=== PATIENT | female | born 1955 | race Caucasian/White ===

== ENCOUNTER 2019-11-14 14:04 | Outpatient (CLI) | payer OTHER, SELFPAY ==
[2019-11-14 14:57] LABS: Cholesterol 134 mg/dL (0-200); HDL Direct 80 mg/dL; Triglycerides 107 mg/dL (<150)
[2019-11-14 15:00] LABS: Alanine Aminotransferase 32 U/L (4-35); Albumin Level 4.2 g/dL (3.5-5.1); Alkaline Phosphatase 57 U/L (38-126); Aspartate Amino Transferase 32 U/L (14-36); Bilirubin,Total 0.4 mg/dL (0.2-1.3); Blood Urea Nitrogen 12 mg/dL (7-17); Calcium 10.4 mg/dL (8.4-10.2); Carbon Dioxide 30 mmol/L (22-30); Chloride 105 mmol/L (98-107); Estimated Glomerular Filt Rate > 60; Glucose 86 mg/dL (65-105); Sodium 138 mmol/L (137-145)
[2019-11-14 15:08] LABS: LDL Cholesterol Direct 45 mg/dL
== END 2019-11-14 14:05 | disposition home or self-care (01) ==
PROVIDERS: PCP Internal Medicine; Visit Provider Internal Medicine
DX: E78.2 Mixed hyperlipidemia (principal); Z79.899 Other long term (current) drug therapy
CPT/HCPCS: 36415; 80053; 80061

== ENCOUNTER 2020-01-08 10:55 | Outpatient (CLI) | payer OTHER, SELFPAY ==
[2020-01-08 11:29] LABS: Alanine Aminotransferase 34 U/L (4-35); Albumin Level 4.3 g/dL (3.5-5.1); Alkaline Phosphatase 60 U/L (38-126); Aspartate Amino Transferase 33 U/L (14-36); Bilirubin,Total 0.3 mg/dL (0.2-1.3); Blood Urea Nitrogen 13 mg/dL (7-17); Calcium 9.9 mg/dL (8.4-10.2); Carbon Dioxide 30 mmol/L (22-30); Chloride 106 mmol/L (98-107); Cholesterol 130 mg/dL (0-200); Estimated Glomerular Filt Rate > 60; Glucose 97 mg/dL (65-105); HDL Direct 71 mg/dL; Potassium 3.9 mmol/L (3.4-5.0); Sodium 138 mmol/L (137-145); Triglycerides 169 mg/dL (<150)
[2020-01-08 11:40] LABS: LDL Cholesterol Direct 46 mg/dL
== END 2020-01-08 10:56 | disposition home or self-care (01) ==
PROVIDERS: PCP Internal Medicine; Visit Provider Internal Medicine
DX: Z79.899 Other long term (current) drug therapy (principal); E78.2 Mixed hyperlipidemia
CPT/HCPCS: 36415; 80053; 80061

== ENCOUNTER → 2020-04-23 08:52 | Outpatient (CLI) | payer OTHER, SELFPAY ==
--- NOTE | ~2020-04-23 | DEXA_ITS ---
Bone Density Report Name: Frederick Rondon Age: 64 Sex: Female Ethnicity: White Date of : 1955 Indication: monitoring treatment; height loss; hysterectomy; Referring Provider: Marcie, Anusha Chand Study: Bone densitometry was performed. Exam Date: April 23, 2020 Accession number: [id number] Bone Density: Region BMD T-score Z-score Classification AP Spine (L1, L2, L3) 1.170 1.4 2.9 Normal Femoral Neck (Left) 0.828 -0.2 1.2 Normal Total Hip (Left) 1.080 1.1 2.2 Normal Femoral Neck (Right) 0.870 0.2 1.6 Normal Total Hip (Right) 1.131 1.5 2.6 Normal Total Hip Mean 1.106 1.3 2.4 Normal World Health Organization criteria for BMD impression classify patients as: Normal (T-score at or above -1.0), Osteopenia (T-score between -1.0 and -2.5), or Osteoporosis (T-score at or below -2.5). 10-year Fracture Risk: FRAX not reported because: All T-scores for Spine Total, Hip Total, Femoral Neck at or above -1.0 Treated for osteoporosis Previous Exams: Region Exam Age BMD T-score BMD Change BMD Change Date g/cm2 vs Baseline vs Previous AP Spine(L1, L2, L3) 04/23/2020 64 1.170 1.4 0.083* 0.083* 04/21/2016 60 1.088 0.6 Total Hip(Left) 04/23/2020 64 1.080 1.1 0.020 0.020 04/21/2016 60 1.060 1.0 Total Hip(Right) 04/23/2020 64 1.131 1.5 0.028* 0.028* 04/21/2016 60 1.103 1.3 *Denotes significance at 95% confidence level, LSC for AP Spine = 0.022 g/cm2, LSC for Total Hip = 0.027 g/cm2 Clinical Information Provided by Patient: Is being treated for osteoporosis Has used the following medications: HRT (i.e. estrogen/hormone therapy), mtv Has the following medical conditions: Hysterectomy Patient maximum height was 72 Menopause Age: 28 Drinks caffeinated beverages Onset of menses at age 15 Number of children 2 Missed period for more than 6 months in a row Impression: The patient has normal bone mass. No significant bone loss was observed. Discussion: PATIENT UNDER TREATMENT WITH NO SIGNIFICANT BMD LOSS SINCE LAST EXAM. In an untreated patient, BMD typically declines with age. A lack of decline or gain is usually a sign that treatment is efficacious and fracture risk is reduced. It is important to ask patients whether they are taking their medications and to encourage continued and appropriate compliance with their osteoporosis therapies to reduce fracture risk. It is also
--- NOTE | ~2020-04-23 | US_ITS ---
US breast BI complete 04/23/2020 09:43 Indication: Screening. Patient states the breast implants did not allow her to have mammography. [address] ultrasound for cancer screening is not recommended by the [place] [employer] and approp riateness criteria. Recommend bilateral mammogram. Procedure: High-resolution bilateral breast ultrasound Comparison: Comparison to multiple prior studies sequentially, with oldest reviewed study dated 09/2015. Findings: Right breast ultrasound: At 12:00, 5 cm from the nipple, there is an oval circumscribed hypoechoic mass with parallel orientat ion, no posterior features measuring 9 mm maximum dimension. No change. At 1:00, 5 cm from the nipple , there is an oval hypoechoic mass with central echogenicity measuring 7 x 2 x 7 mm. No internal vasc ularity or significant posterior features. This is likely benign intramammary lymph node. Left breast ultrasound: At 12:00, 3 cm from the nipple, there is an oval hypoechoic mass measuring 4 mm without posterior fea tures, internal vascularity and with parallel orientation. At 2:00, 5 cm from the nipple, there is a 4 mm oval hypoechoic mass, likely complicated cysts. At 2:00, 5 cm from the nipple, there is an oval circumscribed hypoechoic mass with parallel orientation, no posterior features measuring 6 mm. At 9:0 0, 4 cm from the nipple, there is a 6 mm oval hypoechoic mass with parallel orientation, no posterior features measuring 5 mm. There is an adjacent 4 mm mass with similar sonographic characteristics. Impression: 1: No significant change to benign-appearing bilateral breast masses. Routine yearly screening mammogram and regular clinical breast examination are recommended. BI-RADS CATEGORY 0 - INCOMPLETE STUDY, NEED ADDITIONAL IMAGING EVALUATION. Reviewed, dictated and finalized at location A. Impression: 1: No significant change to benign-appearing bilateral breast masses. Routine yearly screening mammogram and regular clinical breast examination are recommended. BI-RADS CATEGORY 0 - INCOMPLETE STUDY, NEED ADDITIONAL IMAGING EVALUATION.
== END ==
PROVIDERS: Visit Provider Nurse Practitioner Obstetrics & Gynecology
DX: Z13.820 Encounter for screening for osteoporosis (principal); R92.2 Inconclusive mammogram
CPT/HCPCS: 76641; 77080

== ENCOUNTER 2020-07-12 01:28 | Outpatient (CLI) | payer OTHER, SELFPAY ==
[2020-07-12 18:31] LABS: SARS-CoV-2 RNA PCR Negative
== END 2020-07-12 01:29 | disposition home or self-care (01) ==
LOC: ANHCOVIDDT 01:29
PROVIDERS: PCP Internal Medicine; Visit Provider Surgery
DX: Z01.812 Encounter for preprocedural laboratory examination (principal); Z20.828 Contact with and (suspected) exposure to other viral communicable diseases
CPT/HCPCS: 87635; C9803; U0003

== ENCOUNTER 2020-07-16 02:03 | Day surgery (SDC) | payer OTHER, SELFPAY ==
[2020-07-02 09:09] VITALS: BMI 24.7
[2020-07-16] VITALS (7 sets, daily range): BP systolic 101–148; BP diastolic 59–69; PULSE 58–85; RESP 16–17; TEMP 36.2–36.7; O2SAT 95–100; BMI 24.6
[2020-07-16] MEDS: LACTATED RINGERS 1,000 ML 30 ML IV CONT ×2 (11:07→14:25)
[2020-07-16] MEDS: ACETAMINOPHEN 500 MG TABLET 1000 MG PO (11:08)
[2020-07-16] MEDS: KETOROLAC 15 MG/ML VIAL (*BKC) IV PUSH (11:08)
--- NOTE | 2020-07-16 11:52 | WPDANESEPPF ---
Anes - Initial Pre Proc Eval Procedure: Operation Date: 07/16/20 12:30 Proposed Procedures p Open Incarcerated Incisional Hernia Repair With Mesh - Prabhjot Pringle DO Date/Time: 07/16/20 11:52 Surgeon: Prabhjot Pringle DO Pre Op Diagnosis: Incarcerated Incisional Hernia Patient Data Age: 64 Gender: F Height: 5 ft 10 in Weight: 78 kg Last Vital Signs Temp 36.7 C 07/16/20 10:41 Pulse 58 L 07/16/20 10:41 Resp 16 07/16/20 10:41 BP 122/66 07/16/20 10:41 Pulse Ox 100 07/16/20 10:41 Allergies Allergy/AdvReac Type Severity Reaction Status Date / Time Penicillins Allergy Severe Swelling Verified 07/16/20 10:50 of Lip/Tongue/Throat Sulfa (Sulfonamide Allergy Severe Swelling Verified 07/16/20 10:50 Antibiotics) Home Medications Medication Instructions Recorded Confirmed Type estradiol 1 mg tablet 1 mg PO DAILY 08/14/19 07/16/20 History rosuvastatin 20 mg tablet 20 mg PO DAILY #90 tablet 02/18/20 07/16/20 Rx valacyclovir 500 mg tablet 500 mg PO DAILY #90 tablet 03/18/20 07/16/20 Rx tretinoin 0.1 % topical cream 1 applic TOPICAL 3XW PRN #20 gm 04/23/20 07/16/20 Rx erenumab-aooe 140 mg/mL 140 mg SUB-Q MONTHLY #3 ml 04/28/20 07/16/20 Rx subcutaneous auto-injector zolpidem 10 mg tablet 10 mg PO .COMPLEX PRN #90 tablet 05/12/20 07/16/20 Rx rimegepant 75 mg disintegrating 75 mg PO ONCE PRN #15 tablet 05/21/20 07/16/20 Rx tablet Patient hx anesthesia problems: none Family hx anesthesia problems: none PMFSH Past Medical History Medical History BMI 25.0-25.9,adult Elevated homocysteine Encounter for preventive health examination Encounter for routine adult health examination without abnormal findings Hormone replacement therapy (HRT) Hyperlipidemia Insomnia Migraine On half-way drug therapy Pyelonephritis Umbilical hernia Surgical History Surgical History History of appendectomy History of back surgery History of bilateral breast implants History of hysterectomy History of neck surgery History of tonsillectomy Social History Social History Smoking status: Never smoker Alcohol intake: current Substance use: never Living arrangements: with family 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 Questions were solicited and answers provided to the satisfaction of the patient/family/POA.
--- NOTE | 2020-07-16 13:14 | WPDHPUPDATE1 ---
History and Physical Update Update Date/Time: 07/16/20 13:14 History and Physical has been reviewed, including an updated exam of the patient. There are NO changes in the patient's condition. Risks, benefits, and alternatives have been discussed and questions answered. Patient agrees to proceed with procedure.
[2020-07-16] MEDS: CLINDAMYCIN 900 MG/D5W 50 ML 900 MG/50 ML PIGGYBACK 50 MG IVPB (13:29)
--- NOTE | 2020-07-16 13:31 | SUR.PREOP ---
1315; PT STATES SHE DOES NOT NEED TO VOID AGAIN PRIOR TO SURGERY. DR PRUITT NOTIFIED.
--- NOTE | 2020-07-16 13:58 | SUR.OPER ---
Mesh Parietex [id number] Lot [id number], Exp 2024-09-14 umbilical
--- NOTE | 2020-07-16 14:20 | PM.PROC ---
Procedure Note - Detailed Date of procedure: 07/16/20 Pre-op diagnosis: Incarcerated Incisional Hernia Post-op diagnosis: same Procedure performed: Incarcerated incisional hernia repair with Parietex ventral patch Description of procedure: Procedure as well as risks, benefits, and alternatives were discussed with the patient. Written consent was obtained and placed in chart prior to procedure. Patient was brought back to surgical suite. She was placed supine on operating table. She was then intubated by Anesthesia Department. Her abdomen was prepped and draped in sterile fashion using chlorhexidine prep. 0.25% bupivacaine with epinephrine was infiltrated locally around the operative area. A 4 cm curvilinear incision was made just superior to the umbilicus using a 15 blade scalpel. Electrocautery was used for hemostasis and for dissection down through the subcutaneous fat. Hernia sac was encountered and this was carefully freed up from surrounding subcutaneous fat using electrocautery. The hernia sac was freed up all the way down to the level of the fascia, and then it was transected using electrocautery. The hernia sac was excised and sent to the lab for pathology. The umbilical stalk was then lifted off of the fascia with electrocautery. The hernia defect was then measured. This was measuring approximately 10 mm. The decision was made to use a 6.6 cm Parietex ventral patch. The peritoneum was cleared under the fascia circumferentially around the hernia using blunt dissection and electrocautery. Once a wide enough pocket was created for the mesh, the mesh was then placed within this preperitoneal pocket and laid out flat centered on the hernia defect. The mesh appeared to be sitting in proper position. The mesh was then secured at the 4 corners using 0 Ethibond U-stitch trans fascial sutures. Once all 4 sutures were placed, the mesh was lifted up against the abdominal wall and appeared to be properly centered on the hernia defect. The fascia of the hernia defect was then reapproximated over the mesh using 0 Ethibond [id number] sutures. The 4 transfascial sutures were then tied down in place. The repair was inspected and appeared secure. 0.5% bupivacaine with epinephrine was infiltrated around the fascia and subcutaneous space. The umbilical stalk was then reapproximated to the fascia using a 3 0 Vicryl simple interrupted suture. The deep dermis was reapproximated using 3 0 Vicryl simple interrupted sutures, and then the skin was approximated using 4 Monocryl running subcuticular suture. Exofin glue was then applied on top. The patient was then awakened from anesthesia, extubated, and transferred to recovery. Implants: 6.6 cm Parietex Ventral Patch Anesthesia: GETA and local (0.25% bupivacaine with epinephrine) Surgeon: Prabhjot Pringle DO Estimated blood loss (mL): 5 Pathology: yes (Hernia sac) Complications: No immediate complications Condition: stable Disposition: same day Findings: This is a 64-year-old woman who presents with pain and a bulge near her umbilicus. She noticed this about 2 months ago and notices pain that radiates off to the right side of her umbilicus and right lower abdomen. She was noted to have a hernia causing protrusion of the upper portion of her umbilical skin. She has had prior laparoscopic cholecystectomy and hysterectomy and this hernia is likely at a port site. Discussions were made with the patient about her treatment options and decision was made to proceed with open incarcerated incisional hernia repair, possible mesh. Open incarcerated incisional hernia repair was performed. Patient was found to have a 1 cm hernia defect located just superior to her umbilical stalk. The hernia sac was excised and sent to the lab for pathology. The hernia appeared to be incarcerated with omentum and preperitoneal fat. A preperitoneal pocket was created for the mesh placement and a 6.6 cm Parietex ventral patch was alise
== END 2020-07-16 16:00 | disposition home or self-care (01) ==
PROVIDERS: PCP Internal Medicine; Visit Provider Surgery
PROC: 0WQF0ZZ Repair Abdominal Wall, Open Approach (ICD-10-PCS; CPT 49561; principal; 2020-07-16 12:30)
DX: K43.0 Incisional hernia with obstruction, without gangrene (principal); E78.5 Hyperlipidemia, unspecified
CPT/HCPCS: 49561; 49568; 87635; 88302; A9270; C1781; C9803; J1100; J1885; J2250; J2405; J2704; J2710; J3010; J7120; U0003

== ENCOUNTER 2021-03-03 08:01 | Outpatient (CLI) | payer BC, SELFPAY ==
--- NOTE | ~2021-03-03 | US_ITS ---
EXAMINATION: US thyroid EXAM DATE: 03/03/2021 08:20 INDICATION: E83.52 - Hypercalcemia. TECHNIQUE: Multiple grayscale and Doppler images of the thyroid were obtained (by a technologist who performed the scan) and subsequently reviewed. Individual nodules and recommendations may be reporte d in accordance with TI-RADS system as designated by the 2017 ACR White Paper TI-RADS committee. The re is no prior study for comparison. FINDINGS: Right thyroid lobe measures 6.4 x 1.4 x 1.7 cm, the left measuring 5.2 x 0.9 x 1.5 cm. There is relat ively homogeneous thyroid echogenicity with expected amount of vascularity. There are some scattered small thyroid nodules, largest in the right there are lobe measuring 1.2 x 0.6 x 0.9 cm, mixed cystic and solid (1 point), hypoechoic (2 points), wider than tall, smooth well defined margin, without ech ogenic foci, category TR3 for this nodule. Several other nodules much smaller. IMPRESSION: Thyromegaly with several small nodules. Return to clinical follow-up and if additional p alpable abnormality develops a repeat ultrasound can be obtained. Reviewed, dictated and finalized at location A. IMPRESSION: Thyromegaly with several small nodules. Return to clinical follow- up and if additional palpable abnormality develops a repeat ultrasound can be o btained.
== END 2021-03-03 08:02 ==
PROVIDERS: PCP Internal Medicine; Visit Provider Internal Medicine
DX: E83.52 Hypercalcemia (principal); E01.0 Iodine-deficiency related diffuse (endemic) goiter
CPT/HCPCS: 76536

== ENCOUNTER 2021-03-09 09:36 | Outpatient (CLI) | payer BC, SELFPAY ==
--- NOTE | ~2021-03-09 | NM_ITS ---
EXAMINATION: NM parathyroid w imaging DATE: 03/09/2021 13:45 INDICATION: Iodine deficiency relatively diffuse and demonstrate goiter. TECHNIQUE: 19.5 mCi Tc99m sestamibi (Cardiolite) was administered by intravenous route. Anterior imag es of the neck were obtained at 10 minutes and 2.4 hours. Additional delayed SPECT images were obtain ed in axial, sagittal and coronal planes. COMPARISON: Ultrasound dated 03/03/2021 FINDINGS/IMPRESSION: There is no focus of persistent activity in the area of the thyroid or mediastinum to suggest parathy roid adenoma. Reviewed, dictated and finalized at location A.
== END 2021-03-09 09:37 | disposition home or self-care (01) ==
PROVIDERS: PCP Internal Medicine; Visit Provider Internal Medicine
DX: E01.0 Iodine-deficiency related diffuse (endemic) goiter (principal); R93.89 Abnormal findings on diagnostic imaging of other specified body structures
CPT/HCPCS: 78070; A9500

== ENCOUNTER 2021-09-30 08:16 | Outpatient (CLI) | payer OTHER, SELFPAY ==
--- NOTE | ~2021-09-30 | XR_ITS ---
EXAMINATION: XR hip BI 2V w AP pelvis DATE: 09/30/2021 08:51 INDICATION: Left hip pain. TECHNIQUE: An anteroposterior view of the pelvis and 2 views of each hip were obtained. COMPARISON: None. FINDINGS: There is dextrocurvature of lumbar spine. There are changes of anterior fusion procedure at L4-L5. No fracture. There is mild right hip osteoarthritis characterized by a tiny marginal osteophy te. Left hip joint space is normal. IMPRESSION: 1. Mild right hip osteoarthritis. Reviewed, dictated and finalized at location A. ICIAN SURGEON
== END 2021-09-30 08:17 | disposition home or self-care (01) ==
PROVIDERS: PCP Internal Medicine; Visit Provider Internal Medicine
DX: M25.552 Pain in left hip (principal); M16.11 Unilateral primary osteoarthritis, right hip
CPT/HCPCS: 73521

== ENCOUNTER → 2021-10-17 10:30 | Outpatient (CLI) | payer OTHER, SELFPAY ==
--- NOTE | ~2021-10-17 | MR_ITS ---
EXAMINATION: MR hip LT wo con DATE: 10/17/2021 11:35 INDICATION: Left hip pain. TECHNIQUE: Magnetic resonance imaging (MRI) of the left hip was performed without intravenous contras t. Sequences included axial and coronal PD-weighted FS FSE and axial T1-weighted FSE of the pelvis. S equences of the hip included 2D FIESTA, T1-weighted fast GRE, and axial, coronal, and sagittal PD-yogi ghted FS FSE. COMPARISON: Pelvis and hip radiographs 09/30/2021 FINDINGS: Bones/cartilage: Bone alignment is normal. There are changes of anterior fusion procedure at L4-L5 with interbody sarah claudia. Small [id number]-[id number] images of left hip demonstrate partial thickness cartilage loss, worst super olaterally. Labrum: There is a tear of the left acetabular labrum. Fluid: There is no hip joint effusion. There is mild bilateral trochanteric bursitis. Soft tissues: There is mild tendinopathy of left hamstring origin. The iliopsoas tendons are normal. The gluteus mi nimus and gluteus medius tendons are normal. IMPRESSION: 1. Mild left hip chondrosis. 2. Left acetabular labral tear. 3. Mild tendinopathy of left hamstring origin. Reviewed, dictated and finalized at location A. NOLOGY INSTRUCTOR
== END ==
PROVIDERS: PCP Internal Medicine; Visit Provider Orthopaedic Surgery
DX: M25.552 Pain in left hip (principal); M25.852 Other specified joint disorders, left hip; S73.192A Other sprain of left hip, initial encounter
CPT/HCPCS: 73721

== ENCOUNTER 2021-10-29 12:22 | Outpatient (CLI) | payer OTHER, SELFPAY ==
--- NOTE | ~2021-10-29 | US_ITS ---
US pelvic complete w TV DATE: 10/29/2021 13:16 INDICATION: Abdominal and pelvic swelling, mass. History of hysterectomy. TECHNIQUE: Real-time imaging via transabdominal and transvaginal approaches COMPARISON: None FINDINGS: The uterus is surgically absent. The right ovary measures 4.5 x 4.2 x 3.6 cm, with vascular flow. There are 2 sonolucent lesions consi stent with cysts, measuring up to 3.8 cm and 1.6 cm. The left ovary is not visualized. No free pelvic fluid collection is noted. IMPRESSION: Status post hysterectomy Left ovary is not visualized 3.8 and 1.6 cm right ovarian cysts Reviewed, dictated and finalized at Location A. Reviewed, dictated and finalized at location A.
== END 2021-10-29 12:23 | disposition home or self-care (01) ==
LOC: ANHIMG 12:28
PROVIDERS: PCP Internal Medicine; Visit Provider Internal Medicine
DX: N83.201 Unspecified ovarian cyst, right side (principal)
CPT/HCPCS: 76830; 76856

== ENCOUNTER 2021-11-11 10:35 | Outpatient (CLI) | payer OTHER, SELFPAY ==
--- NOTE | 2021-11-11 10:30 | ECG_ITS ---
Measurements Intervals [place] Rate: 52 P: 39 IA: 153 QRS: -30 QRSD: 100 T: 0 QT: 450 QTc: 419 Interpretive Statements SINUS BRADYCARDIA LOW-VOLTAGE QRS PRECORDIAL LEADS BORDERLINE ECG COMPARED TO ECG 04/15/2019 03:36:28 SINUS BRADYCARDIA NOW PRESENT Electronically Signed On 11-11-2021 13:42:07 CDT by Chalo Alanis M.D.
== END 2021-11-11 10:36 | disposition home or self-care (01) ==
LOC: ANHSURGERY 10:39
PROVIDERS: PCP Internal Medicine; Visit Provider Obstetrics & Gynecology
DX: Z01.818 Encounter for other preprocedural examination (principal); N83.209 Unspecified ovarian cyst, unspecified side; E78.5 Hyperlipidemia, unspecified; R00.1 Bradycardia, unspecified
CPT/HCPCS: 36415; 86850; 86900; 86901; 93005

== ENCOUNTER 2021-11-18 01:25 | Day surgery (SDC) | payer OTHER, SELFPAY ==
[2021-11-09 14:00] VITALS: BMI 24.3
--- NOTE | 2021-11-09 14:18 | PC.NURSE ---
Report to the Outpatient Waiting Room, entrance under the green pavilion located off [facility], at time 11:30 on date 11/18/21. OR Time: 1:30. - You and your visitor will be asked a series of questions to screen for COVID 19 for your protection. - A mask is required within the hospital. One visitor will be allowed to accompany the patient into the hospital. Patients visitor will be instructed to remain with patient at all times or leave the building. We will allow the visitor to come back to the postoperative area when patient is ready. Preoperative COVID Testing Requirements: No COVID Test needed if: (proof is required; if not received patient will have Rapid Test prior to entry) - Patient has received COVID Vaccine at least 14 days prior to procedure date or - Patient has positive COVID test result within last 90 days of surgery date. COVID Test needed if above criteria is not met Patients may have clear liquids (water, carbonated beverages, clear teas, apple juice) until 3 hours prior to surgery (10:30) with a maximum of 20 ounces. - No food from midnight until time of surgery Take the following medications with a SIP of water the morning of surgery: NONE Medications to discontinue per physician: N/A Date to take last dose: N/A Please no make-up, nail citizen of [place], hairspray, perfume, deodorant, or body powder the day of surgery. No jewelry (including any body piercings) or valuables the day of surgery, leave them at home. Please take a shower or bath the night before, or the morning of, surgery with an antibacterial soap. Wear comfortable, loose fitting clothing. - Jewelry must be removed prior to entering the operating room. Rings and piercings that are not removed may be cut off. - The hospital will not accept responsibility for valuables. - Please leave all valuables, including medications, at home the day of surgery. If you are going home after surgery, a licensed commercial trailer truck driver must drive you home. - NO public transportation without another adult. - We recommend that an adult stay with you for 24 hours following discharge. - We also recommend that you do not drive, make important decision, drink alcoholic beverages, or take any drugs that were not prescribed by your health care provider for at least 24 hours after your discharge time. Follow any additional instructions given to you from your surgeon. Telephone instructions given to JARAD OBRIEN and asked if any additional questions and then verbalized understanding. Patient advised to call surgeon office or pre surgery nurse liaison [phone] if any additional questions.
[2021-11-18] VITALS (15 sets, daily range): BP systolic 109–134; BP diastolic 60–87; PULSE 57–85; RESP 14–16; TEMP 36.1–36.9; O2SAT 93–100
[2021-11-18] MEDS: LACTATED RINGERS 1,000 ML 30 ML IV CONT ×3 (11:30→17:13)
[2021-11-18] MEDS: KETOROLAC 15 MG/ML VIAL (*BKC) IV PUSH (11:46)
--- NOTE | 2021-11-18 13:16 | WPDANESEPPF ---
Anes - Initial Pre Proc Eval Procedure: Operation Date: 11/18/21 13:00 Proposed Procedures p Laparoscopic Right Salpingo-oophorectomy - Miller Gamboa MD Date/Time: 11/18/21 13:16 Surgeon: Miller Gamboa MD Pre Op Diagnosis: Pain, Rt Ovarian Cyst Patient Data Age: 66 Gender: F Height: 1.78 m Weight: 78.7 kg Last Vital Signs Temp 36.9 C 11/18/21 11:37 Pulse 65 11/18/21 11:37 Resp 16 11/18/21 11:37 BP 111/67 11/18/21 11:37 Pulse Ox 100 11/18/21 11:37 Allergies Allergy/AdvReac Type Severity Reaction Status Date / Time Penicillins Allergy Severe Swelling Verified 11/18/21 11:13 of Lip/Tongue/Throat Sulfa (Sulfonamide Allergy Severe Swelling Verified 11/18/21 11:13 Antibiotics) acetaminophen AdvReac Migraine Verified 11/18/21 11:37 Home Medications Medication Instructions Recorded Confirmed Type estradiol 1 mg tablet 1 mg PO HS 08/14/19 11/18/21 History rimegepant 75 mg disintegrating 75 mg PO ONCE PRN #16 tablet 02/19/21 11/18/21 Rx tablet valacyclovir 500 mg tablet See Rx Instructions .ROUTE 09/04/21 11/18/21 Rx .COMPLEX #90 tablet erenumab-aooe 140 mg/mL See Rx Instructions .ROUTE 10/19/21 11/18/21 Rx subcutaneous auto-injector .COMPLEX #3 ml rosuvastatin 20 mg tablet See Rx Instructions .ROUTE 10/19/21 11/18/21 Rx .COMPLEX #90 tablet zolpidem 10 mg tablet 10 mg PO QHS #90 tablet 10/20/21 11/18/21 Rx meloxicam 15 mg tablet 15 mg PO DAILY #30 tablet 10/21/21 11/18/21 Rx Patient hx anesthesia problems: none Family hx anesthesia problems: none Results Review: All pre-operative results and documents have been reviewed as part of the pre-operative evaluation. [facility] Past Medical History Medical History BMI 23.0-23.9, adult BMI 24.0-24.9, adult BMI 25.0-25.9,adult Elevated homocysteine Encounter for preventive health examination Encounter for routine adult health examination without abnormal findings Hormone replacement therapy (HRT) Hypercalcemia Hyperlipidemia Insomnia Left hip pain Migraine On [facility] drug therapy Onychomycosis of great toe Ovarian cyst Pelvic mass in female Pre-diabetes Pyelonephritis Thyroid nodule Umbilical hernia Vitamin D deficiency Surgical History Surgical History History of appendectomy History of back surgery History of bilateral breast implants History of hysterectomy History of incisional hernia repair 07/16/20 Incarcerated incisional hernia repair with Parietex ventral patch History of neck surgery History of tonsillectomy Social History Social History Smoking status: Never smoker Alcohol intake: current Alcohol use details: 2/MONTH Substance use: never Substance use type: does not use Living arrangements: with family 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 Informed Consent: The patient's anesthetic plan and its attendant risks and benefits were discussed with the patient/family/POA. Questions were solicited and answers provided to the satisfaction of the patient/family/POA.
--- NOTE | 2021-11-18 13:21 | PM.IMHP ---
H&P: HPI History of Present Illness Date/Time: 11/18/21 13:21 66 y/o with two right adnexal cysts. She desires surgical excision of the right adnexa. Chief Complaint: Ovarian cyst Review of Systems Review of Systems: All systems reviewed & are unremarkable except as noted in HPI and below PMFSH Past Medical History Medical History BMI 23.0-23.9, adult BMI 24.0-24.9, adult BMI 25.0-25.9,adult Elevated homocysteine Encounter for preventive health examination Encounter for routine adult health examination without abnormal findings Hormone replacement therapy (HRT) Hypercalcemia Hyperlipidemia Insomnia Left hip pain Migraine On care home drug therapy Onychomycosis of great toe Ovarian cyst Pelvic mass in female Pre-diabetes Pyelonephritis Thyroid nodule Umbilical hernia Vitamin D deficiency Surgical History Surgical History History of appendectomy History of back surgery History of bilateral breast implants History of hysterectomy History of incisional hernia repair 07/16/20 Incarcerated incisional hernia repair with Parietex ventral patch History of neck surgery History of tonsillectomy Social History Social History Smoking status: Never smoker Alcohol intake: current Alcohol use details: 2/MONTH Substance use: never Substance use type: does not use Living arrangements: with family 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 Gender identity (if verbalized by the patient): Female Spiritual care concerns: No Meds Home Medications and Allergies Home Medications Medication Instructions Recorded Confirmed Type estradiol 1 mg tablet 1 mg PO HS 08/14/19 11/18/21 History rimegepant 75 mg disintegrating 75 mg PO ONCE PRN #16 tablet 02/19/21 11/18/21 Rx tablet valacyclovir 500 mg tablet See Rx Instructions .ROUTE 09/04/21 11/18/21 Rx .COMPLEX #90 tablet erenumab-aooe 140 mg/mL See Rx Instructions .ROUTE 10/19/21 11/18/21 Rx subcutaneous auto-injector .COMPLEX #3 ml rosuvastatin 20 mg tablet See Rx Instructions .ROUTE 10/19/21 11/18/21 Rx .COMPLEX #90 tablet zolpidem 10 mg tablet 10 mg PO QHS #90 tablet 10/20/21 11/18/21 Rx meloxicam 15 mg tablet 15 mg PO DAILY #30 tablet 10/21/21 11/18/21 Rx Allergies Allergy/AdvReac Type Severity Reaction Status Date / Time Penicillins Allergy Severe Swelling Verified 11/18/21 11:13 of Lip/Tongue/Throat Sulfa (Sulfonamide Allergy Severe Swelling Verified 11/18/21 11:13 Antibiotics) acetaminophen AdvReac Migraine Verified 11/18/21 11:37 Vital Signs Vital Signs - 24 hr 11/18/21 11:37 Temperature 36.9 C Pulse Rate 65 Respiratory Rate 16 Blood Pressure 111/67 Pulse Oximetry 100 Exam Const: Orientation/consciousness: patient oriented x3 Other: Well-developed, well-nourished female in no acute distress. Neck: Thyroid: thyroid normal Lymphatic: no lymphadenopathy noted (in neck, axilla or inguinal nodes) Resp: Effort & Inspection: normal respiratory effort Auscultation: clear to auscultation bilaterally Cardio: Rate: regular rate Rhythm: regular rhythm Heart sounds: S1 normal heart sound present and S2 normal heart sound present GI: Other: ABD: Soft, nontender, nondistended. No guarding or rebound tenderness. No hepatosplenomegaly. : General: Yes no CVA tenderness Other: External genitalia: normal female hair distribution, without lesion. Urethral meatus: no lesion, non prolapsed. Bladder: no mass, nontender Vagina: well-estrogenized, without lesion or discharge. No cystocele or rectocele. Cervix: no lesion or discharge. Uterus: small, anteverted, freely mobile, nontender Adnexa: no mass or tenderness. Anus/perineum: no lesions, nontender Back/Spine/Pelvis: Back: no CVA tenderness Skin: General skin ex
--- NOTE | 2021-11-18 13:24 | WPDHPUPDATE1 ---
History and Physical Update Update Date/Time: 11/18/21 13:24 History and Physical has been reviewed, including an updated exam of the patient. There are NO changes in the patient's condition. Risks, benefits, and alternatives have been discussed and questions answered. Patient agrees to proceed with procedure.
--- NOTE | 2021-11-18 14:27 | W.PM.PROC2 ---
Procedure Note - Detailed Date of Procedure 11/18/21 Pre-op Diagnosis Pain Right adnexal cystic mass Post-op Diagnosis Same Procedure Performed Laparoscopic RSO Surgeon Miller Gamboa MD Anesthesia General Findings Uterus surgically absent. Multicystic right ovarian mass, with associated tubal remnant. Left ovary absent. Description of Procedure The patient was taken to the operating room where general endotracheal anesthesia was administered. She was prepared and draped in the usual sterile fashion in the dorsal lithotomy position. The bladder was drained with a red rubber catheter. A sponge stick was placed into the vagina. Gloves were changed and attention was turned to the abdomen. A supraumbilical skin incision was made with a scalpel. The abdomen was tented and a 5 millimeter bladeless trocar trocar was advanced under direct laparoscopic visualization. Pneumoperitoneum was administered using carbon dioxide gas. A second, 11 mm port was placed in the left lower quadrant, and a 5 mm port on the right, both using bladeless trocars under direct laparoscopic visualization. A survey of the pelvis and abdomen yielded the findings noted above. The right ureter was identified. Adhesions to the right adnexa were sharply dissected to free it up. Then the infundibulopelvic ligament was ligated and transected using Ligasure. An endobag was advanced and the right adnexa specimen was passed off to be sent to pathology. The pedicle was irrigated and inspected. Hemostasis was excellent. The trocars were withdrawn and the gas was allowed to escape. The left lower quadrant fascia was reapproxmated using 0 vicryl in two interrupted figure of eight sutures. The skin incisions were reapproximated using 4-0 Vicryl in interrupted subcuticular fashion. Dermaflex was applied externally. The vaginal sponge stick was withdrawn. Sponge, lap, needle and instrument counts were correct. The patient was awakened and taken to recovery in stable condition. I was present and scrubbed through the entire procedure. Implants None Estimated Blood Loss 5 Drains No Packing No Pathology Yes (Right adnexa) Complications None Condition Stable Disposition PACU
[2021-11-18] MEDS: fentaNYL CITRATE INJ (*CRX) 100 MCG/2 ML VIAL 25 MCG IV PUSH ×9 (15:20→17:50)
--- NOTE | 2021-11-18 16:09 | WPDANESEFPP ---
Anes - Eval Final PreProcedure Day of Procedure 11/18/21 16:09 Patient weight: normal Heart: regular rate and rhythm Lungs: clear to auscultation Airway: Mallampati scale class II Neurological: alert and oriented Last oral intake: >/= 8 hours ASA classification: II Emergent: yes Anesthetic plan: proceed Anesthesia type and monitoring: general ETT and standard monitoring Results Review: All pre-operative results and documents have been reviewed as part of the pre-operative evaluation. Informed Consent: The patient's anesthetic plan of GA with ETT for return to OR for post-op abdominal hematoma evacuation and its attendant risks and benefits were discussed with the patient/family/POA. Questions were solicited and answers provided to the satisfaction of the patient/family/POA.
--- NOTE | 2021-11-18 16:10 | P.PNOB_ITS ---
EMBEDDED DEVELOPER - A/P Time Spent With Patient Time with patient: less than 15 minutes EMBEDDED DEVELOPER- PN:Subj Post-Op Subjective Date/time seen: 11/18/21 16:10 Called to see patient in recovery room. She is having increased pain. AVSS ABD soft but distended near the left lower quadrant incision, suggestive of superficial hematoma. Incisions c/d/i. A: Likely hematoma at trocar site. P: Return to OR for diagnostic laparoscopy, evacuation of hematoma. Discussed with patient. Also discussed with her , who agrees and consents to surgery. EMBEDDED DEVELOPER - PN: Obj Data Vital Signs Vital Signs: Vital Signs - 24 hr 11/18/21 11:37 11/18/21 14:35 11/18/21 14:50 Temperature 36.9 C 36.1 C L Pulse Rate 65 67 66 Respiratory Rate 16 14 14 Blood Pressure 111/67 133/78 134/85 Pulse Oximetry 100 98 100 11/18/21 15:05 11/18/21 15:21 11/18/21 15:35 Temperature Pulse Rate 67 65 64 Respiratory Rate 14 14 14 Blood Pressure 123/75 119/77 114/78 Pulse Oximetry 100 95 95 11/18/21 15:50 Temperature Pulse Rate 57 L Respiratory Rate 14 Blood Pressure 124/87 Pulse Oximetry 93 Intake/Output Intake/Output: Intake & Output 11/15/21 11/16/21 11/17/21 11/18/21 23:59 23:59 23:59 23:59 Intake Total 100 Output Total 15 Balance 85 Meds/Results Medications: Active Medications Generic Name Dose Route Start Last Admin Trade Name Freq PRN Reason Stop Dose Admin Fentanyl Citrate 25 mcg 11/18/21 13:22 11/18/21 15:55 Fentanyl Citrate Inj (*Crx) 100 Mcg/2 Ml Vial IV PUSH 25 mcg Q2M PRN Administration Pain Lactated Ringer's 1,000 mls @ 30 mls/hr 11/18/21 13:20 11/18/21 14:55 Lr - Lactated Ringers Iv IV CONT Infused .Q24H MIKA Infusion Lactated Ringer's 1,000 mls @ 30 mls/hr 11/18/21 13:25 11/18/21 14:56 Lr - Lactated Ringers Iv IV CONT 30 mls/hr .Q24H MIKA Administration Ondansetron HCl 4 mg 11/18/21 13:22 Ondansetron Inj 4 Mg/2 Ml Vial IV PUSH ONCE PRN Nausea Oxycodone HCl 5 mg 11/18/21 13:22 Oxycodone Hcl (*Crx) 5 Mg Tab Ir PO ONCE PRN Pain
[2021-11-18] MEDS: ceFAZolin SODIUM 1 GM VIAL 2 GM IV PUSH (16:39)
--- NOTE | 2021-11-18 17:09 | W.PM.PROC2 ---
Procedure Note - Detailed Date of Procedure 11/18/21 Pre-op Diagnosis Postoperative abdominal wall hematoma Post-op Diagnosis Same Procedure Performed Diagnostic laparoscopy Evacuation of superficial abdominal wall hematoma Surgeon Miller Gamboa MD Anesthesia General Findings On laparoscopy, the surgical pedicle was hemostatic. The LLQ incision site demonstrated a large hematoma. When opened, 300mL blood was noted. Description of Procedure The patient was taken to the operating room where general endotracheal anesthesia was administered. She was prepared and draped in the usual sterile fashion in the dorsal lithotomy position. The bladder was drained with a red rubber catheter. Gloves were changed and attention was turned to the abdomen. The supraumbilicall skin incision was reopened with a scalpel. The abdomen was tented and a 5 millimeter bladeless trocar trocar was advanced under direct laparoscopic visualization. Pneumoperitoneum was administered using carbon dioxide gas. A survey of the pelvis and abdomen yielded the findings noted above. The LLQ incision was reopened and 300mL blood evacuated. Bleeding was cauterized and hemostasis excellent. An additional interrupted suture of 0 vicryl was used to bolster the fascial repair. A second look was taken with the laparoscope, and hemostasis was still excellent in the peritoneal cavity. The gas was allowed to escape and the trocar was withdrawn. Hemaderm was applied to the LLQ incision site. The skin incisions were reapproximated using 4-0 monocryl in subcuticular fashion. Dermaflex was applied externally. The vaginal instrumentation was withdrawn and hemostasis was excellent here as well. Sponge, lap, needle and instrument counts were correct. The patient was awakened and taken to recovery in stable condition. I was present and scrubbed through the entire procedure. I spoke at length with her . Implants None Estimated Blood Loss 300 Drains No Packing No Pathology None sent Complications None Condition Stable Disposition PACU
== END 2021-11-18 19:20 | disposition home or self-care (01) ==
PROVIDERS: PCP Internal Medicine; Visit Provider Obstetrics & Gynecology
PROC: (CPT 49320; principal; 2021-11-18 13:00)
DX: D27.0 Benign neoplasm of right ovary (principal); N73.6 Female pelvic peritoneal adhesions (postinfective); R10.2 Pelvic and perineal pain; E78.5 Hyperlipidemia, unspecified; E55.9 Vitamin D deficiency, unspecified; R73.03 Prediabetes
CPT/HCPCS: 58661; 88305; A9270; J0330; J0690; J1100; J1885; J2250; J2405; J2704; J3010; J7120

== ENCOUNTER 2021-11-26 11:00 | Outpatient (RCR) | payer OTHER, SELFPAY ==
--- NOTE | 2021-10-28 13:40 | PTOPEVAL ---
PHYSICAL THERAPY EVALUATION and PLAN OF CARE Thank you for referring Frederick Rondon to [facility] [place] The patient is scheduled to be seen for therapy? 2x/week for 4 weeks. Please review, sign, date and return this plan of care BRAD. I agree with and certify that the following plan of care is medically necessary. Referring Physician Date Attending Provider: Kiel Gomez MD Evaluation Outpatient Past Medical History Cardiovascular History Hx Hypercholesterolemia Yes Gastrointestinal History Hx Appendectomy Yes Hx Hernia Yes Musculoskeletal History Hx Spinal Surgery Yes: Neck and low back. 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 Feels like a sharp knife in the back of her hip. MRI shows inflammation and strain of the tendon. Just finished a steroid back which seems to have helped some of the pain. She is also taking an anti-inflammatory. Sitting is generally the most painful and increased activity can increase symptoms but overall her symptoms are improved from initially. She has been off work since this injury. Self Report Pain Assessment Right Hip(s) Reported Pain Level 4 Pain Description Aching,Sharp Lowest Pain Intensity 4 Greatest Pain Intensity 8 Pain Score Pain Score 4: Self Report Interventions Used Interventions Used By Clinicians Exercise,Heat,Manual Therapy Techniques Pain Relief Interventions Used By Ice,Inactivity/Rest,Medication Patient Lower Extremity Muscle Strength Testing Hip Strength Right Hip Flexion Strength 5 Normal Hip Extension Strength 4+ Good + Hip Abduction Strength 4+ Good + Left Hip Flexion Strength 4 Good Hip Extension Strength
--- NOTE | 2021-11-09 11:14 | PCPTNOTE ---
Patient will not be able to attend previously scheduled appointment on 11/19 due to an unrelated surgery on 11/18. We will continue care otherwise as planned and at re-assessment will determine if further visits are needed.
--- NOTE | 2021-11-19 11:57 | PCPTNOTE ---
Patient called & cancelled scheduled appointment this date due to having scheduled surgery.
--- NOTE | 2021-11-26 11:52 | PTOPEVAL ---
PHYSICAL THERAPY UPDATE Thank you for referring Frederick Rondon to [facility].? I recommend follow up with physician for further evaluation before PT proceeds. Please review, sign, date and return this plan of care BRAD. I agree with and certify that the following plan of care is medically necessary. Referring Physician Date Attending Provider: Kiel Gomez MD Diagnosis left hip pain Onset 09/24/21 Subjective Information Continues to have severe pain in the left hip and points to between greater trochanter and ischial tuberosity. States that she can sit for no longer than 10minutes and stabbing pain start. Extending her knee causes an stabbing pain. She cannot walk long distances and she has to take shorter steps. She states that pain is generally a 5-6/10 opposed to an 8/10. Self Report Pain Assessment Left Hip(s) Reported Pain Level 5 Pain Description Aching,Sharp Pain Score Pain Score 5: Self Report Interventions Used Interventions Used By Clinicians Exercise,Taping,Ultrasound Pain Relief Interventions Used By Ice,Inactivity/Rest,Medication Patient Lower Extremity Muscle Strength Testing Hip Strength Right Hip Flexion Strength 5 Normal Hip Extension Strength 4+ Good + Hip Abduction Strength 4+ Good + Left Hip Flexion Strength 3+ Fair + Hip Extension Strength 3 Fair Hip Abduction Strength 3- Fair - Hip Strength Comments reports significant pain with MMT and movement against gravity; patient is barely able to resist any pressure due to severe pain with attempt Knee Strength Left Knee Flexion Strength 3+ Fair + Knee Extension Strength 3+ Fair + Knee Strength Comments reports significant pain with MMT and points to left greater trochanter Palpation Assessment non-tender ischial tuberosity; patient is very sensitive to even light touch over the area between greater trochanter and ischial tuberosity PT Clinical Summary Frederick is a 66 yo female presenting to outpatient physical therapy 2 month s/p injury to left hip resulting in tendinopathy at left greater trochanter. She has been participating in physical therapy for 1 month receiving ultrasound treatmnet, kinesio taping treatment, and provided with exercises to promote muscle activation and appropriate biomechanics.
--- NOTE | 2021-12-23 08:41 | PCPTNOTE ---
PHYSICAL THERAPY DISCHARGE NOTIFICATION Attending Provider: Kiel Gomez MD Patient:Frederick Rondon Date of :1955 Frederick was participating in physical therapy for left hamstring strain and greater trochanteric bursitis. She participated in 8 visits without significant change in function or symptoms. She followed up with referring physician and she was referred to another specialist. She will be discharged at this time. Patient?s initial visit was on 10/28/2021nd had a total of 8 visits. Thank you for referring this patient to [facility]. Please review, sign, date and return this discharge summary BRAD. I have been updated about the patient's current status and I agree with discharge from the above service at this time. Referring Physician Date
== END 2021-12-23 13:59 | disposition home or self-care (01) ==
LOC: ANHPT 11:00
PROVIDERS: PCP Internal Medicine; Visit Provider Orthopaedic Surgery
DX: S76.012D Strain of muscle, fascia and tendon of left hip, subsequent encounter (principal); S76.319D Strain of muscle, fascia and tendon of the posterior muscle group at thigh level, unspecified thigh, subsequent encounter
CPT/HCPCS: 97035; 97110; 97112; 97140; 97162; 97530

== ENCOUNTER 2021-12-07 06:37 | Outpatient (CLI) | payer OTHER, SELFPAY ==
--- NOTE | ~2021-12-07 | MR_ITS ---
EXAMINATION: MR ankle LT wo con DATE: 12/07/2021 07:53 INDICATION: Joint pain at the left foot and ankle TECHNIQUE: Magnetic resonance imaging (MRI) of the left ankle was performed without intravenous contr ast. Sequences included sagittal, coronal, and axial proton-density weighted fast spin echo without a nd with fat saturation. COMPARISON: None. FINDINGS: Medial ankle ligaments: Deep and superficial deltoid ligaments as well as the spring ligament are normal. Lateral ankle ligaments: The anterior and posterior inferior tibiofibular ligaments are normal. The anterior talofibular, calc aneofibular and posterior talofibular ligaments are normal. Tendons: Achilles tendon is normal. The peroneus longus and brevis tendons are normal. The tibialis anterior a nd extensor hallucis longus and extensor digitorum longus tendons are normal. The tibialis posterior, flexor digitorum longus and flexor hallucis longus tendons are normal. Plantar fascia: Small plantar calcaneal spur. Plantar enthesopathy with prominent thickening and mild increased signa l of the central component of the plantar aponeurosis. No significant surrounding edema to suggest ac [place] plantar fasciitis. Bones/other: Bone alignment is normal. Small low signal intensity bone island at the anterior process of the calca neus. Otherwise normal marrow signal throughout with no fracture, reactive edema or pathologic marrow replacing process. Joint spaces appear normal. No erosions. Fluid: Physiologic amount fluid in the joint spaces. Small amount of fluid along the tibialis posterior tend on sheath consistent with mild tenosynovitis. No other abnormal fluid collections. IMPRESSION: 1. Moderate chronic plantar enthesopathy. 2. Mild tibialis posterior tenosynovitis with normal appearing tendon. Reviewed, dictated and finalized at location B.
== END 2021-12-07 06:38 | disposition home or self-care (01) ==
LOC: ANHIMG 06:44
PROVIDERS: PCP Internal Medicine; Visit Provider Orthopaedic Surgery
DX: M25.572 Pain in left ankle and joints of left foot (principal); G89.29 Other chronic pain; M77.8 Other enthesopathies, not elsewhere classified; M65.872 Other synovitis and tenosynovitis, left ankle and foot
CPT/HCPCS: 73721

== ENCOUNTER 2022-10-19 11:01 | Outpatient (CLI) | payer MEDICARE, SELFPAY ==
--- NOTE | ~2022-10-19 | NM_ITS ---
EXAMINATION: NM parathyroid w imaging DATE: 10/19/2022 14:24 INDICATION: Increased serum ionized calcium. TECHNIQUE: 16.9 mCi Tc99m sestamibi (Cardiolite) was administered by intravenous route. Anterior imag es of the neck were obtained at 10 minutes and 3 hours. COMPARISON: 03/09/2021 FINDINGS/IMPRESSION: No interval change with no focus of persistent activity in the area of the thyroid or mediastinum to suggest parathyroid adenoma. Reviewed, dictated and finalized at location A. E SHOOTER
== END 2022-10-19 11:02 | disposition home or self-care (01) ==
PROVIDERS: PCP Internal Medicine; Visit Provider Internal Medicine
DX: E01.0 Iodine-deficiency related diffuse (endemic) goiter (principal); R93.89 Abnormal findings on diagnostic imaging of other specified body structures; Z79.899 Other long term (current) drug therapy
CPT/HCPCS: 78070; A9500

== ENCOUNTER 2022-10-21 09:38 | Outpatient (CLI) | payer MEDICARE, SELFPAY ==
--- NOTE | ~2022-10-21 | US_ITS ---
Thyroid ultrasound. Clinical History: Thyroid nodule COMPARISON: 03/03/2021 Findings: Real-time sonography of the thyroid gland was performed. The right lobe measures 5.4 x 1.7 x 1.9 cm. The left lobe measures 4.9 x 1.0 x 1.8 cm. The isthmus is 3 mm in AP diameter. There is a 7 mm mixed solid and cystic nodule at the right midpole. There are several subcentimeter c ystic left thyroid lobe nodules, predominantly at the lower pole. Impression: Subcentimeter thyroid nodules, as noted above. Findings are similar to prior exam. Reviewed, dictated and finalized at location M. ER CLERK Impression: Subcentimeter thyroid nodules, as noted above. Findings are similar to prior ex am.
== END 2022-10-21 09:39 | disposition home or self-care (01) ==
PROVIDERS: PCP Internal Medicine; Visit Provider Internal Medicine
DX: E01.0 Iodine-deficiency related diffuse (endemic) goiter (principal); R93.89 Abnormal findings on diagnostic imaging of other specified body structures
CPT/HCPCS: 76536

== ENCOUNTER 2023-01-01 13:46 | Emergency (ER) | payer MEDICARE, SELFPAY ==
--- NOTE | ~2023-01-01 | XR_ITS ---
EXAM: XR hand RT 2V DATE: 01/01/2023 14:51 HISTORY: right thumb injury . COMPARISON: None available. FINDINGS: Normal mineralization. No fracture or dislocation. No lytic or blastic lesion. Mild scatte red degenerative changes. No erosion or periosteal change. Soft tissues within normal limits. IMPRESSION: No acute osseous finding in the right hand. Reviewed, dictated and finalized at location K.
[2023-01-01 13:52] VITALS: BP 121/81; PULSE 75; RESP 16; TEMP 36.6; O2SAT 100
--- NOTE | 2023-01-01 14:54 | ED.GENADULT ---
HPI - General Adult General Chief complaint: Wound/Laceration Stated complaint: right thumb laceration Time Seen by Provider: 01/01/23 14:14 History of Present Illness HPI narrative: Frederick Rondon is a 67 y/o female who presents with reports of accidentally cutting her right thumb with a razor while stripping paint about an hour ago. She reports that she could not get it to stop bleeding and wrapped it up. Denies any pain unless it is touched. She denies any numbness/tingling to her thumb. Related Data Home Medications Medication Instructions Recorded Confirmed estradiol 1 mg tablet 1 mg PO HS 08/14/19 10/01/22 [id number]-[id number]-ixjzbacb 250 2 tablet PO BID PRN 09/30/22 10/01/22 mg-250 mg-65 mg tablet (Excedrin Migraine) Allergies Allergy/AdvReac Type Severity Reaction Status Date / Time Penicillins Allergy Severe Swelling Verified 01/01/23 13:47 of Lip/Tongue/Throat Sulfa (Sulfonamide Allergy Severe Swelling Verified 01/01/23 13:47 Antibiotics) acetaminophen AdvReac Migraine Verified 01/01/23 13:47 Review of Systems Review of Systems: CONSTITUTIONAL: Denies fever, chills, or sweats. EYES: Denies visual changes, redness, or discharge. ENT: Denies rhinorrhea, congestion, sore throat, or otalgia. CARDIOVASCULAR: Denies chest pain, palpitations, or edema. RESPIRATORY: Denies cough or dyspnea. GASTROINTESTINAL: Denies abdominal pain, nausea, vomiting, or diarrhea. GENITOURINARY: Denies dysuria or hematuria. SKIN: no rash MUSCULOSKELETAL: Denies back pain, joint pain, laceration to right thumb NEUROLOGIC: Denies headache, numbness, dizziness, or weakness. PSYCHIATRIC: Denies anxiety or depression. [facility] Past Medical History Medical History BMI 23.0-23.9, adult BMI 24.0-24.9, adult BMI 25.0-25.9,adult Cold sore Dry cough Elevated homocysteine Encounter for preventive health examination Encounter for routine adult health examination without abnormal findings Hormone replacement therapy (HRT) Hypercalcemia Hyperlipidemia Insomnia Left hip pain Migraine On usp drug therapy Onychomycosis of great toe Oral thrush Ovarian cyst Pelvic mass in female Poison oak dermatitis Pre-diabetes Pyelonephritis Thyroid nodule Umbilical hernia Urinary tract infection without hematuria Vitamin D deficiency Surgical History Surgical History History of appendectomy History of back surgery History of bilateral breast implants History of hysterectomy History of incisional hernia repair 07/16/20 Incarcerated incisional hernia repair with Parietex ventral patch History of neck surgery History of tonsillectomy Social History Social History Smoking status: Never smoker Second hand tobacco smoke exposure: No Alcohol intake: current Alcohol use details: 2/MONTH Substance use: never Substance use type: does not use Lack of Transportation: No Lack of Food: Never True Current Housing: I Have Housing Concerned About Future Housing: No Difficulty Paying Gas/Electric Bills: No Difficulty Paying for Meds: No Currently Unemployed: No Education: Bachelor's Degree Difficulty w/ Childcare or Family Care: No Living arrangements: with family Occupation/Education: occupation 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 HEAD: Normocephalic, atraumatic. EYES: PERRLA and EOMI. ENT: Nares clear, no rhinorrhea or epistaxis. Mucous membranes moist. Oropharynx without tonsillar hypertrophy exudate or other lesions. Bilateral TMs pearly ovalle nonbulging NECK: Supple. No adenopathy or masses. No carotid bruits or JVD CHEST: Clear to au
[2023-01-01] MEDS: NAPROXEN 500 MG TABLET PO (15:03)
[2023-01-01] MEDS: TETANUS,DIPHTHERIA,AC PERTUSSIS ADULT (0.5 ML) BOOSTRIX IM (15:04)
== END 2023-01-01 15:57 | disposition home or self-care (01) ==
PROVIDERS: Emergency Provider Nurse Practitioner Family; PCP Internal Medicine
DX: S61.011A Laceration without foreign body of right thumb without damage to nail, initial encounter (principal); Z23 Encounter for immunization; E78.5 Hyperlipidemia, unspecified; R73.03 Prediabetes; E55.9 Vitamin D deficiency, unspecified; Z87.440 Personal history of urinary (tract) infections; Z90.710 Acquired absence of both cervix and uterus; Z79.84 Long term (current) use of oral hypoglycemic drugs; W27.8XXA Contact with other nonpowered hand tool, initial encounter
CPT/HCPCS: 12001; 73120; 90471; 90715; 99283; A9270

== ENCOUNTER 2023-01-24 14:15 | Emergency (ER) | payer MEDICARE, SELFPAY ==
[2023-01-24 14:16] VITALS: BP 122/68; PULSE 73; RESP 14; TEMP 36.3; O2SAT 100
--- NOTE | 2023-01-24 14:38 | ED.GENADULT ---
HPI - General Adult General Chief complaint: Dental/Oral Stated complaint: dental pain Time Seen by Provider: 01/24/23 14:28 Source: patient Mode of arrival: ambulatory Limitations: no limitations History of Present Illness HPI narrative: This is a 67-year-old female who presents to the ED with chief complaint of dental pain onset x2 weeks. Patient states that she had several molars extracted by her regular dentist at the end of December. Reports having 2 left upper molars and 1 right lower molar extracted. Since then she has been having consistent pain. She has contacted her dentist multiple times and states she has only received antibiotics with minimal relief. States she called her PCP who referred her here to the ER for further evaluation. She states that she has been having some neck stiffness along with a dental pain now. Reports subjective fevers. Denies chills, nausea, vomiting, headache, Related Data Home Medications Medication Instructions Recorded Confirmed estradiol 1 mg tablet 1 mg PO HS 08/14/19 10/01/22 [id number]-iytjzznobslcx-plocwods 250 2 tablet PO BID PRN 09/30/22 10/01/22 mg-250 mg-65 mg tablet (Excedrin Migraine) Allergies Allergy/AdvReac Type Severity Reaction Status Date / Time Penicillins Allergy Severe Swelling Verified 01/24/23 14:43 of Lip/Tongue/Throat Sulfa (Sulfonamide Allergy Severe Swelling Verified 01/24/23 14:43 Antibiotics) acetaminophen AdvReac Migraine Verified 01/24/23 14:43 Review of Systems Review of Systems: CONSTITUTIONAL: Denies fever, chills, or sweats. EYES: Denies visual changes, redness, or discharge. ENT: See HPI CARDIOVASCULAR: Denies chest pain, palpitations, or edema. RESPIRATORY: Denies cough or dyspnea. GASTROINTESTINAL: Denies abdominal pain, nausea, vomiting, or diarrhea. GENITOURINARY: Denies dysuria or hematuria. SKIN: Denies rash or itching. MUSCULOSKELETAL: Denies back pain, joint pain, or myalgia. NEUROLOGIC: Denies headache, numbness, dizziness, or weakness. PSYCHIATRIC: Denies anxiety or depression. [facility] Past Medical History Medical History BMI 23.0-23.9, adult BMI 24.0-24.9, adult BMI 25.0-25.9,adult Cold sore Dry cough Elevated homocysteine Encounter for preventive health examination Encounter for routine adult health examination without abnormal findings Hormone replacement therapy (HRT) Hypercalcemia Hyperlipidemia Insomnia Left hip pain Migraine On ch[facility] drug therapy Onychomycosis of great toe Oral thrush Ovarian cyst Pelvic mass in female Poison oak dermatitis Pre-diabetes Pyelonephritis Thyroid nodule Umbilical hernia Urinary tract infection without hematuria Vitamin D deficiency Surgical History Surgical History History of appendectomy History of back surgery History of bilateral breast implants History of hysterectomy History of incisional hernia repair 07/16/20 Incarcerated incisional hernia repair with Parietex ventral patch History of neck surgery History of tonsillectomy Social History Social History Smoking status: Never smoker Second hand tobacco smoke exposure: No Alcohol intake: current Alcohol use details: 2/MONTH Substance use: never Substance use type: does not use Lack of Transportation: No Lack of Food: Never True Current Housing: I Have Housing Concerned About Future Housing: No Difficulty Paying Gas/Electric Bills: No Difficulty Paying for Meds: No Currently Unemployed: No Education: Bachelor's Degree Difficulty w/ Childcare or Family Care: No Living arrangements: with family Occupation/Education: occupation 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
[2023-01-24] MEDS: oxyCODONE HCL (*CRX) 5 MG TAB IR 2.5 MG PO (15:13)
[2023-01-24] MEDS: KETOROLAC 30 MG/ML VIAL (*BKC) IM (15:14)
[2023-01-24 15:25] LABS: Basophils Absolute Auto 0.1 K/mm3 (0.0-0.1); Eosinophils Absolute Auto 0.2 K/mm3 (0-0.3); Eosinophils Percent Auto 4.3 % (0-4.4); Hematocrit 35.9 % (37.0-47.0); Hemoglobin 11.4 g/dL (12.0-15.0); Immature Granulocyte Absolute 0.03 K/mm3 (0.00-0.031); Immature Granulocyte Percent A 0.6 % (0-0.5); Lymphocytes Absolute Auto 1.37 K/mm3 (0.9-3.2); Mean Corpuscular HGB Conc 31.8 g/dl (32-36); Mean Corpuscular Hemoglobin 27.9 pg (26-34); Mean Platelet Volume 8.6 fl (7.4-10.4); Monocytes Absolute Auto 0.6 K/mm3 (0.1-0.6); Monocytes Percent Auto 12.2 % (2.6-8.5); Neutrophils Absolute Auto 2.8 K/mm3 (1.3-6.7); Neutrophils Percent Auto 54.9 % (45.5-73.1); Platelet Count Result 355 k/mm3 (150-375); Red Blood Count 4.08 M/mm3 (4.2-5.4); Red Cell Distribution Width 12.4 % (11.5-14.5); White Blood Count 5.1 K/mm3 (4.5-10.0)
[2023-01-24 15:36] LABS: Alanine Aminotransferase 33 U/L (6-35); Albumin Level 4.2 g/dL (3.5-5.1); Alkaline Phosphatase 56 U/L (38-126); Anion Gap 4 mmol/L (8-16); Aspartate Amino Transferase 36 U/L (14-36); Bilirubin,Total 0.4 mg/dL (0.2-1.3); Blood Urea Nitrogen 11 mg/dL (7-17); Calcium 10.1 mg/dL (8.4-10.2); Carbon Dioxide 29 mmol/L (22-30); Chloride 105 mmol/L (98-107); Estimated CRCL calculation 64 ml/min; Estimated Glomerular Filt Rate > 60; Glucose 99 mg/dL (65-110); Potassium 4.1 mmol/L (3.4-5.0); Sodium 138 mmol/L (137-145)
== END 2023-01-24 16:41 | disposition home or self-care (01) ==
PROVIDERS: Emergency Provider Physician Assistant; PCP Internal Medicine
DX: K08.89 Other specified disorders of teeth and supporting structures (principal); E78.5 Hyperlipidemia, unspecified; E55.9 Vitamin D deficiency, unspecified; R73.03 Prediabetes; Z87.440 Personal history of urinary (tract) infections; Z79.82 Long term (current) use of aspirin; Z90.710 Acquired absence of both cervix and uterus; Z79.84 Long term (current) use of oral hypoglycemic drugs
CPT/HCPCS: 36415; 64999; 80053; 85025; 96372; 99283; A9270; J1885

== ENCOUNTER 2023-05-04 08:50 | Outpatient (CLI) | payer MEDICARE, SELFPAY ==
--- NOTE | ~2023-05-04 | XR_ITS ---
EXAMINATION: XR chest 2V DATE: 05/04/2023 10:10 INDICATION: Chronic cough TECHNIQUE: PA and lateral views of the chest are obtained. COMPARISON: 04/14/2019 FINDINGS: The lungs are free of acute opacities. No pleural effusion or pneumothorax. The cardiomedia stinal silhouette is normal. There is moderate thoracic spondylosis. Bilateral breast implants are no renny. There are partially imaged surgical changes of the lower cervical spine. A moderate-sized hiatal hernia is noted. IMPRESSION: 1. No acute cardiopulmonary abnormality. 2. Moderate-sized hiatal hernia. Reviewed, dictated and finalized at location B.
--- NOTE | ~2023-05-04 | XR_ITS ---
EXAMINATION: XR sinus min 3V DATE: 05/04/2023 10:10 INDICATION: Other specified disorders of nose and nasal sinuses TECHNIQUE: PA, submental, Hahn, open-mouth Hahn and lateral and lateral views of the nasal bones were obtained. COMPARISON: None. FINDINGS: No fractures identified. Specifically the visualized barajas of the orbits and paranasal sinuses appea r intact. Nasal septum is midline. No nasal bone fracture identified. No mucosal thickening or air- fluid levels identified within the paranasal sinuses. Mastoid air cells appear well-aerated. Postoper ative change along the anterior mid to lower cervical spine which could represent combination of inst rumented anterior spinal fusions and possible C5-C6 and prosthetic disc. IMPRESSION: 1. Unremarkable maxillofacial bones and paranasal sinuses. Reviewed, dictated and finalized at location A.
[2023-05-04 10:21] LABS: Basophils Absolute Auto 0.1 K/mm3 (0.0-0.1); Basophils Percent Auto 0.7 % (0.2-1.2); Eosinophils Absolute Auto 0.3 K/mm3 (0-0.3); Eosinophils Percent Auto 3.8 % (0-4.4); Hematocrit 34.2 % (37.0-47.0); Immature Granulocyte Absolute 0.01 K/mm3 (0.00-0.031); Immature Granulocyte Percent A 0.1 % (0-0.5); Lymphocytes Absolute Auto 1.74 K/mm3 (0.9-3.2); Lymphocytes Percent Auto 24.4 % (18.3-44.2); Mean Corpuscular HGB Conc 29.2 g/dl (32-36); Mean Corpuscular Hemoglobin 22.9 pg (26-34); Mean Corpuscular Volume 78.3 fl (80-100); Mean Platelet Volume 9.7 fl (7.4-10.4); Monocytes Percent Auto 13.4 % (2.6-8.5); Neutrophils Absolute Auto 4.1 K/mm3 (1.3-6.7); Neutrophils Percent Auto 57.6 % (45.5-73.1); Platelet Count Result 489 k/mm3 (150-375); Red Blood Count 4.37 M/mm3 (4.2-5.4); White Blood Count 7.1 K/mm3 (4.5-10.0)
[2023-05-04 10:40] LABS: Ovalocytes 2+ (NORMAL); Platelet Estimate Increased (Adequate)
[2023-05-04 10:41] LABS: Schistocytes None Seen (NORMAL)
[2023-05-04 11:01] LABS: RSV RNA, RT-PCR Negative (Negative)
== END 2023-05-04 08:51 | disposition home or self-care (01) ==
PROVIDERS: PCP Internal Medicine; Visit Provider Internal Medicine
DX: R05.3 Chronic cough (principal); J32.9 Chronic sinusitis, unspecified; J34.89 Other specified disorders of nose and nasal sinuses; K44.9 Diaphragmatic hernia without obstruction or gangrene
CPT/HCPCS: 36415; 70220; 71046; 85025; 87634; 87798

== ENCOUNTER 2023-06-20 06:53 | Day surgery (SDC) | payer MEDICARE, SELFPAY ==
[2023-05-11 14:09] VITALS: BMI 22.8
[2023-05-12 08:59] VITALS: BMI 22.8
--- NOTE | 2023-06-17 13:47 | PM.HPGS ---
History of Present Illness History of Present Illness Consent: Risks, benefits, and alternatives have been discussed and questions answered. Patient agrees to proceed with procedure. Chief complaint: MICA, Precipitous Drop in Hematocrit Narrative: Frederick Rondon is a 67 year old female referred for investigation of anemia blood counts have been dropping in hemoglobin is now down to 10. MCV is also somewhat low at 78. Review of Systems Review of Systems: All systems reviewed & are unremarkable except as noted in HPI and below PMFSH Past Medical History Medical History BMI 22.0-22.9, adult BMI 23.0-23.9, adult BMI 24.0-24.9, adult BMI 25.0-25.9,adult Cold sore Dry cough Elevated homocysteine Encounter for Medicare annual wellness exam Encounter for preventive health examination Encounter for routine adult health examination without abnormal findings Hormone replacement therapy (HRT) Hypercalcemia Hyperlipidemia Insomnia Left hip pain Migraine On longterm drug therapy Onychomycosis of great toe Oral thrush Ovarian cyst Pelvic mass in female Poison oak dermatitis Pre-diabetes PTSD (post-traumatic stress disorder) Pyelonephritis Thyroid nodule Umbilical hernia Urinary tract infection without hematuria Vitamin D deficiency Surgical History Surgical History History of appendectomy History of back surgery History of bilateral breast implants History of hysterectomy History of incisional hernia repair 07/16/20 Incarcerated incisional hernia repair with Parietex ventral patch History of neck surgery History of tonsillectomy Social History Social History Smoking status: Never smoker Second hand tobacco smoke exposure: No Alcohol intake: current Alcohol use details: 2/MONTH Substance use: never Substance use type: does not use Lack of Transportation: No Lack of Food: Never True Current Housing: I Have Housing Concerned About Future Housing: No Difficulty Paying Gas/Electric Bills: No Difficulty Paying for Meds: No Currently Unemployed: No Education: Bachelor's Degree Difficulty w/ Childcare or Family Care: No Living arrangements: with family Occupation/Education: occupation 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 Gender identity (if verbalized by the patient): Female Spiritual care concerns: No Meds Home Medications and Allergies Home Medications Medication Instructions Recorded Confirmed Type erenumab-aooe 140 mg/mL See Rx Instructions .Route 10/19/21 06/20/23 Rx subcutaneous auto-injector .COMPLEX #3 mL (Aimovig Autoinjector) grfelts-quqnqegsjgecw-kkuaxjfu 250 2 tablet PO BID PRN Migraine 09/30/22 06/20/23 History mg-250 mg-65 mg tablet (Excedrin Headache Migraine) gabapentin 600 mg tablet See Rx Instructions .Route 04/04/23 06/20/23 Rx .COMPLEX #180 tabs metformin 500 mg tablet,extended See Rx Instructions .Route 04/04/23 06/20/23 Rx release 24 hr .COMPLEX #180 tabs ondansetron 8 mg disintegrating 8 mg PO Q8H PRN nausea and 04/20/23 06/20/23 Rx tablet vomiting #30 tabs zolpidem 10 mg tablet 10 mg PO QHS #30 tabs 04/22/23 06/20/23 Rx rosuvastatin 20 mg tablet See Rx Instructions .Route 04/25/23 06/20/23 Rx .COMPLEX #90 tabs valacyclovir 500 mg tablet See Rx Instructions .Route 04/26/23 06/20/23 Rx .COMPLEX #90 tabs azelastine 137 mcg (0.1 %) nasal 1 spray intranasal Q12H #30 mL 05/04/23 06/20/23 Rx spray aerosol Allergies Allergy/AdvReac Type Severity Reaction Status Date / Time Penicillins Allergy Severe Swelling Verified 06/20/23 08:18 of Lip/Tongue/Throat Sulfa (Sulfonamide Allergy Severe Swelling Verified 06/20/23 08:18 Antibiotics) acetaminophen AdvReac Migraine Verified 06/20/23 08:18 Exam Resp: Auscultation: clear t
--- NOTE | 2023-06-20 07:11 | WPDANESEPPF ---
Anes - Initial Pre Proc Eval Procedure: Operation Date: 06/20/23 09:30 Proposed Procedures p Esophagogastroduodenoscopy - Luis M Calixto MD s Diagnostic Colonoscopy - Luis M Calixto MD Date/Time: 06/20/23 07:11 Surgeon: Luis M Calixto MD Pre Op Diagnosis: MICA, Precipitous Drop in Hematocrit Patient Data Age: 67 Gender: F Height: 1.75 m Weight: 70 kg Allergies Allergy/AdvReac Type Severity Reaction Status Date / Time Penicillins Allergy Severe Swelling Verified 06/20/23 08:18 of Lip/Tongue/Throat Sulfa (Sulfonamide Allergy Severe Swelling Verified 06/20/23 08:18 Antibiotics) acetaminophen AdvReac Migraine Verified 06/20/23 08:18 Home Medications Medication Instructions Recorded Confirmed Type erenumab-aooe 140 mg/mL See Rx Instructions .Route 10/19/21 06/20/23 Rx subcutaneous auto-injector .COMPLEX #3 mL (Aimovig Autoinjector) frbqkas-fptgjiembocjx-oeyopapw 250 2 tablet PO BID PRN Migraine 09/30/22 06/20/23 History mg-250 mg-65 mg tablet (Excedrin Headache Migraine) gabapentin 600 mg tablet See Rx Instructions .Route 04/04/23 06/20/23 Rx .COMPLEX #180 tabs metformin 500 mg tablet,extended See Rx Instructions .Route 04/04/23 06/20/23 Rx release 24 hr .COMPLEX #180 tabs ondansetron 8 mg disintegrating 8 mg PO Q8H PRN nausea and 04/20/23 06/20/23 Rx tablet vomiting #30 tabs zolpidem 10 mg tablet 10 mg PO QHS #30 tabs 04/22/23 06/20/23 Rx rosuvastatin 20 mg tablet See Rx Instructions .Route 04/25/23 06/20/23 Rx .COMPLEX #90 tabs valacyclovir 500 mg tablet See Rx Instructions .Route 04/26/23 06/20/23 Rx .COMPLEX #90 tabs azelastine 137 mcg (0.1 %) nasal 1 spray intranasal Q12H #30 mL 05/04/23 06/20/23 Rx spray aerosol Patient hx anesthesia problems: none Family hx anesthesia problems: none Results Review: All pre-operative results and documents have been reviewed as part of the pre-operative evaluation. [facility] Past Medical History Medical History (Updated 06/20/23 @ 08:48 by Reid Mackay, ) BMI 22.0-22.9, adult BMI 23.0-23.9, adult BMI 24.0-24.9, adult BMI 25.0-25.9,adult Cold sore Dry cough Elevated homocysteine Encounter for Medicare annual wellness exam Encounter for preventive health examination Encounter for routine adult health examination without abnormal findings Hormone replacement therapy (HRT) Hypercalcemia Hyperlipidemia Insomnia Left hip pain Migraine On svp marketing drug therapy Onychomycosis of great toe Oral thrush Ovarian cyst Pelvic mass in female Poison oak dermatitis Pre-diabetes PTSD (post-traumatic stress disorder) Pyelonephritis Thyroid nodule Umbilical hernia Urinary tract infection without hematuria Vitamin D deficiency Surgical History Surgical History History of appendectomy History of back surgery History of bilateral breast implants History of hysterectomy History of incisional hernia repair 07/16/20 Incarcerated incisional hernia repair with Parietex ventral patch History of neck surgery History of tonsillectomy Social History Social History Smoking status: Never smoker Second hand tobacco smoke exposure: No Alcohol intake: current Alcohol use details: 2/MONTH Substance use: never Substance use type: does not use Lack of Transportation: No Lack of Food: Never True Current Housing: I Have Housing Concerned About Future Housing: No Difficulty Paying Gas/Electric Bills: No Difficulty Paying for Meds: No Currently Unemployed: No Education: Bachelor's Degree Difficulty w/ Childcare or Family Care: No Living arrangements: with family Occupation/Education: occupation 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
[2023-06-20 08:23] VITALS: BP 117/81; PULSE 78; RESP 16; TEMP 36.8; O2SAT 100
[2023-06-20] MEDS: LACTATED RINGERS 1,000 ML 150 ML IV CONT (08:32)
[2023-06-20 09:50] VITALS: BP 92/61; PULSE 65; RESP 16; O2SAT 100
[2023-06-20 10:00] VITALS: BP 117/72; PULSE 69; RESP 15; O2SAT 100
[2023-06-20 10:10] VITALS: BP 107/68; PULSE 63; RESP 15; O2SAT 100
--- NOTE | 2023-06-20 13:46 | WPDANESPN ---
Anes - Prog Note Post-Op Date/Time: 06/20/23 13:46 Cardiovascular status: normal Respiratory status: normal Airway patency: baseline Mental status: baseline Post-Op hydration status: normal Vital Signs: Last Vital Signs Temp 36.8 C 06/20/23 08:23 Pulse 63 06/20/23 10:10 Resp 15 06/20/23 10:10 BP 107/68 06/20/23 10:10 Pulse Ox 100 06/20/23 10:10 O2 Del Method Room Air 06/20/23 10:10 Pain Score (VAS): 0 I/O: Intake & Output 06/19/23 06/20/23 06/20/23 23:59 07:59 15:59 Intake Total 600 Balance 600 Post-procedural complaints: none Patient Feedback: Patient satisfied with anesthetic care. Other Findings: Patient vital signs back to baseline. Patient denies nausea and vomiting. Patient's pain under control. Patient OK for discharge.
== END 2023-06-20 10:30 | disposition home or self-care (01) ==
PROVIDERS: PCP Internal Medicine; Visit Provider Internal Medicine Gastroenterology
PROC: 0DJ08ZZ Inspection of Upper Intestinal Tract, Via Natural or Artificial Opening Endoscopic (ICD-10-PCS; CPT 43235; principal; 2023-06-20 09:30)
PROC: 0DJD8ZZ Inspection of Lower Intestinal Tract, Via Natural or Artificial Opening Endoscopic (ICD-10-PCS; CPT 45378; 2023-06-20 09:30)
DX: D50.9 Iron deficiency anemia, unspecified (principal); K57.30 Diverticulosis of large intestine without perforation or abscess without bleeding; K22.2 Esophageal obstruction; K44.9 Diaphragmatic hernia without obstruction or gangrene
CPT/HCPCS: 45378; 43249; 43239

== ENCOUNTER 2023-06-20 07:00 | Outpatient (NON) | payer MEDICARE, SELFPAY | END 2023-06-20 07:01 | disposition home or self-care (01) | PROVIDERS: PCP Internal Medicine; Visit Provider Internal Medicine Gastroenterology | DX: K29.80 Duodenitis without bleeding (principal); K20.80 Other esophagitis without bleeding; D64.9 Anemia, unspecified | CPT/HCPCS: 88305 ==

== ENCOUNTER 2023-06-27 12:29 | Outpatient (CLI) | payer MEDICARE, SELFPAY ==
[2023-06-27 13:05] LABS: Basophils Absolute Auto 0.1 K/mm3 (0.0-0.1); Eosinophils Absolute Auto 0.2 K/mm3 (0-0.3); Eosinophils Percent Auto 3.7 % (0-4.4); Hematocrit 33.1 % (37.0-47.0); Hemoglobin 9.7 g/dL (12.0-15.0); Immature Granulocyte Absolute 0.01 K/mm3 (0.00-0.031); Immature Granulocyte Percent A 0.2 % (0-0.5); Lymphocytes Absolute Auto 1.52 K/mm3 (0.9-3.2); Lymphocytes Percent Auto 29.6 % (18.3-44.2); Mean Corpuscular HGB Conc 29.3 g/dl (32-36); Mean Corpuscular Hemoglobin 21.3 pg (26-34); Mean Corpuscular Volume 72.6 fl (80-100); Mean Platelet Volume 9.8 fl (7.4-10.4); Monocytes Absolute Auto 0.7 K/mm3 (0.1-0.6); Neutrophils Absolute Auto 2.7 K/mm3 (1.3-6.7); Neutrophils Percent Auto 52.5 % (45.5-73.1); Platelet Count Result 381 k/mm3 (150-375); Red Blood Count 4.56 M/mm3 (4.2-5.4); Red Cell Distribution Width 16.7 % (11.5-14.5); White Blood Count 5.1 K/mm3 (4.5-10.0)
[2023-06-27 13:17] LABS: Iron 26 ug/dL (37-170)
[2023-06-27 13:27] LABS: Percent Iron Saturation 6 % (20-50)
[2023-06-27 13:54] LABS: Ferritin 3.45 ng/mL (11.1-264)
[2023-06-27 14:06] LABS: Anisocytosis 1+ (NORMAL); Hypochromasia 1+ (NORMAL); Platelet Estimate Adequate (Adequate); Poikilocytosis 1+ (NORMAL)
[2023-06-27 14:07] LABS: Ovalocytes 1+ (NORMAL); Schistocytes None Seen (NORMAL)
== END 2023-06-27 12:30 | disposition home or self-care (01) ==
LOC: ANHLAB 12:32
PROVIDERS: PCP Internal Medicine; Visit Provider Internal Medicine
DX: D50.9 Iron deficiency anemia, unspecified (principal)
CPT/HCPCS: 36415; 82728; 83540; 83550; 85025

== ENCOUNTER 2023-08-22 14:16 | Outpatient (CLI) | payer MEDICARE, SELFPAY ==
[2023-08-22 14:37] LABS: Basophils Percent Auto 0.7 % (0.2-1.2); Eosinophils Absolute Auto 0.2 K/mm3 (0-0.3); Eosinophils Percent Auto 3.9 % (0-4.4); Hematocrit 40.9 % (37.0-47.0); Hemoglobin 12.7 g/dL (12.0-15.0); Immature Granulocyte Absolute 0.01 K/mm3 (0.00-0.031); Immature Granulocyte Percent A 0.2 % (0-0.5); Lymphocytes Absolute Auto 1.61 K/mm3 (0.9-3.2); Lymphocytes Percent Auto 28.4 % (18.3-44.2); Mean Corpuscular HGB Conc 31.1 g/dl (32-36); Mean Corpuscular Volume 80.4 fl (80-100); Mean Platelet Volume 9.6 fl (7.4-10.4); Monocytes Absolute Auto 0.7 K/mm3 (0.1-0.6); Monocytes Percent Auto 11.6 % (2.6-8.5); Neutrophils Absolute Auto 3.1 K/mm3 (1.3-6.7); Neutrophils Percent Auto 55.2 % (45.5-73.1); Platelet Count Result 339 k/mm3 (150-375); Red Blood Count 5.09 M/mm3 (4.2-5.4); White Blood Count 5.7 K/mm3 (4.5-10.0)
[2023-08-22 15:04] LABS: Iron 34 ug/dL (37-170)
[2023-08-22 15:14] LABS: Percent Iron Saturation 9 % (20-50)
[2023-08-22 15:19] LABS: Anisocytosis 1+ (NORMAL); Ovalocytes 1+ (NORMAL); Platelet Estimate Adequate (Adequate); Poikilocytosis 1+ (NORMAL)
[2023-08-22 15:20] LABS: Schistocytes None Seen (NORMAL)
[2023-08-22 15:39] LABS: Ferritin 7.95 ng/mL (11.1-264)
== END 2023-08-22 14:17 | disposition home or self-care (01) ==
PROVIDERS: PCP Internal Medicine; Visit Provider Internal Medicine
DX: D50.9 Iron deficiency anemia, unspecified (principal)
CPT/HCPCS: 36415; 82728; 83540; 83550; 85025

== ENCOUNTER 2023-09-07 06:39 | Outpatient (CLI) | payer MEDICARE, SELFPAY ==
--- NOTE | ~2023-09-07 | MR_ITS ---
MRI of the left hip Clinical history: Pain Technique: Coronal T1-weighted, T2-weighted, and proton-density fat-sat images, and axial T1-weighted and proton-density fat-sat images were acquired through the pelvis. Coronal T2-weighted images and c oronal, axial, and sagittal proton-density fat-sat images were acquired through the left hip. Follow ing intravenous administration of 15 cc MultiHance gadolinium, T1-weighted fat-sat imaging was perfor med in the axial and coronal planes. COMPARISON: 10/17/2021 Findings: There is no fracture or avascular necrosis. Bone marrow signals of the proximal femora and visualized pelvic bones are unremarkable. Articular cartilage is well preserved. No joint effusion. N o acetabular labral tear identified. Visualized musculature about the pelvis and left hip is unremarkable. No muscle atrophy or edema. Pat ellar tendons are intact. No bursitis. No soft tissue mass or fluid collection. No abnormal postcontrast enhancement identified. IMPRESSION: No significant abnormality evident. Reviewed, dictated and finalized at location . FLUMER
== END 2023-09-07 06:40 | disposition home or self-care (01) ==
PROVIDERS: PCP Internal Medicine; Visit Provider Internal Medicine
DX: S73.192A Other sprain of left hip, initial encounter (principal); M25.552 Pain in left hip
CPT/HCPCS: 73723; A9577

== ENCOUNTER 2023-10-04 08:14 | Outpatient (CLI) | payer MEDICARE, SELFPAY ==
--- NOTE | ~2023-10-04 | XR_ITS ---
EXAMINATION: XR UGIAC w barium swallow DATE: 10/04/2023 09:03 INDICATION: Gastroesophageal reflux disease with esophagitis TECHNIQUE: The patient drank thick barium, gas-producing crystals, and thin barium. A total of 679 fl uoroscopic images of the esophagus, stomach, and proximal small bowel were obtained. Fluoroscopy expo sure time was 1.7 minutes. COMPARISON: None. FINDINGS: Postoperative changes with likely multiple prosthetic discs in the cervical spine. There is premature spillage of contrast into the laryngeal pharynx prior to initiation of the swallow. The esophagus is normal without mass or stricture. Esophageal motility is normal. Moderate-sized sliding-type hiatal hernia. The gastroesophageal junction is positioned approximately 6 cm above level of the diaphragm. There was no gastroesophageal reflux with provocative maneuvers. The stomach is otherwise normal. The proximal small bowel is normal. Capsular calcifications at bilateral breast implants. IMPRESSION: 1. Moderate-sized sliding-type hiatal hernia. No gastroesophageal reflux observed with provocative ma neuvers. 2. Dysphagia with premature spillage of contrast into the laryngeal pharynx prior to initiation of th e swallow. If there is clinical concern for aspiration would consider further evaluation with modifie d swallow study. Reviewed, dictated and finalized at location A. [employer] IMPRESSION: 1. Moderate-sized sliding-type hiatal hernia. No gastroesophageal reflux observ ed with provocative maneuvers. 2. Dysphagia with premature spillage of contrast into the laryngeal pharynx ayden or to initiation of the swallow. If there is clinical concern for aspiration wo uld consider further evaluation with modified swallow study.
== END 2023-10-04 08:15 | disposition home or self-care (01) ==
LOC: ANHIMG 08:16
PROVIDERS: PCP Internal Medicine; Visit Provider Surgery
DX: K21.00 Gastro-esophageal reflux disease with esophagitis, without bleeding (principal); K44.9 Diaphragmatic hernia without obstruction or gangrene; R13.10 Dysphagia, unspecified
CPT/HCPCS: 74246

== ENCOUNTER 2023-10-24 10:31 | Outpatient (CLI) | payer MEDICARE, SELFPAY ==
[2023-10-24 12:12] LABS: Anion Gap 4 mmol/L (8-16); Blood Urea Nitrogen 11 mg/dL (7-17); Carbon Dioxide 30 mmol/L (22-30); Chloride 106 mmol/L (98-107); Estimated Glomerular Filt Rate > 60; Glucose 100 mg/dL (65-110); Potassium 4.3 mmol/L (3.4-5.0); Sodium 140 mmol/L (137-145)
== END 2023-10-24 10:32 | disposition home or self-care (01) ==
LOC: ANHSURGERY 10:34
PROVIDERS: Anesthesiology; PCP Internal Medicine; Visit Provider Surgery
DX: Z01.818 Encounter for other preprocedural examination (principal); R73.03 Prediabetes; K44.9 Diaphragmatic hernia without obstruction or gangrene
CPT/HCPCS: 36415; 80048; 86850; 86900; 86901

== ENCOUNTER 2023-10-27 12:30 | Outpatient (RCR) | payer MEDICARE, SELFPAY ==
--- NOTE | 2023-10-12 15:08 | STOPEVAL1 ---
Assessment and note entered by Anna Carter [employer]LY[employer] LEAD Evaluation Information Assessment Status Evaluation Reported Pain Level Pain Score 0: Self Report Assessment ST Clinical Summary BEDSIDE SWALLOW EVALUATION Patient reports that she recently had a barium swallow study at [facility] and was told that she needed to have a speech therapy evaluation to assess her swallowing. She admits to having trouble swallowing for a long time, having food/pills either hang up in her throat, generally on the left side of her throat, or causing choking. She also reported that she noticed she has to work hard to even swallow water. Patient was diagnosed with hiatal hernia and is having surgery to repair it on November 01; she reports a previous intestinal hernia repair in 2021. Patient admits to gastroesophageal reflux, stating it is under control but then reported occasional/rare reflux that she considered vomiting to the level of the mouth. She was also noted to have had cervical spine repair in the past; she reported in 2014. Results of the upper GI assessment were discussed with patient; results indicated patient had material fall over the base of tongue and enter the pharynx prior to the initiation of the swallow, placing her at risk for aspiration, consistent enough to cause concern. Today the patient consumed water, applesauce, and leda cracker with no signs of aspiration and no other complaints reported. This occurs frequently on outpatient bedside swallow evaluations and is not an indicator for normal swallowing. As a result of the patient's current complaints and in view of the results of the upper GI study, Speech Therapy for instruction of exercise program to improve the strength of the swallow twice weekly for two weeks is recommended. Patient was instructed in the use of head flexion/chin tuck to assist with safe, more comfortable swallowing. Patient used head flexion with testing material and reported she felt less discomfort when swallowing. She will return for additional therapy for two weeks until surgery and therapist will contact her after that to determine need for additional treatment se
--- NOTE | 2023-10-20 09:11 | OPREHPOC ---
Outpatient Therapy Plan of Care This is a Multidisciplinary Plan of Care that may contain components documented by all disciplines (PT, OT, and ST.) ST Problem 1 ST Problem #[address] Goal 1 Goal 1. Patient will demonstrate and voice understanding of the anatomy and physiology of normal vs. abnormal swallow along with compensatory strategies to prevent aspiration and home exercise program to strengthen the muscles for swallowing. Target Visit [address] Problem #[address] Goal 1 Goal 1. Patient will voice and demonstrate good use of head flexion to prevent penetration/aspiration and to allow for safe swallows. 2. Patient will voice and demonstrate good understanding and use of home exercise program for safe swallows. 3. Patient will complete laryngeal elevation and base of tongue retraction exercises x 10 repetitions with good strength in order to improve the strength of the swallow. Target Visit 4
--- NOTE | 2023-10-27 13:27 | STOPDC ---
Assessment and note entered by AMOR Roman Evaluation Information Assessment Status Discharge Reported Pain Level Pain Score 0: Self Report Assessment ST Clinical Summary TREATMENT SUMMARY AND DISCHARGE SUMMARY Patient has been seen for a swallowing evaluation and four treatment sessions focusing on improving the strength of the swallow and safe swallowing guidelines. Therapist instructed the patient on the use of laryngeal adduction, laryngeal elevation, and base of tongue retraction exercises along with hard, effortful swallows in order to improve the safety of the swallow. She was able to complete these exercises with good to excellent strength and effort. By time of discharge, she was able to report that she felt her swallowing had actually improved and that she no longer required swallowing therapy. Additionally she reported that direct therapy for the swallowing along with the guidelines and instruction for the use of head flexion, improved her awareness of how she swallows which also facilitated improved swallowing skills. Patient completed her exercises up to 5-10 repetitions today, all with good to excellent strength and effort. Safe swallowing guidelines including head flexion and focus and attention to task were reviewed. Patient is discharged with all goals achieved. Plan of Care ST Services Indicated No
== END 2023-10-27 14:33 | disposition home or self-care (01) ==
LOC: ANHST 12:30
PROVIDERS: PCP Internal Medicine; Visit Provider Surgery
DX: R13.10 Dysphagia, unspecified (principal)
CPT/HCPCS: 92526; 92610

== ENCOUNTER 2023-11-03 12:00 | Observation (INO) | payer MEDICARE, SELFPAY ==
--- NOTE | 2023-10-24 11:10 | PC.NURSE ---
Addendum entered by Marie Jeong RN 10/24/23 11:31: TAKES GABAPENTIN AT HS WILL NOT NEED TO TAKE MORNING OF SURGERY Original Note: Report to the Outpatient Waiting Room, entrance under the green pavilion located off [facility], at time __0930 on date __11/02/23 . Planned Procedure Time: _1130 . Time changes happen often and if your time is changed the preop area will call you the afternoon before. - You and your visitor will be asked to self-screen and do not enter if you have any COVID symptoms. - A mask is optional within the hospital at this time. Patients may have clear liquids (water, carbonated beverages, clear teas, apple juice) until 3 hours prior to surgery (0830)with a maximum of 20 ounces. -CLEAR LIQUIDS FOR SUPPER THE EVENING PRIOR TO SURGERY Take the following medications with a SIP of water the morning of surgery: ___GABAPENTIN,NURTEC IF NEEDED DO NOT STOP ANY OF YOUR OTHER PRESCRIPTION MEDICATIONS PRIOR TO SURGERY ?EXCEPT THE FOLLOWING Medications to discontinue per physician ___HOLD ALL VITAMINS AND SUPPLEMENTS 3 DAYS PRE OP .LAST DOSE 10/29/23 Please no make-up, nail nepalese, hairspray, perfume, deodorant, or body powder the day of surgery. No jewelry (including any body piercings) or valuables the day of surgery, leave them at home. Please take a shower or bath the night before, or the morning of, surgery with an antibacterial soap. Wear comfortable, loose fitting clothing. Children are encouraged to wear pajamas. - Jewelry must be removed prior to entering the operating room. Rings and piercings that are not removed may be cut off. - The hospital will not accept responsibility for valuables. - Please leave all valuables, including medications, at home the day of surgery. If you are going home after surgery, a licensed shuttle bus driver must drive you home. - NO public transportation without another adult if you receive anesthesia. - We recommend that an adult stay with you for 24 hours following discharge. - We also recommend that you do not drive, make important decision, drink alcoholic beverages, or take any drugs that were not prescribed by your health care provider for at least 24 hours after your discharge time. Follow any additional instructions given to you from your surgeon. If you or anyone in your household have experienced Covid symptoms in the past week, please notify your surgeon or the nurse liaison at the phone number below for possible testing. VERBAL AND WRITTEN instructions given to PATIENT and asked if any additional questions and then verbalized understanding. Patient advised to call surgeon office or pre surgery nurse liaison [phone] if any additional questions.
[2023-10-24 11:32] VITALS: BP 143/83; PULSE 58; RESP 18; TEMP 36.6; O2SAT 100; BMI 24.8
[2023-11-02] VITALS (14 sets, daily range): BP systolic 134–151; BP diastolic 70–84; PULSE 73–86; RESP 12–20; TEMP 36.2–36.5; O2SAT 90–99
[2023-11-02 10:08] LABS: Glucose Point of Care 94 mg/dl (65-105)
[2023-11-02] MEDS: LACTATED RINGERS 1,000 ML 30 ML IV CONT ×2 (10:10→15:44)
--- NOTE | 2023-11-02 11:39 | WPDHPUPDATE1 ---
History and Physical Update Update Date/Time: 11/02/23 11:39 History and Physical has been reviewed, including an updated exam of the patient. There are NO changes in the patient's condition. Risks, benefits, and alternatives have been discussed and questions answered. Patient agrees to proceed with procedure.
--- NOTE | 2023-11-02 11:39 | PM.IMHP ---
H&P: HPI History of Present Illness Date/Time: 11/02/23 11:39 Chief Complaint: GERD, hiatal hernia Narrative: this is a 68-year-old woman who presents for hiatal hernia repair with fundoplication. She has had chronic GERD and was found have large hiatal. She underwent esophageal manometry which showed normal peristalsis. Review of Systems Review of Systems: All systems reviewed & are unremarkable except as noted in HPI and below Constitutional: Constitutional: Denies chills, Denies fever(s), Denies headache(s) and Denies weight loss Eyes: Eyes: Denies change in vision ENT: Denies dizziness, Denies headache(s), Denies neck mass and Denies throat swelling Cardiovascular: Cardiovascular: Denies chest pain, Denies lightheadedness and Denies dyspnea Respiratory: Respiratory: Denies cough, Denies dyspnea and Denies wheezing Gastrointestinal: Gastrointestinal: Denies abdominal pain, Denies change in bowel habits, Denies nausea and Denies vomiting Genitourinary: Genitourinary: Denies hematuria and Denies dysuria Musculoskeletal: Musculoskeletal: Reports as per HPI Integumentary/Breasts: Skin/Breast: Reports as per HPI Neurologic: Denies dizziness and Denies headache(s) Allergic/Immunologic: Allergic/Immunologic: Denies throat swelling and Denies wheezing [facility] Past Medical History Medical History (Updated 10/20/23 @ 13:08 by Car Zavala MD) BMI 22.0-22.9, adult BMI 23.0-23.9, adult BMI 24.0-24.9, adult BMI 25.0-25.9,adult Cold sore Dry cough Elevated homocysteine Encounter for Medicare annual wellness exam Encounter for preventive health examination Encounter for routine adult health examination with abnormal findings Encounter for routine adult health examination without abnormal findings Hiatal hernia Hormone replacement therapy (HRT) Hypercalcemia Hyperlipidemia Insomnia Iron deficiency anemia Labral tear of left hip joint Left hip pain Migraine On longterm drug therapy Onychomycosis of great toe Oral thrush Ovarian cyst Pelvic mass in female Poison oak dermatitis Pre-diabetes PTSD (post-traumatic stress disorder) Pyelonephritis Thyroid nodule Umbilical hernia Urinary tract infection without hematuria Vitamin D deficiency Surgical History Surgical History (Updated 10/31/23 @ 08:40 by Ailin Solitario [employer]) History of ankle surgery (~2022) left History of appendectomy History of back surgery History of bilateral breast implants History of hip surgery History of hysterectomy History of incisional hernia repair 07/16/20 Incarcerated incisional hernia repair with Parietex ventral patch History of neck surgery History of tonsillectomy Family History Family History Other Hypertension Social History Social History (Updated 10/31/23 @ 08:40 by Ailin Solitario CMA) Social History: caffeine use Smoking status: Never smoker Second hand tobacco smoke exposure: No Alcohol intake: current Alcohol use details: 2/MONTH Substance use: never Substance use type: does not use Lack of Transportation: No Lack of Food: Never True Current Housing: I Have Housing Concerned About Future Housing: No Difficulty Paying Gas/Electric Bills: No Difficulty Paying for Meds: No Currently Unemployed: No Education: Bachelor's Degree Difficulty w/ Childcare or Family Care: No Living arrangements: with family Occupation/Education: occupation 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
--- NOTE | 2023-11-02 12:06 | WPDANESEPPF ---
Anes - Initial Pre Proc Eval Procedure: Operation Date: 11/02/23 11:30 Proposed Procedures p Laparoscopic Paraesophageal Hernia Repair with Flash Fundoplication, Davinci Assisted - Prabhjot Pringle DO Date/Time: 11/02/23 12:06 Surgeon: Prabhjot Pringle DO Pre Op Diagnosis: hiatal hernia, gerd Patient Data Age: 68 Gender: F Height: 1.75 m Weight: 75.6 kg Last Vital Signs Temp 97.9 F 10/24/23 11:32 Pulse 58 L 10/24/23 11:32 Resp 18 10/24/23 11:32 BP 143/83 H 10/24/23 11:32 Pulse Ox 100 10/24/23 11:32 O2 Del Method Room Air 10/24/23 11:32 Allergies Allergy/AdvReac Type Severity Reaction Status Date / Time Penicillins Allergy Severe Swelling Verified 11/02/23 10:17 of Lip/Tongue/Throat Sulfa (Sulfonamide Allergy Severe Swelling Verified 11/02/23 10:17 Antibiotics) AND RASH acetaminophen AdvReac Migraine Verified 11/02/23 10:17 NSAIDS (Non-Steroidal AdvReac Migraine Verified 11/02/23 10:17 Anti-Inflamma nut - unspecified AdvReac Migraine Verified 11/02/23 10:17 Home Medications Medication Instructions Recorded Confirmed Type erenumab-aooe 140 mg/mL See Rx Instructions .Route 10/19/21 11/02/23 Rx subcutaneous auto-injector .COMPLEX #3 mL (Aimovig Autoinjector) savchdw-sxsjasgclmgix-jtmkescv 250 4 tablet PO PRN PRN Migraine 09/30/22 11/02/23 History mg-250 mg-65 mg tablet (Excedrin Headache Migraine) metformin 500 mg tablet,extended See Rx Instructions .Route 06/30/23 11/02/23 Rx release 24 hr .COMPLEX #180 tabs pantoprazole 40 mg tablet,delayed 40 mg PO QAM #90 tabs 06/30/23 11/02/23 Rx release zolpidem 10 mg tablet 10 mg PO QHS #30 tabs 10/19/23 11/02/23 Rx valacyclovir 500 mg tablet See Rx Instructions .Route 10/20/23 11/02/23 Rx .COMPLEX #90 tabs ascorbic acid 7.5 mg-vit E 7.5 3 tablet PO DAILY 10/24/23 11/02/23 History unit-biotin 1,250 mcg chewable tablet (Hair,Skin,Nails with Biotin) gabapentin 600 mg tablet 1,200 mg PO HS 10/24/23 11/02/23 History ondansetron 8 mg disintegrating 8 mg PO PRN PRN nausea and vomiting 10/24/23 11/02/23 History tablet rimegepant 75 mg disintegrating 75 mg PO PRN PRN Migraine Headache 10/24/23 11/02/23 History tablet (Nurtec ODT) rosuvastatin 20 mg tablet See Rx Instructions .Route 10/31/23 Rx .COMPLEX #90 tabs Laboratory Tests 11/02/23 10:05 POC Capillary Glucose 94 mg/dl (65-105) Patient hx anesthesia problems: none Family hx anesthesia problems: none Results Review: All pre-operative results and documents have been reviewed as part of the pre-operative evaluation. [facility] Past Medical History Medical History (Updated 10/20/23 @ 13:08 by Car Zavala MD) BMI 22.0-22.9, adult BMI 23.0-23.9, adult BMI 24.0-24.9, adult BMI 25.0-25.9,adult Cold sore Dry cough Elevated homocysteine Encounter for Medicare annual wellness exam Encounter for preventive health examination Encounter for routine adult health examination with abnormal findings Encounter for routine adult health examination without abnormal findings Hiatal hernia Hormone replacement therapy (HRT) Hypercalcemia Hyperlipidemia Insomnia Iron deficiency anemia Labral tear of left hip joint Left hip pain Migraine On snf drug therapy Onychomycosis of great toe Oral thrush Ovarian cyst Pelvic mass in female Poison oak dermatitis Pre-diabetes PTSD (post-traumatic stress disorder) Pyelonephritis Thyroid nodule Umbilical hernia Urinary tract infection without hematuria Vitamin D deficiency Surgical History Surgical History (Updated 10/31/23 @ 08:40 by Ailin Solitario CMA) History of ankle surgery (~2022) left History of appendectomy History of back surgery History of bilateral breast implants History of hip surgery History of hysterectomy History of incisional hernia repair 07/16/20 Incarcerated incisional hernia repair with Parietex ventral patch History of neck s
[2023-11-02] MEDS: ceFAZolin 2 GM/D5W 50 ML 2 GM/50 ML BAG IVPB (12:22)
[2023-11-02] MEDS: BUPIVACAINE/EPINEPHRINE 0.5% 30 ML VIAL INFILTRATE (13:22)
--- NOTE | 2023-11-02 15:45 | W.PM.PROC2 ---
Procedure Note - Detailed Date of Procedure 11/02/23 Pre-op Diagnosis hiatal hernia, gerd Post-op Diagnosis Same (Type III Paraesophageal Hernia, GERD) Procedure Performed Robotic assisted laparoscopic paraesophageal hernia repair with 270 degree fundoplication Surgeon Prabhjot Pringle, DO Anesthesia General and Local (0.5% bupivicaine with epi) Indications This is a 68-year-old woman who presented with chronic GERD and a large hiatal hernia. She had previously undergone EGD which showed evidence of a Schatzki's ring and hiatal hernia. Biopsies confirmed esophagitis. She then underwent esophageal manometry which showed adequate peristalsis to withstand fundoplication. She then also underwent upper GI contrast study which showed a moderate-sized hiatal hernia. Discussions were made with the patient about treatment options and decision was made to proceed with robotic assisted laparoscopic hiatal hernia repair with fundoplication. Findings Patient was found to have a moderate-sized type 3 paraesophageal hiatal hernia with about 1/3 to 1/2 of her stomach protruding up into the mediastinum. The hernia sac was fairly large and was carefully dissected free from within the mediastinum. I then mobilized the esophagus to allow for adequate length into the abdominal cavity for fundoplication. The hernia sac was excised and sent to the lab for pathology. I then chose to close the crura around the esophagus using a 2 0 V lock running permanent suture. I also placed 1 2-0 Ethibond simple interrupted suture anteriorly. A 270 degree fundoplication was then performed. No other intra-abdominal abnormalities were noted. Description of Procedure Procedure as well as risks, benefits, and alternatives were discussed with the patient. Written consent was obtained and placed in chart prior to procedure. Patient was brought back to surgical suite. She was placed supine on operating table. Time-out was done to confirm patient and procedure. She was then intubated by the anesthesia department. Her abdomen was prepped and draped in sterile fashion using chlorhexidine prep. 0.5% bupivacaine with epinephrine was infiltrated locally around each area for port placement. An 8 mm incision was made in the left upper quadrant 2 cm inferior to the costal margin in the mid clavicular line. A 5 mm Optiview trocar was then advanced through the abdominal layers under direct visualization. Once inside the abdominal cavity, carbon dioxide insufflation was used to create a pneumoperitoneum. The camera was inserted in the abdomen was inspected. No immediate abnormalities were identified. Another 8 mm camera port was placed about 15 cm inferior to the xiphoid just to the left of midline under direct visualization. An 8 mm port was placed in the anterior axillary line on the left upper quadrant at about the same transverse plane as the camera port. An 8 mm port was placed in the right upper quadrant and another 8 mm AirSeal assist port was placed in right lower quadrant just to the right of the umbilicus. A 5 mm incision was made in the subxiphoid region and the Suyapa liver retractor was inserted through this incision into the abdominal cavity to lift up the left lobe of the liver. This was secured in place to the bed of the table. The patient was then placed in 20? reverse Trendelenburg. The robotic arms were secured to the ports and the robotic camera and instruments were inserted. A force bipolar grasper was placed in the right upper quadrant port. The vessel sealer was placed in the midclavicular left upper quadrant port and a Cadiere grasper was placed in the anterior axillary line left upper quadrant port. I then moved over to the robotic console took control of the camera and instruments. A careful thorough exam was performed throughout the abdomen. The stomach was then reduced from within the hiatal hernia. The gastrohepatic ligament was taken down medially using the vess
[2023-11-02 15:57] LABS: Glucose Point of Care 148 mg/dl (65-105)
[2023-11-02] MEDS: fentaNYL CITRATE INJ (*CRX) 100 MCG/2 ML VIAL 25 MCG IV PUSH ×8 (16:01→16:50)
[2023-11-02] MEDS: HYDROmorphone HCL INJ (*CRX) 1 MG/ML SYR 0.25 MG IV PUSH ×4 (16:56→17:21)
--- NOTE | 2023-11-02 17:40 | ADMGEN ---
This patient, Frederick Rondon, was admitted to [facility] Surg Room 309-01. Patient/family oriented to hospital policies and general routines including ID bracelet, bed and alarms, visiting hours, pain management, procedures, bathroom and other care routines, personal items, smoking policy, room service/diet, and visiting hours. Information on how to activate the Rapid Response Team has been discussed. Patient/Family are encouraged to report perceived risks to care and to ask questions if they do not understand what they are told or what they should do.
[2023-11-02] MEDS: oxyCODONE HCL (*CRX) 5 MG TAB IR PO (18:23)
[2023-11-02] MEDS: LACTATED RINGERS 1,000 ML 100 ML IV CONT (18:24)
[2023-11-02] MEDS: HYDROmorphone HCL INJ (*CRX) 1 MG/ML SYR IV PUSH (20:34)
[2023-11-02] MEDS: ZOLPIDEM TARTRATE (*CRX) 5 MG TABLET 10 MG PO (20:36)
[2023-11-02 21:04] LABS: Glucose Point of Care 167 mg/dl (65-105)
[2023-11-03] MEDS: oxyCODONE HCL (*CRX) 5 MG TAB IR PO ×3 (01:05→23:26)
[2023-11-03 03:15] VITALS: BP 122/63; PULSE 66; RESP 18; TEMP 37.3; O2SAT 93
[2023-11-03] MEDS: HYDROmorphone HCL INJ (*CRX) 1 MG/ML SYR IV PUSH ×5 (03:28→20:05)
[2023-11-03 06:55] LABS: Hematocrit 42.8 % (37.0-47.0); Hemoglobin 14.5 g/dL (12.0-15.0); Mean Corpuscular HGB Conc 33.9 g/dl (32-36); Mean Corpuscular Hemoglobin 28.8 pg (26-34); Mean Corpuscular Volume 84.9 fl (80-100); Mean Platelet Volume 9.5 fl (7.4-10.4); Platelet Count Result 296 k/mm3 (150-375); Red Blood Count 5.04 M/mm3 (4.2-5.4); Red Cell Distribution Width 15.5 % (11.5-14.5)
--- NOTE | 2023-11-03 06:55 | PHAR ---
Rimegepant [[facility] Odt] 75 mg- 75mg po once in 24hr for migraine or 75mg PO q48hrs for migraine prophylaxis- VERIFIED AND SENT BACK TO [facility]
[2023-11-03 07:15] VITALS: BP 125/65; PULSE 57; RESP 16; TEMP 36.8; O2SAT 95
[2023-11-03 07:23] LABS: Anion Gap 9 mmol/L (8-16); Blood Urea Nitrogen 16 mg/dL (7-17); Calcium 10.8 mg/dL (8.4-10.2); Carbon Dioxide 24 mmol/L (22-30); Chloride 100 mmol/L (98-107); Estimated CRCL calculation 64 ml/min; Estimated Glomerular Filt Rate > 60; Glucose 118 mg/dL (65-110); Potassium 4.3 mmol/L (3.4-5.0); Sodium 133 mmol/L (137-145)
[2023-11-03] MEDS: PANTOPRAZOLE 40 MG TABLET PO (08:39)
[2023-11-03] MEDS: ENOXAPARIN 40 MG/0.4 ML SYRINGE SUB-Q (08:39)
[2023-11-03 08:45] LABS: Glucose Point of Care 126 mg/dl (65-105)
[2023-11-03] MEDS: ONDANSETRON INJ 4 MG/2 ML VIAL IV PUSH ×3 (08:47→20:10)
--- NOTE | 2023-11-03 10:49 | PM.PNGS ---
Progress Note: A&P Assessment and Plan (1) Hiatal hernia: Code(s): K44.9 - Diaphragmatic hernia without obstruction or gangrene Status: Acute Assessment and Plan: POD1 and doing well. No significant dysphagia, some mild regurgitation. Will keep on clear liquids for now and possibly advance diet to full liquids if nausea and pain improves. Encouraged getting up and ambulating today. Continue analgesics as needed. (2) GERD (gastroesophageal reflux disease): Qualifiers: Esophagitis presence: with esophagitis Esophagitis bleeding: without hemorrhage Qualified Code(s): K21.00 - Gastro-esophageal reflux disease with esophagitis, without bleeding Code(s): K21.9 - Gastro-esophageal reflux disease without esophagitis Status: Acute Plan I have discussed the patient's case and plan of care with Dr. Pringle. Subjective Subjective Date/Time Seen: 11/03/23 10:49 Post Op day: 1 (Robotic assisted laparoscopic paraesophageal hernia repair with 270 degree fundoplication) Patient reports: no new complaints, voiding w/o difficulty, no flatus, no bowel movement and afebrile Interval history: Patient seen this morning. Reports being up a lot through the night due to abdominal pain. Her abdominal pain is across her mid to left upper abdomen, primarily at her incisions and in the epigastric area. She denies any dysphagia with liquids. She does report some regurgitation at times with liquids. She has had nausea last night and this morning, so she has taken it easy with her clear liquid tray. No other complaints at this time. She has walked to the bathroom, but otherwise has been in the bed. Exam Const: General: comfortable and no acute distress Orientation/consciousness: patient oriented x3 GI: Inspection: non-distended and incision (dry and healing well with glue intact, no erythema) GI Palp: Yes Soft to palpation, Yes Tenderness to palpation present (GI) (only incisional tenderness), No Guarding due to palpation present (GI) and No Rebound tenderness present Auscultation: Hypoactive bowel sounds present Objective Data Vital Signs Vital Signs: Vital Signs - 24 hr 11/02/23 15:44 11/02/23 15:55 11/02/23 16:10 Temperature 97.2 F L Pulse Rate 84 83 83 Respiratory Rate 17 18 18 Blood Pressure 134/71 147/79 H 145/74 H Pulse Oximetry 99 98 99 Oxygen Delivery Simple Face Mask Simple Face Mask Simple Face Mask Oxygen Flow Rate 6 6 6 11/02/23 16:20 11/02/23 16:25 11/02/23 16:33 Temperature Pulse Rate 83 Respiratory Rate 16 Blood Pressure 145/79 H Pulse Oximetry 93 90 Oxygen Delivery Room Air Room Air Nasal Cannula Oxygen Flow Rate 2 11/02/23 16:40 11/02/23 16:55 11/02/23 17:10 Temperature Pulse Rate 81 82 84 Respiratory Rate 14 12 12 Blood Pressure 150/79 H 141/83 H 144/84 H Pulse Oximetry 95 96 96 Oxygen Delivery Nasal Cannula Nasal Cannula Nasal Cannula Oxygen Flow Rate 2 2 2 11/02/23 17:25 11/02/23 17:45 11/02/23 17:45 Temperature 97.1 F L 97.3 F L Pulse Rate 79 75 Respiratory Rate 12 20 Blood Pressure 151/82 H 144/81 H Pulse Oximetry 97 97 97 Oxygen Delivery Nasal Cannula Nasal Cannula Oxygen Flow Rate 2 2 11/02/23 18:15 11/02/23 19:15 11/02/23 20:00 Temperature 97.3 F L 97.5 F L 97.7 F Pulse Rate 75 73 86 Respiratory Rate 18 18 18 Blood Pressure 140/76 141/74 H 148/80 H Pulse Oximetry 97 97 96 Oxygen Delivery Oxygen Flow Rate 11/02/23 20:00 11/02/23 23:15 11/03/23 03:15 Temperature 97.3 F L 99.2 F Pulse Rate 79 66 Respiratory Rate 18 18 Blood Pressure 139/70 122/63 Pulse Oximetry 96 99 93 Oxygen Delivery Nasal Cannula Oxygen Flow Rate 2 11/03/23 07:15 11/03/23 08:00 Temperature 98.3 F Pulse Rate 57 L Respiratory Rate 16 Blood Pressure 125/65 Pulse Oximetry 95 Oxygen Delivery Room Air Oxygen Flow Rate Intake/Output Intake/Output: Intake & Output 10/31/23 11/01/23 11/02/23 11/03/23
[2023-11-03 11:15] VITALS: BP 137/67; PULSE 55; RESP 16; TEMP 37; O2SAT 95
[2023-11-03 12:00] VITALS: BP 137/67; PULSE 55; RESP 16; TEMP 37; O2SAT 95
[2023-11-03] MEDS: oxyCODONE HCL (*CRX) 2.5 MG TAB IR PO ×2 (13:28→17:35)
--- NOTE | 2023-11-03 14:05 | WPDANESPN ---
Anes - Prog Note Post-Op Date/Time: 11/03/23 14:05 Cardiovascular status: normal Respiratory status: normal Airway patency: baseline Mental status: baseline Post-Op hydration status: normal Vital Signs: Last Vital Signs Temp 37.0 C 11/03/23 12:00 Pulse 55 L 11/03/23 12:00 Resp 16 11/03/23 12:00 BP 137/67 11/03/23 12:00 Pulse Ox 95 11/03/23 12:00 O2 Del Method Room Air 11/03/23 08:00 O2 Flow Rate 2 11/02/23 20:00 Pain Score (VAS): 11/22 I/O: Intake & Output 11/02/23 11/03/23 11/03/23 23:59 07:59 15:59 Intake Total 300 1000 236 Balance 300 1000 236 Laboratory Tests 11/03/23 06:14 11/03/23 06:14 11/02/23 11/02/23 11/03/23 15:54 21:00 06:14 WBC 13.0 H RBC 5.04 Hgb 14.5 Hct 42.8 MCV 84.9 MCH 28.8 MCHC 33.9 RDW 15.5 H Plt Count 296 MPV 9.5 Sodium 133 L Potassium 4.3 Chloride 100 Carbon Dioxide 24 Anion Gap 9 BUN 16 Creatinine 0.80 Estim Creat Clear Calc 64 Estimated GFR > 60 Glucose 118 H POC Capillary Glucose 148 H 167 H Calcium 10.8 H 11/03/23 08:41 WBC RBC Hgb Hct MCV MCH MCHC RDW Plt Count MPV Sodium Potassium Chloride Carbon Dioxide Anion Gap BUN Creatinine Estim Creat Clear Calc Estimated GFR Glucose POC Capillary Glucose 126 H Calcium Post-procedural complaints: none Patient Feedback: Patient satisfied with anesthetic care.
[2023-11-03 16:00] VITALS: BP 131/74; PULSE 56; RESP 16; TEMP 36.4; O2SAT 92
[2023-11-03 17:19] LABS: Glucose Point of Care 114 mg/dl (65-105)
[2023-11-03] MEDS: SIMETHICONE 80 MG TAB.CHEW PO ×2 (17:32→20:04)
[2023-11-03 20:11] VITALS: BP 131/74; PULSE 60; RESP 16; TEMP 37.2; O2SAT 96
[2023-11-03 20:56] LABS: Glucose Point of Care 110 mg/dl (65-105)
[2023-11-03] MEDS: ZOLPIDEM TARTRATE (*CRX) 5 MG TABLET 10 MG PO (21:07)
[2023-11-04] MEDS: ONDANSETRON INJ 4 MG/2 ML VIAL IV PUSH ×4 (01:55→15:45)
[2023-11-04] MEDS: HYDROmorphone HCL INJ (*CRX) 1 MG/ML SYR IV PUSH ×6 (01:56→20:51)
[2023-11-04] MEDS: oxyCODONE HCL (*CRX) 5 MG TAB IR PO ×3 (04:53→13:30)
[2023-11-04 05:31] VITALS: BP 93/57; PULSE 73; RESP 16; TEMP 36.1; O2SAT 96
[2023-11-04 06:52] LABS: Hematocrit 43.9 % (37.0-47.0); Hemoglobin 14.1 g/dL (12.0-15.0); Mean Corpuscular HGB Conc 32.1 g/dl (32-36); Mean Corpuscular Volume 87.1 fl (80-100); Mean Platelet Volume 9.1 fl (7.4-10.4); Platelet Count Result 232 k/mm3 (150-375); Red Blood Count 5.04 M/mm3 (4.2-5.4); Red Cell Distribution Width 15.6 % (11.5-14.5); White Blood Count 8.9 K/mm3 (4.5-10.0)
[2023-11-04 07:41] LABS: Anion Gap 2 mmol/L (8-16); Blood Urea Nitrogen 12 mg/dL (7-17); Calcium 10.8 mg/dL (8.4-10.2); Carbon Dioxide 32 mmol/L (22-30); Chloride 100 mmol/L (98-107); Estimated CRCL calculation 57 ml/min; Estimated Glomerular Filt Rate > 60; Glucose 111 mg/dL (65-110); Potassium 4.1 mmol/L (3.4-5.0); Sodium 134 mmol/L (137-145)
[2023-11-04 07:45] LABS: Glucose Point of Care 125 mg/dl (65-105)
[2023-11-04 08:18] VITALS: O2SAT 92
[2023-11-04] MEDS: ENOXAPARIN 40 MG/0.4 ML SYRINGE SUB-Q (09:03)
[2023-11-04] MEDS: PANTOPRAZOLE 40 MG TABLET PO (09:04)
[2023-11-04] MEDS: SIMETHICONE 80 MG TAB.CHEW PO ×4 (09:04→20:50)
[2023-11-04 11:27] LABS: Glucose Point of Care 127 mg/dl (65-105)
--- NOTE | 2023-11-04 15:21 | PM.PNGS ---
Progress Note: A&P Assessment and Plan (1) Hiatal hernia: Code(s): K44.9 - Diaphragmatic hernia without obstruction or gangrene Status: Acute Assessment and Plan: Continue full liquids today Continue working with pain control and trying to slowly wean off IV pain meds. Pain control options limited due to multiple allergies. Encouraged increased ambulation and continue taking it slow with full liquid diet. Possibly home tomorrow if improving. (2) GERD (gastroesophageal reflux disease): Qualifiers: Esophagitis presence: with esophagitis Esophagitis bleeding: without hemorrhage Qualified Code(s): K21.00 - Gastro-esophageal reflux disease with esophagitis, without bleeding Code(s): K21.9 - Gastro-esophageal reflux disease without esophagitis Status: Acute Subjective Subjective Date/Time Seen: 11/04/23 15:21 Interval history: Still having pain and requiring IV pain meds. Tolerating some full liquids but not very well yet. No vomiting. Exam Const: General: comfortable and no acute distress Orientation/consciousness: patient oriented x3 GI: Inspection: non-distended and incision (dry and healing well with glue intact, no erythema) GI Palp: Yes Soft to palpation, Yes Tenderness to palpation present (GI) (only incisional tenderness), No Guarding due to palpation present (GI) and No Rebound tenderness present Auscultation: Hypoactive bowel sounds present Objective Data Vital Signs Vital Signs: Vital Signs - 24 hr 11/03/23 16:00 11/03/23 20:11 11/04/23 05:31 Temperature 36.4 C L 37.2 C 36.1 C L Pulse Rate 56 L 60 73 Respiratory Rate 16 16 16 Blood Pressure 131/74 131/74 93/57 L Pulse Oximetry 92 96 96 Oxygen Delivery 11/04/23 08:18 11/04/23 08:00 Temperature Pulse Rate Respiratory Rate Blood Pressure Pulse Oximetry 92 Oxygen Delivery Room Air Room Air Intake/Output Intake/Output: Intake & Output 11/01/23 11/02/23 11/03/23 11/04/23 23:59 23:59 23:59 23:59 Intake Total 400 1716 472 Balance 400 1716 472 Meds/Results Medications: Active Medications Generic Name Dose Route Start Last Admin Trade Name Freq PRN Reason Stop Dose Admin Diphenhydramine HCl 25 mg 11/02/23 17:30 Diphenhydramine Hcl Inj 50 Mg/Ml Vial IV PUSH Q6H PRN Itching Enoxaparin Sodium 40 mg 11/03/23 09:00 11/04/23 09:03 Enoxaparin 40 Mg/0.4 Ml Syringe SUB-Q 40 mg DAILY MIKA Administration Hydromorphone HCl 0.5 mg 11/02/23 17:30 Hydromorphone Hcl Inj (*Crx) 1 Mg/Ml Syr IV PUSH Q2H PRN Pain Rated 4-6 Hydromorphone HCl 1 mg 11/02/23 17:30 11/04/23 11:28 Hydromorphone Hcl Inj (*Crx) 1 Mg/Ml Syr IV PUSH 1 mg Q2H PRN Administration Pain Rated 7-10 Naloxone HCl 0.1 mg 11/02/23 17:30 Naloxone Hcl 0.4 Mg/Ml Vial IV PUSH Q2M PRN Opiate Reversal Home Med- Rimegepant 75 mg 11/02/23 17:30 11/03/23 19:58 [Nurtec Odt] 75 Mg PO 12/02/23 17:29 75 mg Tablet, Q24H PRN Administration Disintegrating Migraine Headache Ondansetron HCl 4 mg 11/02/23 17:30 11/04/23 11:28 Ondansetron Inj 4 Mg/2 Ml Vial IV PUSH 4 mg Q4H PRN Administration Nausea And Vomiting Oxycodone HCl 2.5 mg 11/02/23 17:30 11/03/23 17:35 Oxycodone Hcl (*Crx) 2.5 Mg Tab Ir PO 2.5 mg Q4H PRN Administration Pain Rated 4-6 Oxycodone HCl 5 mg 11/02/23 17:30 11/04/23 09:09 Oxycodone Hcl (*Crx) 5 Mg Tab Ir PO 5 mg Q4H PRN Administration Pain Rated 7-10 Pantoprazole Sodium 40 mg 11/03/23 09:00 11/04/23 09:04 Pantoprazole 40 Mg Tablet PO 40 mg QAM MIKA Administration Simethicone 80 mg 11/03/23 17:00 11/04/23 09:04 Simethicone 80 Mg Tab.Chew PO 80 mg QID MIKA Administration Zolpidem Tartrate 10 mg 11/02/23 21:00 11/03/23 21:07 Zolpidem Tartrate (*Crx) 5 Mg Tablet PO 10 mg QHS MIKA Administration Labs Labs: Laboratory Results - last 24 hr 11/03/23 0
[2023-11-04 16:34] LABS: Glucose Point of Care 128 mg/dl (65-105)
[2023-11-04 20:42] VITALS: BP 118/67; PULSE 64; RESP 16; TEMP 36.2; O2SAT 96
[2023-11-04] MEDS: ZOLPIDEM TARTRATE (*CRX) 5 MG TABLET 10 MG PO (20:50)
[2023-11-04 20:54] LABS: Glucose Point of Care 108 mg/dl (65-105)
[2023-11-05] MEDS: HYDROmorphone HCL INJ (*CRX) 1 MG/ML SYR IV PUSH ×3 (00:41→08:14)
[2023-11-05 04:07] VITALS: BP 117/68; PULSE 59; RESP 16; TEMP 36.2; O2SAT 94
[2023-11-05 07:17] LABS: Glucose Point of Care 106 mg/dl (65-105)
[2023-11-05] MEDS: ENOXAPARIN 40 MG/0.4 ML SYRINGE SUB-Q (08:01)
[2023-11-05] MEDS: SIMETHICONE 80 MG TAB.CHEW PO ×4 (08:02→21:35)
[2023-11-05] MEDS: PANTOPRAZOLE 40 MG TABLET PO (08:02)
[2023-11-05] MEDS: HYDROmorphone HCL INJ (*CRX) 1 MG/ML SYR 0.5 MG IV PUSH ×3 (11:00→21:38)
[2023-11-05 11:37] LABS: Glucose Point of Care 115 mg/dl (65-105)
[2023-11-05 14:00] VITALS: BP 105/69; PULSE 69; RESP 19; TEMP 36.5; O2SAT 99
--- NOTE | 2023-11-05 15:09 | PM.PNGS ---
Progress Note: A&P Assessment and Plan (1) Hiatal hernia: Code(s): K44.9 - Diaphragmatic hernia without obstruction or gangrene Status: Acute Assessment and Plan: Continue full liquids today Continue working with pain control and trying to slowly wean off IV pain meds. Pain control options limited due to multiple allergies. Encouraged increased ambulation and continue taking it slow with full liquid diet. Possibly home tomorrow if improving. (2) GERD (gastroesophageal reflux disease): Qualifiers: Esophagitis presence: with esophagitis Esophagitis bleeding: without hemorrhage Qualified Code(s): K21.00 - Gastro-esophageal reflux disease with esophagitis, without bleeding Code(s): K21.9 - Gastro-esophageal reflux disease without esophagitis Status: Acute Subjective Subjective Date/Time Seen: 11/05/23 15:09 Interval history: Patient still complaining of LUQ pain. Still requiring IV pain meds. Tolerating full liquids without any significant dysphagia or regurgitation. No nausea/vomiting. Exam GI: Inspection: incision (intact with glue) GI Palp: Yes Tenderness to palpation present (GI) (LUQ incisional) and No Guarding due to palpation present (GI) Auscultation: normal bowel sounds Objective Data Vital Signs Vital Signs: Vital Signs - 24 hr 11/04/23 20:42 11/05/23 04:07 11/05/23 08:00 Temperature 36.2 C L 36.2 C L Pulse Rate 64 59 L Respiratory Rate 16 16 Blood Pressure 118/67 117/68 Pulse Oximetry 96 94 Oxygen Delivery Room Air Intake/Output Intake/Output: Intake & Output 11/02/23 11/03/23 11/04/23 11/05/23 23:59 23:59 23:59 23:59 Intake Total 400 1716 1572 240 Balance 400 1716 1572 240 Meds/Results Medications: Active Medications Generic Name Dose Route Start Last Admin Trade Name Freq PRN Reason Stop Dose Admin Acetaminophen/Aspirin/Caffeine 1 tablet 11/05/23 15:08 Acetaminophen/Aspirin/Caffeine 250-250-65 Mg Tablet PO Q6H PRN Pain Rated 1-3 Diphenhydramine HCl 25 mg 11/02/23 17:30 Diphenhydramine Hcl Inj 50 Mg/Ml Vial IV PUSH Q6H PRN Itching Enoxaparin Sodium 40 mg 11/03/23 09:00 11/05/23 08:01 Enoxaparin 40 Mg/0.4 Ml Syringe SUB-Q 40 mg DAILY MIKA Administration Hydromorphone HCl 0.5 mg 11/02/23 17:30 11/05/23 13:25 Hydromorphone Hcl Inj (*Crx) 1 Mg/Ml Syr IV PUSH 0.5 mg Q2H PRN Administration Pain Rated 4-6 Naloxone HCl 0.1 mg 11/02/23 17:30 Naloxone Hcl 0.4 Mg/Ml Vial IV PUSH Q2M PRN Opiate Reversal Home Med- Rimegepant 75 mg 11/02/23 17:30 11/04/23 17:58 [Nurtec Odt] 75 Mg PO 12/02/23 17:29 75 mg Tablet, Q24H PRN Administration Disintegrating Migraine Headache Ondansetron HCl 4 mg 11/02/23 17:30 11/04/23 15:45 Ondansetron Inj 4 Mg/2 Ml Vial IV PUSH 4 mg Q4H PRN Administration Nausea And Vomiting Oxycodone HCl 2.5 mg 11/02/23 17:30 11/03/23 17:35 Oxycodone Hcl (*Crx) 2.5 Mg Tab Ir PO 2.5 mg Q4H PRN Administration Pain Rated 4-6 Oxycodone HCl 5 mg 11/02/23 17:30 11/04/23 13:30 Oxycodone Hcl (*Crx) 5 Mg Tab Ir PO 5 mg Q4H PRN Administration Pain Rated 7-10 Pantoprazole Sodium 40 mg 11/03/23 09:00 11/05/23 08:02 Pantoprazole 40 Mg Tablet PO 40 mg QAM MKIA Administration Simethicone 80 mg 11/03/23 17:00 11/05/23 13:24 Simethicone 80 Mg Tab.Chew PO 80 mg QID MIKA Administration Zolpidem Tartrate 10 mg 11/02/23 21:00 11/04/23 20:50 Zolpidem Tartrate (*Crx) 5 Mg Tablet PO 10 mg QHS MIKA Administration Labs Labs: Laboratory Results - last 24 hr 11/04/23 11/04/23 11/05/23 16:30 20:47 07:14 POC Capillary Glucose 128 H 108 H 106 H 11/05/23 11:32 POC Capillary Glucose 115 H
--- NOTE | 2023-11-05 15:23 | PHAR ---
PT HOME MED NURTEC ODT (RIMEGEPANT) 75 MG VERIFIED BY PHARMACY. 2 LOOSE UNIT DOSE TABS WERE SENT TO BE VERIFIED
[2023-11-05] MEDS: polyethylene glycoL 3350 17 GM POWD.PACK PO (15:31)
[2023-11-05] MEDS: ACETAMINOPHEN/ASPIRIN/CAFFEINE 250-250-65 MG TABLET 1 TABLET PO (16:31)
[2023-11-05 16:43] LABS: Glucose Point of Care 147 mg/dl (65-105)
[2023-11-05] MEDS: oxyCODONE HCL (*CRX) 5 MG TAB IR PO ×2 (18:28→22:38)
[2023-11-05] MEDS: ZOLPIDEM TARTRATE (*CRX) 5 MG TABLET 10 MG PO (21:35)
[2023-11-05 22:00] VITALS: BP 125/63; PULSE 66; RESP 18; TEMP 36.8; O2SAT 96
[2023-11-06 01:21] LABS: Glucose Point of Care 105 mg/dl (65-105)
[2023-11-06] MEDS: oxyCODONE HCL (*CRX) 5 MG TAB IR PO ×3 (03:04→11:00)
[2023-11-06 06:00] VITALS: BP 113/79; PULSE 65; RESP 16; TEMP 36.6; O2SAT 94
[2023-11-06 07:19] LABS: Hematocrit 44.7 % (37.0-47.0); Hemoglobin 14.5 g/dL (12.0-15.0); Mean Corpuscular HGB Conc 32.4 g/dl (32-36); Mean Corpuscular Hemoglobin 28.3 pg (26-34); Mean Corpuscular Volume 87.3 fl (80-100); Mean Platelet Volume 9.4 fl (7.4-10.4); Platelet Count Result 271 k/mm3 (150-375); Red Blood Count 5.12 M/mm3 (4.2-5.4); Red Cell Distribution Width 14.6 % (11.5-14.5); White Blood Count 6.8 K/mm3 (4.5-10.0)
[2023-11-06 07:32] LABS: Anion Gap 4 mmol/L (8-16); Blood Urea Nitrogen 10 mg/dL (7-17); Calcium 11.6 mg/dL (8.4-10.2); Carbon Dioxide 32 mmol/L (22-30); Chloride 102 mmol/L (98-107); Estimated CRCL calculation 52 ml/min; Estimated Glomerular Filt Rate 55; Glucose 119 mg/dL (65-110); Potassium 3.8 mmol/L (3.4-5.0); Sodium 138 mmol/L (137-145)
[2023-11-06 07:51] LABS: Glucose Point of Care 118 mg/dl (65-105)
[2023-11-06] MEDS: PANTOPRAZOLE 40 MG TABLET PO (08:44)
[2023-11-06] MEDS: polyethylene glycoL 3350 17 GM POWD.PACK PO (08:44)
[2023-11-06] MEDS: SIMETHICONE 80 MG TAB.CHEW PO ×2 (08:44→12:32)
[2023-11-06] MEDS: ENOXAPARIN 40 MG/0.4 ML SYRINGE SUB-Q (08:45)
[2023-11-06 11:21] LABS: Glucose Point of Care 118 mg/dl (65-105)
--- NOTE | 2023-11-06 12:39 | PM.DS ---
DS: Admitting Diagnosis Discharge Date 11/02/2023 Admitting Diagnosis Hiatal Hernia, GERD DS: Discharge Diagnosis Discharge Diagnosis (1) Hiatal hernia: Code(s): K44.9 - Diaphragmatic hernia without obstruction or gangrene Status: Acute (2) GERD (gastroesophageal reflux disease): Qualifiers: Esophagitis presence: with esophagitis Esophagitis bleeding: without hemorrhage Qualified Code(s): K21.00 - Gastro-esophageal reflux disease with esophagitis, without bleeding Code(s): K21.9 - Gastro-esophageal reflux disease without esophagitis Status: Acute DS: Summary Hospital Course Reason for hospitalization: Type 3 paraesophageal hiatal hernia Hospital Course: This is a 68 yo woman who presented for paraesophageal hernia repair on 3. She underwent robotic assisted laparoscopic paraesophageal hernia repair with 270 degree fundoplication on 3/20. Surgery was uncomplicated and she was admitted for further recovery. She was started on clear liquids and activity was slowly advanced. On POD#1 she was still having significant pain and was having some mild dysphagia with clears. She was not nauseated or vomiting. On POD#2 she was advanced to full liquids but was only able to tolerate very small amounts at a time. Pain control was still very difficult partially because patient had multiple medication allergies including acetaminophen and NSAIDs. She continued to require IV Dilaudid for breakthrough pain. The full liquid diet was tolerated better each day. On POD#3 she was still trying to get Dilaudid preferentially over oral oxycodone. I discussed the need to transition to oral pain meds to be able to tolerate going home. On POD#4 she was tolerating pain control with oxycodone and continued to tolerate full liquid diet. She was discharged on 3/. Status at Discharge Functional status at discharge: independent ambulation Overall status at discharge: patient is progressing back to baseline Time Spent with Patient Time attestation: Total time spent providing and/or coordinating discharge services: Time spent: Less than 30 minutes Exam Const: General: comfortable, no acute distress and alert Orientation/consciousness: patient oriented x3 Resp: Effort & Inspection: normal respiratory effort Auscultation: clear to auscultation bilaterally Cardio: Rate: regular rate Rhythm: regular rhythm Heart sounds: S1 normal heart sound present and S2 normal heart sound present GI: Inspection: non-distended and incision (intact with glue) GI Palp: Yes Soft to palpation and Yes Tenderness to palpation present (GI) (LUQ incisional) Auscultation: normal bowel sounds DS: Data Data Completed and Pending Completed studies during hospitalization: Pending at discharge 11/02/23 15:30 Surgical [PTH] Routine Labs on day of discharge: Labs from last 24 hours 11/06/23 11/06/23 11/06/23 11:14 07:48 06:51 WBC 6.8 RBC 5.12 Hgb 14.5 Hct 44.7 MCV 87.3 MCH 28.3 MCHC 32.4 RDW 14.6 H Plt Count 271 MPV 9.4 Sodium 138 Potassium 3.8 Chloride 102 Carbon Dioxide 32 H Anion Gap 4 L BUN 10 Creatinine 1.00 Estim Creat Clear Calc 52 Estimated GFR 55 L Glucose 119 H POC Capillary Glucose 118 H 118 H Calcium 11.6 H 11/05/23 11/05/23 21:36 16:40 WBC RBC Hgb Hct MCV MCH MCHC RDW Plt Count MPV Sodium Potassium Chloride Carbon Dioxide Anion Gap BUN Creatinine Estim Creat Clear Calc Estimated GFR Glucose POC Capillary Glucose 105 147 H Calcium Discharge Plan Discharge Attending physician on discharge: Prabhjot Pringle Discharging Clinician: Prabhjot Pringle Patient Disposition: Home, Self-Care Activity: other - see discharge instructions Diet: other - see discharge instructions Wound Care Instructions: other - see discharge instructions Disch
== END 2023-11-06 14:45 | disposition home or self-care (01) ==
LOC: ANHSURGERY 12:29 → ANH3MEDSUR 12:29
PROVIDERS: Nurse Practitioner Family; Admitting Provider Surgery; PCP Internal Medicine; Visit Provider Surgery
PROC: 0DV44ZZ Restriction of Esophagogastric Junction, Percutaneous Endoscopic Approach (ICD-10-PCS; CPT 43280; principal; 2023-11-02 11:30)
DX: K44.9 Diaphragmatic hernia without obstruction or gangrene (principal); K21.00 Gastro-esophageal reflux disease with esophagitis, without bleeding; G89.18 Other acute postprocedural pain; E78.5 Hyperlipidemia, unspecified; G47.00 Insomnia, unspecified; R73.03 Prediabetes; G43.909 Migraine, unspecified, not intractable, without status migrainosus; F10.90 Alcohol use, unspecified, uncomplicated; Z79.82 Long term (current) use of aspirin; Z79.84 Long term (current) use of oral hypoglycemic drugs; Z79.899 Other long term (current) drug therapy
CPT/HCPCS: 43281; S2900; 36415; 80048; 82948; 85027; 86850; 86900; 86901; 88302; A9270; G0378; J0690; J1100; J1170; J1650; J2250; J2371; J2405; J2704; J3010; J7120

== ENCOUNTER 2024-01-25 11:06 | Outpatient (CLI) | payer MEDICARE, SELFPAY ==
[2024-01-25 12:01] LABS: Basophils Absolute Auto 0.1 K/mm3 (0.0-0.1); Basophils Percent Auto 0.8 % (0.2-1.2); Eosinophils Absolute Auto 0.7 K/mm3 (0-0.3); Hematocrit 41.6 % (37.0-47.0); Hemoglobin 13.8 g/dL (12.0-15.0); Immature Granulocyte Absolute 0.01 K/mm3 (0.00-0.031); Immature Granulocyte Percent A 0.1 % (0-0.5); Lymphocytes Absolute Auto 1.73 K/mm3 (0.9-3.2); Lymphocytes Percent Auto 22.8 % (18.3-44.2); Mean Corpuscular HGB Conc 33.2 g/dl (32-36); Mean Corpuscular Hemoglobin 29.4 pg (26-34); Mean Corpuscular Volume 88.5 fl (80-100); Mean Platelet Volume 9.8 fl (7.4-10.4); Monocytes Percent Auto 12.8 % (2.6-8.5); Neutrophils Absolute Auto 4.1 K/mm3 (1.3-6.7); Neutrophils Percent Auto 54.5 % (45.5-73.1); Platelet Count Result 247 k/mm3 (150-375); Red Cell Distribution Width 14.2 % (11.5-14.5); White Blood Count 7.6 K/mm3 (4.5-10.0)
[2024-01-25 12:13] LABS: Alanine Aminotransferase 32 U/L (6-35); Albumin Level 4.5 g/dL (3.5-5.1); Alkaline Phosphatase 87 U/L (38-126); Anion Gap 7 mmol/L (4-12); Aspartate Amino Transferase 29 U/L (14-36); Bilirubin,Total 0.8 mg/dL (0.2-1.3); Blood Urea Nitrogen 14 mg/dL (7-17); Calcium 11.3 mg/dL (8.4-10.2); Carbon Dioxide 27 mmol/L (22-30); Chloride 104 mmol/L (98-107); Cholesterol 131 mg/dL (0-200); Estimated Glomerular Filt Rate 55; Glucose 114 mg/dL (65-110); HDL Direct 62 mg/dL; Potassium 3.7 mmol/L (3.4-5.0); Sodium 138 mmol/L (137-145); Triglycerides 118 mg/dL (<150)
[2024-01-25 12:23] LABS: LDL Cholesterol Direct 54 mg/dL
[2024-01-25 12:30] LABS: Appearance Urine Turbid (Clear); Bacteria Urine 1+ /hpf; Bilirubin Urine 1+ (Negative); Blood Urine 1+ (Negative); Color Urine Dark Yellow (Yellow); Glucose Urine UA Negative (Negative); Ketones Urine Trace mg/dL (Negative); Leukocyte Esterase Ur 1+ LEU/UL (Negative); Need Manual Microscopic Reviewed; Nitrate Urine Positive (Negative); Protein Urine 1+ mg/dL (Negative); Squamous Epithelial Cell Urine Few /hpf (Few); WBC Urine 51-100 /hpf (0-3)
[2024-01-25 12:33] LABS: Specific Grav Ur 1.034 (1.001-1.035)
[2024-01-25 12:34] LABS: Add Urine Microscopic? YES
[2024-01-25 12:35] LABS: Iron 17 ug/dL (37-170)
[2024-01-25 12:40] LABS: Hemoglobin A1C 5.6 % (<5.7)
[2024-01-25 12:44] LABS: Percent Iron Saturation 5 % (20-50)
[2024-01-25 12:54] LABS: Free T4 Free Thyroxine 1.49 ng/mL (0.78-2.19)
== END 2024-01-25 11:07 | disposition home or self-care (01) ==
LOC: ANHLAB 11:07
PROVIDERS: PCP Internal Medicine; Visit Provider Internal Medicine
DX: D50.9 Iron deficiency anemia, unspecified (principal); Z79.899 Other long term (current) drug therapy; E01.0 Iodine-deficiency related diffuse (endemic) goiter; R93.89 Abnormal findings on diagnostic imaging of other specified body structures; R73.03 Prediabetes; E78.5 Hyperlipidemia, unspecified; Z13.29 Encounter for screening for other suspected endocrine disorder
CPT/HCPCS: 36415; 80053; 80061; 81001; 82728; 83036; 83540; 83550; 84439; 84443; 85025; 87077; 87086; 87088; 87186

== ENCOUNTER 2024-01-26 14:14 | Outpatient (CLI) | payer MEDICARE, SELFPAY ==
[2024-01-26 13:30] LABS: Parathyroid Intact 55.4 pg/mL (7.5-53.5)
[2024-01-26 13:51] LABS: Vitamin D 25 Hydroxy 57.1 ng/mL
[2024-01-28 15:54] LABS: Ionized Calcium 5.7 mg/dL (4.7-5.5)
== END 2024-01-26 14:15 | disposition home or self-care (01) ==
PROVIDERS: PCP Internal Medicine; Visit Provider Internal Medicine
DX: R30.0 Dysuria (principal); E83.52 Hypercalcemia
CPT/HCPCS: 36415; 82306; 82330; 83970

== ENCOUNTER 2024-02-21 12:34 | Outpatient (CLI) | payer MEDICARE, SELFPAY ==
--- NOTE | ~2024-02-21 | US_ITS ---
EXAMINATION: US thyroid DATE: 02/21/2024 13:12 INDICATION: Hypercalcemia. TECHNIQUE: Multiple ultrasound images of the thyroid were obtained. COMPARISON: Thyroid ultrasound 10/21/2022 FINDINGS: The right thyroid lobe measures 4.3 x 1.5 x 1.4 cm. The left thyroid lobe measures 3.9 x 1.1 x 1.3 c m. In the right thyroid lobe, there is a 5 mm mixed cystic and solid, isoechoic, wider than tall nod ule with smooth margin without echogenic foci (TI-RADS TR2). There are multiple nodules in the thyroi d measuring up to 4 mm. IMPRESSION: 1. Small thyroid nodules, likely not clinically significant. No follow-up is needed. Reviewed, dictated and finalized at location E. IMPRESSION: 1. Small thyroid nodules, likely not clinically significant. No follow-up is ne eded.
== END 2024-02-21 12:35 | disposition home or self-care (01) ==
LOC: ANHIMG 12:37
PROVIDERS: PCP Internal Medicine; Visit Provider Internal Medicine
DX: E83.52 Hypercalcemia (principal); E04.2 Nontoxic multinodular goiter
CPT/HCPCS: 76536

== ENCOUNTER 2024-08-13 09:33 | Outpatient (CLI) | payer MEDICARE, SELFPAY ==
[2024-08-13 10:08] LABS: Alanine Aminotransferase 75 U/L (6-35); Albumin Level 4.4 g/dL (3.5-5.1); Alkaline Phosphatase 80 U/L (38-126); Anion Gap 2 mmol/L (4-12); Aspartate Amino Transferase 69 U/L (14-36); Bilirubin,Total 0.9 mg/dL (0.2-1.3); Blood Urea Nitrogen 15 mg/dL (7-17); Calcium 10.9 mg/dL (8.4-10.2); Carbon Dioxide 31 mmol/L (22-30); Chloride 107 mmol/L (98-107); Cholesterol 119 mg/dL (0-200); Estimated Glomerular Filt Rate > 60; Glucose 105 mg/dL (65-110); HDL Direct 62 mg/dL; Sodium 140 mmol/L (137-145); Triglycerides 101 mg/dL (<150)
[2024-08-13 10:12] LABS: Hemoglobin A1C 5.8 % (<5.7)
[2024-08-13 10:19] LABS: LDL Cholesterol Direct 33 mg/dL
[2024-08-13 10:29] LABS: Free T4 Free Thyroxine 1.15 ng/dL (0.78-2.19)
[2024-08-13 10:37] LABS: Thyroid Stimulating Hormone 0.457 uIU/mL (0.465-4.680)
== END 2024-08-13 09:34 | disposition home or self-care (01) ==
PROVIDERS: PCP Internal Medicine; Visit Provider Internal Medicine
DX: R73.03 Prediabetes (principal); E01.0 Iodine-deficiency related diffuse (endemic) goiter; E78.5 Hyperlipidemia, unspecified; Z13.29 Encounter for screening for other suspected endocrine disorder; Z79.899 Other long term (current) drug therapy
CPT/HCPCS: 36415; 80053; 80061; 83036; 84439; 84443

== ENCOUNTER 2024-08-16 12:14 | Outpatient (CLI) | payer MEDICARE, SELFPAY ==
[2024-08-16 13:06] LABS: Alanine Aminotransferase 56 U/L (6-35); Albumin Level 4.2 g/dL (3.5-5.1); Alkaline Phosphatase 94 U/L (38-126); Aspartate Amino Transferase 43 U/L (14-36); Bilirubin,Total 0.6 mg/dL (0.2-1.3)
[2024-08-16 13:17] LABS: Parathyroid Intact 51.7 pg/mL (14.5-75.2)
[2024-08-16 13:23] LABS: Vitamin D 25 Hydroxy 53.4 ng/mL
[2024-08-17 07:38] LABS: GGT 22 U/L (3-65)
== END 2024-08-16 12:15 | disposition home or self-care (01) ==
PROVIDERS: PCP Internal Medicine; Visit Provider Internal Medicine
DX: R79.89 Other specified abnormal findings of blood chemistry (principal); E55.9 Vitamin D deficiency, unspecified
CPT/HCPCS: 36415; 80076; 82306; 82977; 83970

== ENCOUNTER 2024-08-18 10:47 | Outpatient (CLI) | payer MEDICARE, SELFPAY ==
--- NOTE | ~2024-08-18 | US_ITS ---
EXAM: ABDOMEN ULTRASOUND HISTORY: R79.89 - Other specified abnormal findings of blood chemi... COMPARISON: None FINDINGS: LIVER: The liver is increased in echogenicity and unremarkable in size measuring 17 cm in longitudina l dimension. The main portal vein is patent demonstrating hepatopedal flow. The contour of the liver is smooth. GALLBLADDER: No stones are identified within the gallbladder, which is otherwise unremarkable. No gallbladder wall thickening or pericholecystic fluid. BILE DUCTS: Common bile duct measures 5mm. PANCREAS: Limited evaluation of the pancreas secondary to overlying bowel gas IMPRESSION: Fatty infiltration of the liver. Otherwise, unremarkable sonographic evaluation of the right upper quadrant, as detailed above. Reviewed, dictated and finalized at location A. CAL CODING TECHNICIAN
--- NOTE | ~2024-08-18 | US_ITS ---
EXAMINATION: US thyroid DATE: 08/18/2024 11:16 INDICATION: Hypercalcemia TECHNIQUE: Multiple ultrasound images of the thyroid were obtained. COMPARISON: 02/21/2024 FINDINGS: The right thyroid lobe measures 4.9 x 1.8 x 1.3 cm. Within the midpole of the right lobe of the thyroid gland is a 5.1 x 3.6 x 6.3mm nodule: Composition - spongiform Echogenicity - hypoechoic (2) Shape - wider than tall Margin - smooth Echogenic foci - none. = TR2 not suspicious - stable from prior. The left thyroid lobe measures 4.8 x 1.2 x 1.7 cm. Within the lower pole of the left lobe of the thyroid gland is a 4.3 x 3.2 x 5.3 mm nodule Composition -cystic Echogenicity - anechoic Shape - wider than tall Margin - smooth Echogenic foci - none. = TR1 benign-no FNA, stable from prior. The isthmus measures 2.5mm in anterior to posterior dimension. IMPRESSION: Stable TR2 nodule in the right lobe of the thyroid gland. This nodule is not sonographically suspicious and no FNA is recommended Follow-up may be performed, but is not recommended. Stable TR1 nodule within the left lobe of the thyroid gland. This nodule is not sonographically suspi cious and no FNA is recommended. Follow-up may be performed, but is not recommended. Reviewed, dictated and finalized at location A. AL HELPER IMPRESSION: Stable TR2 nodule in the right lobe of the thyroid gland. This nodule is not sonographically suspicious and no FNA is recommended Follow-up may be performed, but is not recommended. Stable TR1 nodule within the left lobe of the thyroid gland. This nodule is not sonographically suspicious and no FNA is recommended. Follow-up may be performed, but is not recommended.
== END 2024-08-18 10:48 | disposition home or self-care (01) ==
LOC: MICIMG 10:48
PROVIDERS: PCP Internal Medicine; Visit Provider Internal Medicine
DX: R79.89 Other specified abnormal findings of blood chemistry (principal); R93.89 Abnormal findings on diagnostic imaging of other specified body structures; K76.0 Fatty (change of) liver, not elsewhere classified
CPT/HCPCS: 76536; 76705

== ENCOUNTER 2024-09-04 09:00 | Outpatient (CLI) | payer MEDICARE, SELFPAY ==
--- NOTE | ~2024-09-04 | NM_ITS ---
EXAMINATION: NM parathyroid imaging w spect DATE: 09/04/2024 12:57 INDICATION: Hypercalcemia TECHNIQUE: 19.4 mCi Tc99m sestamibi (Cardiolite) was administered by intravenous route. Anterior imag es of the neck were obtained at 10 minutes and 2 hours. COMPARISON: None. FINDINGS/IMPRESSION: There is no focus of persistent activity in the area of the thyroid or mediastinum to suggest parathy roid adenoma. Reviewed, dictated and finalized at location A. EWATER SUPERVISOR
--- OUTSIDE RECORDS SUMMARY | 2024-09-06 16:33 | XMS_ITS | Data Portability ---
Author Organization [facility] [place] Address [address] [place] [address] Care Team Providers Care Staff Software Engineer Name Role Phone MYRONRemberto LAZARO Primary Care Provider Assessment No assessment recorded. Plan of Treatment Reminders Order Date Submit Date Provider Last Modified By Organization Details Last Modified Time Details Appointments None recorded. Lab CBC w/ auto diff 2019 020 [email or web address] [facility] ([facility]), [address] [place], [place] [address]k [address]tr , [address], [place], [address], 0 15:35:12 CMP, serum or plasma 2019 020 [email or web address] [facility] ([facility]), [address] [place] [address] [address], [place], [address], 0 15:35:12 phosphorus , serum or plasma 2019 020 [email or web address] [facility] ([facility]), [facility] [address] [address], [place], [address], 0 15:35:12 TSH, serum or plasma 2019 020 [email or web address] [facility] ([facility]), [address] , [address], [place], [address], 0 15:35:13 vitamin D, 25-hydroxy , total, serum 2019 [email or web address] [facility] ([facility]), [address] [facility] [address], [place], [address], 0 15:35:13 lipid panel, serum [email or web address] [facility] ([facility]), [address] [facility] [address], [place], [address], 0 15:35:13 HbA1c (hemoglobi n A1c), blood [email or web address] [facility] ([facility]), [address] [facility] [address], [place], [address], 0 15:35:13 Referral None recorded. Procedures None recorded. Surgeries None recorded. Imaging US, breast, bilateral 2019 [facility] [facility] [address] [facility], [place], [address], 0 12:21:47 DEXA, axial skeleton + vertebral fracture assessment 2019 [facility] Not available 0 14:48:42 Medication Orders estradiol 0.5 mg tablet 2019 [id number], [address] [facility], [place], [place], [id number], 0 10:52:15 Patient TargetsNo targets recorded. Patient Instructions Encounter Date Encounter Id Patient Instructions Last Modified By Organization Details Last Modified Time 04/10/2020 [id number] [email or web address] Not available 10:57:11 Reason for Referral None Reported. Results Created Date Observation Date Name Description Value Unit Range Abnormal Flag Note LastModifiedBy Organization Detail LastModifiedTime 04/23/20 20 04/23/2020 aurora MARTINEZ bilat eral No observ ation record ed. [email or web address] [facility] [address], [place], [address], 04/28/2020 15:43:11 05/06/20 20 04/23/2020 DEXA, axial skele ton + verte bral fract ure asses sment No observ ation record ed. layran [facility] [address], [place], [address], 05/07/2020 16:09:20 Result Notes None recorded. Problems Name Problem SNOMED Code Status Onset Date Resolution Date Notes Provider Name and Address Organization Details Recorded Time Screening for malignant neoplasm of rectum Active 2017 Encounter for screening for malignant neoplasm of rectum;Pra ctice ID: 0001 Not Available [facility] 0 15:05:[address] Concept Active 2017 Encntr for cissp exam (general) (routine) w/o abn findings;P ractice ID: 0001 Not Available [facility] 0 15:05:49 Blood leukocyte number above reference range 724342792 Active 2016 Elevated white blood cell count, unspecifie d;Recorded Elsewhere: No Locatio n: [facility] rce: EHR Chroni c: N Practice ID: 0001 Billa ble Time: 01:00:00 PM Not Available [facility] 0 15:05:49 Reduced libido 3558828 Active 2017 Decreased sexual desire;Rec orded Elsewhere: No Locatio n: [facility] rce: EHR Chroni c: N Practice ID: 0001 Billa ble Time: 11:00:00 AM Not Available [facility] 0 15:05:49 Human papilloma virus screening Active 2016 Encounter for screening for human papillomav irus (HPV);Marlo rded Elsewhere: No Locatio n: [facility] rce: EHR Chroni c: N Practice ID: 0001 Billa ble Time: 01:00:00 PM Not Available [facility] 0 15:05:[address] Concept Active 2017 Encntr for general adult medical exam w/o abnormal findings;R ecorded Elsewhere: No Locatio n: [facility] rce: EHR Chroni c: N Practice ID: 0001 Billa ble Time: 10:30:00 AM Not Available [facility] 0 15:05:50 Body mass index 25-29 - overweigh t 011814202 Active 2015 Body mass index (BMI) 25.0-25.9, adult;Marlo rded Elsewhere: No Locatio n: [facility] rce: EHR Chroni c: N Practice ID: 0001 Billa ble Time: 02:00:00 PM Not Available [facility] 0 15:05:50 Herpetic vulvovagi nitis 02532046 Active 2015 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] ulceration ;Recorded Elsewhere: No Locatio n: [facility] rce: EHR Chroni c: N Practice ID: 0001 Billa ble Time: 10:15:00 AM Not Available [facility] 0 15:05:50 Screening for malignant neoplasm of cervix Active 2016 Screening for malignant neoplasms of the cervix;Rec orded Elsewhere: No Locatio n: [facility] rce: EHR Chroni c: N Practice ID: 0001 Billa ble Time: 01:00:00 PM Not Available [facility] 0 15:05:50 Adult health examinati on Active 2014 ROUTINE MEDICAL EXAM;Recor ded Elsewhere: No Locatio n: [facility] rce: EHR Chroni c: N Practice ID: 0001 Billa ble Time: 08:30:00 AM Not Available [facility] 0 15:05:50 Specializ ed medical examinati on Active 2014 Routine gynecologi jaylan examinatio n;Practice ID: 0001 Not Available [facility] 0 15:05:50 Urinary tract infectiou s disease 26317262 Active 2014 URIN TRACT INFECTION NOS;Practi ce ID: 0001 Not Available [facility] 0 15:05:[address] Concept Active 2016 Encounter for general adult medical exam w abnormal findings;P ractice ID: 0001 Not Available [facility] 0 15:05:50 Problem Notes None recorded. Procedures Surgical History Date Name Laterality Status Provider Name and Address Organization Details Recorded Time 07/20/20 17 Date of Last Pap Smear completed Ann Kaminski [facility] 04/09/2020 15:33:06 08/15/18 85 Total Hysterectomy completed Julissa Lilly [facility] 02/25/2020 15:11:47 Imaging Results Imaging Date Name Status LastModified by Organiz ation Details LastModified Time 04/23/2020 US, breast, bilateral completed [id number] [facility] [address], [place], [address], 04/28/2020 15:43:11 04/23/2020 DEXA, axial skeleton + vertebral fracture assessment completed [facility] [address], [place], [address], 05/07/2020 16:09:20 Procedure Notes None recorded. Medical Equipment None Reported. Allergies Allergen ID Allergen Name Allergen Category Reaction Reaction Severity Criticality Documentation Date Start Date Code Code System Note Provider Name and Address Organization Details Recorded Time 1309 Product containin g penicilli n and antibioti c (product) medicatio n Not available Not available Not available 02/25/2020 13261 05 SNOMED Julissa mckeon [facility] 0 15:11:02 1310 Substance with sulfonami de structure and antibacte rial mechanism of action (substanc e) medicatio n Not available Not available Not available 02/25/2020 77674 8003 SNOMED Julissa mckeon [facility] 0 15:11:07 Medications Name Sig Start Date Stop Date Status Note LastModified by Organization Details LastModified Time tretinoin 0.1 % topical cream active Not Available Not Available Not Available Diflucan 150 mg tablet take 1 tablet by oral route once 10/05 completed Prescrib ed Elsewher e: No Locat ion: [facility] odify By: adriane Encounte r DateTime : 04/23/20 16 12:00:45 PM Not Available Not Available Not Available ciproflox acin 250 mg tablet active Not Available Not Available No t Available valacyclo vir 500 mg tablet TAKE 1 TABLET BY ORAL ROUTE EVERY DAY active Not Available Not Available No t Available ciproflox acin 500 mg tablet take 1 tablet by oral route 2 times every day for 3 days 04/06 completed Prescrib ed Elsewher e: No Locat ion: [facility] odify By: elliot null DateTime : 04/04/20 15 08:30:00 AM Not Available Not Available Not Available terbinafi ne HCl 250 mg tablet active Not Available Not Available Not Available estradiol 1 mg tablet TAKE 1 TABLET BY ORAL ROUTE EVERY DAY 2018 active Prescrib ed Elsewher e: No Locat ion: [facility] odify By: pancho Peterson ter DateTime : 09/11/19 19 04:06:42 PM Not Available Not Available Not Available trazodone 150 mg tablet take 1 tablet by oral route every day at bedtime 10/05 completed Prescrib ed Elsewher e: Yes Loca tion: [facility] odify By: adriane Encounte r DateTime : 04/04/20 15 08:30:00 AM Not Available Not Available Not Available buspirone 10 mg tablet take 1 tablet by oral route 3 times every day 10/05 completed Prescrib ed Elsewher e: Yes Loca tion: [facility] odify By: adriane Encounte r DateTime : 04/04/20 15 08:30:00 AM Not Available Not Available Not Available clonazepa m 2 mg tablet take 1 tablet by oral route 3 times every day 10/05 completed Prescrib ed Elsewher e: Yes Loca tion: [facility] odify By: adriane Encounte r DateTime : 04/04/20 15 08:30:00 AM Not Available Not Available Not Available estradiol 0.5 mg tablet TAKE 1 TABLET BY MOUTH EVERY DAY active Not Available Not Available No t Available zolpidem 10 mg tablet take 1 tablet by oral route every day at bedtime active Not Available Not Available No t Available estradiol 0.0375 mg/24 hr semiweekl y transderm al patch apply 1 patch by transder mal route 2 times every week cyclical ly, 3 weeks on and 1 week off 04/20 completed Prescrib ed Elsewher e: Yes [facility] odify By: letty [address] ncounter DateTime : 04/04/20 15 08:30:00 AM Not Available Not Available Not Available hydroxyzi ne HCl 10 mg tablet 10/05 completed Prescrib ed Elsewher e: Yes [facility] By: adriane Encounte r DateTime : 04/04/20 15 08:30:00 AM Not Available Not Available Not Available Imitrex 25 mg tablet take 1 tablet by oral route once with fluids as early as possible after the onset of a migraine attack;m ay repeat after 2 hours if headache returns, not to exceed 200mgin 24hrs 10/05 completed Prescrib ed Elsewher e: Yes Loca tion: [facility] odify By: adriane Encounte r DateTime : 04/04/20 15 08:30:00 AM Not Available Not Available Not Available sertralin e 50 mg tablet take 1 tablet by oral route every day 10/05 completed Prescrib ed Elsewher e: Yes Loca tion: Catherine faby [facility] odify By: adriane Encounte r DateTime : 04/04/20 15 08:30:00 AM Not Available Not Available Not Available prazosin 2 mg capsule take 1 capsule by oral route 3 times every day 10/05 completed Prescrib ed Elsewher e: Yes Loca tion: [facility] odify By: adriane Encounte r DateTime : 04/04/20 15 08:30:00 AM Not Available Not Available Not Available sumatript an 6 mg/0.5 mL subcutane ous pen injector active Not Available Not Available Not Available rosuvasta tin 20 mg tablet active Not Available Not Available Not Available estradiol active Not Available Not Celeste ilable Not Available zolpidem active Not Available Not Avai lable Not Available Valtrex active Not Available Not Avail able Not Available Prilosec 10 mg oral suspensio n,delayed release take 2 packet by oral route every day mixed with 30 ml water, let sit 2-3 minutes, stir and drink within 30minute s 10/05 completed Prescrib ed Elsewher e: Yes Loca tion: Catherine faby [facility] odify By: adriane Encounte r DateTime : 04/04/20 15 08:30:00 AM Not Available Not Available Not Available Latuda 60 mg tablet take 1 tablet by oral route every day with food (at least 350 calories ) 10/05 completed Prescrib ed Elsewher e: Yes Loca tion: [facility]isha [facility] odify By: adriane Encounte r DateTime : 04/04/20 15 08:30:00 AM Not Available Not Available Not Available Biotin Plus Keratin 10,000 mcg-100 mg tablet 10/05 completed Prescrib ed Elsewher e: Yes [facility] By: adriane Encounte r DateTime : 04/04/20 15 08:30:00 AM Not Available Not Available Not Available duloxetin e 40 mg capsule,d elayed release take 1 tablet by oral route every day 07/25 completed Prescrib ed Elsewher e: Yes Loca tion: [facility] odify By: rudi gray DateTime : 04/04/20 15 08:30:00 AM Not Available Not Available Not Available Emgality Pen 120 mg/mL subcutane ous pen injector active Not Available Not Available Not Available Ubrelvy 50 mg tablet active Not Available Not Available Not Available Nurtec ODT 75 mg disintegr ating tablet active Not Available Not Available Not Available Vitals Date Recorded Body height Body mass index (BMI) Body weight Systolic blood pressure Diastolic blood pressure Provider Name and Address Organization Details Last Updated DateTime 04/10/2020 176.53 cm 24.9 kg/m2 89396.3 g 105 mm[Hg] 65 mm[Hg] Ann Kaminski [facility] 0 10:23:24 Social History Question Answer Notes LastModified by Organizat ion Details LastModified Time Tobacco Smoking Status Never Smoker Not Available [facility] 06/17/2020 03:28:11 What Is Your Level Of Alcohol Consumption? Occasional [id number] Information not available 06/17/2020 Sex: Unknown Functional Status Question Answer Note LastModified by Organization D etails LastModified Time What is your exercise level? Heavy [id number] Information not available 06/17/2020 Mental Status None recorded. Family History Nothing Reported. Medical History Condition Response History of STI Gynecological History Statement/Question Response STIs/STDs Date of Last Pap Smear 07/20/2017 Obstetrics History GPAL:G 2 P 0 0 0 0 Past Encounters Encounter ID Performer Location Encounter Start Date Encounter Closed Date Diagnosis/Indication Diagnosis SNOMED-CT Code Diagnosis ICD10 Code Diagnosis Note [id number] Anusha Jack , [facility] [address] [address] 04/10/2020 10:14:33 04/10/2020 11:12:46 Gynecologic examination 85820287 Z01.419 Take Calcium with Vitamin D 12-1500mg daily. Do monthly self breast exams. It is advised to get annual flu shot in the fall and she could obtain at [facility] or [facility] care clinic. If you haven't received the Tdap vaccine in the last 10 years you should obtain one as well. Have mammogram yearly, bone density every 2-3 years and colonoscop y every 5-10 years depending on findings and history. Engage in daily exercise of low impact aerobic exercise 45-60 minutes 4-5 times weekly. Avoid tobacco and illicit drugs as well as using moderation with alcohol intake less than 1-2 8 oz beverages daily. This lifestyle behavior pattern will lead to less health conditions and longer life span. If BMI greater than 25 weight watchers or dietary consult advised. Questions have been answered. Patient appears to understand instructio ns, but if you have any further questions call or respond to this email Hx of full hyst age 28yo for endometria l precancers has had neg pap since this time. Declines need for pelvic exam this year. With same partner. Voices US for breast screening. Screening for osteoporosis 986112351 Z13.820 Total Hyst for non-cancer indication s. Adult heal th examination 412742375 Z00.00 Menopausal syndrome 1237 10462 N95.9 We discussed Menopausal Hormone therapy (MHT) for women with intact uterus/no uterus with the goals of reliving vaso-motor sx's using estrogen/p rogestin therapy (EPT) using lowest doses for shortest duration in women 40-59yo. Contraindi cations include: Hx of DVT or thrombolic events, High cholestero l, Hx of breast cancer, known CHD, active liver disease, unexplaine d vag bleeding, high risk endometria l cancer, TIA. Side effects can include but are not limited to: Irregular vag bleeding,, breast tenderness , nausea, weight changes, libido changes, nausea. Adverse Rxn: Elevated BP migraine w/ visual changes, breast cancer dx, CT/stroke, DVT/PE, Endometria l cancer. Please contact office with any new or worsening side effects or adverse reactions. Or if a medical emergency please go to nearest ED/[facility] for further evaluation . Patient verbalized understand ing of continuing her estradiol therapy past age 62yo and the risk associated with it's use including but not limited to stroke/DVT /PE/Breast cancer. She f/u with PCP in wellness program q6mos. Her BP is stable. Advised consult Dr. Richa Paredes for postmenopa use weight loss & re-evaluat ion of her HRT. Screening mammography 24 341790 Z12.31 Health Concerns Section Related Observation LastModified by Organization Detai ls LastModified Time None Recorded Concern Status LastModified by Organization Details LastModified Time None Recorded Advance Directives Directive None Recorded Payers Encounter Date Sequence Insurance Name Policy Number Policy Keen Covered Member ID Keen Member ID Guarantor Name 04/10/2020 1 [facility] [id number] Frederick Rondon [id number] Notes Date Note Type Note Provider Name and Address Organization Details Recorded Time 04/10/2020 text/html Annual GYNReport ed bypatient.History:n o gynecologic complaints Menstrual cycle:Normal menses Urinary symptoms:No hematuria; No incontinence Vulva:No genital lesion Vagina:Normal vaginal discharge Breast:No breast pain; No breast lump; No nipple discharge Sexual complaints:No sexual complaints; No pain during intercourse; Normal libido Menopausal Symptoms:No menopausal symptoms; Normal vaginal lubrication Psychological symptoms:No depression; No anxiety; No PMDD Preventive measures:Encourage self breast examination; Encourage regular exercise; Encourage no tobacco use; Encourage regular mammograms starting age 40; Needs to schedule mammogram; Up to date on colonoscopy screening Concerned about postmenopause weight loss. Anusha Jack, [facility]- [address], [place], [address], [facility] 04/10/2020 10:58:04 OBGyn Episode Ob Episode Information Episode Created Date Number of Fetuses Patient Bloodtype Patient rh Status Prepregnancy Weight lbs Domestic Partner Domestic Partner Phone Father Name Supervisor Fertilizer Processing Status 04/09/20 20 1 CLOSED Fetus Data First Name Last Name Admitted to NICU Weight (g) Sex Living Outcome Pediatric Complications Fetus ID Race Codes Race Delivery Type [id number] Vaginal Delivery Messi Calculation Initial Messi Date Initial Exam Date Initial Exam Provider Initial Ultrasound Date Last Menstrual Period Date Ultra Sound Weeks Gestation 0 Eighteen To Twenty Week Messi Update Ultra Sound Date Fundal Height At Umbil Quickening Date Ultra Sound Latest Weeks Gestation Final Messi Confirmed By Final Messi Confirmed Date Final Messi Date Ultra Sound Latest Days Gestation 0 0 Menstrual History Last Menstrual Date Menses Monthly On Bcp Conception Prior Menses Frequency Hcg Plus Date Menarche Onset Age Delivery Information Delivery Date Delivery Type Labor Anesthesia Weeks Gestation Incision Type Labor Labor Length Hrs Delivered By Post Complications Tubal Sterilization Discharge Date Comments 4 cade Discharge Information Feeding Method Contraceptive Method Maternal HG B and HCT Levels Ob Episode Information Episode Created Date Number of Fetuses Patient Bloodtype Patient rh Status Prepregnancy Weight lbs Domestic Partner Domestic Partner Phone Father Name Supervisor Fertilizer Processing Status 04/09/20 20 1 CLOSED Fetus Data First Name Last Name Admitted to NICU Weight (g) Sex Living Outcome Pediatric Complications Fetus ID Race Codes Race Delivery Type 4038 Vaginal Delivery Messi Calculation Initial Messi Date Initial Exam Date Initial Exam Provider Initial Ultrasound Date Last Menstrual Period Date Ultra Sound Weeks Gestation 0 Eighteen To Twenty Week Messi Update Ultra Sound Date Fundal Height At Umbil Quickening Date Ultra Sound Latest Weeks Gestation Final Messi Confirmed By Final Messi Confirmed Date Final Messi Date Ultra Sound Latest Days Gestation 0 0 Menstrual History Last Menstrual Date Menses Monthly On Bcp Conception Prior Menses Frequency Hcg Plus Date Menarche Onset Age Delivery Information Delivery Date Delivery Type Labor Anesthesia Weeks Gestation Incision Type Labor Labor Length Hrs Delivered By Post Complications Tubal Sterilization Discharge Date Comments 1 monty Discharge Information Feeding Method Contraceptive Method Maternal HG B and HCT Levels
== END 2024-09-04 09:01 | disposition home or self-care (01) ==
PROVIDERS: PCP Internal Medicine; Visit Provider Internal Medicine
DX: E83.52 Hypercalcemia (principal)
CPT/HCPCS: 78071; A9500

== ENCOUNTER 2024-09-13 10:54 | Outpatient (CLI) | payer MEDICARE, SELFPAY ==
--- OUTSIDE RECORDS SUMMARY | 2024-09-13 11:42 | XMS_ITS | Referral Summary ---
Author Organization [facility] Address [address] [place] [address] Care Team Providers Care Deck Lid Fitter Name Role Phone Dyllan Goldberg MD Primary Care Provider [phone] Encounters Date Type Department Care Team Description 07/30/2024 1:54 PM FIELD RING ASSEMBLER - 07/30/2024 11:59 PM FIELD RING ASSEMBLER Hospital Encounter [facility] [address] [place] [id number] Left hip pain; Gluteal pain; Sacroiliac joint pain; Lumbar radiculopathy Discharge Disposition: Discharge to home or self care 07/30/2024 1:50 PM FIELD RING ASSEMBLER - 07/30/2024 11:59 PM FIELD RING ASSEMBLER Hospital Encounter [facility] [address] [place] [address] [phone] Left hip pain; Gluteal pain; Sacroiliac joint pain; Lumbar radiculopathy Discharge Disposition: Discharge to home or self care 07/20/2024 Orders Only [facility] Orthopaedic Surgery [address] [place] [address] 2nd [address] [place] [address] Yuli Coello MD Left hip pain (Primary Dx); Gluteal pain; Sacroiliac joint pain; Lumbar radiculopathy 07/09/2024 Telephone [facility] [address] [facility] [address] [place] [phone] Sade Nova RT 07/09/2024 2:20 PM FIELD RING ASSEMBLER - 07/09/2024 11:59 PM FIELD RING ASSEMBLER Hospital Encounter [facility] [address] [facility] [address] [place] [address] Yuli Coello MD Gluteal pain; Left hip pain Discharge Disposition: Discharge to home or self care 07/05/2024 Telephone Radiology - [address] [facility] [address] [place] [address] Keeley Chowdhury, RT 07/03/2024 Telephone [facility] Orthopaedic Surgery [address] [facility] Medical Office Building [address] [place] [address] Yuli Coello MD 06/28/2024 Orders Only [facility] Orthopaedic Surgery [address] [facility] 6th [place] [address] [place] [address] Yuli Coello MD Gluteal pain (Primary Dx); Left hip pain 06/22/2024 12:12 PM FIELD RING ASSEMBLER - 06/22/2024 11:59 PM FIELD RING ASSEMBLER Hospital Encounter [facility] [address] [place] [address] Yuli Coello MD Lumbar radiculopathy; Gluteal pain Discharge Disposition: Discharge to home or self care 06/20/2024 Telephone [facility] Orthopaedic Surgery [address] [place] [address] Medical Office Building [address] [place] [address] Yuli Coello MD 06/18/2024 9:20 AM FIELD RING ASSEMBLER Office Visit [facility] Orthopaedic Surgery [address] [place] [address] Medical Office Building [address] [place] [address] Yuli Coello MD Lumbar radiculopathy; Gluteal pain from Last 3 Months Allergies Active Allergy Reactions Criticality Noted Date Comments Penicillins Rash High Sulfa (Sulfonamide Antibiotics) Rash High Medications estradiol (ESTRACE) 1 mg tablet 06/14/20 18 Active zolpidem (AMBIEN) 10 mg tabletIndications: Sleep-Onset Insomnia 07/04/20 18 Active valACYclovir (VALTREX) 500 mg tablet 06/16/20 18 Active IMITREX STATDOSE PEN 6 mg/0.5 mL injection Administer 0.5 mL under the skin 1 time as needed for migraine. May repeat once in 1 hour. 45 mL 1 12/20/19 19 Active IMITREX 100 mg tabletIndications: Migraine Take 1 tablet (100 mg total) by mouth once as needed for migraine for up to 1 dose 27 tablet 2 12/20/19 19 Active Additional Information Patient not taking.Reported on 03/15/2024 azelastine (ASTELIN) 137 mcg (0.1 %) nasal spray 05/04/20 23 Active metFORMIN XR (GLUCOPHAGE XR) 500 mg 24 hr tablet 06/30/[address] (PROTONIX) 40 mg EC tablet 06/30/20 23 Active ondansetron ODT (ZOFRAN-ODT) 8 mg disintegrating tablet 04/20/20 23 Active rosuvastatin (CRESTOR) 20 mg tablet 07/21/20 23 Active galcanezumab-gnlm (Emgality Pen) 120 mg/mL pen injector A ctive rimegepant (Nurtec ODT) tablet,disintegrat ing Active gabapentin (NEURONTIN) 600 mg tablet 03/13/20 24 Active erenumab-aooe (Aimovig Autoinjector) 140 mg/mL auto-injector as directed Subcutaneous Active Active Problems Problem Noted Date Diagnosed Date Sacroiliitis, not elsewhere classified 4 Tear of left acetabular labrum 05/03/2024 Chronic migraine without aur a with status migrainosus, not intractable 01/20/2018 Reduced libido 10/04/2017 Overview (05/03/2024): Decreased sexual desire;Recorded Elsewhere: No Location: [facility] Source: EHR Chronic: N Practice ID: [id number] Billable Time: 11:00:00 AM Leukocytosis 07/19/2017 Overview (05/03/2024): Elevated white blood cell count, unspecified;Recorded Elsewhere: No Location: [facility] Source: EHR Chronic: N Practice ID: [id number] Billable Time: 01:00:00 PM Overweight with body mass index (BMI) 25.0-29.9 04/20/2016 Overview (05/03/2024): Body mass index (BMI) 25.0-25.9, adult;Recorded Elsewhere: No Location: [facility] Source: EHR Chronic: N Practice ID: [id number] Billable Time: 02:00:00 PM Herpetic vulvovaginitis 04/02/2016 Overview (05/03/2024): Herpesviral [herpes simplex] ulceration;Recorded Elsewhere: No Location: [facility] Source: EHR Chronic: N Practice ID: [id number] Billable Time: 10:15:00 AM Urinary tract infectious disease 04/04/2015 Overview (05/03/2024): URIN TRACT INFECTION NOS;Practice ID: [id number] Social History Tobacco Use Types Packs/Day Years Used Date Smoking Tobacco: Never Smokeless Tobacco: Never Tobacco Cessation:Counseling Given: Not Answered Personal Safety Answer Date Recorded Have you ever been in or are you currently in a harmful physical or emotional relationship or is someone making you feel afraid or unsafe? Patient unable to answer 09/22/2023 Comments Unknown Sex and Gender Information Value Date Recorded Sex Assigned at Not on file Legal Sex Female 10:06 AM CDT Gender Identity Not on file Sexual Orientation Not on file Last Filed Vital Signs Vital Sign Reading Time Taken Comments Blood Pressure 141/75 09/22/2023 9:14 AM FIELD RING ASSEMBLER Pulse 84 09/22/2023 9:14 AM FIELD RING ASSEMBLER Temperature - - Respiratory Rate 20 09/22/2023 9:14 AM FIELD RING ASSEMBLER Oxygen Saturation 98% 01/20/2018 10:06 AM CDT Inhaled Oxygen Concentration - - Weight 74.8 kg (165 lb) 04/25/2024 9:53 AM CDT Height 176.5 cm (5' 9.5 ) 03/15/2024 1:17 PM CDT Body Mass Index 24.02 03/15/2024 1:17 PM CDT Plan of Treatment Not on file Medical Devices Implanted Type Area Skilled Trades Teacher Device Identifier Shelf Expiration Date Model / Serial / Lot Ankle Reconstruction Ankle Vertebrea Replacement Spine Lumbar Vertebrae Replacement Neck Procedures Procedure Name Priority Date/Time Associated Diagnosis Comments MRI HIP ARTHROGRAM LEFT W CONTRAST Schedule Routine, Read Routine (OP Routine) 07/30/2024 3:08 PM FIELD RING ASSEMBLER Left hip pain Gluteal pain Sacroiliac joint pain Lumbar radiculopathy INJECTION HIP LEFT ARTHRO ONLY Schedule Routine, Read Routine (OP Routine) 07/30/2024 2:28 PM FIELD RING ASSEMBLER Left hip pain Gluteal pain Sacroiliac joint pain Lumbar radiculopathy FL FLUORO GUIDED INJECTION HIP LEFT Schedule Routine, Read Routine (OP Routine) 07/09/2024 3:14 PM FIELD RING ASSEMBLER Gluteal pain Left hip pain MRI PELVIS WO CONTRAST Schedule Routine, Read Routine (OP Routine) 06/22/2024 2:22 PM FIELD RING ASSEMBLER Lumbar radiculopathy Gluteal pain from Last 3 Months Results * MRI Hip Arthrogram Left W Contrast (07/30/2024 3:08 PM FIELD RING ASSEMBLER) Anatomical Region Laterality Modality Lower Extremities Left Magnetic Reson ance 07/30/2024 3:25 PM FIELD RING ASSEMBLER Impressions 07/30/2024 3:25 PM FIELD RING ASSEMBLER 1. ??Complex, minimally displaced anterosuperior left acetabular labral tear with mild left hip chondrosis. 2. ??Mild to moderate bilateral proximal hamstring tendinopathy. Electronically signed by: Magdaleno Estrada MD Narrative 07/30/2024 3:25 PM FIELD RING ASSEMBLER EXAMINATION: 1. MRI left hip with contrast HISTORY: ??Left hip pain TECHNIQUE: An MRI of the left hip and pelvis was performed following the fluoroscopic guided intra-articular injection of 14 mL of a (1:200) dilution of Dotarem in sterile saline, and Omnipaque 300. Please see separate dictation for details of the procedure. Multiplanar multisequence MR examination of the left hip and pelvis was then performed using a multi-coil array. FINDINGS: Comparison dated 06/22/2024. Postsurgical changes of prior left acetabular labral repair. Involving the anterosuperior left labrum, between the 1 and 3 o'clock positions, there is a complex, minimally displaced tear. ??Mild anterosuperior left hip chondrosis. ??Expected volume of fluid in the hip joint. ??Ligamentum teres is intact. ??No significant capsular abnormalities. Limited images of the right hip joint are unremarkable. ??Mild degenerative changes of the symphysis pubis. ??Mild bilateral sacroiliac osteoarthritis. ??Incompletely evaluated anterior instrument fusion at L4-L5. Alignment is normal. ??No pelvic diastasis. ??No fracture. ??No suspicious marrow replacing lesion. ??No abnormal marrow edema. Mild bilateral gluteus minimus muscle atrophy. ??Mild bilateral gluteus minimus tendinopathy. ??No tear. ??The gluteus medius tendons are normal. ??Mild right and minimal left greater trochanteric bursitis. Mild to moderate bilateral proximal hamstring tendinopathy. ??Rectus femoris tendons are normal. ??Iliopsoas tendons and bursae are normal. The adductor musculature is normal. ??Piriformis muscles are normal and symmetric. ??Sciatic nerves are normal. Limited images of the pelvic soft tissues demonstrate colonic diverticulosis. ??No additional abnormalities. Procedure Note Magdaleno Estrada MD - 07/30/2024 EXAMINATION: 1. MRI left hip with contrast HISTORY: Left hip pain TECHNIQUE: An MRI of the left hip and pelvis was performed following the fluoroscopic guided intra-articular injection of 14 mL of a (1:200) dilution of Dotarem in sterile saline, and Omnipaque 300. Please see separate dictation for details of the procedure. Multiplanar multisequence MR examination of the left hip and pelvis was then performed using a multi-coil array. FINDINGS: Comparison dated 06/22/2024. Postsurgical changes of prior left acetabular labral repair. Involving the anterosuperior left labrum, between the 1 and 3 o'clock positions, there is a complex, minimally displaced tear. Mild anterosuperior left hip chondrosis. Expected volume of fluid in the hip joint. Ligamentum teres is intact. No significant capsular abnormalities. Limited images of the right hip joint are unremarkable. Mild degenerative changes of the symphysis pubis. Mild bilateral sacroiliac osteoarthritis. Incompletely evaluated anterior instrument fusion at L4-L5. Alignment is normal. No pelvic diastasis. No fracture. No suspicious marrow replacing lesion. No abnormal marrow edema. Mild bilateral gluteus minimus muscle atrophy. Mild bilateral gluteus minimus tendinopathy. No tear. The gluteus medius tendons are normal. Mild right and minimal left greater trochanteric bursitis. Mild to moderate bilateral proximal hamstring tendinopathy. Rectus femoris tendons are normal. Iliopsoas tendons and bursae are normal. The adductor musculature is normal. Piriformis muscles are normal and symmetric. Sciatic nerves are normal. Limited images of the pelvic soft tissues demonstrate colonic diverticulosis. No additional abnormalities. IMPRESSION: 1. Complex, minimally displaced anterosuperior left acetabular labral tear with mild left hip chondrosis. 2. Mild to moderate bilateral proximal hamstring tendinopathy. Electronically signed by: Magdaleno Estrada MD Yuli Coello MD IMG MRI PROCEDURES Final R esult * Injection Hip Left Arthro Only (07/30/2024 2:28 PM FIELD RING ASSEMBLER) Anatomical Region Laterality Modality Hip Left Computed Radiogr aphy 07/30/2024 2:48 PM FIELD RING ASSEMBLER Impressions 07/30/2024 2:48 PM FIELD RING ASSEMBLER Successful left hip joint injection under fluoroscopic guidance for MR arthrography. Electronically signed by: Magdaleno Estrada MD Narrative 07/30/2024 2:48 PM FIELD RING ASSEMBLER EXAMINATION: ?? 1. Left hip joint injection 2. Fluoroscopic guidance for needle placement HISTORY: Left hip pain, labral tear, pre MR arthrogram TECHNIQUE: ??The risks, benefits and alternatives were discussed with the patient. ??Informed consent was obtained. ??Prior to beginning the procedure, [place] Protocol was performed to confirm the patient's identity and the planned procedure. The fluoroscopy time has been recorded in the electronic medical record. The patient was placed supine on the procedure table. ??The left hip joint was localized with fluoroscopic guidance. ?? The skin was prepped and draped in a standard sterile fashion. ??Using sterile technique, a 20 mL solution was prepared consisting of 10 mL of a 1:100 dilution of Dotarem gadolinium contrast in sterile saline and 10 mL Omnipaque 300. Local anesthesia was achieved with subcutaneous injection of 1% lidocaine 4 mL. ??A needle was then introduced into the left hip joint under fluoroscopic guidance. Subsequently, 14 mL of the 1:200 gadolinium contrast was injected with intermittent fluoroscopic visualization. Complication: None Type: None The patient was then transferred to the MR suite for MR arthrogram. Dr. Magdaleno Estrada MD, the attending radiologist, was present from the beginning to the end of the procedure. FINDINGS: Fluoroscopic images confirm intra-articular position of the needle tip with subsequent filling of the left hip joint space. ?? The results of the MR arthrogram are reported separately. Procedure Note Magdaleno Estrada MD - 07/30/2024 EXAMINATION: 1. Left hip joint injection 2. Fluoroscopic guidance for needle placement HISTORY: Left hip pain, labral tear, pre MR arthrogram TECHNIQUE: The risks, benefits and alternatives were discussed with the patient. Informed consent was obtained. Prior to beginning the procedure, [place] Protocol was performed to confirm the patient's identity and the planned procedure. The fluoroscopy time has been recorded in the electronic medical record. The patient was placed supine on the procedure table. The left hip joint was localized with fluoroscopic guidance. The skin was prepped and draped in a standard sterile fashion. Using sterile technique, a 20 mL solution was prepared consisting of 10 mL of a 1:100 dilution of Dotarem gadolinium contrast in sterile saline and 10 mL Omnipaque 300. Local anesthesia was achieved with subcutaneous injection of 1% lidocaine 4 mL. A needle was then introduced into the left hip joint under fluoroscopic guidance. Subsequently, 14 mL of the 1:200 gadolinium contrast was injected with intermittent fluoroscopic visualization. Complication: None Type: None The patient was then transferred to the MR suite for MR arthrogram. Dr. Magdaleno Estrada MD, the attending radiologist, was present from the beginning to the end of the procedure. FINDINGS: Fluoroscopic images confirm intra-articular position of the needle tip with subsequent filling of the left hip joint space. The results of the MR arthrogram are reported separately. IMPRESSION: Successful left hip joint injection under fluoroscopic guidance for MR arthrography. Electronically signed by: Magdaleno Estrada MD Yuli Coello MD IMG XR PROCEDURES Final Re sult * FL Fluoro Guided Injection Hip Left (07/09/2024 3:14 PM FIELD RING ASSEMBLER) Narrative [facility] - 07/09/2024 3:14 PM FIELD RING ASSEMBLER The images from this study are not interpreted by Radiology. ??Please refer to the physician's procedure / OR operative note. Yuli Coello MD IMG FLUOROSCOPY PROCEDURES Final Result [id number] * MRI Pelvis WO Contrast (06/22/2024 2:22 PM FIELD RING ASSEMBLER) Anatomical Region Laterality Modality Pelvis N/A Magnetic Resonan ce 06/22/2024 3:33 PM FIELD RING ASSEMBLER Impressions 06/22/2024 4:00 PM FIELD RING ASSEMBLER Mild bilateral hamstring tendinopathy and greater trochanteric bursitis. Dictated by: Jairo Trinidad MD The radiology attending physician has personally reviewed this study, and had reviewed and/or edited this written report and agrees with it. Electronically signed by: Bart Haro M.D. Narrative 06/22/2024 4:00 PM FIELD RING ASSEMBLER EXAMINATION: 1. MRI pelvis without contrast HISTORY: ??Pelvic pain FINDINGS: Comparison radiographs 03/15/2024. MR examination of the pelvis was performed with a multi-coil ray. Coronal short TR/TE and STIR images and transverse short TR/TE and fast spin echo images of the pelvis were obtained without contrast. The marrow signal of the lower lumbar spine, sacrum, pelvis, and proximal femora is normal. Specifically, there is no evidence of a fracture, stress fracture, or femoral head avascular necrosis. There is mild bilateral chondrosis of the hip joints. There is a physiologic amount of fluid within each hip joint. The musculature of the pelvis and proximal femora is symmetric and normal in bulk. The adductor and gluteal tendons and musculature are normal. The piriformis muscles are symmetric. The sciatic nerves are normal in course and morphology. There is mild bilateral hamstring tendinopathy.There is mild bilateral greater trochanteric bursitis. Limited evaluation of the pelvis demonstrates diverticulosis with no acute pelvic abnormality. Procedure Note Bart Haro MD PhD - 06/22/2024 EXAMINATION: 1. MRI pelvis without contrast HISTORY: Pelvic pain FINDINGS: Comparison radiographs 03/15/2024. MR examination of the pelvis was performed with a multi-coil ray. Coronal short TR/TE and STIR images and transverse short TR/TE and fast spin echo images of the pelvis were obtained without contrast. The marrow signal of the lower lumbar spine, sacrum, pelvis, and proximal femora is normal. Specifically, there is no evidence of a fracture, stress fracture, or femoral head avascular necrosis. There is mild bilateral chondrosis of the hip joints. There is a physiologic amount of fluid within each hip joint. The musculature of the pelvis and proximal femora is symmetric and normal in bulk. The adductor and gluteal tendons and musculature are normal. The piriformis muscles are symmetric. The sciatic nerves are normal in course and morphology. There is mild bilateral hamstring tendinopathy.There is mild bilateral greater trochanteric bursitis. Limited evaluation of the pelvis demonstrates diverticulosis with no acute pelvic abnormality. IMPRESSION: Mild bilateral hamstring tendinopathy and greater trochanteric bursitis. Dictated by: Jairo Trinidad MD The radiology attending physician has personally reviewed this study, and had reviewed and/or edited this written report and agrees with it. Electronically signed by: Bart Haro M.D. Yuli Coello MD IMG MRI PROCEDURES Final R esult from Last 3 Months Insurance [place] [address] [employer] Care Teams Deck Lid Fitter Relationship Specialty Start Date End Date Dyllan Goldberg MD [address] [facility] [place], [place] [id number] PCP - General Internal Medicine 05/01/20
--- OUTSIDE RECORDS SUMMARY | 2024-09-13 11:42 | XMS_ITS ---
Author Organization [facility] Address Unknown Encounters Encounter Performer Performer Role Encounter Diagnoses Location Date Discharge - Discharged to home or self care - Home - Private home/apt. with no home health services [facility] 01/06/2016 06:00 pm EDT - 01/07/2016 12:05 pm EDT Social History
--- OUTSIDE RECORDS SUMMARY | 2024-09-13 11:42 | XMS_ITS | Data Portability ---
Author Organization [facility] Paige Address [address] [place] [address] Care Team Providers Care Transportation Driver Name Role Phone MYRONRemberto LAZARO Primary Care Provider Assessment No assessment recorded. Plan of Treatment Reminders Order Date Submit Date Provider Last Modified By Organization Details Last Modified Time Details Appointments None recorded. Lab CBC w/ auto diff 2019 020 [email or web address] [facility] ([facility]), [address] [place], [place] [address]k [address] , [address], [place], [address], 0 15:35:12 CMP, serum or plasma 2019 020 [email or web address] [facility] ([facility]), [address] [place] [address] [address], [place], [address], 0 15:35:12 phosphorus , serum or plasma 2019 020 [email or web address] [facility] ([facility]), [facility] [address] [address], [place], [address], 0 15:35:12 TSH, serum or plasma 2019 020 [email or web address] [facility] ([facility]), [address] [facility] [address] [address], [place], [address], 0 15:35:13 vitamin D, 25-hydroxy , total, serum 2019 [email or web address] [facility] ([facility]), [address] [facility] [address], [place], [address], 0 15:35:13 lipid panel, serum 2019 [email or web address] [facility] ([facility]), [address] [facility] [address], [place], [address], 0 15:35:13 HbA1c (hemoglobi n A1c), blood 2019 [email or web address] [facility] ([facility]), [address] [facility] [address], [place], [address], 0 15:35:13 Referral None recorded. Procedures None recorded. Surgeries None recorded. Imaging US, breast, bilateral 2019 [facility], [facility] [address] [facility], [place], [address], 0 12:21:47 DEXA, axial skeleton + vertebral fracture assessment 2019 [facility] Not available 0 14:48:42 Medication Orders estradiol 0.5 mg tablet 2019 [id number], [address] [facility], [place], [place], [id number], 0 10:52:15 Patient TargetsNo targets recorded. Patient Instructions Encounter Date Encounter Id Patient Instructions Last Modified By Organization Details Last Modified Time 04/10/2020 [id number] [email or web address] Not available 10:57:11 Reason for Referral None Reported. Results Created Date Observation Date Name Description Value Unit Range Abnormal Flag Note LastModifiedBy Organization Detail LastModifiedTime 04/23/20 20 04/23/2020 aurora MARTINEZ bilat eral No observ ation record ed. [email or web address] [facility] [address], [place], [address], 04/28/2020 15:43:11 05/06/20 20 04/23/2020 DEXA, axial skele ton + verte bral fract ure asses sment No observ ation record ed. layran [facility] [address], [place], [address], 05/07/2020 16:09:20 Result Notes None recorded. 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) (routine) w/o abn findings;P ractice ID: 0001 Not Available [facility] 0 15:05:49 Blood leukocyte number above reference range 104779877 Active 2016 Elevated white blood cell count, unspecifie d;Recorded Elsewhere: No Locatio n: [facility] rce: EHR Chroni c: N Practice ID: 0001 Billa ble Time: 01:00:00 PM Not Available [facility] 0 15:05:49 Reduced libido 8759557 Active 2017 Decreased sexual desire;Rec orded Elsewhere: No Locatio n: [facility] Matilda rce: EHR Chroni c: N Practice ID: 0001 Billa ble Time: 11:00:00 AM Not Available [facility] 0 15:05:49 Human papilloma virus screening Active 2016 Encounter for screening for human papillomav irus (HPV);Marlo rded Elsewhere: No Locatio n: [facility] rce: EHR Chroni c: N Practice ID: 0001 Billa ble Time: 01:00:00 PM Not Available [facility] 0 15:05:[address] Concept Active 2017 Encntr for general adult medical exam w/o abnormal findings;R ecorded Elsewhere: No Locatio n: [facility] rce: EHR Chroni c: N Practice ID: 0001 Billa ble Time: 10:30:00 AM Not Available [facility] 0 15:05:50 Body mass index 25-29 - overweigh t 958942890 Active 2015 Body mass index (BMI) 25.0-25.9, adult;Marlo rded Elsewhere: No Locatio n: [facility] rce: EHR Chroni c: N Practice ID: 0001 Billa ble Time: 02:00:00 PM Not Available [facility] 0 15:05:50 Herpetic vulvovagi nitis 56940944 Active 2015 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] ulceration ;Recorded Elsewhere: No Locatio n: [facility] rce: EHR Chroni c: N Practice ID: 0001 Billa ble Time: 10:15:00 AM Not Available [facility] 0 15:05:50 Screening for malignant neoplasm of cervix Active 2016 Screening for malignant neoplasms of the cervix;Rec orded Elsewhere: No Locatio n: [facility] rce: EHR Chroni c: N Practice ID: 0001 Billa ble Time: 01:00:00 PM Not Available [facility] 0 15:05:50 Adult health examinati on Active 2014 ROUTINE MEDICAL EXAM;Recor ded Elsewhere: No Locatio n: [facility] rce: EHR Chroni c: N Practice ID: 0001 Billa ble Time: 08:30:00 AM Not Available [facility] 0 15:05:50 Specializ ed medical examinati on Active 2014 Routine gynecologi jaylan examinatio n;Practice ID: 0001 Not Available [facility] 0 15:05:50 Urinary tract infectiou s disease 88237591 Active 2014 URIN TRACT INFECTION NOS;Practi ce ID: 0001 Not Available [facility] 0 15:05:[address] Concept Active 2016 Encounter for general adult medical exam w abnormal findings;P ractice ID: 0001 Not Available [facility] 0 15:05:50 Problem Notes None recorded. Procedures Surgical History Date Name Laterality Status Provider Name and Address Organization Details Recorded Time 07/20/20 17 Date of Last Pap Smear completed Ann Kaminski [facility] 04/09/2020 15:33:06 08/15/18 85 Total Hysterectomy completed Julissa Lilly [facility] 02/25/2020 15:11:47 Imaging Results Imaging Date Name Status LastModified by Organiz ation Details LastModified Time 04/23/2020 US, breast, bilateral completed [email or web address] [facility] [address], [place], [address], 04/28/2020 15:43:11 04/23/2020 DEXA, axial skeleton + vertebral fracture assessment completed [facility] [address], [place], [address], 05/07/2020 16:09:20 Procedure Notes None recorded. Medical Equipment None Reported. Allergies Allergen ID Allergen Name Allergen Category Reaction Reaction Severity Criticality Documentation Date Start Date Code Code System Note Provider Name and Address Organization Details Recorded Time 1309 Product containin g penicilli n and antibioti c (product) medicatio n Not available Not available Not available 02/25/2020 75514 05 SNOMED Julissa mckeon [facility] 0 15:11:02 1310 Substance with sulfonami de structure and antibacte rial mechanism of action (substanc e) medicatio n Not available Not available Not available 02/25/2020 40910 8003 SNOMED Julissa mckeon [facility] 0 15:11:07 Medications Name Sig Start Date Stop Date Status Note LastModified by Organization Details LastModified Time tretinoin 0.1 % topical cream active Not Available Not Available Not Available Diflucan 150 mg tablet take 1 tablet by oral route once 10/05 completed Prescrib ed Elsewher e: No Locat ion: Talisha hobbs [facility] odify By: adriane Encounte r DateTime [...] ed Elsewher e: No Locat ion: Talisha [facility] odify By: elliot null DateTime : 04/04/20 15 08:30:00 AM Not Available Not Available Not Available terbinafi ne HCl 250 mg tablet active Not Available Not Available Not Available estradiol 1 mg tablet TAKE 1 TABLET BY ORAL ROUTE EVERY DAY 2018 active Prescrib ed Elsewher e: No Locat ion: [facility] odify By: pancho Peterson ter DateTime : 09/11/19 19 04:06:42 PM Not Available Not Available Not Available trazodone 150 mg tablet take 1 tablet by oral route every day at bedtime 10/05 completed Prescrib ed Elsewher e: Yes Loca tion: Talisha hobbs [facility] odify By: adriane Encounte r DateTime : 04/04/20 15 08:30:00 AM Not Available Not Available Not Available buspirone 10 mg tablet take 1 tablet by oral route 3 times every day 10/05 completed Prescrib ed Elsewher e: Yes Loca tion: Talisha hobbs [facility] odify By: adriane Encounte r DateTime : 04/04/20 15 08:30:00 AM Not Available Not Available Not Available clonazepa m 2 mg tablet take 1 tablet by oral route 3 times every day 10/05 completed Prescrib ed Elsewher e: Yes Loca tion: Talisha hobbs [facility] odify By: adriane Encounte r DateTime [...] Prescrib ed Elsewher e: Yes [facility] odify By: letty [address] ncounter DateTime : 04/04/20 15 08:30:00 AM Not Available Not Available Not Available hydroxyzi ne HCl 10 mg tablet 10/05 completed Prescrib ed Elsewher e: Yes [facility] By: adriane Encounte r DateTime : [...] Elsewher e: Yes Loca tion: Talisha hobbs [facility] odify By: adriane Encounte r DateTime : 04/04/20 15 08:30:00 AM Not Available Not Available Not Available sertralin e 50 mg tablet take 1 tablet by oral route every day 10/05 completed Prescrib ed Elsewher e: Yes Loca tion: Catherine faby [facility] odify By: adriane Encounte r DateTime : 04/04/20 15 08:30:00 AM Not Available Not Available Not Available prazosin 2 mg capsule take 1 capsule by oral route 3 times every day 10/05 completed Prescrib ed Elsewher e: Yes Loca tion: Talisha [facility] odify By: adriane Encounte r DateTime : [...] Elsewher e: Yes Loca tion: Catherine faby [facility] odify By: adriane Encounte r DateTime : 04/04/20 15 08:30:00 AM Not Available Not Available Not Available Latuda 60 mg tablet take 1 tablet by oral route every day with food (at least 350 calories ) 10/05 completed Prescrib ed Elsewher e: Yes Loca tion: Talisha hobbs [facility] odify By: adriane Encounte r DateTime : 04/04/20 15 08:30:00 AM Not Available Not Available Not Available Biotin Plus Keratin 10,000 mcg-100 mg tablet 10/05 completed Prescrib ed Elsewher e: Yes [facility] By: adriane Encounte r DateTime : 04/04/20 15 08:30:00 AM Not Available Not Available Not Available duloxetin e 40 mg capsule,d elayed release take 1 tablet by oral route every day 07/25 completed Prescrib ed Elsewher e: Yes Loca tion: [facility] odify By: rudi gray DateTime : 04/04/20 [...] Updated DateTime 04/10/2020 176.53 cm 24.9 kg/m2 77329.3 g 105 mm[Hg] 65 mm[Hg] Ann Kaminski [facility] 0 10:23:24 Social History Question Answer Notes LastModified by Organizat ion Details LastModified Time Tobacco Smoking Status Never Smoker Not Available [facility] 06/17/2020 03:28:11 What Is Your Level Of Alcohol Consumption? Occasional [id number] Information not available 06/17/2020 Sex: Unknown Functional Status Question Answer Note LastModified by Organization D etails LastModified Time What is your exercise level? Heavy [id number] Information not available 06/17/2020 Mental Status None recorded. Family History Nothing Reported. Medical History Condition Response History of STI Gynecological History Statement/Question Response STIs/STDs Date of Last Pap Smear 07/20/2017 Obstetrics History GPAL:G 2 P 0 0 0 0 Past Encounters Encounter ID Performer Location Encounter Start Date Encounter Closed Date Diagnosis/Indication Diagnosis SNOMED-CT Code Diagnosis ICD10 Code Diagnosis Note [id number] Anusha Jack , [facility] [address] [address] 04/10/2020 10:14:33 04/10/2020 11:12:46 Gynecologic examination 17811425 Z01.419 Take Calcium with Vitamin D 12-1500mg daily. Do monthly self breast exams. It is advised to get annual flu shot in the fall and she could obtain at [facility] or [facility] care clinic. If you haven't received the [...] US for breast screening. Screening for osteoporosis 426376713 Z13.820 Total Hyst for non-cancer indication s. Adult heal th examination 732494454 Z00.00 Menopausal syndrome 1237 57590 N95.9 We discussed Menopausal Hormone therapy (MHT) [...] migraine w/ visual changes, breast cancer dx, W[place]/stroke, DVT/PE, Endometria l cancer. Please contact office [...] ion of her HRT. Screening mammography 24 302332 Z12.31 Health Concerns Section Related Observation LastModified by Organization Detai ls LastModified Time None Recorded Concern Status LastModified by Organization Details LastModified Time None Recorded Advance Directives Directive None Recorded Payers Encounter Date Sequence Insurance Name Policy Number Policy Keen Covered Member ID Keen Member ID Guarantor Name 04/10/2020 1 [facility] [id number] Frederick Rondon [id number] Notes Date Note Type Note Provider Name [...] loss. Anusha Jack, JOAO- [address], [place], [address], [facility] 04/10/2020 10:58:04 OBGyn Episode Ob Episode Information Episode Created Date Number of Fetuses Patient Bloodtype Patient rh Status Prepregnancy Weight lbs Domestic Partner Domestic Partner Phone Father Name Cooperer Status 04/09/20 20 1 CLOSED Fetus Data [...] Domestic Partner Domestic Partner Phone Father Name Cooperer Status 04/09/20 20 1 CLOSED Fetus Data [...]
--- OUTSIDE RECORDS SUMMARY | 2024-09-13 11:42 | XMS_ITS | Encounter Summary ---
Author Organization [facility] Address [address] [place] [address] Care Team Providers Care Hr Operations Advisor Name Role Phone Dyllan Goldberg MD Primary Care Provider [phone] Encounter Details Date Type Department Care Team (Late st Contact Info) Description 07/09/2024 Telephone [facility] Radiology [address] [facility] [address] [place] [address] Sade Nova, [place] Social History Tobacco Use Types Packs/Day Years Used Date Smoking Tobacco: Never Smokeless Tobacco: Never Personal Safety Answer Date Recorded Have you [...] on file Sexual Orientation Not on file documented as of this encounter Plan of Treatment Not on file documented as of this encounter Visit Diagnoses Not on filedocumented in this encounter Care Teams Hr Operations Advisor Relationship Specialty Start Date End Date Dyllan Goldberg MD [address] [place] [address] PCP - General Internal Medicine 05/01/20 documented as of this encounter
--- OUTSIDE RECORDS SUMMARY | 2024-09-13 11:42 | XMS_ITS | Clinical Summary ---
Author Organization [facility] Address [address] [place] [address] Care Team Providers Care Management Professional Name Role Phone Dyllan Goldberg MD Primary Care Provider Allergies Active Allergy Reactions Criticality Noted Date [...] Date Diagnosed Date Sacroiliitis, not elsewhere classified Tear of left acetabular labrum 05/03/2024 Chronic migraine without aur a with status migrainosus, not intractable 01/20/2018 Reduced libido 10/04/2017 Overview (05/03/2024): Decreased sexual desire;Recorded Elsewhere: No Location: [facility] Source: EHR Chronic: N Practice ID: [id number] Billable Time: 11:00:00 AM Leukocytosis 07/19/2017 Overview (05/03/2024): Elevated white blood cell count, unspecified;Recorded Elsewhere: No Location: [facility] Source: EHR Chronic: N Practice ID: [id number] Billable Time: 01:00:00 PM Overweight with body mass index (BMI) 25.0-29.9 04/20/2016 Overview (05/03/2024): Body mass index (BMI) 25.0-25.9, adult;Recorded Elsewhere: No Location: [facility] Source: EHR Chronic: N Practice ID: [id number] Billable Time: 02:00:00 PM Herpetic vulvovaginitis 04/02/2016 Overview (05/03/2024): Herpesviral [herpes simplex] ulceration;Recorded Elsewhere: No Location: [facility] Source: EHR Chronic: N Practice ID: [id number] Billable Time: 10:15:00 AM Urinary tract infectious disease 04/04/2015 Overview (05/03/2024): URIN TRACT INFECTION NOS;Practice ID: [id number] Encounters Date Type Department Care Team Description 07/30/2024 1:54 PM SENIOR INFORMATICA ETL DEVELOPER - 07/30/2024 11:59 PM SENIOR INFORMATICA ETL DEVELOPER Hospital Encounter [facility] [id number] [place] [address] Left hip pain; Gluteal pain; Sacroiliac joint pain; Lumbar radiculopathy Discharge Disposition: Discharge to home or self care 07/30/2024 1:50 PM SENIOR INFORMATICA ETL DEVELOPER - 07/30/2024 11:59 PM SENIOR INFORMATICA ETL DEVELOPER Hospital Encounter [facility] [address] [place] [address] Left hip pain; Gluteal pain; Sacroiliac joint pain; Lumbar radiculopathy Discharge Disposition: Discharge to home or self care 07/20/2024 Orders Only [facility] Orth[facility] [address] [place] [address] Yuli Coello MD Left hip pain (Primary Dx); Gluteal pain; Sacroiliac joint pain; Lumbar radiculopathy 07/09/2024 2:20 PM SENIOR INFORMATICA ETL DEVELOPER - 07/09/2024 11:59 PM SENIOR INFORMATICA ETL DEVELOPER Hospital Encounter [facility] [address] [facility] [place] [address] Yuli Coello MD Gluteal pain; Left hip pain Discharge Disposition: Discharge to home or self care 07/09/2024 Telephone [id number] Rad[facility] [facility] [address] [place] [address] Sade Nova, RT 07/05/2024 Telephone Radiology - [address] [facility] [place] [address] Keeley Chowdhury, RT 07/03/2024 Telephone [facility] Orthopaedic Surgery [address] [facility] [address] [facility] [address] [place] [address] Yuli Coello MD 06/28/2024 Orders Only [facility] Orthopa[facility] Surgery [address] [facility] 6[address] [place] [address] [place] [address] Yuli Coello MD Gluteal pain (Primary Dx); Left hip pain 06/22/2024 12:12 PM SENIOR INFORMATICA ETL DEVELOPER - 06/22/2024 11:59 PM SENIOR INFORMATICA ETL DEVELOPER Hospital Encounter [facility] [address] [place] [address] Yuli Coello MD Lumbar radiculopathy; Gluteal pain Discharge Disposition: Discharge to home or self care 06/20/2024 Telephone [facility] Orthopaedic Surgery [address] [facility] [address] [address] [place] [address] Yuli Coello MD 06/18/2024 9:20 AM SENIOR INFORMATICA ETL DEVELOPER Office Visit [facility] Orthopaedic Surgery [address] [facility] [place] [address] Yuli Coello MD Lumbar radiculopathy; Gluteal pain from Last 3 Months Surgical History Surgery Date Site/Laterality Comments [place] TOTAL ABDOMINAL HYSTERECT W/WO RMVL TUBE OVARY Hysterectomy - (Added by TW Conv) [place] ENLARGE BREAST Breast Surgery Enlargement Procedure - (Added by TW Conv) FACELIFT Reported Hx Of 'Facelift' - (Added by TW Conv) LUMBAR DISC SURGERY Lower Back Surgery Lumbar Disc - (Added by TW Conv) BACK SURGERY Back Surgery - (Added by TW Conv) FL FLUORO GUIDED INJECTION HIP LEFT 07/09/2024 Left Medical History Medical History Date Comments Personal history of other me ntal and behavioral disorders History of post traumatic st ress disorder - (Added by TW Conv) Personal history of other sp ecified conditions History of insomnia - sleep onset (Added by TW Conv) Migraine without aura and wi th status migrainosus, not intractable Migraine without aura and with status migrainosus, not intractable - (Added by TW Conv) GERD (gastroesophageal reflux disease) Hiatal hernia Family History Medical History Relation Name Comments Hypertension Brother Family history of hypertension - (Added by TW Conv) Migraines Child Family history of migraine headaches - (Added by TW Conv) Breast cancer Maternal Grandmother Family history of malignant neoplasm of breast - (Added by TW Conv) Hypertension Mother Family history of hypertension - (Added by TW Conv) Migraines Mother Family history of migraine headaches - (Added by TW Conv) Relation Name Status Comments Brother Child Maternal Grandmother Mother Social History Tobacco Use Types Packs/Day Years [...] on file Sexual Orientation Not on file Obstetrics History Last Filed Vital Signs Vital Sign Reading Time Taken Comments Blood Pressure 141/75 09/22/2023 9:14 AM SENIOR INFORMATICA ETL DEVELOPER Pulse 84 09/22/2023 9:14 AM SENIOR INFORMATICA ETL DEVELOPER Temperature - - Respiratory Rate 20 09/22/2023 9:14 AM SENIOR INFORMATICA ETL DEVELOPER Oxygen Saturation 98% 01/20/2018 10:06 AM CDT Inhaled Oxygen Concentration - - Weight 74.8 kg (165 lb) 04/25/2024 9:53 AM CDT Height 176.5 cm (5' 9.5 ) 03/15/2024 1:17 PM CDT Body Mass Index 24.02 03/15/2024 1:17 PM CDT Plan of Treatment Health Maintenance Due Date Last Done Comments Breast Cancer Screening-Mammogram 1957 Colon Cancer Screening-Colonoscopy 1957 Depression Screening 1957 Fall Risk Assessment 1957 Hepatitis C Screening 1957 Osteoporosis Screening-Bone Density Scan 1957 Hepatitis B Screening 1975 Well Visit 65+ 2022 Covid-19 Vaccine (4 - 2023-2 5 season) 2024 06/24/2022, 06/06/2021, 10/19/2020 Influenza Vaccine (#1) 2024 , 04/08/2021, 05/16/2020, Additional history exists DTaP/Tdap/Td Vaccine (3 - Td or Tdap) 01/01/2033 01/01/2023, 06/13/2017 Pneumococcal vaccine 65+ Completed 04/06/2023 Zoster Vaccine Completed 04/06/2023, 12/28/2022 Medical Devices Implanted Type Area Sheet Turner Device Identifier Shelf Expiration Date Model / Serial / Lot Ankle Reconstruction Ankle Vertebrea Replacement Spine Lumbar Vertebrae Replacement Neck Procedures Procedure Name Priority Date/Time Associated Diagnosis Comments MRI HIP ARTHROGRAM LEFT W CONTRAST Schedule Routine, Read Routine (OP Routine) 07/30/2024 3:08 PM SENIOR INFORMATICA ETL DEVELOPER Left hip pain Gluteal pain Sacroiliac joint pain Lumbar radiculopathy INJECTION HIP LEFT ARTHRO ONLY Schedule Routine, Read Routine (OP Routine) 07/30/2024 2:28 PM SENIOR INFORMATICA ETL DEVELOPER Left hip pain Gluteal pain Sacroiliac joint pain Lumbar radiculopathy FL FLUORO GUIDED INJECTION HIP LEFT Schedule Routine, Read Routine (OP Routine) 07/09/2024 3:14 PM SENIOR INFORMATICA ETL DEVELOPER Gluteal pain Left hip pain MRI PELVIS WO CONTRAST Schedule Routine, Read Routine (OP Routine) 06/22/2024 2:22 PM SENIOR INFORMATICA ETL DEVELOPER Lumbar radiculopathy Gluteal pain from Last 3 Months Results * MRI Hip Arthrogram Left W Contrast (07/30/2024 3:08 PM SENIOR INFORMATICA ETL DEVELOPER) Anatomical Region Laterality Modality Lower Extremities Left Magnetic Reson ance 07/30/2024 3:25 PM SENIOR INFORMATICA ETL DEVELOPER Impressions 07/30/2024 3:25 PM SENIOR INFORMATICA ETL DEVELOPER 1. ??Complex, minimally displaced anterosuperior left acetabular labral tear with mild left hip chondrosis. 2. ??Mild to moderate bilateral proximal hamstring tendinopathy. Electronically signed by: Magdaleno Estrada MD Narrative 07/30/2024 3:25 PM SENIOR INFORMATICA ETL DEVELOPER EXAMINATION: 1. MRI left hip with contrast [...] Hip Left Arthro Only (07/30/2024 2:28 PM SENIOR INFORMATICA ETL DEVELOPER) Anatomical Region Laterality Modality Hip Left Computed Radiogr aphy 07/30/2024 2:48 PM SENIOR INFORMATICA ETL DEVELOPER Impressions 07/30/2024 2:48 PM SENIOR INFORMATICA ETL DEVELOPER Successful left hip joint injection under fluoroscopic guidance for MR arthrography. Electronically signed by: Magdaleno Estrada MD Narrative 07/30/2024 2:48 PM SENIOR INFORMATICA ETL DEVELOPER EXAMINATION: ?? 1. Left hip joint injection 2. Fluoroscopic guidance for needle placement HISTORY: Left hip pain, labral tear, pre MR arthrogram TECHNIQUE: ??The risks, benefits and alternatives were discussed with the patient. ??Informed consent was obtained. ??Prior to beginning the procedure, [place] Protocol was performed to confirm the patient's [...] was obtained. Prior to beginning the procedure, [place] Protocol was performed to confirm the patient's [...] arthrography. Electronically signed by: Magdaleno Estrada MD us Yuli Coello MD IMG XR PROCEDURES Final Re sult * FL Fluoro Guided Injection Hip Left (07/09/2024 3:14 PM SENIOR INFORMATICA ETL DEVELOPER) Narrative [facility] - 07/09/2024 3:14 PM SENIOR INFORMATICA ETL DEVELOPER The images from this study are not interpreted by Radiology. ??Please refer to the physician's procedure / OR operative note. us Yuli Coello MD IMG FLUOROSCOPY PROCEDURES Final Result [facility] * MRI Pelvis WO Contrast (06/22/2024 2:22 PM SENIOR INFORMATICA ETL DEVELOPER) Anatomical Region Laterality Modality Pelvis N/A Magnetic Resonan ce 06/22/2024 3:33 PM SENIOR INFORMATICA ETL DEVELOPER Impressions 06/22/2024 4:00 PM SENIOR INFORMATICA ETL DEVELOPER Mild bilateral hamstring tendinopathy and greater trochanteric bursitis. Dictated by: Jairo Trinidad MD The radiology attending physician has personally reviewed this study, and had reviewed and/or edited this written report and agrees with it. Electronically signed by: Bart Haro M.D. Narrative 06/22/2024 4:00 PM SENIOR INFORMATICA ETL DEVELOPER EXAMINATION: 1. MRI pelvis without contrast HISTORY: [...] Electronically signed by: Bart Haro M.D. Yuli Sarah Coello MD IM MRI PROCEDURES Final R esult from Last 3 Months Insurance MEDICARE SOLUTIONS MEDICARE SOLUTIONS Care Teams Management Professional Relationship Specialty Start Date End Date Dyllan Goldberg MD [address] [facility] [address] [place] [address] PCP - General Internal Medicine 05/01/20
--- OUTSIDE RECORDS SUMMARY | 2024-09-13 11:42 | XMS_ITS | Clinical Summary ---
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
--- OUTSIDE RECORDS SUMMARY | 2024-09-13 11:42 | XMS_ITS ---
Author Organization [facility] Address Unknown Encounters Encounter Performer Performer Role Encounter Diagnoses Location Date Discharge [facility] 07/20/2016 06:30 pm EST - 07/21/2016 09:00 am EST Social History
--- OUTSIDE RECORDS SUMMARY | 2024-09-13 11:43 | XMS_ITS | Patient Health Record ---
Author Organization [facility] Address [address] [facility] [place] [address] Care Team Providers Care Filter Plant Supervisor Name Role Phone Catracho Lara Unavailable [phone] ALLERGIES Allergen (clinical drug ingredient) Drug/Non Drug Allergy documented on EMR Reaction Allergy Type Onset Date Status Penicillin rash/ swelling Drug Allergy A ctive Substance with sulfonamide structure and antibacterial mechanism of action (substance) Sulfa Antibiotics rash/swelling Drug Allergy Active REASON FOR REFERRAL No Information MEDICATIONS Medication SIG (Take, Route, Frequency, Duration) Notes Start Date End Date Status Aimovig 140 MG/ML as directed Subcutaneous Active Estradiol 1 MG 1 tablet Orally Once a day Active Zolpidem Tartrate 10 MG 1 tablet at bedt jayden as needed Orally Once a day Active Rosuvastatin Calcium 20 MG 1 tablet Orally Once a day Active valACYclovir HCl 500 MG 1 tablet Orally Once a day Active SOCIAL HISTORY Tobacco Use: Social History Observation Description Date Details (start date - stop date) Never Smoker NA - NA Sex Assigned At : Social History Observation Description Sex Assigned At Unknown Tobacco Use/Smoking Question Answer Notes Are you a nonsmoker PROBLEMS Problem Type ICD Code Onset Dates Problem Status W/U Status Risk SNOMED Code Notes Problem Tear of left acetabular labrum, subsequent encounter (S73.192D) Active confirmed Problem Degenerative joint disease of sacroiliac region (M46.1) Active confirmed Solitary sacroiliitis ([id number]) PLAN OF TREATMENT No Information MEDICATIONS ADMINISTERED Medication Instructions Date of Administration Dosage Notes LEFT Hip Joint Injection wit h fluoroscopy 01/26/2022 Left Sacroiliac Joint Injection 02/19/2022 MEDICAL (GENERAL) HISTORY Medical History History ICD Code headaches/migraines PTSD Surgical History Surgery Date(Month/Year) breast augmentation 1998 hysterectomy 1984 cervical 2015 lumbar 2016 hernia 2020
[2024-09-13 11:51] LABS: Influenza A QL RT-PCR Negative (Negative); Influenza B QL RT-PCR Negative (Negative); RSV RNA, RT-PCR Negative (Negative); SARS-CoV-2 RNA PCR Negative (Negative)
== END 2024-09-13 10:55 | disposition home or self-care (01) ==
LOC: ANHLAB 10:55
PROVIDERS: PCP Internal Medicine; Visit Provider Internal Medicine
DX: R50.9 Fever, unspecified (principal); R05.9 Cough, unspecified
CPT/HCPCS: 87637

== ENCOUNTER 2024-09-17 11:08 | Emergency (ER) | payer OTHER, SELFPAY ==
--- NOTE | ~2024-09-17 | CT_ITS ---
History: Dysarthria PROCEDURE: CT head without contrast. COMPARISON: None TECHNIQUE: Axial imaging of the head performed from the skull base to the vertex without IV contrast. Sagittal a nd coronal reformations obtained. DLP: 605 mGy-cm FINDINGS: The ventricles are normal in size, shape and position. There is no mass, mass effect or midline shift. There is no abnormal extra-axial fluid collection or intracranial hemorrhage. Visualized paranasal sinuses are clear. The mastoid air cells are well aerated. No acute displaced fractures within the overlying cranium. Impression: No acute intracranial hemorrhage or suspicious mass effect. Reviewed, dictated and finalized at location A. [facility] NURSE Impression: No acute intracranial hemorrhage or suspicious mass effect.
[2024-09-17 11:14] VITALS: BP 120/69; PULSE 67; RESP 18; TEMP 36.1; O2SAT 100
--- OUTSIDE RECORDS SUMMARY | 2024-09-17 12:27 | XMS_ITS | Data Portability ---
Author Organization [facility] [place] Address [address] [place] [address] Care Team Providers Care Corner Bead Operator Name Role Phone MYRONTIM SrOR Primary Care Provider Assessment No assessment recorded. Plan of Treatment Reminders Order Date Submit Date Provider Last Modified By Organization Details Last Modified Time Details Appointments None recorded. Lab CBC w/ auto diff 2019 020 [email or web address] [facility] ([facility]), [address] [place], [place] [address]k Ctr , [address], [place], [address], 0 15:35:12 CMP, serum or plasma 2019 020 [email or web address] [facility] ([facility]), [address] [place] [address] [address], [place], [address], 0 15:35:12 phosphorus , serum or plasma 2019 020 [email or web address] [facility] ([facility]), [facility] [address], [place], [address], 0 15:35:12 TSH, serum or plasma 2019 020 [email or web address] [facility] ([facility]), [address] [facility] [address] , [address], [place], [address], 0 15:35:13 vitamin D, 25-hydroxy , total, serum 2019 [email or web address] [facility] ([facility]), [address] [facility] [address], [place], [address], 0 15:35:13 lipid panel, serum 2019 [email or web address] [facility]), [address] [facility] [address], [place], [address], 0 15:35:13 HbA1c (hemoglobi n A1c), blood 2019 [email or web address] [facility]), [address] [facility] [address], [place], [address], 0 15:35:13 Referral None recorded. Procedures None recorded. Surgeries None recorded. Imaging US, breast, bilateral 2019 [facility] [facility] [address] [facility], [place], [address], 0 12:21:47 DEXA, axial skeleton + vertebral fracture assessment 2019 [facility] Not available 0 14:48:42 Medication Orders estradiol 0.5 mg tablet 2019 [id number], [address] [facility], [place], [place], [id number], 0 10:52:15 Patient TargetsNo targets recorded. Patient Instructions Encounter Date Encounter Id Patient Instructions Last Modified By Organization Details Last Modified Time 04/10/2020 [id number] [email or web address] Not available 10:57:11 Reason for Referral None Reported. Results Created Date Observation Date Name Description Value Unit Range Abnormal Flag Note LastModifiedBy Organization Detail LastModifiedTime 04/23/20 20 04/23/2020 aurora MARTINEZ bilat eral No observ ation record ed. [email or web address] [facility] [address], [place], [address], 04/28/2020 15:43:11 05/06/20 20 04/23/2020 DEXA, axial skele ton + verte bral fract ure asses sment No observ ation record ed. layran [facility] [address], [place], [address], 05/07/2020 16:09:20 Result Notes None recorded. Problems Name Problem SNOMED Code Status Onset Date Resolution Date Notes Provider Name and Address Organization Details Recorded Time Screening for malignant neoplasm of rectum Active 2017 Encounter for screening for malignant neoplasm of rectum;Pra ctice ID: 0001 Not Available [facility] 0 15:05:[address] Concept Active 2017 Encntr for regional trainer exam (general) (routine) w/o abn findings;P ractice ID: 0001 Not Available [facility] 0 15:05:49 Blood leukocyte number above reference range 566548664 Active 2016 Elevated white blood cell count, unspecifie d;Recorded Elsewhere: No Locatio n: [facility] rce: EHR Chroni c: N Practice ID: 0001 Billa ble Time: 01:00:00 PM Not Available [facility] 0 15:05:49 Reduced libido 2095672 Active 2017 Decreased sexual desire;Rec orded Elsewhere: No Locatio n: [facility] Matilda rce: EHR Chroni c: N Practice ID: 0001 Billa ble Time: 11:00:00 AM Not Available [facility] 0 15:05:49 Human papilloma virus screening Active 2016 Encounter for screening for human papillomav irus (HPV);Marlo rded Elsewhere: No Locatio n: [facility] rce: EHR Chroni c: N Practice ID: 0001 Billa ble Time: 01:00:00 PM Not Available [facility] 0 15:05:[address] Concept Active 2017 Encntr for general adult medical exam w/o abnormal findings;R ecorded Elsewhere: No Locatio n: [facility] rce: EHR Chroni c: N Practice ID: 0001 Billa ble Time: 10:30:00 AM Not Available [facility] 0 15:05:50 Body mass index 25-29 - overweigh t 827316467 Active 2015 Body mass index (BMI) 25.0-25.9, adult;Marlo rded Elsewhere: No Locatio n: [facility] rce: EHR Chroni c: N Practice ID: 0001 Billa ble Time: 02:00:00 PM Not Available [facility] 0 15:05:50 Herpetic vulvovagi nitis 65453293 Active 2015 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] ulceration ;Recorded Elsewhere: No Locatio n: [facility] rce: EHR Chroni c: N Practice ID: 0001 Billa ble Time: 10:15:00 AM Not Available [facility] 0 15:05:50 Screening for malignant neoplasm of cervix Active 2016 Screening for malignant neoplasms of the cervix;Rec orded Elsewhere: No Locatio n: [facility] rce: EHR Chroni c: N Practice ID: 0001 Billa ble Time: 01:00:00 PM Not Available [facility] 0 15:05:50 Adult health examinati on Active 2014 ROUTINE MEDICAL EXAM;Recor ded Elsewhere: No Locatio n: [facility] rce: EHR Chroni c: N Practice ID: 0001 Billa ble Time: 08:30:00 AM Not Available [facility] 0 15:05:50 Specializ ed medical examinati on Active 2014 Routine gynecologi jaylan examinatio n;Practice ID: 0001 Not Available [facility] 0 15:05:50 Urinary tract infectiou s disease 18156447 Active 2014 URIN TRACT INFECTION NOS;Practi ce ID: 0001 Not Available [facility] 0 15:05:[address] Concept Active 2016 Encounter for general adult medical exam w abnormal findings;P ractice ID: 0001 Not Available [facility] 0 15:05:50 Problem Notes None recorded. Procedures Surgical History Date Name Laterality Status Provider Name and Address Organization Details Recorded Time 07/20/20 17 Date of Last Pap Smear completed Ann Kaminski [facility] 04/09/2020 15:33:06 08/15/18 85 Total Hysterectomy completed Julissa Lilly [facility] 02/25/2020 15:11:47 Imaging Results Imaging Date Name Status LastModified by Organiz ation Details LastModified Time 04/23/2020 US, breast, bilateral completed [id number] [facility] [address], [place], [address], 04/28/2020 15:43:11 04/23/2020 DEXA, axial skeleton + vertebral fracture assessment completed [facility] [address], [place], [address], 05/07/2020 16:09:20 Procedure Notes None recorded. Medical Equipment None Reported. Allergies Allergen ID Allergen Name Allergen Category Reaction Reaction Severity Criticality Documentation Date Start Date Code Code System Note Provider Name and Address Organization Details Recorded Time 1309 Product containin g penicilli n and antibioti c (product) medicatio n Not available Not available Not available 02/25/2020 36305 05 SNOMED Julissa mckeon [facility] 0 15:11:02 1310 Substance with sulfonami de structure and antibacte rial mechanism of action (substanc e) medicatio n Not available Not available Not available 02/25/2020 31352 8003 SNOMED Julissa mckeon [facility] 0 15:11:07 Medications Name Sig Start Date Stop Date Status Note LastModified by Organization Details LastModified Time tretinoin 0.1 % topical cream active Not Available Not Available Not Available Diflucan 150 mg tablet take 1 tablet by oral route once 10/05 completed Prescrib ed Elsewher e: No Locat ion: Talisha hobbs [facility] odify By: adriane Encounte r DateTime [...] ed Elsewher e: No Locat ion: Talisha [facility] odify By: elliot null DateTime : 04/04/20 15 08:30:00 AM Not Available Not Available Not Available terbinafi ne HCl 250 mg tablet active Not Available Not Available Not Available estradiol 1 mg tablet TAKE 1 TABLET BY ORAL ROUTE EVERY DAY 2018 active Prescrib ed Elsewher e: No Locat ion: [facility] odify By: pancho Peterson ter DateTime : 09/11/19 19 04:06:42 PM Not Available Not Available Not Available trazodone 150 mg tablet take 1 tablet by oral route every day at bedtime 10/05 completed Prescrib ed Elsewher e: Yes Loca tion: Talisha hobbs [facility] odify By: adriane Encounte r DateTime : 04/04/20 15 08:30:00 AM Not Available Not Available Not Available buspirone 10 mg tablet take 1 tablet by oral route 3 times every day 10/05 completed Prescrib ed Elsewher e: Yes Loca tion: Talisha hobbs [facility] odify By: adriane Encounte r DateTime : 04/04/20 15 08:30:00 AM Not Available Not Available Not Available clonazepa m 2 mg tablet take 1 tablet by oral route 3 times every day 10/05 completed Prescrib ed Elsewher e: Yes Loca tion: Talisha hobbs [facility] odify By: adriane Encounte r DateTime [...] Prescrib ed Elsewher e: Yes [facility] odify By: letty [address] ncounter DateTime : 04/04/20 15 08:30:00 AM Not Available Not Available Not Available hydroxyzi ne HCl 10 mg tablet 10/05 completed Prescrib ed Elsewher e: Yes [facility] By: adriane Encounte r [...] Elsewher e: Yes Loca tion: Talisha hobbs [facility] odify By: adriane Encounte r DateTime : 04/04/20 15 08:30:00 AM Not Available Not Available Not Available sertralin e 50 mg tablet take 1 tablet by oral route every day 10/05 completed Prescrib ed Elsewher e: Yes Loca tion: Catherine faby [facility] odify By: adriane Encounte r DateTime : 04/04/20 15 08:30:00 AM Not Available Not Available Not Available prazosin 2 mg capsule take 1 capsule by oral route 3 times every day 10/05 completed Prescrib ed Elsewher e: Yes Loca tion: Talisha [facility] odify By: adriane Encounte r DateTime [...] Elsewher e: Yes Loca tion: Catherine faby [facility] odify By: adriane Encounte r DateTime : 04/04/20 15 08:30:00 AM Not Available Not Available Not Available Latuda 60 mg tablet take 1 tablet by oral route every day with food (at least 350 calories ) 10/05 completed Prescrib ed Elsewher e: Yes Loca tion: Talisha hobbs [facility] odify By: adriane Encounte r DateTime : 04/04/20 15 08:30:00 AM Not Available Not Available Not Available Biotin Plus Keratin 10,000 mcg-100 mg tablet 10/05 completed Prescrib ed Elsewher e: Yes [facility] By: adriane Encounte r DateTime : 04/04/20 15 08:30:00 AM Not Available Not Available Not Available duloxetin e 40 mg capsule,d elayed release take 1 tablet by oral route every day 07/25 completed Prescrib ed Elsewher e: Yes Loca tion: [facility] odify By: rudi gray DateTime : 04/04/20 [...] Updated DateTime 04/10/2020 176.53 cm 24.9 kg/m2 08811.3 g 105 mm[Hg] 65 mm[Hg] Ann Kaminski [facility] 0 10:23:24 Social History Question Answer Notes LastModified by Organizat ion Details LastModified Time Tobacco Smoking Status Never Smoker Not Available [facility] 06/17/2020 03:28:11 What Is Your Level Of Alcohol Consumption? Occasional [id number] Information not available 06/17/2020 Sex: Unknown Functional Status Question Answer Note LastModified by Organization D etails LastModified Time What is your exercise level? Heavy [id number] Information not available 06/17/2020 Mental Status None recorded. Family History Nothing Reported. Medical History Condition Response History of STI Gynecological History Statement/Question Response STIs/STDs Date of Last Pap Smear 07/20/2017 Obstetrics History GPAL:G 2 P 0 0 0 0 Past Encounters Encounter ID Performer Location Encounter Start Date Encounter Closed Date Diagnosis/Indication Diagnosis SNOMED-CT Code Diagnosis ICD10 Code Diagnosis Note [id number] Anusha Jack , [facility] [address] [address] 04/10/2020 10:14:33 04/10/2020 11:12:46 Gynecologic examination 93624185 Z01.419 Take Calcium with Vitamin D 12-1500mg daily. Do monthly self breast exams. It is advised to get annual flu shot in the fall and she could obtain at [facility] or [facility] care clinic. If you haven't received [...] US for breast screening. Screening for osteoporosis 523499201 Z13.820 Total Hyst for non-cancer indication s. Adult heal th examination 159117386 Z00.00 Menopausal syndrome 1237 94482 N95.9 We discussed Menopausal Hormone therapy (MHT) [...] migraine w/ visual changes, breast cancer dx, AR/stroke, DVT/PE, Endometria l cancer. Please contact office [...] ion of her HRT. Screening mammography 24 864938 Z12.31 Health Concerns Section Related Observation LastModified by Organization Detai ls LastModified Time None Recorded Concern Status LastModified by Organization Details LastModified Time None Recorded Advance Directives Directive None Recorded Payers Encounter Date Sequence Insurance Name Policy Number Policy Keen Covered Member ID Keen Member ID Guarantor Name 04/10/2020 1 [facility] [id number] Frederick Rondon [id number] Notes Date Note Type Note Provider Name [...] loss. Anusha Jack, JOAO- [address], [place], [address], [facility] 04/10/2020 10:58:04 OBGyn Episode Ob Episode Information Episode Created Date Number of Fetuses Patient Bloodtype Patient rh Status Prepregnancy Weight lbs Domestic Partner Domestic Partner Phone Father Name Environmental Field Technician Status 04/09/20 20 1 CLOSED Fetus Data [...] Domestic Partner Domestic Partner Phone Father Name Environmental Field Technician Status 04/09/20 20 1 CLOSED Fetus Data [...]
[2024-09-17 13:09] VITALS: BP 110/96; PULSE 44; RESP 18; O2SAT 96
[2024-09-17 13:09] LABS: Alanine Aminotransferase 38 U/L (6-35); Albumin Level 4.2 g/dL (3.5-5.1); Alkaline Phosphatase 127 U/L (38-126); Anion Gap 12 mmol/L (4-12); Aspartate Amino Transferase 37 U/L (14-36); Bilirubin,Total 0.5 mg/dL (0.2-1.3); Blood Urea Nitrogen 21 mg/dL (7-17); Calcium 11.3 mg/dL (8.4-10.2); Carbon Dioxide 24 mmol/L (22-30); Chloride 104 mmol/L (98-107); Estimated CRCL calculation 33 ml/min; Estimated Glomerular Filt Rate 46; Glucose 101 mg/dL (65-110); Potassium 3.7 mmol/L (3.4-5.0); Sodium 140 mmol/L (137-145)
[2024-09-17 13:21] LABS: INR 1.2; Prothrombin Time 15.6 Seconds (11.1-14.7)
[2024-09-17 14:03] VITALS: BP 109/69; PULSE 57; RESP 18; O2SAT 95
--- OUTSIDE RECORDS SUMMARY | 2024-09-17 14:10 | XMS_ITS | Clinical Summary ---
Author Organization [employer] [facility] [place] Address [address] 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
--- OUTSIDE RECORDS SUMMARY | 2024-09-17 14:11 | XMS_ITS | Referral Summary ---
Author Organization [facility] Address [address] [place] [address] Care Team Providers Care Upper Trimmer Name Role Phone Dyllan Goldberg MD Primary Care Provider [phone] Encounters Date Type Department Care Team Description 07/30/2024 1:54 PM PROTECTION ANALYST - 07/30/2024 11:59 PM PROTECTION ANALYST Hospital Encounter [facility] [address] [place] [id number] Left hip pain; Gluteal pain; Sacroiliac joint pain; Lumbar radiculopathy Discharge Disposition: Discharge to home or self care 07/30/2024 1:50 PM PROTECTION ANALYST - 07/30/2024 11:59 PM PROTECTION ANALYST Hospital Encounter [facility] [address] [place] [address] [phone] Left hip pain; Gluteal pain; Sacroiliac joint pain; Lumbar radiculopathy Discharge Disposition: Discharge to home or self care 07/20/2024 Orders Only [facility] Orthopaedic Surgery [address] [place] [address] [address] [place] [address] Yuli Coello MD Left hip pain (Primary Dx); Gluteal pain; Sacroiliac joint pain; Lumbar radiculopathy 07/09/2024 Telephone [facility] [address] [facility] [address] [place] [address] Sade Nova RT 07/09/2024 2:20 PM PROTECTION ANALYST - 07/09/2024 11:59 PM PROTECTION ANALYST Hospital Encounter [facility] [address] [facility] [address] [place] [address] Yuli Coello MD Gluteal pain; Left hip pain Discharge Disposition: Discharge to home or self care 07/05/2024 Telephone Radiology - [address] [facility] [address] [place] [address] Keeley Chowdhury, RT 07/03/2024 Telephone [facility] Orthopaedic Surgery [address] [facility] Medical Office Building [address] [place] [address] Yuli Coello MD 06/28/2024 Orders Only [facility] Orthopaedic Surgery [address] [facility] 6th [place] [address] [place] [address] Yuli Coello MD Gluteal pain (Primary Dx); Left hip pain 06/22/2024 12:12 PM PROTECTION ANALYST - 06/22/2024 11:59 PM PROTECTION ANALYST Hospital Encounter [facility] [address] [place] [address] Yuli Coello MD Lumbar radiculopathy; Gluteal pain Discharge Disposition: Discharge to home or self care 06/20/2024 Telephone [facility] Orthopaedic Surgery [address] [place] [address] Medical Office [address] [place] [address] Yuli Coello MD 06/18/2024 9:20 AM PROTECTION ANALYST Office Visit [facility] Orthopaedic Surgery [address] [place] [address] Medical Office [address] [place] [address] Yuli Coello MD Lumbar radiculopathy; Gluteal pain [...] (05/03/2024): Decreased sexual desire;Recorded Elsewhere: No Location: [facility] Source: EHR Chronic: N Practice ID: [id number] Billable Time: 11:00:00 AM Leukocytosis 07/19/2017 Overview (05/03/2024): Elevated white blood cell count, unspecified;Recorded Elsewhere: No Location: [facility] Source: EHR Chronic: N Practice ID: 0001 Billable Time: 01:00:00 PM Overweight with body mass index (BMI) 25.0-29.9 04/20/2016 Overview (05/03/2024): Body mass index (BMI) 25.0-25.9, adult;Recorded Elsewhere: No Location: [facility] Source: EHR Chronic: N Practice ID: 0001 Billable Time: 02:00:00 PM Herpetic vulvovaginitis 04/02/2016 Overview (05/03/2024): Herpesviral [herpes simplex] ulceration;Recorded Elsewhere: No Location: [facility] Source: EHR Chronic: N Practice ID: 0001 [...] Comments Blood Pressure 141/75 09/22/2023 9:14 AM PROTECTION ANALYST Pulse 84 09/22/2023 9:14 AM PROTECTION ANALYST Temperature - - Respiratory Rate 20 09/22/2023 9:14 AM PROTECTION ANALYST Oxygen Saturation 98% 01/20/2018 10:06 AM CDT Inhaled Oxygen Concentration - - Weight 74.8 kg (165 lb) 04/25/2024 9:53 AM CDT Height 176.5 cm (5' 9.5 ) 03/15/2024 1:17 PM CDT Body Mass Index 24.02 03/15/2024 1:17 PM CDT Plan of Treatment Not on file Medical Devices Implanted Type Area Hair Or Beauty Salon Assistant Device Identifier Shelf Expiration Date Model / Serial / Lot Ankle Reconstruction Ankle Vertebrea Replacement Spine Lumbar Vertebrae Replacement Neck Procedures Procedure Name Priority Date/Time Associated Diagnosis Comments MRI HIP ARTHROGRAM LEFT W CONTRAST Schedule Routine, Read Routine (OP Routine) 07/30/2024 3:08 PM PROTECTION ANALYST Left hip pain Gluteal pain Sacroiliac joint pain Lumbar radiculopathy INJECTION HIP LEFT ARTHRO ONLY Schedule Routine, Read Routine (OP Routine) 07/30/2024 2:28 PM PROTECTION ANALYST Left hip pain Gluteal pain Sacroiliac joint pain Lumbar radiculopathy FL FLUORO GUIDED INJECTION HIP LEFT Schedule Routine, Read Routine (OP Routine) 07/09/2024 3:14 PM PROTECTION ANALYST Gluteal pain Left hip pain MRI PELVIS WO CONTRAST Schedule Routine, Read Routine (OP Routine) 06/22/2024 2:22 PM PROTECTION ANALYST Lumbar radiculopathy Gluteal pain from Last 3 Months Results * MRI Hip Arthrogram Left W Contrast (07/30/2024 3:08 PM PROTECTION ANALYST) Anatomical Region Laterality Modality Lower Extremities Left Magnetic Reson ance 07/30/2024 3:25 PM PROTECTION ANALYST Impressions 07/30/2024 3:25 PM PROTECTION ANALYST 1. ??Complex, minimally displaced anterosuperior left acetabular labral tear with mild left hip chondrosis. 2. ??Mild to moderate bilateral proximal hamstring tendinopathy. Electronically signed by: Magdaleno Estrada MD Narrative 07/30/2024 3:25 PM PROTECTION ANALYST EXAMINATION: 1. MRI left hip with contrast [...] Hip Left Arthro Only (07/30/2024 2:28 PM PROTECTION ANALYST) Anatomical Region Laterality Modality Hip Left Computed Radiogr aphy 07/30/2024 2:48 PM PROTECTION ANALYST Impressions 07/30/2024 2:48 PM PROTECTION ANALYST Successful left hip joint injection under fluoroscopic guidance for MR arthrography. Electronically signed by: Magdaleno Estrada MD Narrative 07/30/2024 2:48 PM PROTECTION ANALYST EXAMINATION: ?? 1. Left hip joint injection 2. Fluoroscopic guidance for needle placement HISTORY: Left hip pain, labral tear, pre MR arthrogram TECHNIQUE: ??The risks, benefits and alternatives were discussed with the patient. ??Informed consent was obtained. ??Prior to beginning the procedure, [place] Protocol was performed to confirm the patient's [...] was obtained. Prior to beginning the procedure, [place] Protocol was performed to confirm the patient's [...] Guided Injection Hip Left (07/09/2024 3:14 PM PROTECTION ANALYST) Narrative [facility] - 07/09/2024 3:14 PM PROTECTION ANALYST The images from this study are not interpreted by Radiology. ??Please refer to the physician's procedure / OR operative note. Yuli Coello MD IMG FLUOROSCOPY PROCEDURES Final Result [facility] * MRI Pelvis WO Contrast (06/22/2024 2:22 PM PROTECTION ANALYST) Anatomical Region Laterality Modality Pelvis N/A Magnetic Resonan ce 06/22/2024 3:33 PM PROTECTION ANALYST Impressions 06/22/2024 4:00 PM PROTECTION ANALYST Mild bilateral hamstring tendinopathy and greater trochanteric bursitis. Dictated by: Jairo Trinidad MD The radiology attending physician has personally reviewed this study, and had reviewed and/or edited this written report and agrees with it. Electronically signed by: Bart Haro M.D. Narrative 06/22/2024 4:00 PM PROTECTION ANALYST EXAMINATION: 1. MRI pelvis without contrast HISTORY: [...] Insurance MEDICARE SOLUTIONS MEDICARE SOLUTIONS Care Teams Upper Trimmer Relationship Specialty Start Date End Date Dyllan Goldberg MD [address] INTERNAL MEDICINE [place], [place] [id number] PCP - General Internal Medicine 05/01/20
--- OUTSIDE RECORDS SUMMARY | 2024-09-17 14:11 | XMS_ITS | Encounter Summary ---
Author Organization [facility] Address [address] [place] [address] Care Team Providers Care Brakes Inspector Name Role Phone Dyllan Goldberg MD Primary Care Provider [phone] Encounter Details Date Type Department Care Team (Late st Contact Info) Description 07/09/2024 Telephone [facility] [address] [facility] [address] [place] [address] Sade Nova, RT Social History Tobacco [...] on filedocumented in this encounter Care Teams Brakes Inspector Relationship Specialty Start Date End Date Dyllan Goldberg MD [address] [place] [address] PCP - General Internal Medicine 05/01/20 documented as of this encounter
[2024-09-17 14:24] LABS: Basophils Percent Auto 0.6 % (0.2-1.2); Eosinophils Absolute Auto 0.1 K/mm3 (0-0.3); Hematocrit 44.5 % (37.0-47.0); Hemoglobin 14.9 g/dL (12.0-15.0); Immature Granulocyte Absolute 0.22 K/mm3 (0.00-0.031); Immature Granulocyte Percent A 3.1 % (0-0.5); Lymphocytes Absolute Auto 1.93 K/mm3 (0.9-3.2); Lymphocytes Percent Auto 27.5 % (18.3-44.2); Mean Corpuscular HGB Conc 33.5 g/dl (32-36); Mean Corpuscular Hemoglobin 29.9 pg (26-34); Mean Corpuscular Volume 89.2 fl (80-100); Mean Platelet Volume 8.6 fl (7.4-10.4); Monocytes Percent Auto 14.4 % (2.6-8.5); Neutrophils Absolute Auto 3.7 K/mm3 (1.3-6.7); Neutrophils Percent Auto 52.4 % (45.5-73.1); Platelet Count Result 485 k/mm3 (150-375); Red Blood Count 4.99 M/mm3 (4.2-5.4)
--- NOTE | 2024-09-17 14:31 | ED_ITS ---
HPI - General Adult General Chief complaint: Neuro Symptoms/Deficit Stated complaint: difficulty w/ speech, woke w/ sx's Time Seen by Provider: 09/17/24 12:31 Related Data Home Medications ?Medication ?Instructions ?Recorded ?Confirmed ?Last Taken ?Type ascorbic acid 7.5 mg-vit E 7.5 3 tablet PO DAILY 10/24/23 08/16/24 10/29/23 History unit-biotin 1,250 mcg chewable tablet (Hair,Skin,Nails with Biotin) ondansetron 8 mg disintegrating 8 mg PO PRN PRN nausea and vomiting 10/24/23 08/16/24 10/29/23 History tablet rimegepant 75 mg disintegrating 75 mg PO PRN PRN Migraine Headache 10/24/23 08/16/24 11/01/23 History tablet (Nurtec ODT) Allergies Allergy/AdvReac Type Severity Reaction Status Date / Time Penicillins Allergy Severe Swelling Verified 09/17/24 13:16 of Lip/Tongue/Throat Sulfa (Sulfonamide Allergy Severe Swelling Verified 09/17/24 13:16 Antibiotics) AND RASH acetaminophen AdvReac Migraine Verified 09/17/24 13:16 NSAIDS (Non-Steroidal AdvReac Migraine Verified 09/17/24 13:16 Anti-Inflamma nut - unspecified AdvReac Migraine Verified 09/17/24 13:16 [facility] Past Medical History Medical History Nausea and vomiting Encounter for routine adult health examination with abnormal findings Labral tear of left hip joint Iron deficiency anemia Hiatal hernia BMI 22.0-22.9, adult Encounter for Medicare annual wellness exam Urinary tract infection without hematuria PTSD (post-traumatic stress disorder) Poison oak dermatitis Oral thrush Dry cough Cold sore Ovarian cyst BMI 24.0-24.9, adult Pre-diabetes Pelvic mass in female Left hip pain Thyroid nodule Vitamin D deficiency Hypercalcemia Onychomycosis of great toe BMI 23.0-23.9, adult Umbilical hernia Elevated homocysteine Encounter for routine adult health examination without abnormal findings BMI 25.0-25.9,adult Hyperlipidemia Hormone replacement therapy (HRT) Pyelonephritis Encounter for preventive health examination On care home drug therapy Migraine Insomnia Surgical History Surgical History History of ankle surgery (~2022) left History of appendectomy History of back surgery History of bilateral breast implants History of hip surgery History of hysterectomy History of incisional hernia repair 07/16/20 Incarcerated incisional hernia repair with Parietex ventral patch History of neck surgery History of repair of hiatal hernia Robotic assisted laparoscopic paraesophageal hernia repair with 270 degree fundoplication 11/02/23 History of tonsillectomy Family History Family History Other Hypertension Social History Social History Social History: caffeine use Smoking status: Never smoker Second hand tobacco smoke exposure: No Alcohol intake: never Alcohol use details: 2/MONTH Substance use: never Substance use type: does not use Do You Feel Safe in your Home?: Yes Lack of Transportation: No Lack of Food: Never True Current Housing: I Have Housing Concerned About Future Housing: No Difficulty Paying Gas/Electric Bills: No Difficulty Paying for Meds: No Currently Unemployed: No Education: Bachelor's Degree Difficulty w/ Childcare or Family Care: No Living arrangements: with family Occupation/Education: occupation 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 Gender identity (if verbalized by the patient): Female Spiritual care concerns: No Course Vital Signs Vital signs: Vital Signs Temperature 36.1 C L 09/17/24 11:14 Pulse Rate 67 09/17/24 11:14 Respiratory Rate 18 09/17/24 11:14 Blood Pressure 120/69 09/17/24 11:14 Pulse Oximetry 100 09/17/24 11:14 Oxygen Delivery Room Air 09/17/24 11:14 Temperature 36.1 C L 09/17/24 11:14 Pulse Rate 57 L 09/17/24 14:03 Respiratory Rate 18 09/17/24 14:03 Blood Pressure 109/69 09/17/24 14:03 Pulse Oximetry 95 09/17/24 14:03 Oxygen Delivery Room Air 09/17/24 11:14 Medical Decision Making Vital Signs Vital Signs: Vital Signs Temperature 36.1 C L 09/17/24 11:14 Pulse Rate 67 09/17/24 11:14 Respiratory Rate 18 09/17/24 11:14 Blood Pressure 120/69 09/17/24 11:14 Pulse Oximetry 100 09/17/24 11:14 Oxygen Delivery Room Air 09/17/24 11:14 Temperature 36.1 C L 09/17/24 11:14 Pulse Rate 57 L 09/17/24 14:03 Respiratory Rate 18 09/17/24 14:03 Blood Pressure 109/69 09/17/24 14:03 Pulse Oximetry 95 09/17/24 14:03 Oxygen Delivery Room Air 09/17/24 11:14 Lab Data 09/17/24 12:48 09/17/24 12:48 Labs: Lab Results 09/17/24 Range/Units 12:48 WBC 7.0 (4.5-10.0) K/mm3 RBC 4.99 (4.2-5.4) M/mm3 Hgb 14.9 (12.0-15.0) g/dL Hct 44.5 (37.0-47.0) % MCV 89.2 (80-100) fl MCH 29.9 (26-34) pg MCHC 33.5 (32-36) g/dl RDW 13.0 (11.5-14.5) % Plt Count 485 H D (150-375) k/mm3 MPV 8.6 (7.4-10.4) fl Immature Gran % (Auto) 3.1 H (0-0.5) % Neut % (Auto) 52.4 (45.5-73.1) % Lymph % (Auto) 27.5 (18.3-44.2) % Amador % (Auto) 14.4 H (2.6-8.5) % Eos % (Auto) 2.0 (0-4.4) % Baso % (Auto) 0.6 (0.2-1.2) % Lymph # (Auto) 1.93 (0.9-3.2) K/mm3 Amador # (Auto) 1.0 H (0.1-0.6) K/mm3 Eos # (Auto) 0.1 (0-0.3) K/mm3 Baso # (Auto) 0.0 (0.0-0.1) K/mm3 Abs Immat Gran (auto) 0.22 H (0.00-0.031) K/mm3 Absolute Neuts (auto) 3.7 (1.3-6.7) K/mm3 Absolute Nucleated RBC 0.000 (0.0-0.012) K/mm3 Nucleated RBC % 0.0 (0.0-0.2) % PT 15.6 H (11.1-14.7) Seconds INR 1.2 Sodium 140 (137-145) mmol/L Potassium 3.7 (3.4-5.0) mmol/L Chloride 104 (98-107) mmol/L Carbon Dioxide 24 (22-30) mmol/L Anion Gap 12 (4-12) mmol/L BUN 21 H (7-17) mg/dL Creatinine 1.17 H (0.7-1.0) mg/dL Estim Creat Clear Calc 33 ml/min Estimated GFR 46 L (59 - ) Glucose 101 (65-110) mg/dL Calcium 11.3 H (8.4-10.2) mg/dL Total Bilirubin 0.5 (0.2-1.3) mg/dL AST 37 H (14-36) U/L ALT 38 H (6-35) U/L Alkaline Phosphatase 127 H (38-126) U/L Total Protein 8.0 (6.3-8.2) g/dL Albumin 4.2 (3.5-5.1) g/dL Discharge Plan Discharge Clinical Impression: Laryngitis Migraine Qualifiers: Migraine type: unspecified Status migrainosus presence: without status migrainosus Intractability: intractable Qualified Code(s): G43.919 - Migraine, unspecified, intractable, without status migrainosus Patient Disposition: Home, Self-Care Condition: Stable Instructions: Migraine Headache (ED), Anxiety (ED) Additional Instructions: continue homemedications, follow with Dr. Goldberg Patient Language: Wolof Prescriptions: No Action zolpidem 10 mg tablet 10 mg PO QHS Qty: 90 1RF Nurtec ODT 75 mg Tablet,Disintegrating 75 mg PO PRN PRN (Reason: Migraine Headache) Rx Instructions: as a single dose ondansetron 8 mg tablet,disintegrating 8 mg PO PRN PRN (Reason: nausea and vomiting) Hair, Skin, Nails with Biotin 7.5-7.5-1,250 mg-unit-mcg Tablet,Chewable 3 tablet PO DAILY ondansetron 4 mg tablet,disintegrating 4 mg PO Q6H PRN (Reason: nausea and vomiting) Qty: 10 0RF Aimovig Autoinjector 140 mg/mL auto-injector See Rx Instructions .ROUTE .COMPLEX Qty: 3 5RF Dose Instruction: INJECT 140 MG( 1 ML) UNDER THE SKIN ONCE A MONTH Rx Instructions: INJECT 140 MG( 1 ML) UNDER THE SKIN ONCE A MONTH valacyclovir 500 mg tablet See Rx Instructions .ROUTE .COMPLEX Qty: 90 1RF Dose Instruction: TAKE 1 TABLET BY MOUTH DAILY Rx Instructions: TAKE 1 TABLET BY MOUTH DAILY gabapentin 600 mg tablet 1,200 mg PO HS Qty: 180 1RF Rx Instructions: TAKE 1 TABLET BY MOUTH THREE TIMES DAILY metformin 500 mg tablet extended release 24 hr See Rx Instructions .ROUTE .COMPLEX Qty: 180 1RF Dose Instruction: TAKE 2 TABLETS BY MOUTH DAILY Rx Instructions: TAKE 2 TABLETS BY MOUTH DAILY rosuvastatin 20 mg tablet See Rx Instructions .ROUTE .COMPLEX Qty: 90 1RF Dose Instruction: TAKE 1 TABLET BY MOUTH DAILY Rx Instructions: TAKE 1 TABLET BY MOUTH DAILY azithromycin [Zithromax Z-[place]] 250 mg tablet See Rx Instructions PO .COMPLEX Qty: 6 0RF Rx Instructions: For 250 mg dose pack: take 500 mg today (day 1), then 250 mg for 4 days (days 2-5) PO benzonatate 200 mg capsule 200 mg PO TID PRN (Reason: cough) Qty: 40 0RF Qulipta 10 mg tablet 10 mg PO DAILY Qty: 30 0RF Follow-up/Referrals: Dyllan Goldberg MD [Primary Care Provider] - Time of Disposition: 14:34
[2024-09-17 15:01] VITALS: BP 109/69; PULSE 57; RESP 18; TEMP 36.8; O2SAT 97
== END 2024-09-17 15:02 | disposition home or self-care (01) ==
PROVIDERS: Emergency Provider Family Medicine; PCP Internal Medicine
DX: G43.919 Migraine, unspecified, intractable, without status migrainosus (principal); J04.0 Acute laryngitis; E55.9 Vitamin D deficiency, unspecified; E78.5 Hyperlipidemia, unspecified; D50.9 Iron deficiency anemia, unspecified; R73.03 Prediabetes; Z87.440 Personal history of urinary (tract) infections; Z90.710 Acquired absence of both cervix and uterus; Z79.84 Long term (current) use of oral hypoglycemic drugs; Z79.899 Other long term (current) drug therapy
CPT/HCPCS: 36415; 70450; 80053; 85025; 85610; 99284

== ENCOUNTER 2024-12-18 12:32 | Outpatient (CLI) | payer OTHER, SELFPAY ==
--- OUTSIDE RECORDS SUMMARY | 2024-12-18 12:41 | XMS_ITS | Clinical Summary ---
Author Organization [facility] Address [address] [facility] [address] [place] [address] Phone Care Team Providers Care Director School Of Nursing Name Role Phone Unavailable Primary Care Provider Unavailabl e Social History Tobacco Use Types Packs/Day Years Used Date Smoking Tobacco: Never Assessed Comments Unknown Sex and Gender Information Value Date Recorded Sex Assigned at Not on file Legal Sex Female 3:19 AM [employer] OFFIC[employer] Gender Identity Not on file Sexual Orientation Not on file Plan of Treatment Health Maintenance Due Date Last Done Comments DTAP/TDAP/TD VACCINES (1 - Tdap) 1976 BREAST CANCER SCREENING 1997 COLORECTAL SCREENING 2002 Colorectal Cancer Screening 2002 FIT-DNA Q 3 years 2002 FIT/FOBT Q 1 year 2002 Flex Sig/CT Colonography Q 5 years 2002 PNEUMOCOCCAL VACCINE 50+ YEARS (1 of 1 - PCV) 09/24/19 08 ZOSTER VACCINE (1 of 2) 2007 OSTEOPOROSIS SCREENING 2022 INFLUENZA VACCINE (#1) 2024 RSV VACCINE (60+ or ) (1 - 1-dose 75+ series) 2032
--- OUTSIDE RECORDS SUMMARY | 2024-12-18 12:41 | XMS_ITS ---
Author Organization [facility] Care Team Providers Care Lithograph Press Operator Tinware Name Role Phone Jim Santiago Unavailable Unavailable Care Team Name Role Address Phone Organization Dates Jim Santiago PCP [address], [place], [place], [id number], [place] (Office): [phone] [facility] 01/06/2016 - 01/07/2016 Reason for Referral No Reasons for Referral Entered Social History Social History Observation Description Start Date End Date Code Code System Current Smoking Status Tobacco smoking consumption unknown [id number] SNOMED CT Sex Assigned At Female 1955 [address]-6 [facility]
--- OUTSIDE RECORDS SUMMARY | 2024-12-18 12:41 | XMS_ITS | Clinical Summary ---
Author Organization [facility] Address [address] [place] [address] Care Team Providers Care Mortgage Processing Clerk Name Role Phone Dyllan Goldberg MD Primary Care Provider [phone] Allergies Active Allergy Reactions Criticality Noted Date [...] (05/03/2024): Decreased sexual desire;Recorded Elsewhere: No Location: [facility] Source: EHR Chronic: N Practice ID: [id number] Billable Time: 11:00:00 AM Leukocytosis 07/19/2017 Overview (05/03/2024): Elevated white blood cell count, unspecified;Recorded Elsewhere: No Location: [facility] Source: EHR Chronic: N Practice ID: [id number] Billable Time: 01:00:00 PM Overweight with body mass index (BMI) 25.0-29.9 04/20/2016 Overview (05/03/2024): Body mass index (BMI) 25.0-25.9, adult;Recorded Elsewhere: No Location: [facility] Source: EHR Chronic: N Practice ID: [id number] Billable Time: 02:00:00 PM Herpetic vulvovaginitis 04/02/2016 Overview (05/03/2024): Herpesviral [herpes simplex] ulceration;Recorded Elsewhere: No Location: [facility] Source: EHR Chronic: N Practice ID: [id number] Billable Time: 10:15:00 AM Urinary tract infectious disease 04/04/2015 Overview (05/03/2024): URIN TRACT INFECTION NOS;Practice ID: [id number] Surgical History Surgery Date Site/Laterality Comments [place] TOTAL ABDOMINAL HYSTERECT W/WO RMVL TUBE OVARY Hysterectomy - (Added by TW Conv) [place] ENLARGE BREAST Breast Surgery Enlargement Procedure - (Added by TW Conv) FACELIFT Reported Hx Of 'Facelift' - (Added by Conv) LUMBAR DISC SURGERY Lower Back Surgery Lumbar Disc - (Added by Conv) BACK SURGERY Back Surgery - (Added by Conv) [place] FLUORO GUIDED INJECTION HIP LEFT 07/09/2024 Left Medical History Medical History Date Comments Personal history of other me ntal and behavioral disorders History of post traumatic st ress disorder - (Added by Conv) Personal history of other sp ecified conditions History of insomnia - sleep onset (Added by Conv) Migraine without aura and wi th status migrainosus, not intractable Migraine without aura and with status migrainosus, not intractable - (Added by Conv) GERD (gastroesophageal reflux disease) Hiatal hernia Family History Medical History Relation Name Comments Hypertension Brother Family history of hypertension - (Added by Conv) Migraines Child Family history of migraine headaches - (Added by Conv) Breast cancer Maternal Grandmother Family history of malignant neoplasm of breast - (Added by Conv) Hypertension Mother Family history of hypertension - (Added by Conv) Migraines Mother Family history of migraine headaches - (Added by Conv) Relation Name Status Comments Brother Child [...] Comments Blood Pressure 141/75 09/22/2023 9:14 AM DIRECTOR TRANSPORTATION Pulse 84 09/22/2023 9:14 AM DIRECTOR TRANSPORTATION Temperature - - Respiratory Rate 20 09/22/2023 9:14 AM DIRECTOR TRANSPORTATION Oxygen Saturation 98% 01/20/2018 10:06 AM CDT [...] season) 2024 06/24/2022, 06/06/2021, 10/19/2020 Influenza Vaccine (Season Ended) 2025 06/24/2022, 04/08/2021, 05/16/2020, Additional history exists DTaP/Tdap/Td Vaccine (3 - Td or Tdap) 01/01/2033 01/01/2023, 06/13/2017 Pneumococcal vaccine 65+ Completed 04/06/2023 Zoster Vaccine Completed 04/06/2023, 12/28/2022 Medical Devices Implanted Type Area Fuel Buyer Device Identifier Shelf Expiration Date Model / Serial / Lot Ankle Reconstruction Ankle Vertebrea Replacement Spine Lumbar Vertebrae Replacement Neck Insurance [facility] UHC MEDICARE ADVANTAGE Care Teams Mortgage Processing Clerk Relationship Specialty Start Date End Date Dyllan Goldberg MD [address] [facility] [address] [place] [phone] PCP - General Internal Medicine 05/01/20
--- OUTSIDE RECORDS SUMMARY | 2024-12-18 12:41 | XMS_ITS ---
Author Organization [facility] Reason for Referral No Reasons for Referral Entered Social History Social History Observation Description Start Date End Date Code Code System Current Smoking Status Tobacco smoking consumption unknown [id number] SNOMED CT Sex Assigned At Female 1955 71767-0 [facility]
--- OUTSIDE RECORDS SUMMARY | 2024-12-18 12:41 | XMS_ITS | Referral Summary ---
Author Organization [facility] Address [address] [place] [address] Care Team Providers Care Shank Stapler Name Role Phone Dyllan Goldberg MD Primary Care Provider [phone] Allergies Active Allergy Reactions Criticality Noted Date [...] (05/03/2024): Decreased sexual desire;Recorded Elsewhere: No Location: [facility] Source: EHR Chronic: N Practice ID: [id number] Billable Time: 11:00:00 AM Leukocytosis 07/19/2017 Overview (05/03/2024): Elevated white blood cell count, unspecified;Recorded Elsewhere: No Location: [facility] Source: EHR Chronic: N Practice ID: [id number] Billable Time: 01:00:00 PM Overweight with body mass index (BMI) 25.0-29.9 04/20/2016 Overview (05/03/2024): Body mass index (BMI) 25.0-25.9, adult;Recorded Elsewhere: No Location: [facility] Source: EHR Chronic: N Practice ID: [id number] Billable Time: 02:00:00 PM Herpetic vulvovaginitis 04/02/2016 Overview (05/03/2024): Herpesviral [herpes simplex] ulceration;Recorded Elsewhere: No Location: [facility] Source: EHR Chronic: N Practice [...] Comments Blood Pressure 141/75 09/22/2023 9:14 AM COUNTER SUPERVISOR Pulse 84 09/22/2023 9:14 AM COUNTER SUPERVISOR Temperature - - Respiratory Rate 20 09/22/2023 9:14 AM COUNTER SUPERVISOR Oxygen Saturation 98% 01/20/2018 10:06 AM CDT Inhaled Oxygen Concentration - - Weight 74.8 kg (165 lb) 04/25/2024 9:53 AM CDT Height 176.5 cm (5' 9.5 ) 03/15/2024 1:17 PM CDT Body Mass Index 24.02 03/15/2024 1:17 PM CDT Plan of Treatment Not on file Medical Devices Implanted Type Area Cabinet Assembler Device Identifier Shelf Expiration Date Model / Serial / Lot Ankle Reconstruction Ankle Vertebrea Replacement Spine Lumbar Vertebrae Replacement Neck Insurance [facility] [place] [id number] Care Teams Shank Stapler Relationship Specialty Start Date End Date Dyllan Goldberg MD [address] [facility] [address] [place] [address] PCP - General Internal Medicine 05/01/20
--- OUTSIDE RECORDS SUMMARY | 2024-12-18 12:41 | XMS_ITS | Encounter Summary ---
Author Organization [facility] Healthcare Address [address] [place] [address] Care Team Providers Care Marketing Information Manager Name Role Phone Dyllan Goldberg MD Primary Care Provider [phone] Encounter Details Date Type Department Care Team (Late st Contact Info) Description 07/09/2024 Telephone [facility] Radiology [address] [facility] [address] [place] [address] Sade Nova, RT Social History Tobacco [...] on filedocumented in this encounter Care Teams Marketing Information Manager Relationship Specialty Start Date End Date Dylaln Goldberg MD [address] [facility] [address] [place] [address] PCP - General Internal Medicine 05/01/20 documented as of this encounter
[2024-12-18 13:22] LABS: Basophils Percent Auto 0.6 % (0.2-1.2); Eosinophils Absolute Auto 0.3 K/mm3 (0-0.3); Eosinophils Percent Auto 4.9 % (0-4.4); Hematocrit 44.2 % (37.0-47.0); Hemoglobin 14.4 g/dL (12.0-15.0); Immature Granulocyte Absolute 0.02 K/mm3 (0.00-0.031); Immature Granulocyte Percent A 0.4 % (0-0.5); Lymphocytes Percent Auto 29.4 % (18.3-44.2); Mean Corpuscular HGB Conc 32.6 g/dl (32-36); Mean Corpuscular Hemoglobin 29.7 pg (26-34); Mean Corpuscular Volume 91.1 fl (80-100); Mean Platelet Volume 9.2 fl (7.4-10.4); Monocytes Absolute Auto 0.6 K/mm3 (0.1-0.6); Monocytes Percent Auto 11.4 % (2.6-8.5); Neutrophils Absolute Auto 2.7 K/mm3 (1.3-6.7); Neutrophils Percent Auto 53.3 % (45.5-73.1); Platelet Count Result 252 k/mm3 (150-375); Red Blood Count 4.85 M/mm3 (4.2-5.4); Red Cell Distribution Width 13.7 % (11.5-14.5); White Blood Count 5.1 K/mm3 (4.5-10.0)
[2024-12-18 13:32] LABS: Alanine Aminotransferase 39 U/L (6-35); Albumin Level 4.4 g/dL (3.5-5.1); Alkaline Phosphatase 84 U/L (38-126); Anion Gap 7 mmol/L (4-12); Aspartate Amino Transferase 32 U/L (14-36); Bilirubin,Total 0.5 mg/dL (0.2-1.3); Blood Urea Nitrogen 13 mg/dL (7-17); Calcium 10.5 mg/dL (8.4-10.2); Carbon Dioxide 29 mmol/L (22-30); Chloride 106 mmol/L (98-107); Cholesterol 144 mg/dL (0-200); Estimated Glomerular Filt Rate > 60; Glucose 81 mg/dL (65-110); HDL Direct 76 mg/dL; Potassium 3.8 mmol/L (3.4-5.0); Sodium 142 mmol/L (137-145); Triglycerides 193 mg/dL (<150)
[2024-12-18 13:42] LABS: Hemoglobin A1C 5.6 % (<5.7)
[2024-12-18 13:43] LABS: LDL Cholesterol Direct 40 mg/dL; Parathyroid Intact 62.7 pg/mL (14.5-75.2)
[2024-12-18 13:44] LABS: Add Urine Microscopic? YES; Appearance Urine Cloudy (Clear); Bacteria Urine None Seen /hpf; Bilirubin Urine Negative (Negative); Blood Urine Negative (Negative); Color Urine Dark Yellow (Yellow); Glucose Urine UA Negative (Negative); Ketones Urine Trace mg/dL (Negative); Leukocyte Esterase Ur 1+ LEU/UL (Negative); Need Manual Microscopic Reviewed; Nitrate Urine Negative (Negative); Protein Urine Trace mg/dL (Negative); Specific Grav Ur 1.028 (1.001-1.035); Squamous Epithelial Cell Urine Occasional /hpf (Few); Urobilinogen Urine 0.2 mg/dL (<2.0); pH Urine 5.5 (5.0-9.0)
[2024-12-18 14:04] LABS: Thyroid Stimulating Hormone < 0.015 uIU/mL (0.465-4.680)
[2024-12-18 14:11] LABS: Free T4 Free Thyroxine 1.11 ng/dL (0.78-2.19); Vitamin D 25 Hydroxy 50.4 ng/mL
[2024-12-20 11:34] LABS: Ionized Calcium 5.6 mg/dL (4.7-5.5)
== END 2024-12-18 12:33 | disposition home or self-care (01) ==
PROVIDERS: PCP Internal Medicine; Visit Provider Internal Medicine
DX: R79.89 Other specified abnormal findings of blood chemistry (principal); E78.5 Hyperlipidemia, unspecified; E78.2 Mixed hyperlipidemia; R35.0 Frequency of micturition; R73.03 Prediabetes; E55.9 Vitamin D deficiency, unspecified; Z79.899 Other long term (current) drug therapy
CPT/HCPCS: 36415; 80053; 80061; 81001; 82306; 82330; 83036; 83970; 84439; 84443; 85025; 87086

== ENCOUNTER 2024-12-24 13:27 | Outpatient (CLI) | payer OTHER, SELFPAY ==
--- NOTE | ~2024-12-24 | CT_ITS ---
CT of the Abdomen and Pelvis: Indication: Abnormal findings in the urine Technique: 2.5 mm axial scans were obtained through the abdomen and pelvis following intravenous adm inistration of 100 cc of Omnipaque 350. Dose reduction technique was used on this scan by utilizing a utomated exposure control and iterative reconstruction technique. The dose-length product (DLP) was 3 01.19 mGy-cm. Findings: Scans through the lung bases are unremarkable. Intracapsular rupture of right breast impla nt probably present. Moderate hiatal hernia present. The liver, spleen, pancreas, gallbladder, adrenals and kidneys are within normal limits. No evidence of aortic aneurysm. No lymphadenopathy. No bowel obstruction or bowel wall thickening. There is no evidence to suggest acute appendicitis. Images through the pelvis were performed. Urinary bladder unremarkable. No pelvic mass seen. No ascit es. Impression: No significant abnormality of the system identified. Moderate hiatal hernia. Probable intracapsular rupture of right breast implant. Reviewed, dictated and finalized at [facility]. Impression: No significant abnormality of the system identified. Moderate hiatal hernia. Probable intracapsular rupture of right breast implant.
--- OUTSIDE RECORDS SUMMARY | 2024-12-24 13:36 | XMS_ITS | Patient Health Record ---
Author Organization [facility] Address [address] [facility] [facility] [place] [address] Care Team Providers Care Mica Sizer Name Role Phone Catracho Lara Unavailable [phone] ALLERGIES Allergen (clinical drug ingredient) Drug/Non Drug [...] sacroiliac region (M46.1) Active confirmed Solitary sacroiliitis ([id number]) PLAN OF TREATMENT No Information MEDICATIONS ADMINISTERED Medication Instructions Date of Administration Dosage Notes LEFT Hip Joint Injection wit h fluoroscopy 01/26/2022 Left Sacroiliac Joint Injection 02/19/2022 MEDICAL (GENERAL) HISTORY Medical History History ICD Code headaches/migraines PTSD Surgical History Surgery Date(Month/Year) breast augmentation 1998 hysterectomy 1984 cervical 2015 lumbar 2016 hernia 2020
--- OUTSIDE RECORDS SUMMARY | 2024-12-24 13:36 | XMS_ITS | Clinical Summary ---
Author Organization [facility] Address [address] [place] [address] Care Team Providers Care African History Professor Name Role Phone Dyllan Goldberg MD Primary Care Provider [phone] Allergies Active Allergy Reactions Criticality Noted Date [...] (05/03/2024): Decreased sexual desire;Recorded Elsewhere: No Location: [facility] Source: EHR Chronic: N Practice ID: [id number] Billable Time: 11:00:00 AM Leukocytosis 07/19/2017 Overview (05/03/2024): Elevated white blood cell count, unspecified;Recorded Elsewhere: No Location: [facility] Source: EHR Chronic: N Practice ID: [id number] Billable Time: 01:00:00 PM Overweight with body mass index (BMI) 25.0-29.9 04/20/2016 Overview (05/03/2024): Body mass index (BMI) 25.0-25.9, adult;Recorded Elsewhere: No Location: [facility] Source: EHR Chronic: N Practice ID: [id number] Billable Time: 02:00:00 PM Herpetic vulvovaginitis 04/02/2016 Overview (05/03/2024): Herpesviral [herpes simplex] ulceration;Recorded Elsewhere: No Location: [facility] Source: EHR Chronic: N Practice ID: [id number] Billable Time: 10:15:00 AM Urinary tract infectious disease 04/04/2015 Overview (05/03/2024): URIN TRACT INFECTION NOS;Practice ID: [id number] Surgical History Surgery Date Site/Laterality Comments [place] TOTAL ABDOMINAL HYSTERECT W/WO RMVL TUBE OVARY Hysterectomy - (Added by TW Conv) [place] ENLARGE BREAST Breast Surgery Enlargement Procedure - [...] Comments Blood Pressure 141/75 09/22/2023 9:14 AM ACCOUNT SERVICE ASSOCIATE Pulse 84 09/22/2023 9:14 AM ACCOUNT SERVICE ASSOCIATE Temperature - - Respiratory Rate 20 09/22/2023 9:14 AM ACCOUNT SERVICE ASSOCIATE Oxygen Saturation 98% 01/20/2018 10:06 AM CDT [...] 04/06/2023, 12/28/2022 Medical Devices Implanted Type Area Work Order Sorting Clerk Device Identifier Shelf Expiration Date Model / Serial / Lot Ankle Reconstruction Ankle Vertebrea Replacement Spine Lumbar Vertebrae Replacement Neck Insurance [facility] UHC MEDICARE ADVANTAGE Care Teams African History Professor Relationship Specialty Start Date End Date Dyllan Goldberg MD [address] [facility] [address] [place] [phone] PCP - General Internal Medicine 05/01/20
--- OUTSIDE RECORDS SUMMARY | 2024-12-24 13:36 | XMS_ITS | Encounter Summary ---
Author Organization [facility] Healthcare Address [address] [place] [address] Care Team Providers Care Electric Refrigerator Preparer Name Role Phone Dyllan Goldberg MD Primary Care Provider [phone] Encounter Details Date Type Department Care Team (Late st Contact Info) Description 07/09/2024 Telephone [facility] Radiology [address] [facility] [address] [place] [address] Sade Nova, RT Social History Tobacco [...] on filedocumented in this encounter Care Teams Electric Refrigerator Preparer Relationship Specialty Start Date End Date Dyllan Goldberg MD [address] [facility] [address] [place] [address] PCP - General Internal Medicine 05/01/20 documented as of this encounter
--- OUTSIDE RECORDS SUMMARY | 2024-12-24 13:36 | XMS_ITS | Data Portability ---
Author Organization [facility] [place] Address [address] [place] [address] Care Team Providers Care Plating Equipment Tender Name Role Phone MYRONTIM SrOR Primary Care Provider [phone] Assessment No assessment recorded. Plan of Treatment Reminders Order Date Submit Date Provider Last Modified By Organization Details Last Modified Time Details Appointments None recorded. Lab CBC w/ auto diff 2019 020 [email or web address] [facility] ([facility]), [address] [place], [place] [address]k Ctr , [address], [place], [address], 0 15:35:12 CMP, serum or plasma 2019 020 [email or web address] [facility] ([facility]), [address] [place] [address] [address], [place], [address], 0 15:35:12 phosphorus , serum or plasma 2019 020 [email or web address] [facility] ([facility]), [facility] [address] [address], [place], [address], 0 15:35:12 TSH, serum or plasma 2019 020 [email or web address] [facility] ([facility]), [address] [facility] [address] , [address], [place], [address], 0 15:35:13 vitamin D, 25-hydroxy , total, serum 2019 [email or web address] [facility] ([facility]), [address] [facility] [address], [place], [address], 0 15:35:13 lipid panel, serum 2019 [email or web address] [facility]), [address] [facility] [address], [place], [address], 0 15:35:13 HbA1c (hemoglobi n A1c), blood 2019 [email or web address] [facility] ([facility]), [address] [facility] [address], [place], [address], 0 15:35:13 Referral None recorded. Procedures None recorded. Surgeries None recorded. Imaging US, breast, bilateral 2019 [facility], [facility] [facility] [address] [facility], [place], [address], 0 12:21:47 DEXA, axial skeleton + vertebral fracture assessment 2019 [facility] Not available 0 14:48:42 Medication Orders estradiol 0.5 mg tablet 2019 [id number], [address] [facility], [place], [place], [id number], 0 10:52:15 Patient TargetsNo targets recorded. Patient Instructions Encounter Date Encounter Id Patient Instructions Last Modified By Organization Details Last Modified Time 04/10/2020 [id number] [email or web address] Not available 10:57:11 Reason for Referral None Reported. Results Created Date Observation Date Name Description Value Unit Range Abnormal Flag Note LastModifiedBy Organization Detail LastModifiedTime 04/23/20 20 04/23/2020 aurora MARTINEZ bilat eral No observ ation record ed. [email or web address] [facility] [address], [place], [address], 04/28/2020 15:43:11 05/06/20 20 04/23/2020 DEXA, axial skele ton + verte bral fract ure asses sment No observ ation record ed. layran [facility] [address], [place], [address], 05/07/2020 16:09:20 Result Notes None recorded. 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) w/o abn findings;P ractice ID: 0001 Not Available [facility] 0 15:05:49 Blood leukocyte number above reference range 887708135 Active 2016 Elevated white blood cell count, unspecifie d;Recorded Elsewhere: No Locatio n: [facility]ce: EHR Chroni c: N Practice ID: 0001 Billa ble Time: 01:00:00 PM Not Available [facility] 0 15:05:49 Reduced libido 8814829 Active 2017 Decreased sexual desire;Rec orded Elsewhere: No Locatio n: [facility] Matilda rce: EHR Chroni c: N Practice ID: 0001 Billa ble Time: 11:00:00 AM Not Available [facility] 0 15:05:49 Human papilloma virus screening Active 2016 Encounter for screening for human papillomav irus (HPV);Marlo rded Elsewhere: No Locatio n: [facility] rce: EHR Chroni c: N Practice ID: 0001 Billa ble Time: 01:00:00 PM Not Available [facility] 0 15:05:[address] Concept Active 2017 Encntr for general adult medical exam w/o abnormal findings;R ecorded Elsewhere: No Locatio n: [facility] rce: EHR Chroni c: N Practice ID: 0001 Billa ble Time: 10:30:00 AM Not Available [facility] 0 15:05:50 Body mass index 25-29 - overweigh t 676686064 Active 2015 Body mass index (BMI) 25.0-25.9, adult;Marlo rded Elsewhere: No Locatio n: [facility] rce: EHR Chroni c: N Practice ID: 0001 Billa ble Time: 02:00:00 PM Not Available [facility] 0 15:05:50 Herpetic vulvovagi nitis 91646314 Active 2015 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] ulceration ;Recorded Elsewhere: No Locatio n: [facility] rce: EHR Chroni c: N Practice ID: 0001 Billa ble Time: 10:15:00 AM Not Available [facility] 0 15:05:50 Screening for malignant neoplasm of cervix Active 2016 Screening for malignant neoplasms of the cervix;Rec orded Elsewhere: No Locatio n: [facility] rce: EHR Chroni c: N Practice ID: 0001 Billa ble Time: 01:00:00 PM Not Available [facility] 0 15:05:50 Adult health examinati on Active 2014 ROUTINE MEDICAL EXAM;Recor ded Elsewhere: No Locatio n: [facility] rce: EHR Chroni c: N Practice ID: 0001 Billa ble Time: 08:30:00 AM Not Available [facility] 0 15:05:50 Specializ ed medical examinati on Active 2014 Routine gynecologi jaylan examinatio n;Practice ID: 0001 Not Available [facility] 0 15:05:50 Urinary tract infectiou s disease 26646695 Active 2014 URIN TRACT INFECTION NOS;Practi ce ID: 0001 Not Available [facility] 0 15:05:[address] Concept Active 2016 Encounter for general adult medical exam w abnormal findings;P ractice ID: 0001 Not Available [facility] 0 15:05:50 Problem Notes None recorded. Procedures Surgical History Date Name Laterality Status Provider Name and Address Organization Details Recorded Time 07/20/20 17 Date of Last Pap Smear completed Ann Kaminski [facility] 04/09/2020 15:33:06 08/15/18 85 Total Hysterectomy completed Julissa Lilly [facility] 02/25/2020 15:11:47 Imaging Results Imaging Date Name Status LastModified by Organiz ation Details LastModified Time 04/23/2020 US, breast, bilateral completed [email or web address] [facility] [address], [place], [address], 04/28/2020 15:43:11 04/23/2020 DEXA, axial skeleton + vertebral fracture assessment completed [facility] [address], [place], [address], 05/07/2020 16:09:20 Procedure Notes None recorded. Medical Equipment None Reported. Allergies Allergen ID Allergen Name Allergen Category Reaction Reaction Severity Criticality Documentation Date Start Date Code Code System Note Provider Name and Address Organization Details Recorded Time 1309 Product containin g penicilli n (product) medicatio n Not available Not available Not available 02/25/2020 81410 8001 SNOMED Julissa mckeon [facility] 0 15:11:02 1310 Substance with sulfonami de structure and antibacte rial mechanism of action (substanc e) medicatio n Not available Not available Not available 02/25/2020 25736 8003 SNOMED Julissa mckeon [facility] 0 15:11:07 Medications Name Sig Start Date Stop Date Status Note LastModified by Organization Details LastModified Time tretinoin 0.1 % topical cream active Not Available Not Available Not Available Diflucan 150 mg tablet take 1 tablet by oral route once 10/05 completed Prescrib ed Elsewher e: No Locat ion: [facility] odify By: adriane Encounte r DateTime [...] Prescrib ed Elsewher e: No Locat ion: [facility] odify By: elliot null DateTime : 04/04/20 15 08:30:00 AM Not Available Not Available Not Available terbinafi ne HCl 250 mg tablet active Not Available Not Available Not Available estradiol 1 mg tablet TAKE 1 TABLET BY ORAL ROUTE EVERY DAY 2018 active Prescrib ed Elsewher e: No Locat ion: [facility] odify By: pancho Peterson ter DateTime : 09/11/19 19 04:06:42 PM Not Available Not Available Not Available trazodone 150 mg tablet take 1 tablet by oral route every day at bedtime 10/05 completed Prescrib ed Elsewher e: Yes Loca tion: Talisha hobbs [facility] odify By: adriane Encoungenesis r DateTime : 04/04/20 15 08:30:00 AM Not Available Not Available Not Available buspirone 10 mg tablet take 1 tablet by oral route 3 times every day 10/05 completed Prescrib ed Elsewher e: Yes Loca tion: Talisha hobbs [facility] odify By: adriane Encounte r DateTime : 04/04/20 15 08:30:00 AM Not Available Not Available Not Available clonazepa m 2 mg tablet take 1 tablet by oral route 3 times every day 10/05 completed Prescrib ed Elsewher e: Yes Loca tion: [facility] odify By: adriane Encounte r DateTime [...] Elsewher e: Yes Loca tion: Talisha hobbs [facility] odify By: rolandoerinn Faby morillounter DateTime : 04/04/20 15 08:30:00 AM Not Available Not Available Not Available hydroxyzi ne HCl 10 mg tablet 10/05 completed Prescrib ed Elsewher e: Yes Loca tion: Talisha hobbs [facility] odify By: adriane Encounte r DateTime [...] Elsewher e: Yes Loca tion: Talisha hobbs [facility] odify By: adriane Eagle r DateTime : 04/04/20 15 08:30:00 AM Not Available Not Available Not Available sertralin e 50 mg tablet take 1 tablet by oral route every day 10/05 completed Prescrib ed Elsewher e: Yes Loca tion: Talisha hobbs [facility] odify By: adriane Pteersonte r DateTime : 04/04/20 15 08:30:00 AM Not Available Not Available Not Available prazosin 2 mg capsule take 1 capsule by oral route 3 times every day 10/05 completed Prescrib ed Elsewher e: Yes Loca tion: Talisha hobbs [facility] odify By: adriane Petersonte r DateTime : 04/04/20 15 08:30:00 AM [...] Elsewher e: Yes Loca tion: Talisha hobbs [facility] odify By: adriane Encounte r DateTime : 04/04/20 15 08:30:00 AM Not Available Not Available Not Available Latuda 60 mg tablet take 1 tablet by oral route every day with food (at least 350 calories ) 10/05 completed Prescrib ed Elsewher e: Yes Loca tion: Talisha hobbs [facility] odify By: adriane Encounte r DateTime : 04/04/20 15 08:30:00 AM Not Available Not Available Not Available Biotin Plus Keratin 10,000 mcg-100 mg tablet 10/05 completed Prescrib ed Elsewher e: Yes Loca tion: Talisha [facility] odify By: adriane Encounte r DateTime : 04/04/20 15 08:30:00 AM Not Available Not Available Not Available duloxetin e 40 mg capsule,d elayed release take 1 tablet by oral route every day 07/25 completed Prescrib ed Elsewher e: Yes Loca [facility]ion[facility] odify By: rudi gray DateTime : 04/04/20 [...] Updated DateTime 04/10/2020 176.53 cm 24.9 kg/m2 48050.3 g 105 mm[Hg] 65 mm[Hg] Ann [facility] 0 10:23:24 Social History None recorded. Functional Status Question Answer Note LastModified by Organizat ion Details LastModified Time What is your level of alcohol consumption? Occasional [id number] Information not available 06/17/2020 What is your exercise level? Heavy [id number] Information not available 06/17/2020 Mental Status None recorded. Family History Nothing Reported. Medical History Condition Response History of STI Gynecological History Statement/Question Response STIs/STDs Date of Last Pap Smear 07/20/2017 Obstetrics History GPAL:G 2 P 0 0 0 0 Past Encounters Encounter ID Performer Location Encounter Start Date Encounter Closed Date Diagnosis/Indication Diagnosis SNOMED-CT Code Diagnosis ICD10 Code Diagnosis Note [id number] Anusha Jack , [facility] [address] [address] 04/10/2020 10:14:33 04/10/2020 11:12:46 Gynecologic examination 54617555 Z01.419 Take Calcium with Vitamin D 12-1500mg daily. Do monthly self breast exams. It is advised to get annual flu shot in the fall and she could obtain at [facility] or [facility] care clinic. If you haven't received the [...] US for breast screening. Screening for osteoporosis 849363565 Z13.820 Total Hyst for non-cancer indication s. Adult heal th examination 174747520 Z00.00 Menopausal syndrome 1237 49325 N95.9 We discussed Menopausal Hormone therapy (MHT) [...] migraine w/ visual changes, breast cancer dx, DC/stroke, DVT/PE, Endometria l cancer. Please contact office [...] ion of her HRT. Screening mammography 24 867727 Z12.31 Health Concerns Section Related Observation LastModified by Organization Detai ls LastModified Time None Recorded Concern Status LastModified by Organization Details LastModified Time None Recorded Advance Directives Directive None Recorded Payers Encounter Date Sequence Insurance Name Policy Number Policy Keen Covered Member ID Keen Member ID Guarantor Name 04/10/2020 1 [facility] [id number] Frederick Rondon [id number] Notes Date Note Type Note Provider Name [...] loss. Anusha Jack, JOAO- [address], [place], [address], [facility] 04/10/2020 10:58:04 OBGyn Episode Ob Episode Information Episode Created Date Number of Fetuses Patient Bloodtype Patient rh Status Prepregnancy Weight lbs Domestic Partner Domestic Partner Phone Father Name Rip/Mould Operator Status 04/09/20 20 1 CLOSED Fetus Data [...] Domestic Partner Domestic Partner Phone Father Name Rip/Mould Operator Status 04/09/20 20 1 CLOSED Fetus Data [...]
--- OUTSIDE RECORDS SUMMARY | 2024-12-24 13:36 | XMS_ITS | Referral Summary ---
Author Organization [facility] Address [address] [place] [address] Care Team Providers Care Radio Mechanic Helper Name Role Phone Dyllan Goldberg MD Primary Care Provider [phone] Allergies Active Allergy Reactions Criticality Noted Date [...] (05/03/2024): Decreased sexual desire;Recorded Elsewhere: No Location: [facility] Source: EHR Chronic: N Practice ID: [id number] Billable Time: 11:00:00 AM Leukocytosis 07/19/2017 Overview (05/03/2024): Elevated white blood cell count, unspecified;Recorded Elsewhere: No Location: [facility] Source: EHR Chronic: N Practice ID: 0001 Billable Time: 01:00:00 PM Overweight with body mass index (BMI) 25.0-29.9 04/20/2016 Overview (05/03/2024): Body mass index (BMI) 25.0-25.9, adult;Recorded Elsewhere: No Location: [facility] Source: EHR Chronic: N Practice ID: 0001 Billable Time: 02:00:00 PM Herpetic vulvovaginitis 04/02/2016 Overview (05/03/2024): Herpesviral [herpes simplex] ulceration;Recorded Elsewhere: No Location: [facility] Source: EHR Chronic: N Practice ID: 0001 [...] Comments Blood Pressure 141/75 09/22/2023 9:14 AM GRINDER SET UP OPERATOR UNIVERSAL Pulse 84 09/22/2023 9:14 AM GRINDER SET UP OPERATOR UNIVERSAL Temperature - - Respiratory Rate 20 09/22/2023 9:14 AM GRINDER SET UP OPERATOR UNIVERSAL Oxygen Saturation 98% 01/20/2018 10:06 AM CDT Inhaled Oxygen Concentration - - Weight 74.8 kg (165 lb) 04/25/2024 9:53 AM CDT Height 176.5 cm (5' 9.5 ) 03/15/2024 1:17 PM CDT Body Mass Index 24.02 03/15/2024 1:17 PM CDT Plan of Treatment Not on file Medical Devices Implanted Type Area Production Officer Device Identifier Shelf Expiration Date Model / Serial / Lot Ankle Reconstruction Ankle Vertebrea Replacement Spine Lumbar Vertebrae Replacement Neck Insurance [employer] MEDICARE ADVANTAGE Care Teams Radio Mechanic Helper Relationship Specialty Start Date End Date Dyllan Goldberg MD [address] [facility] [address] [place] [address] PCP - General Internal Medicine 05/01/20
--- OUTSIDE RECORDS SUMMARY | 2024-12-24 13:36 | XMS_ITS | Clinical Summary ---
Author Organization [facility] Address [address] [place] [address] Phone Care Team Providers Care Field Education Director Name Role Phone Unavailable Primary Care Provider Unavailabl e Social History Tobacco Use Types Packs/Day Years Used Date Smoking Tobacco: Never Assessed Comments Unknown Sex and Gender Information Value Date Recorded Sex Assigned at Not on file Legal Sex Female 3:19 AM ENVIRONMENTAL COMPLIANCE SPECIALIST Gender Identity Not on file Sexual Orientation [...]
== END 2024-12-24 13:28 | disposition home or self-care (01) ==
PROVIDERS: PCP Internal Medicine; Visit Provider Internal Medicine
DX: R82.90 Unspecified abnormal findings in urine (principal); K44.9 Diaphragmatic hernia without obstruction or gangrene; Z98.82 Breast implant status
CPT/HCPCS: 74177; Q9967

== ENCOUNTER 2025-02-11 09:58 | Outpatient (CLI) | payer OTHER, SELFPAY ==
--- NOTE | ~2025-02-11 | MR_ITS ---
EXAMINATION: MR breast BI wo/w con INDICATION: Breast implant capsular thickening TECHNIQUE: Axial VIBRANT pre and dynamic post contrast, Sagittal VIBRANT post contrast, Axial T2 STIR ASSET COMPARISON: None CONTRAST: Multihance, 15 cc BREAST COMPOSITION: Scattered fibroglandular tissue FINDINGS: RIGHT BREAST: There is minimal background parenchymal enhancement. No abnormal enhancement is present after contrast administration. Breast implant present, with probable intracapsular rupture. No patho logically enlarged axillary or internal mammary lymph nodes are identified. LEFT BREAST: There is minimal background parenchymal enhancement. No abnormal enhancement is present after contrast administration. Breast implant present, with probable intracapsular rupture. No pathol ogically enlarged axillary or internal mammary lymph nodes are identified. IMPRESSION: No evidence for malignancy. Probable bilateral intracapsular breast implant rupture. BI-RADS Category 2: Benign finding(s). Reviewed, dictated and finalized at [facility].
== END 2025-02-11 09:59 | disposition home or self-care (01) ==
PROVIDERS: PCP Internal Medicine; Visit Provider Plastic Surgery
DX: T85.49XA Other mechanical complication of breast prosthesis and implant, initial encounter (principal)
CPT/HCPCS: 77049; A9577; C8908

== ENCOUNTER 2025-02-28 09:45 | Outpatient (CLI) | payer OTHER, SELFPAY ==
--- NOTE | ~2025-02-28 | NM_ITS ---
EXAMINATION: NM_HEPATWP_NM DATE: 02/28/2025 17:25 CDT INDICATION: Evaluate gallbladder COMPARISON: None. TECHNIQUE: 4.9 mCi Tc-99m mebrofenin (Choletec) was administered intravenously. Scintigraphic images of the abdomen were obtained for one hour. At 1 hour 1.5 mcg sincalide (Kinevac) was administered by slow intravenous infusion, and imaging was continued for 30 minutes. Gallbladder ejection fraction w as calculated by the technologist.] FINDINGS: There is normal clearance of radiotracer from the blood pool. There is homogeneous tracer u ptake by the liver. Activity progresses to the gallbladder and bowel. Gallbladder ejection fraction is 82% (normal 10-90%, but most patient with gallbladder dysfunction have GBEF < 35%). IMPRESSION: 1. Normal hepatobiliary scan. Reviewed, dictated and finalized at location B.
--- OUTSIDE RECORDS SUMMARY | 2025-02-28 09:59 | XMS_ITS | Referral Summary ---
Author Organization [facility] Address [address] [place] [address] Care Team Providers Care Paperboard Box Maker Name Role Phone Dyllan Goldberg MD Primary Care Provider [phone] Allergies Active Allergy Reactions Criticality Noted Date [...] (05/03/2024): Decreased sexual desire;Recorded Elsewhere: No Location: [facility] Source: EHR Chronic: N Practice ID: 0001 Billable Time: 11:00:00 AM Leukocytosis 07/19/2017 Overview (05/03/2024): Elevated white blood cell count, unspecified;Recorded Elsewhere: No Location: [facility] Source: EHR Chronic: N Practice ID: 0001 Billable Time: 01:00:00 PM Overweight with body mass index (BMI) 25.0-29.9 04/20/2016 Overview (05/03/2024): Body mass index (BMI) 25.0-25.9, adult;Recorded Elsewhere: No Location: [facility] Source: EHR Chronic: N Practice ID: 0001 Billable Time: 02:00:00 PM Herpetic vulvovaginitis 04/02/2016 Overview (05/03/2024): Herpesviral [herpes simplex] ulceration;Recorded Elsewhere: No Location: [facility] Source: EHR Chronic: N Practice ID: 0001 [...] Comments Blood Pressure 141/75 09/22/2023 9:14 AM CONCRETE PAVING SUPERVISOR Pulse 84 09/22/2023 9:14 AM CONCRETE PAVING SUPERVISOR Temperature - - Respiratory Rate 20 09/22/2023 9:14 AM CONCRETE PAVING SUPERVISOR Oxygen Saturation 98% 01/20/2018 10:06 AM CDT Inhaled Oxygen Concentration - - Weight 74.8 kg (165 lb) 04/25/2024 9:53 AM CDT Height 176.5 cm (5' 9.5) 03/15/2024 1:17 PM CDT Body Mass Index 24.02 03/15/2024 1:17 PM CDT Plan of Treatment Not on file Medical Devices Implanted Type Area Medical Research Scientist Device Identifier Shelf Expiration Date Model / Serial / Lot Ankle Reconstruction Ankle Vertebrea Replacement Spine Lumbar Vertebrae Replacement Neck Insurance [employer] MED[employer]VANT[employer] Care Teams Paperboard Box Maker Relationship Specialty Start Date End Date Dyllan Goldberg MD [address] [facility] [address] [place] [address] PCP - General Internal Medicine 05/01/20
--- OUTSIDE RECORDS SUMMARY | 2025-02-28 09:59 | XMS_ITS | Clinical Summary ---
Author Organization [facility] Address [address] [place] [address] Care Team Providers Care Psychiatric Therapist Name Role Phone Dyllan Goldberg MD Primary Care Provider [phone] Allergies Active Allergy Reactions Criticality Noted Date [...] (05/03/2024): Decreased sexual desire;Recorded Elsewhere: No Location: [facility] Source: EHR Chronic: N Practice ID: 0001 Billable Time: 11:00:00 AM Leukocytosis 07/19/2017 Overview (05/03/2024): Elevated white blood cell count, unspecified;Recorded Elsewhere: No Location: [facility] Source: EHR Chronic: N Practice ID: 0001 Billable Time: 01:00:00 PM Overweight with body mass index (BMI) 25.0-29.9 04/20/2016 Overview (05/03/2024): Body mass index (BMI) 25.0-25.9, adult;Recorded Elsewhere: No Location: [facility] Source: EHR Chronic: N Practice ID: 0001 Billable Time: 02:00:00 PM Herpetic vulvovaginitis 04/02/2016 Overview (05/03/2024): Herpesviral [herpes simplex] ulceration;Recorded Elsewhere: No Location: [facility] Source: EHR Chronic: N Practice ID: 0001 Billable Time: 10:15:00 AM Urinary tract infectious disease 04/04/2015 Overview (05/03/2024): URIN TRACT INFECTION NOS;Practice ID: 0001 Surgical History Surgery Date Site/Laterality Comments IN TOTAL ABDOMINAL HYSTERECT W/WO RMVL TUBE OVARY Hysterectomy - (Added by TW Conv) [place] ENLARGE BREAST Breast Surgery Enlargement Procedure - [...] Comments Blood Pressure 141/75 09/22/2023 9:14 AM LAMINATOR PRINTED CIRCUIT BOARDS Pulse 84 09/22/2023 9:14 AM LAMINATOR PRINTED CIRCUIT BOARDS Temperature - - Respiratory Rate 20 09/22/2023 9:14 AM LAMINATOR PRINTED CIRCUIT BOARDS Oxygen Saturation 98% 01/20/2018 10:06 AM CDT [...] 2024 06/24/2022, 06/06/2021, 10/19/2020 Influenza Vaccine (#1) 2025 , 04/08/2021, 05/16/2020, Additional history exists DTaP/Tdap/Td Vaccine (3 - Td or Tdap) 01/01/2033 01/01/2023, 06/13/2017 Pneumococcal vaccine 65+ Completed 04/06/2023 Zoster Vaccine Completed 04/06/2023, 12/28/2022 Medical Devices Implanted Type Area Manager Store Device Identifier Shelf Expiration Date Model / Serial / Lot Ankle Reconstruction Ankle Vertebrea Replacement Spine Lumbar Vertebrae Replacement Neck Insurance [facility] UHC MEDICARE ADVANTAGE Care Teams Psychiatric Therapist Relationship Specialty Start Date End Date Dyllan Goldberg MD [address] [facility] [address] [place] [id number] PCP - General Internal Medicine 05/01/20
--- OUTSIDE RECORDS SUMMARY | 2025-02-28 09:59 | XMS_ITS | Clinical Summary ---
Author Organization [facility] Address [address] [place] [address] Phone Care Team Providers Care Contract Specialist Name Role Phone Unavailable Primary Care Provider Unavailabl e Social History Tobacco Use Types Packs/Day Years Used Date Smoking Tobacco: Never Assessed Comments Unknown Sex and Gender Information Value Date Recorded Sex Assigned at Not on file Legal Sex Female 3:19 AM WIRE FRAME DIPPER Gender Identity Not on file Sexual Orientation [...] 2007 OSTEOPOROSIS SCREENING 2022 INFLUENZA VACCINE (#1) 2025 RSV VACCINE (60+ or ) (1 - 1-dose 75+ series) 2032
--- OUTSIDE RECORDS SUMMARY | 2025-02-28 09:59 | XMS_ITS | Encounter Summary ---
Author Organization [facility] Address [address] [place] [address] Care Team Providers Care Concrete Spreader Name Role Phone Dyllan Goldberg MD Primary Care Provider [phone] Encounter Details Date Type Department Care Team (Late st Contact Info) Description 07/09/2024 Telephone [facility] Radiology [address] [facility] [address] [place] [address] Sade Nova, RT Social History Tobacco [...] on filedocumented in this encounter Care Teams Concrete Spreader Relationship Specialty Start Date End Date Dyllan Goldberg MD [address] [facility] [address] [place] [address] PCP - General Internal Medicine 05/01/20 documented as of this encounter
--- OUTSIDE RECORDS SUMMARY | 2025-02-28 09:59 | XMS_ITS | Data Portability ---
Author Organization [facility] Address [address] [place] [address] Care Team Providers Care Advanced Manufacturing Consultant Name Role Phone MYRONRembertoLAZARO Primary Care Provider [phone] Assessment No assessment recorded. Plan of Treatment Reminders Order Date Submit Date Provider Last Modified By Organization Details Last Modified Time Details Appointments None recorded. Lab CBC w/ auto diff 2019 020 [email or web address] [facility] ([facility]), [address], [place], [address], 0 15:35:12 CMP, serum or plasma 2019 020 [email or web address] [facility] ([facility]), [address], [place], [address], 0 15:35:12 phosphorus , serum or plasma 2019 020 [email or web address] [facility] ([facility]), [address], [place], [address], 0 15:35:12 TSH, serum or plasma 2019 020 [email or web address] [facility] ([facility]), [address], [place], [address], 0 15:35:13 vitamin D, 25-hydroxy , total, serum 2019 [email or web address] [facility] ([facility]), [address] [facility] [address] [facility] [address] [address], [place], [address], 0 15:35:13 lipid panel, serum 2019 [email or web address] [facility] ([facility]), [address] [facility] [address] [facility] [address] [address], [place], [address], 0 15:35:13 HbA1c (hemoglobi n A1c), blood 2019 [email or web address] [facility] ([facility]), [address] [facility] [address] [facility] [address] [address], [place], [address], 0 15:35:13 Referral None recorded. Procedures None recorded. Surgeries None recorded. Imaging US, breast, bilateral 2019 [facility], [address] [place] [address] [address], [place], [address], 0 12:21:47 DEXA, axial skeleton + vertebral fracture assessment 2019 [facility] Not available 0 14:48:42 Medication Orders estradiol 0.5 mg tablet 2019 [id number], [address] [facility], [place], [place], [id number], 0 10:52:15 Patient TargetsNo targets recorded. Patient Instructions Encounter Date Encounter Id Patient Instructions Last Modified By Organization Details Last Modified Time 04/10/2020 [id number] [email or web address] Not available 10:57:11 Reason for Referral None Reported. Results Created Date Observation Date Name Description Value Unit Range Abnormal Flag Note LastModifiedBy Organization Detail LastModifiedTime 04/23/20 20 04/23/2020 US, breas t, bilat eral No observ ation record ed. [email or web address] [facility] [address], [place], [address], 04/28/2020 15:43:11 05/06/20 20 04/23/2020 DEXA, axial skele ton + verte bral fract ure asses sment No observ ation record ed. layran [facility] [address], [place], [address], 05/07/2020 16:09:20 Result Notes None recorded. Problems Name Problem SNOMED Code Status Onset Date Resolution Date Notes Provider Name and Address Organization Details Recorded Time Adult health examinati on Active 2014 ROUTINE MEDICAL EXAM;Recor ded Elsewhere: No Locatio n: [facility] rce: EHR Chroni c: N Practice ID: 0001 Billa ble Time: 08:30:00 AM Not Available [facility] 0 15:05:50 Specializ ed medical examinati on Active 2014 Routine gynecologi jaylan examinatio n;Practice ID: 0001 Not Available [facility] 0 15:05:50 Urinary tract infectiou s disease 07371524 Active 2014 URIN TRACT INFECTION NOS;Practi ce ID: 0001 Not Available [facility] 0 15:05:50 Herpetic vulvovagi nitis 98911428 Active 2015 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] ulceration ;Recorded Elsewhere: No Locatio n: [facility] rce: EHR Chroni c: N Practice ID: 0001 Billa ble Time: 10:15:00 AM Not Available [facility] 0 15:05:50 Body mass index 25-29 - overweigh t 065450422 Active 2015 Body mass index (BMI) 25.0-25.9, adult;Marlo rded Elsewhere: No Locatio n: [facility] rce: EHR Chroni c: N Practice ID: 0001 Billa ble Time: 02:00:00 PM Not Available [facility] 0 15:05:50 Blood leukocyte number above reference range 644003857 Active 2016 Elevated white blood cell count, unspecifie d;Recorded Elsewhere: No Locatio n: [facility] rce: EHR Chroni c: N Practice ID: 0001 Billa ble Time: 01:00:00 PM Not Available [facility] 0 15:05:49 Human papilloma virus screening Active 2016 Encounter for screening for human papillomav irus (HPV);Marlo rded Elsewhere: No Locatio n: [facility] rce: EHR Chroni c: N Practice ID: 0001 Billa ble Time: 01:00:00 PM Not Available [facility] 0 15:05:50 Screening for malignant neoplasm of cervix Active 2016 Screening for malignant neoplasms of the cervix;Rec orded Elsewhere: No Locatio n: [facility] rce: EHR Chroni c: N Practice ID: 0001 Billa ble Time: 01:00:00 PM Not Available [facility] 0 15:05:[address] Concept Active 2016 Encounter for general adult medical exam w abnormal findings;P ractice ID: 0001 Not Available [facility] 0 15:05:50 Reduced libido 8962320 Active 2017 Decreased sexual desire;Rec orded Elsewhere: No Locatio n: [facility] rce: EHR Chroni c: N Practice ID: 0001 Billa ble Time: 11:00:00 AM Not Available [facility] 0 15:05:49 Screening for malignant neoplasm of rectum Active 2017 Encounter for screening for malignant neoplasm of rectum;Pra ctice ID: 0001 Not Available [facility] 0 15:05:[address] Concept Active 2017 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 Procedures Surgical History Date Name Laterality Status Provider Name and Address Organization Details Recorded Time 07/20/20 17 Date of Last Pap Smear completed Ann Yamilex [facility] 04/09/2020 15:33:06 08/15/18 85 Total Hysterectomy completed Julissa Lilly [facility] 02/25/2020 15:11:47 Imaging Results None recorded. Procedure Notes None recorded. Medical Equipment None Reported. Allergies Allergen ID Allergen Name Allergen Category Reaction Reaction Severity Criticality Documentation Date Start Date Code Code System Note Provider Name and Address Organization Details Recorded Time 1309 Product containin g penicilli n (product) medicatio n Not available Not available Not available 02/25/2020 69609 8001 SNOMED Julissa [facility] 0 15:11:02 1310 Substance with sulfonami de structure and antibacte rial mechanism of action (substanc e) medicatio n Not available Not available Not available 02/25/2020 57296 8003 SNOMED [facility] 0 15:11:07 Medications Name Sig Start Date Stop Date Status Note LastModified by Organization Details LastModified Time tretinoin 0.1 % topical cream active Not Available Not Available Not Available Diflucan 150 mg tablet take 1 tablet by oral route once 10/05 completed Prescrib ed Elsewher e: No Locat ion: [facility] By: aileeny Fco berrios DateTime : 04/23/20 16 12:00:45 PM Not [...] Prescrib ed Elsewher e: No Locat ion: [facility] By: elliot null DateTime : 04/04/20 15 08:30:00 AM Not Available Not Available Not Available terbinafi ne HCl 250 mg tablet active Not Available Not Available Not Available estradiol 1 mg tablet TAKE 1 TABLET BY ORAL ROUTE EVERY DAY 2018 active Prescrib ed Elsewher e: No Locat ion: [facility] odify By: pancho null DateTime : 09/11/19 19 04:06:42 PM Not Available Not Available Not Available trazodone 150 mg tablet take 1 tablet by oral route every day at bedtime 10/05 completed Prescrib ed Elsewher e: Yes Loca tion: [facility] odify By: adriane Encounte r DateTime : 04/04/20 15 08:30:00 AM Not Available Not Available Not Available buspirone 10 mg tablet take 1 tablet by oral route 3 times every day 10/05 completed Prescrib ed Elsewher e: Yes Loca tion: [facility] odify By: adriane Encounte r DateTime : 04/04/20 15 08:30:00 AM Not Available Not Available Not Available clonazepa m 2 mg tablet take 1 tablet by oral route 3 times every day 10/05 completed Prescrib ed Elsewher e: Yes Loca tion: [facility] hob[facility] odify By: adriane Encounte r [...] Elsewher e: Yes Loca tion: [facility] odify By: letty gray DateTime : 04/04/20 15 08:30:00 AM Not Available Not Available Not Available hydroxyzi ne HCl 10 mg tablet 10/05 completed Prescrib ed Elsewher e: Yes Loca tion: [facility] odify By: adriane Eagle r DateTime : [...] Elsewher e: Yes Loca tion: [facility] hob[facility] odify By: adriane Eagle r DateTime : 04/04/20 15 08:30:00 AM Not Available Not Available Not Available sertralin e 50 mg tablet take 1 tablet by oral route every day 10/05 completed Prescrib ed Elsewher e: Yes Loca tion: [facility] odify By: adriane Eagle r DateTime : 04/04/20 15 08:30:00 AM Not Available Not Available Not Available prazosin 2 mg capsule take 1 capsule by oral route 3 times every day 10/05 completed Prescrib ed Elsewher e: Yes Loca tion: Catherine faby [facility] odify By: adriane Eagle r DateTime : [...] Elsewher e: Yes Loca tion: [facility] odify By: adriane Encoungenesis r DateTime : 04/04/20 08:30:00 AM Not Available Not Available Not Available Latuda 60 mg tablet take 1 tablet by oral route every day with food (at least 350 calories ) 10/05 completed Prescrib ed Elsewher e: Yes Loca tion: [facility] odify By: adriane Encounte r DateTime : 04/04/20 15 08:30:00 AM Not Available Not Available Not Available Biotin Plus Keratin 10,000 mcg-100 mg tablet 10/05 completed Prescrib ed Elsewher e: Yes Loca tion: [facility] odify By: adriane Encounte r DateTime : 04/04/20 15 08:30:00 AM Not Available Not Available Not Available duloxetin e 40 mg capsule,d elayed release take 1 tablet by oral route every day 07/25 completed Prescrib ed Elsewher e: Yes [facility] By: rudi gray DateTime : 04/04/20 [...] Body mass index (BMI) Body weight Systolic And Diastolic Provider Name and Address Organization Details Last Updated DateTime 04/10/2020 176.53 cm 24.9 kg/m2 00528.3 g 105/65 mm[Hg] Ann Kaminski [facility] 04/10/2020 10:23:24 Social History None recorded. Functional Status Question Answer Note LastModified by Organizat ion Details LastModified Time What is your level of alcohol consumption? Occasional [id number] Information not available 06/17/2020 What is your exercise level? Heavy [id number] Information not available 06/17/2020 Mental Status None recorded. Family History Nothing Reported. Medical History Condition Response History of STI Gynecological History Statement/Question Response STIs/STDs Date of Last Pap Smear 07/20/2017 Obstetrics History GPAL:G 2 P 0 0 0 0 Past Encounters Encounter ID Performer Location Encounter Start Date Encounter Closed Date Diagnosis/Indication Diagnosis SNOMED-CT Code Diagnosis ICD10 Code Diagnosis Note [id number] Anusha Jack [facility] [address] [address] 04/10/2020 10:14:33 04/10/2020 11:12:46 Gynecologic examination 08947852 Z01.419 Take Calcium with Vitamin D 12-1500mg daily. Do monthly self breast exams. It is advised to get annual flu shot in the fall and she could obtain at [facility] or [facility]. If you haven't received the Tdap [...] US for breast screening. Screening for osteoporosis 018275973 Z13.820 Total Hyst for non-cancer indication s. Adult heal th examination 561980261 Z00.00 Menopausal syndrome 1237 22023 N95.9 We discussed Menopausal Hormone therapy (MHT) [...] migraine w/ visual changes, breast cancer dx, [place]/stroke, DVT/PE, Endometria l cancer. Please contact office [...] ion of her HRT. Screening mammography 24 980557 Z12.31 Health Concerns Section Related Observation LastModified by Organization Detai ls LastModified Time None Recorded Concern Status LastModified by Organization Details LastModified Time None Recorded Advance Directives Directive None Recorded Payers Insurance Date Sequence Insurance Name Policy Number Policy Keen Covered Member ID Keen Member ID Guarantor Name 04/10/2020 1 [facility] [id number] [facility] [id number] Notes Date Note Type Note Provider Name [...] Concerned about postmenopause weight loss. Anusha Jack, [facility] [address], [place], [address], [facility] 04/10/2020 10:58:04 OBGyn Episode Ob Episode Information Episode Created Date Number of Fetuses Patient Bloodtype Patient rh Status Prepregnancy Weight lbs Domestic Partner Domestic Partner Phone Father Name Zookeeper Status 04/09/20 20 1 CLOSED Fetus Data [...] Domestic Partner Domestic Partner Phone Father Name Zookeeper Status 04/09/20 20 1 CLOSED Fetus Data [...]
--- OUTSIDE RECORDS SUMMARY | 2025-02-28 10:00 | XMS_ITS | Patient Health Record ---
Author Organization [facility] Address [address] [place] [address] Care Team Providers Care Keeper Head Name Role Phone Catracho Lara Unavailable [phone] Allergies Allergen (clinical drug ingredient) Drug/Non Drug Allergy documented on EMR Reaction Allergy Type Onset Date Status Penicillin rash/ swelling Drug Allergy A ctive Substance with sulfonamide structure and antibacterial mechanism of action (substance) Sulfa Antibiotics rash/swelling Drug Allergy Active Reason For Referral No Information Medications Medication SIG (Take, Route, Frequency, Duration) Notes [...] 1 tablet Orally Once a day Active Social History Tobacco Use: Social History Observation Description Date Details (start date - stop date) Never Smoker NA - NA Tobacco Use/Smoking Question Answer Notes Are you a nonsmoker Problems Problem Type SNOMED Code ICD Code Onset Dates Problem Status W/U Status Risk Notes Problem Tear of left acetabular labrum, subsequent encounter (S73.192D) Active confirmed Problem Solitary sacroiliitis (644175858) 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
== END 2025-02-28 09:46 | disposition home or self-care (01) ==
PROVIDERS: PCP Internal Medicine; Visit Provider Surgery
DX: R14.0 Abdominal distension (gaseous) (principal); R10.11 Right upper quadrant pain
CPT/HCPCS: 78227; A9537; J2805

== ENCOUNTER 2025-03-05 07:39 | Outpatient (CLI) | payer OTHER, SELFPAY ==
--- NOTE | ~2025-03-05 | NM_ITS ---
EXAM: NM gastric emptying study DATE: 03/06/2025 10:32 CDT INDICATION: Right upper quadrant pain TECHNIQUE: A gastric emptying study was performed using the methodology of Svitlana MORRISSEY, et al. J Nucl Med 2007; 48:568-572. The patient was given a meal consisting of 2 scrambled eggs labeled with mCi T c-99m sulfur colloid, 2 slices of toast, two packages of jam, and approximately 120 mL of water. Simu ltaneous anterior and posterior 1-min images of the abdomen were obtained with the patient supine at multiple time points over a total period of 4 hours. The geometric mean of anterior and posterior vie ws was determined, and the percentage retention was calculated for each time point. COMPARISON: CT dated 12/25/2019. FINDINGS: Gastric retention of the radiotracer-labeled meal was 78%, 38%, and 3% at the 1-hour, 2-ho ur, and 4-hour time points, respectively. With this technique, apparent rapid gastric emptying is sug gested by <30% gastric retention at 1 hour. Delayed gastric emptying is defined by gastric retention of >90% at 1 hour, >60% retention at 2 hours, or >10% retention at 4 hours. IMPRESSION: 1. Normal gastric emptying. Reviewed, dictated and finalized at location A. IMPRESSION: 1. Normal gastric emptying.
--- OUTSIDE RECORDS SUMMARY | 2025-03-05 07:43 | XMS_ITS | Clinical Summary ---
Author Organization [facility] Address [address] [place] [address] Care Team Providers Care Sql Developer Name Role Phone Dyllan Goldberg MD Primary Care Provider [phone] Allergies Active Allergy Reactions Criticality Noted Date [...] (05/03/2024): Decreased sexual desire;Recorded Elsewhere: No Location: [facility] Source: EHR Chronic: N Practice ID: 0001 Billable Time: 11:00:00 AM Leukocytosis 07/19/2017 Overview (05/03/2024): Elevated white blood cell count, unspecified;Recorded Elsewhere: No Location: [facility] Source: EHR Chronic: N Practice ID: 0001 Billable Time: 01:00:00 PM Overweight with body mass index (BMI) 25.0-29.9 04/20/2016 Overview (05/03/2024): Body mass index (BMI) 25.0-25.9, adult;Recorded Elsewhere: No Location: [facility] Source: EHR Chronic: N Practice ID: 0001 Billable Time: 02:00:00 PM Herpetic vulvovaginitis 04/02/2016 Overview (05/03/2024): Herpesviral [herpes simplex] ulceration;Recorded Elsewhere: No Location: [facility] Source: EHR Chronic: N Practice ID: 0001 Billable Time: 10:15:00 AM Urinary tract infectious disease 04/04/2015 Overview (05/03/2024): URIN TRACT INFECTION NOS;Practice ID: 0001 Surgical History Surgery Date Site/Laterality Comments [place] TOTAL ABDOMINAL HYSTERECT W/WO RMVL TUBE OVARY Hysterectomy - (Added by TW Conv) [place] ENLARGE BREAST Breast Surgery Enlargement Procedure - [...] Comments Blood Pressure 141/75 09/22/2023 9:14 AM FORK OPERATOR Pulse 84 09/22/2023 9:14 AM FORK OPERATOR Temperature - - Respiratory Rate 20 09/22/2023 9:14 AM FORK OPERATOR Oxygen Saturation 98% 01/20/2018 10:06 AM CDT [...] 12/28/2022 Medical Devices Implanted Type Area Sheet Mill Supervisor Device Identifier Shelf Expiration Date Model / Serial / Lot Ankle Reconstruction Ankle Vertebrea Replacement Spine Lumbar Vertebrae Replacement Neck Insurance [employer] U[employer] MEDICARE ADVANTAGE Care Teams Sql Developer Relationship Specialty Start Date End Date Dyllan Goldberg MD [address] [facility] [address] [place] [id number] PCP - General Internal Medicine 05/01/20
--- OUTSIDE RECORDS SUMMARY | 2025-03-05 07:43 | XMS_ITS | Data Portability ---
Author Organization [facility] Address [address] [place] [address] Care Team Providers Care Skip Loader Name Role Phone MYRONRembertoLAZARO Primary Care Provider Assessment No assessment recorded. Plan of Treatment Reminders Order Date Submit Date Provider Last Modified By Organization Details Last Modified Time Details Appointments None recorded. Lab CBC w/ auto diff 2019 020 [email or web address] [facility] ([facility]), [address], [place], [address], 0 15:35:12 CMP, serum or plasma 2019 020 [email or web address] [facility] ([facility]), [address], [place], [address], 0 15:35:12 phosphorus , serum or plasma 2019 020 [email or web address] [facility] ([facility]), [address], [place], [address], 0 15:35:12 TSH, serum or plasma 2019 020 [email or web address] [facility] ([facility]), [address], [place], [address], 0 15:35:13 vitamin D, 25-hydroxy , total, serum 2019 tryan28 [facility] ([facility]), [address], [place], [address], 0 15:35:13 lipid panel, serum 2019 [email or web address] [facility] ([facility]), [address], [place], [address], 0 15:35:13 HbA1c (hemoglobi n A1c), blood 2019 tryan28 [facility] ([facility]), [address], [place], [address], 0 15:35:13 Referral None recorded. Procedures None recorded. Surgeries None recorded. Imaging US, breast, bilateral 2019 [facility], [address] [place] [address] [address], [place], [address], 0 12:21:47 DEXA, axial skeleton + vertebral fracture assessment 2019 MAO Not available 0 14:48:42 Medication Orders estradiol 0.5 mg tablet 2019 INTERFACE [id number], [address], [place], [place], [id number], 0 10:52:15 Patient TargetsNo targets recorded. Patient Instructions Encounter Date Encounter Id Patient Instructions Last Modified By Organization Details Last Modified Time 04/10/2020 [id number] [email or web address] Not available 10:57:11 Reason for Referral None Reported. Results Created Date Observation Date Name Description Value Unit Range Abnormal Flag Note LastModifiedBy Organization Detail LastModifiedTime 04/23/20 20 04/23/2020 US, breas t, bilat eral No observ ation record ed. [email or web address] [facility] [address], [place], [address], 04/28/2020 15:43:11 05/06/20 20 04/23/2020 DEXA, axial skele ton + verte bral fract ure asses sment No observ ation record ed. [email or web address] [facility] [address], [place], [address], 05/07/2020 16:09:20 Result Notes None recorded. Problems Name Problem SNOMED Code Status Onset Date Resolution Date Notes Provider Name and Address Organization Details Recorded Time Adult health examinati on Active 2014 ROUTINE MEDICAL EXAM;Recor ded Elsewhere: No Locatio n: [facility] rce: EHR Chroni c: N Practice ID: 0001 Billa ble Time: 08:30:00 AM Not Available [facility] 0 15:05:50 Specializ ed medical examinati on Active 2014 Routine gynecologi jaylan examinatio n;Practice ID: 0001 Not Available [facility] 0 15:05:50 Urinary tract infectiou s disease 48224892 Active 2014 URIN TRACT INFECTION NOS;Practi ce ID: 0001 Not Available [facility] 0 15:05:50 Herpetic vulvovagi nitis 83535552 Active 2015 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] ulceration ;Recorded Elsewhere: No Locatio n: [facility] rce: EHR Chroni c: N Practice ID: 0001 Billa ble Time: 10:15:00 AM Not Available [facility] 0 15:05:50 Body mass index 25-29 - overweigh t 052308288 Active 2015 Body mass index (BMI) 25.0-25.9, adult;Marlo rded Elsewhere: No Locatio n: [facility] rce: EHR Chroni c: N Practice ID: 0001 Billa ble Time: 02:00:00 PM Not Available [facility] 0 15:05:50 Blood leukocyte number above reference range 263656346 Active 2016 Elevated white blood cell count, unspecifie d;Recorded Elsewhere: No Locatio n: [facility] rce: EHR Chroni c: N Practice ID: 0001 Billa ble Time: 01:00:00 PM Not Available [facility] 0 15:05:49 Human papilloma virus screening Active 2016 Encounter for screening for human papillomav irus (HPV);Marlo rded Elsewhere: No Locatio n: [facility] rce: EHR Chroni c: N Practice ID: 0001 Billa ble Time: 01:00:00 PM Not Available [facility] 0 15:05:50 Screening for malignant neoplasm of cervix Active 2016 Screening for malignant neoplasms of the cervix;Rec orded Elsewhere: No Locatio n: [facility] rce: EHR Chroni c: N Practice ID: 0001 Billa ble Time: 01:00:00 PM Not Available [facility] 0 15:05:[address] Concept Active 2016 Encounter for general adult medical exam w abnormal findings;P ractice ID: 0001 Not Available [facility] 0 15:05:50 Reduced libido 0339635 Active 2017 Decreased sexual desire;Rec orded Elsewhere: No Locatio n: [facility] rce: EHR Chroni c: N Practice ID: 0001 Billa ble Time: 11:00:00 AM Not Available [facility] 0 15:05:49 Screening for malignant neoplasm of rectum Active 2017 Encounter for screening for malignant neoplasm of rectum;Pra ctice ID: 0001 Not Available [facility] 0 15:05:[address] Concept Active 2017 Encntr for obstetrics gyn exam (general) (routine) w/o abn findings;P ractice ID: 0001 Not Available [facility] 0 15:05:[address] Concept Active 2017 Encntr for general adult medical exam w/o abnormal findings;R ecorded Elsewhere: No Locatio n: [facility] rce: EHR Chroni c: N Practice ID: 0001 Billa ble Time: 10:30:00 AM Not Available [facility] 0 15:05:50 Problem Notes None recorded. Procedures Surgical History Date Name Laterality Status Provider Name and Address Organization Details Recorded Time 07/20/20 17 Date of Last Pap Smear completed Ann Yamilex [facility] 04/09/2020 15:33:06 08/15/18 85 Total Hysterectomy completed Julissa Lilly [facility] 02/25/2020 15:11:47 Imaging Results None recorded. Procedure Notes None recorded. Medical Equipment None Reported. Allergies Allergen ID Allergen Name Allergen Category Reaction Reaction Severity Criticality Documentation Date Start Date Code Code System Note Provider Name and Address Organization Details Recorded Time 1309 Product containin g penicilli n (product) medicatio n Not available Not available Not available 02/25/2020 78729 8001 SNOMED Julissa [facility] 0 15:11:02 1310 Substance with sulfonami de structure and antibacte rial mechanism of action (substanc e) medicatio n Not available Not available Not available 02/25/[address] [facility] 0 15:11:07 Medications Name Sig Start Date Stop Date Status Note LastModified by Organization Details LastModified Time tretinoin 0.1 % topical cream active Not Available Not Available Not Available Diflucan 150 mg tablet take 1 tablet by oral route once 10/05 completed Prescrib ed Elsewher e: No Locat ion: [facility] od[facility] By: aileeny Fco berrios DateTime [...] Prescrib ed Elsewher e: No Locat ion: [facility] od[facility] By: elliot null DateTime : 04/04/20 15 08:30:00 AM Not Available Not Available Not Available terbinafi ne HCl 250 mg tablet active Not Available Not Available Not Available estradiol 1 mg tablet TAKE 1 TABLET BY ORAL ROUTE EVERY DAY 2018 active Prescrib ed Elsewher e: No Locat ion: Talisha hobbs [facility] odify By: pancho null DateTime : 09/11/19 19 04:06:42 PM Not Available Not Available Not Available trazodone 150 mg tablet take 1 tablet by oral route every day at bedtime 10/05 completed Prescrib ed Elsewher e: Yes Loca tion: Talisha hobbs [facility] odify By: adriane Encounte r DateTime : 04/04/20 15 08:30:00 AM Not Available Not Available Not Available buspirone 10 mg tablet take 1 tablet by oral route 3 times every day 10/05 completed Prescrib ed Elsewher e: Yes Loca tion: Talisha hobbs [facility] odify By: adriane Encounte r DateTime : 04/04/20 15 08:30:00 AM Not Available Not Available Not Available clonazepa m 2 mg tablet take 1 tablet by oral route 3 times every day 10/05 completed Prescrib ed Elsewher e: Yes Loca tion: Talisha hobbs [facility] odify By: adriane Encounte r DateTime [...] e: Yes Loca tion: Talisha hobbs [facility] odify By: letty gray DateTime : 04/04/20 15 08:30:00 AM Not Available Not Available Not Available hydroxyzi ne HCl 10 mg tablet 10/05 completed Prescrib ed Elsewher e: Yes Loca tion: Talisha ohbbs [facility] odify By: adriane Eagle r DateTime [...] e: Yes Loca tion: Talisha hobbs [facility] odify By: adriane Eagle r DateTime : 04/04/20 15 08:30:00 AM Not Available Not Available Not Available sertralin e 50 mg tablet take 1 tablet by oral route every day 10/05 completed Prescrib ed Elsewher e: Yes Loca tion: Talisha hobbs [facility] odify By: adriane Eagle r DateTime : 04/04/20 15 08:30:00 AM Not Available Not Available Not Available prazosin 2 mg capsule take 1 capsule by oral route 3 times every day 10/05 completed Prescrib ed Elsewher e: Yes Loca tion: Catherine faby [facility] odify By: adriane Eagle r DateTime [...] e: Yes Loca tion: Talisha hobbs [facility] odify By: adriane Encoungenesis r DateTime : 04/04/20 08:30:00 AM Not Available Not Available Not Available Latuda 60 mg tablet take 1 tablet by oral route every day with food (at least 350 calories ) 10/05 completed Prescrib ed Elsewher e: Yes Loca tion: Talisha hobbs [facility] odify By: adriane Encounte r DateTime : 04/04/20 15 08:30:00 AM Not Available Not Available Not Available Biotin Plus Keratin 10,000 mcg-100 mg tablet 10/05 completed Prescrib ed Elsewher e: Yes Loca tion: Talisha hobbs [facility] odify By: adriane Encounte r DateTime : 04/04/20 15 08:30:00 AM Not Available Not Available Not Available duloxetin e 40 mg capsule,d elayed release take 1 tablet by oral route every day 07/25 completed Prescrib ed Elsewher e: Yes [facility] By: rudi gray DateTime : [...] Updated DateTime 04/10/2020 176.53 cm 24.9 kg/m2 34260.3 g 105/65 mm[Hg] Ann Kaminski [facility] 04/10/2020 10:23:24 Social History None recorded. Functional Status Question Answer Note LastModified by Organizat ion Details LastModified Time What is your level of alcohol consumption? Occasional [id number] Information not available 06/17/2020 What is your exercise level? Heavy [id number] Information not available 06/17/2020 Mental Status None recorded. Family History Nothing Reported. Medical History Condition Response History of STI Gynecological History Statement/Question Response STIs/STDs Date of Last Pap Smear 07/20/2017 Obstetrics History GPAL:G 2 P 0 0 0 0 Past Encounters Encounter ID Performer Location Encounter Start Date Encounter Closed Date Diagnosis/Indication Diagnosis SNOMED-CT Code Diagnosis ICD10 Code Diagnosis Note [id number] Anusha Jack [facility] [address] [address] 04/10/2020 10:14:33 04/10/2020 11:12:46 Gynecologic examination 53684994 Z01.419 Take Calcium with Vitamin D 12-1500mg daily. Do monthly self breast exams. It is advised to get annual flu shot in the fall and she could obtain at [facility] or [facility] clinic. If you haven't received the Tdap [...] US for breast screening. Screening for osteoporosis 080552888 Z13.820 Total Hyst for non-cancer indication s. Adult heal th examination 575035321 Z00.00 Menopausal syndrome 1237 45904 N95.9 We discussed Menopausal Hormone therapy (MHT) [...] migraine w/ visual changes, breast cancer dx, FL/stroke, DVT/PE, Endometria l cancer. Please contact office [...] ion of her HRT. Screening mammography 24 866793 Z12.31 Health Concerns Section Related Observation LastModified by Organization Detai ls LastModified Time None Recorded Concern Status LastModified by Organization Details LastModified Time None Recorded Advance Directives Directive None Recorded Payers Insurance Date Sequence Insurance Name Policy Number Policy Keen Covered Member ID Keen Member ID Guarantor Name 04/10/2020 1 [facility] [id number] [facility] [id number] Notes Date Note Type Note Provider Name [...] colonoscopy screening Concerned about postmenopause weight loss. Ansuha Jack, MONTEZ-BC [address], [place], [address], [facility] 04/10/2020 10:58:04 OBGyn Episode Ob Episode Information Episode Created Date Number of Fetuses Patient Bloodtype Patient rh Status Prepregnancy Weight lbs Domestic Partner Domestic Partner Phone Father Name Farmworker [employer] Status 04/09/20 20 1 CLOSED Fetus Data [...] Domestic Partner Domestic Partner Phone Father Name Farmworker [employer] Status 04/09/20 20 1 CLOSED Fetus Data [...]
--- OUTSIDE RECORDS SUMMARY | 2025-03-05 07:43 | XMS_ITS | Patient Health Record ---
Author Organization [facility] Address [address] [address] Care Team Providers Care Bowling Teacher Name Role Phone Catracho Lara Unavailable [phone] Allergies Allergen (clinical drug ingredient) Drug/Non Drug [...] encounter (S73.192D) Active confirmed Problem Solitary sacroiliitis (521196200) Degenerative joint disease of sacroiliac region (M46.1) Active confirmed Plan Of Treatment No Information Medications Administered Medication Instructions Date of Administration Dosage Notes Left Sacroiliac Joint Injection 02/19/2022 LEFT Hip Joint Injection wit h fluoroscopy 01/26/2022 Medical (General) History Medical History History ICD Code headaches/migraines PTSD Surgical History Surgery Date(Month/Year) breast augmentation 1998 hysterectomy 1984 cervical 2015 lumbar 2016 hernia 2020
--- OUTSIDE RECORDS SUMMARY | 2025-03-05 07:43 | XMS_ITS | Referral Summary ---
Author Organization [facility] Address [address] [place] [address] Care Team Providers Care Supervisor Asbestos Removal Name Role Phone Dyllna Goldberg MD Primary Care Provider [phone] Allergies Active Allergy Reactions Criticality Noted Date [...] (05/03/2024): Decreased sexual desire;Recorded Elsewhere: No Location: [facility] Source: EHR Chronic: N Practice ID: 0001 Billable Time: 11:00:00 AM Leukocytosis 07/19/2017 Overview (05/03/2024): Elevated white blood cell count, unspecified;Recorded Elsewhere: No Location: [facility] Source: EHR Chronic: N Practice ID: 0001 Billable Time: 01:00:00 PM Overweight with body mass index (BMI) 25.0-29.9 04/20/2016 Overview (05/03/2024): Body mass index (BMI) 25.0-25.9, adult;Recorded Elsewhere: No Location: [facility] Source: EHR Chronic: N Practice ID: 0001 Billable Time: 02:00:00 PM Herpetic vulvovaginitis 04/02/2016 Overview (05/03/2024): Herpesviral [herpes simplex] ulceration;Recorded Elsewhere: No Location: [facility] Source: EHR Chronic: N Practice ID: [...] Comments Blood Pressure 141/75 09/22/2023 9:14 AM MANAGER FEDERAL Pulse 84 09/22/2023 9:14 AM MANAGER FEDERAL Temperature - - Respiratory Rate 20 09/22/2023 9:14 AM MANAGER FEDERAL Oxygen Saturation 98% 01/20/2018 10:06 AM CDT Inhaled Oxygen Concentration - - Weight 74.8 kg (165 lb) 04/25/2024 9:53 AM CDT Height 176.5 cm (5' 9.5) 03/15/2024 1:17 PM CDT Body Mass Index 24.02 03/15/2024 1:17 PM CDT Plan of Treatment Not on file Medical Devices Implanted Type Area Banking Services Officer Device Identifier Shelf Expiration Date Model / Serial / Lot Ankle Reconstruction Ankle Vertebrea Replacement Spine Lumbar Vertebrae Replacement Neck Insurance [facility] UHC MEDICARE ADVANTAGE Care Teams Supervisor Asbestos Removal Relationship Specialty Start Date End Date Dyllan Goldberg MD [address] [facility] [address] [place] [address] PCP - General Internal Medicine 05/01/20
--- OUTSIDE RECORDS SUMMARY | 2025-03-05 07:43 | XMS_ITS | Encounter Summary ---
Author Organization [facility] Address [address] [place] [address] Care Team Providers Care Manufacturing Weaver Name Role Phone Dyllan Goldberg MD Primary Care Provider [phone] Encounter Details Date Type Department Care Team (Late st Contact Info) Description 07/09/2024 Telephone [facility] Radiology [address] [place] [address] Sade Nova, RT Social History Tobacco [...] on filedocumented in this encounter Care Teams Manufacturing Weaver Relationship Specialty Start Date End Date Dyllan Goldberg MD [address] [facility] [address] [place] [address] PCP - General Internal Medicine 05/01/20 documented as of this encounter
--- OUTSIDE RECORDS SUMMARY | 2025-03-05 07:43 | XMS_ITS | Clinical Summary ---
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
== END 2025-03-05 07:40 | disposition home or self-care (01) ==
LOC: ANHIMG 07:41
PROVIDERS: PCP Internal Medicine; Visit Provider Surgery
DX: R10.11 Right upper quadrant pain (principal); R14.0 Abdominal distension (gaseous); Z87.19 Personal history of other diseases of the digestive system; Z98.890 Other specified postprocedural states
CPT/HCPCS: 78264; A9541

== ENCOUNTER 2025-03-26 14:35 | Outpatient (CLI) | payer OTHER, SELFPAY ==
--- NOTE | 2025-03-26 14:47 | ECHO_ITS ---
Patient Info Name: Frederick Rondon Age: 69 years : 1955 Gender: Female Ht: 70 in Wt: 165 lbs BSA: 1.93 m2 HR: 65 bpm BP: 110 / 70 mmHg Technical Quality: Good Exam Date: 03/26/2025 2:56 PM Patient Status: O Admit Date: 03/26/2025 Exam Type: CA echo doppler color flow Complete two-dimensional, color flow and Doppler transthoracic echocardiogram is performed. Legal Coordinator: Louisa Benson Attending Provider: Dyllan Goldberg MD Summary 1. Complete two-dimensional, color flow and Doppler transthoracic echocardiogram is performed. 2. Left ventricular chamber dimension is normal. 3. Left ventricular systolic function is normal, estimated at 65-70. 4. The left ventricular diastolic function is grade I diastolic dysfunction. 5. E/e' 14 is mildly elevated. 6. Left atrial chamber dimension is mildly enlarged. 7. No pulmonary hypertension, estimated pulmonary arterial systolic pressure is 25 mmHg. Left Ventricle E/e' 14 is mildly elevated. Left ventricular chamber dimension is normal. Left ventricular systolic function is normal, estimated at 65-70. The left ventricular diastolic function is grade I diastolic dysfunction. Right Ventricle Right ventricular chamber dimension is normal. Right ventricular systolic function is normal. Left Atria Left atrial chamber dimension is mildly enlarged. Right Atria Right atrial chamber dimension is normal. Aortic Valve The aortic valve is trileaflet. There is no aortic valve stenosis. There is no aortic valve regurgitation. Pulmonic Valve There is no pulmonic regurgitation. Mitral Valve There is no mitral valve stenosis. There is no mitral valve regurgitation. Tricuspid Valve There is no tricuspid valve regurgitation. No pulmonary hypertension, estimated pulmonary arterial systolic pressure is 25 mmHg. Pericardium/Pleural There is no pericardial effusion. Inferior Vena Cava Normal inferior vena cava with >50% collapse upon inspiration consistent with normal right atrial pressure, 5 mmHg. Aorta The aortic root size at the sinus of Valsalva is normal. Left Ventricular Outflow Tract Name Value Normal LVOT 2D LVOT Diameter 2.0 cm LVOT Doppler LVOT Peak Velocity 103 cm/s LVOT Peak Gradient 4 mmHg LVOT Mean Gradient 3 mmHg LVOT VTI 23 cm LVOT VTI/AV VTI Ratio 1.0 LVOT Stroke Volume 75 ml LVOT CO 14.7 l/min LVOT CI 7.6 l/min/m2 Pulmonic Valve Name Value Normal PV Doppler PV Peak Velocity 88 cm/s PV Peak Gradient 3 mmHg Mitral Valve Name Value Normal MV Diastolic Function MV E Peak Velocity 91 cm/s MV A Peak Velocity 96 cm/s MV E/A 0.9 MV Decel Time (PW) 280 ms MV Annular TDI MV E/e' (Septal) 14.6 MV E/e' (Lateral) 14.2 MV E/e' (Average) 14.4 Tricuspid Valve Name Value Normal TV Regurgitation Doppler TR Peak Velocity 221 cm/s TR Peak Gradient 20 mmHg Estimated PAP/RSVP RA Pressure 5 mmHg <=5 PA Systolic Pressure 25 mmHg <36 RV Systolic Pressure 25 mmHg <36 TV Annular TDI TV Lateral Karina s' Velocity 13.3 cm/s >=9.5 Aorta Name Value Normal Ascending Aorta Ao Root Diameter (MM) 3.1 cm Ao Root Diam Index (MM) 1.6 cm/m2 Aortic Valve Name Value Normal AV Doppler AV Peak Velocity 116 cm/s AV Peak Gradient 5 mmHg AV Mean Gradient 3 mmHg AV VTI 24 cm AV Area (Cont Eq VTI) 3.1 cm2 >=3.0 AV Area (Cont Eq Chu) 2.9 cm2 AV DI (Chu) 0.89 AV Regurgitation 2D LVOT Area 3.2 cm2 Ventricles Name Value Normal LV Dimensions 2D/MM IVS Diastolic Thickness (2D) 1.0 cm 0.6-1.0 LVID Diastole (2D) 4.3 cm 3.8-5.2 LVIW Diastolic Thickness (2D) 1.1 cm 0.6-0.9 LVID Systole (2D) 2.6 cm 2.2-3.5 LVOT Diameter 2.0 cm LV Mass (2D Cubed) 153.12 g 67.00-162.00 LV Mass Index (2D Cubed) 79 g/m2 43-95 Relative Wall Thickness (2D) 0.51 <=0.42 LV Fractional Shortening/Ejection Fraction 2D/MM LV Fractional Shortening (2D) 38 % 27-45 LV EF (2D Teichdeez) 69 % LV Diastolic Volume (4C MOD) 96 ml LV EF (4C MOD) 71 % LV Diastolic Volume (2C MOD) 77 ml LV EF (2C MOD) 67 % LV Diastolic Volume (BP MOD) 88 ml 46-106 LV Diastolic Volume Index (BP MOD) 45 ml/m2 29-61 LV Systolic Volume (BP MOD) 28 ml 14-42 LV Systolic Volume Index (BP MOD) 14 ml/m2 8-24 LV EF (BP MOD) 68 % 54-74 LV Diastolic Length (4C) 7.9 cm LV Systolic Length (4C) 6.6 cm LV Stroke Volume (4C MOD) 68 ml Atria Name Value Normal LA Dimensions LA Dimension (MM) 3.5 cm 2.7-3.8 LA Volume (4C A-L) 55 ml LA Volume (BP A-L) 53 ml RA Dimensions RA Systolic Major [place] Length (4C) 4.3 cm 2.2-2.8 RA Area (4C) 13.8 cm2 <=18.0 Report Signatures
--- OUTSIDE RECORDS SUMMARY | 2025-03-26 15:03 | XMS_ITS | Patient Health Record ---
Author Organization [facility] [place] Address [address] [facility] [place] [address] Care Team Providers Care Bank And Savings Securities Trader Name Role Phone Catracho Lara Unavailable [phone] Allergies Allergen (clinical drug ingredient) Drug/Non Drug [...] encounter (S73.192D) Active confirmed Problem Solitary sacroiliitis ([id number]) Degenerative joint disease of sacroiliac region (M46.1) [...]
--- OUTSIDE RECORDS SUMMARY | 2025-03-26 15:03 | XMS_ITS | Encounter Summary ---
Author Organization [facility] Healthcare Address [address] [place] [address] Care Team Providers Care Van Driver Name Role Phone Dyllan Goldberg MD Primary Care Provider [phone] Encounter Details Date Type Department Care Team (Late st Contact Info) Description 07/09/2024 Telephone [facility] Radiology [address] [facility] [address] [place] [address] Sade Nova, RT Social History Tobacco [...] on filedocumented in this encounter Care Teams Van Driver Relationship Specialty Start Date End Date Dyllan Goldberg MD [address] [place] [address] PCP - General Internal Medicine 05/01/20 documented as of this encounter
--- OUTSIDE RECORDS SUMMARY | 2025-03-26 15:03 | XMS_ITS | Clinical Summary ---
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
--- OUTSIDE RECORDS SUMMARY | 2025-03-26 15:03 | XMS_ITS | Clinical Summary ---
Author Organization [facility] Address [address] [place] [address] Care Team Providers Care Head Usher Name Role Phone Dyllan Goldberg MD Primary Care Provider [phone] Allergies Active Allergy Reactions Criticality Noted Date [...] (05/03/2024): Decreased sexual desire;Recorded Elsewhere: No Location: [facility] Source: EHR Chronic: N Practice ID: [id number] Billable Time: 11:00:00 AM Leukocytosis 07/19/2017 Overview (05/03/2024): Elevated white blood cell count, unspecified;Recorded Elsewhere: No Location: [facility] Source: EHR Chronic: N Practice ID: [id number] Billable Time: 01:00:00 PM Overweight with body mass index (BMI) 25.0-29.9 04/20/2016 Overview (05/03/2024): Body mass index (BMI) 25.0-25.9, adult;Recorded Elsewhere: No Location: [facility] Source: EHR Chronic: N Practice ID: [id number] Billable Time: 02:00:00 PM Herpetic vulvovaginitis 04/02/2016 Overview (05/03/2024): Herpesviral [herpes simplex] ulceration;Recorded Elsewhere: No Location: 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 Pulse 84 09/22/2023 9:14 AM COAT HANGER SHAPER MACHINE OPERATOR Temperature - - Respiratory Rate 20 09/22/2023 9:14 AM COAT HANGER SHAPER MACHINE OPERATOR Oxygen Saturation 98% 01/20/2018 10:06 AM [...] 04/06/2023, 12/28/2022 Medical Devices Implanted Type Area Cd Mixer Device Identifier Shelf Expiration Date Model / Serial / Lot Ankle Reconstruction Ankle Vertebrea Replacement Spine Lumbar Vertebrae Replacement Neck Insurance [facility] [place] UHC MEDICARE ADVANTAGE Care Teams Head Usher Relationship Specialty Start Date End Date Dyllan Goldberg MD [address] [facility] [address] [place] [id number] PCP - General Internal Medicine 05/01/20
== END 2025-03-26 14:36 | disposition home or self-care (01) ==
LOC: ANHCARD 14:37
PROVIDERS: PCP Internal Medicine; Visit Provider Internal Medicine
DX: R94.31 Abnormal electrocardiogram [ECG] [EKG] (principal)
CPT/HCPCS: 93306

== ENCOUNTER 2025-06-01 16:22 | Emergency (ER) | payer OTHER, SELFPAY ==
--- NOTE | ~2025-06-01 | XR_ITS ---
EXAMINATION: XR foot RT min 3V, 06/01/2025 17:00 CDT HISTORY: Pain w/ Swelling on top of foot, brick fell on foot COMPARISON: No comparisons available. Findings: No acute fracture or malalignment. No significant degenerative changes. Soft tissues unremarkable. Impression: No acute fracture or malalignment. Reviewed, dictated and finalized at location P. Impression: No acute fracture or malalignment.
[2025-06-01 16:26] VITALS: BP 132/77; PULSE 66; RESP 18; TEMP 36.6; O2SAT 99
--- NOTE | 2025-06-01 16:42 | ED_ITS ---
HPI - Extremity Injury (Lower) General Chief Complaint: Extremity Injury, Lower Stated Complaint: right foot injury, swelling Time Seen by Provider: 06/01/25 16:36 Source: patient and family Mode of arrival: ambulatory Limitations: no limitations History of Present Illness HPI Narrative: This is a 69-year-old female with history hyperparathyroidism her aide, anemia, migraines who presents to the ED for foot pain. Patient states that last night she was knocking down her chimney/tremor break 1 AA large piece of brick fell off and hit her and the dorsum of her right foot. She has been having pain foot since then the swelling worsened today. She has been able to ambulate on it but with pain. Denies numbness, tingling. Unsure of last tetanus shot. Related Data Home Medications ?Medication ?Instructions ?Recorded ?Confirmed ?Last Taken ?Type ascorbic acid 7.5 mg-vit E 7.5 3 tablet PO DAILY 10/2302/08/25 10/29/23 History unit-biotin 1,250 mcg chewable tablet (Hair,Skin,Nails with Biotin) ondansetron 8 mg disintegrating 8 mg PO PRN PRN nausea and vomiting 10/24/23 02/08/25 10/29/23 History tablet rimegepant 75 mg disintegrating 75 mg PO PRN PRN Migra ine Headache 10/24/23 02/08/25 11/01/23 History tablet (Nurtec ODT) Allergies Allergy/AdvReac Type Severity Reaction Status Date / Time azithromycin Allergy Severe Other Verified 06/01/25 16:29 Penicillins Allergy Severe Swelling Verified 06/01/25 16:29 of Lip/Tongue/Throat Sulfa (Sulfonamide Allergy Severe Swelling Verified 06/01/25 16:29 Antibiotics) AND RASH acetaminophen AdvReac Migraine Verified 06/01/25 16:29 NSAIDS (Non-Steroidal AdvReac Migraine Verified 06/01/25 16:29 Anti-Inflamma nut - unspecified AdvReac Migraine Verified 06/01/25 16:29 Review of Systems Review of Systems: Gen.: Denies fevers or chills Eyes: Denies eye pain or visual change ENT: Denies congestion Respiratory: Denies shortness of breath or cough CV: Denies chest pain or palpitations GI: Denies abdominal pain nausea, emesis or diarrhea denies burning, urgency, frequency or hematuria Musculoskeletal: As per HPI Neuro: Denies numbness, tingling, weakness or focal weakness Skin: Denies rash Except as documented, all other systems reviewed and negative [facility] Past Medical History Medical History Abnormal EKG Follow up Nausea and vomiting Encounter for routine adult health examination with abnormal findings Labral tear of left hip joint Iron deficiency anemia Hiatal hernia BMI 22.0-22.9, adult Encounter for Medicare annual wellness exam Urinary tract infection without hematuria PTSD (post-traumatic stress disorder) Poison oak dermatitis Oral thrush Dry cough Cold sore Ovarian cyst BMI 24.0-24.9, adult Pre-diabetes Pelvic mass in female Left hip pain Thyroid nodule Vitamin D deficiency Hypercalcemia Onychomycosis of great toe BMI 23.0-23.9, adult Umbilical hernia Elevated homocysteine Encounter for routine adult health examination without abnormal findings BMI 25.0-25.9,adult Hyperlipidemia Hormone replacement therapy (HRT) Pyelonephritis Encounter for preventive health examination On detention drug therapy Migraine Insomnia Surgical History Surgical History History of repair of hiatal hernia Robotic assisted laparoscopic paraesophageal hernia repair with 270 degree fundoplication 11/02/23 History of ankle surgery (~2022) left History of hip surgery History of incisional hernia repair 07/16/20 Incarcerated incisional hernia repair with Parietex ventral patch History of appendectomy History of bilateral breast implants History of tonsillectomy History of neck surgery History of back surgery History of hysterectomy Family History Family History Mother Alcoholism Hypertension Father Hypertension Social History Social History Social History: caffeine use Smoking status: Never smoker Second hand tobacco smoke exposure: No Alcohol intake: never Alcohol use details: 2/MONTH Substance use: never Substance use type: does not use Do You Feel Safe in your Home?: Yes Lack of Transportation: No Lack of Food: Never True Current Housing: I Have Housing Concerned About Future Housing: No Difficulty Paying Gas/Electric Bills: No Difficulty Paying for Meds: No Currently Unemployed: No Education: Bachelor's Degree Difficulty w/ Childcare or Family Care: No Living arrangements: with family Occupation/Education: occupation 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 Tenderness to palpation over the proximal aspect of the 2nd through 4th MTPs. Neurovascularly intact distally. NEURO: Awake and alert. SKIN:: Warm, dry. No rashes lesions or abrasions PSYCHIATRIC: Normal affect/mood, Course Vital Signs Vital signs: Vital Signs Temperature 97.9 F 06/01/25 16:26 Pulse Rate 66 06/01/25 16:26 Respiratory Rate 18 06/01/25 16:26 Blood Pressure 132/77 06/01/25 16:26 Pulse Oximetry 99 06/01/25 16:26 Oxygen Delivery Room Air 06/01/25 16:26 Temperature 98.1 F 06/01/25 18:09 Pulse Rate 72 06/01/25 18:09 Respiratory Rate 16 06/01/25 18:09 Blood Pressure 130/80 06/01/25 18:09 Pulse Oximetry 98 06/01/25 18:09 Oxygen Delivery Room Air 06/01/25 16:26 MDM - Extremity Injury (Lower) MDM Narrative Medical decision making narrative: 69-year-old female that presenting for right foot pain after dropping a brick on it. On initial evaluation, patient was acute distress afebrile hemodynamically stable. She did have significant swelling and tenderness over the dorsum of the right foot over the middle MTPs. X-ray right foot was obtained which showed no evidence of fractures. Patient likely has a contusion to this area. She was given an updated Tdap given the small abrasion overlying this. She was educated on Tylenol and ibuprofen use. Advised to follow up with her PCP in the next week for reevaluation. PAtient was agreeable to this plan. Given strict return precautions Differential Diagnosis Differential diagnosis: Likely other (Contusion, fracture, hematoma, sprain) Imaging Data Attestation: I personally reviewed and interpreted this imaging study as follows: Radiologist's impression: Impressions Foot X-Ray 06/01/25 17:13 Impression: No acute fracture or malalignment. Discharge Plan Discharge Clinical Impression: Contusion of foot Qualifiers: Encounter type: initial encounter Laterality: right Qualified Code(s): S90.31XA - Contusion of right foot, initial encounter Patient Disposition: Home Condition: Stable Instructions: Antibiotic Form Additional Instructions: I would recommend rice therapy, rest, ice, compression, elevation. Apply ice to the area 15 minutes on, 15 minutes off. Take aspirin for your pain. Follow-up with your PCP in the next week for re-evaluation if needed. Return to the ED for any new or worsening symptoms. Patient Language: Mongolian Prescriptions: No Action Nurtec ODT 75 mg Tablet,Disintegrating 75 mg PO PRN PRN (Reason: Migraine Headache) Rx Instructions: as a single dose ondansetron 8 mg tablet,disintegrating 8 mg PO PRN PRN (Reason: nausea and vomiting) Hair, Skin, Nails with Biotin 7.5-7.5-1,250 mg-unit-mcg Tablet,Chewable 3 tablet PO DAILY Aimovig Autoinjector 140 mg/mL auto-injector See Rx Instructions .ROUTE .COMPLEX Qty: 3 5RF Dose Instruction: INJECT 140 MG( 1 ML) UNDER THE SKIN ONCE A MONTH Rx Instructions: INJECT 140 MG( 1 ML) UNDER THE SKIN ONCE A MONTH metformin 500 mg tablet extended release 24 hr See Rx Instructions .ROUTE .COMPLEX Qty: 180 1RF Dose Instruction: TAKE 2 TABLETS BY MOUTH DAILY Rx Instructions: TAKE 2 TABLETS BY MOUTH DAILY gabapentin 600 mg tablet 600 mg PO TID Qty: 90 1RF rosuvastatin 20 mg tablet See Rx Instructions .ROUTE .COMPLEX Qty: 90 1RF Dose Instruction: TAKE 1 TABLET BY MOUTH DAILY Rx Instructions: TAKE 1 TABLET BY MOUTH DAILY valacyclovir 500 mg tablet See Rx Instructions .ROUTE .COMPLEX Qty: 90 1RF Dose Instruction: TAKE 1 TABLET BY MOUTH DAILY Rx Instructions: TAKE 1 TABLET BY MOUTH DAILY Qulipta 30 mg tablet 30 mg PO DAILY Qty: 30 0RF zolpidem 10 mg tablet 10 mg PO QHS Qty: 90 1RF Follow-up/Referrals: Dyllan Goldberg MD [Primary Care Provider, Internal Medicine]
[2025-06-01] MEDS: TETANUS,DIPHTHERIA,AC PERTUSSIS ADULT (0.5 ML) BOOSTRIX IM (17:12)
[2025-06-01 18:09] VITALS: BP 130/80; PULSE 72; RESP 16; TEMP 36.7; O2SAT 98
== END 2025-06-01 18:10 | disposition home or self-care (01) ==
PROVIDERS: Emergency Provider Student in an Organized Health Care Education/Training Program; PCP Internal Medicine
DX: S90.31XA Contusion of right foot, initial encounter (principal); Z23 Encounter for immunization; D50.9 Iron deficiency anemia, unspecified; E55.9 Vitamin D deficiency, unspecified; E78.5 Hyperlipidemia, unspecified; Z98.82 Breast implant status; Z87.440 Personal history of urinary (tract) infections; Z90.710 Acquired absence of both cervix and uterus; W20.8XXA Other cause of strike by thrown, projected or falling object, initial encounter; Z79.84 Long term (current) use of oral hypoglycemic drugs; Z79.899 Other long term (current) drug therapy
CPT/HCPCS: 73630; 90471; 90715; 99283

== ENCOUNTER 2025-06-07 11:17 | Outpatient (CLI) | payer OTHER, SELFPAY ==
--- OUTSIDE RECORDS SUMMARY | 2025-06-07 11:38 | XMS_ITS | Clinical Summary ---
Author Organization [facility] Address [address] [place] [address] Care Team Providers Care Toy Designer Name Role Phone Dyllan Goldberg MD Primary Care Provider [phone] Allergies Active Allergy Reactions Criticality Noted Date [...] (05/03/2024): Decreased sexual desire;Recorded Elsewhere: No Location: [facility] Source: EHR Chronic: N Practice ID: [id number] Billable Time: 11:00:00 AM Leukocytosis 07/19/2017 Overview (05/03/2024): Elevated white blood cell count, unspecified;Recorded Elsewhere: No Location: [facility] Source: EHR Chronic: N Practice ID: [id number] Billable Time: 01:00:00 PM Overweight with body mass index (BMI) 25.0-29.9 04/20/2016 Overview (05/03/2024): Body mass index (BMI) 25.0-25.9, adult;Recorded Elsewhere: No Location: [facility] Source: EHR Chronic: N Practice ID: [id number] Billable Time: 02:00:00 PM Herpetic vulvovaginitis 04/02/2016 Overview (05/03/2024): Herpesviral [herpes simplex] ulceration;Recorded Elsewhere: No Location: [facility] Source: EHR Chronic: N Practice ID: [id number] Billable Time: 10:15:00 AM Urinary tract infectious disease 04/04/2015 Overview (05/03/2024): URIN TRACT INFECTION NOS;Practice ID: 0001 Surgical History Surgery Date Site/Laterality Comments [place] TOTAL ABDOMINAL HYSTERECT W/WO RMVL TUBE OVARY Hysterectomy - (Added by TW Conv) [place] ENLARGE BREAST Breast Surgery Enlargement Procedure - [...] Comments Blood Pressure 141/75 09/22/2023 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 Pulse 84 09/22/2023 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 Temperature - - Respiratory Rate 20 09/22/2023 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 Oxygen Saturation 98% 01/20/2018 10:06 AM CDT [...] Visit 65+ 2022 Covid-19 Vaccine (4 - 2024-2 6 season) 2025 06/24/2022, 06/06/2021, 10/19/2020 Influenza Vaccine (#1) 2025 , 04/08/2021, 05/16/2020, Additional history exists DTaP/Tdap/Td Vaccine (3 - Td or Tdap) 01/01/2033 01/01/2023, 06/13/2017 Pneumococcal vaccine 65+ Completed 04/06/2023 Zoster Vaccine Completed 04/06/2023, 12/28/2022 Medical Devices Implanted Type Area Belt Brander Device Identifier Shelf Expiration Date Model / Serial / Lot Ankle Reconstruction Ankle Vertebrea Replacement Spine Lumbar Vertebrae Replacement Neck Insurance [employer] UHC MEDICARE ADVANTAGE Care Teams Toy Designer Relationship Specialty Start Date End Date Dyllan Goldberg MD PCP - General Internal Medicine 05/01/20
--- OUTSIDE RECORDS SUMMARY | 2025-06-07 11:38 | XMS_ITS | Patient Health Record ---
Author Organization [facility] [place] Address [address] [facility] [facility] [place] [address] Care Team Providers Care Supervisor Farm Equipment Maintenance Name Role Phone Catracho Lara Unavailable [phone] Allergies Allergen (clinical drug ingredient) Drug/Non Drug [...] encounter (S73.192D) Active confirmed Problem Solitary sacroiliitis ([id number]) Degenerative joint disease of sacroiliac region (M46.1) [...]
--- OUTSIDE RECORDS SUMMARY | 2025-06-07 11:38 | XMS_ITS | Encounter Summary ---
Author Organization [facility] Healthcare Address [address] [place] [address] Care Team Providers Care Pharmacy Technician Assistant Name Role Phone Dyllan Goldberg MD Primary Care Provider [phone] Encounter Details Date Type Department Care Team (Late st Contact Info) Description 07/09/2024 Telephone [facility] Radiology [address] [facility] [address] [place] [address] Sade Nova, RT Social History [...] on filedocumented in this encounter Care Teams Pharmacy Technician Assistant Relationship Specialty Start Date End Date Dyllan Goldberg MD PCP - General Internal Medicine 05/01/20 documented as of this encounter
[2025-06-07 11:54] LABS: Hematocrit 44.0 % (37.0-47.0); Hemoglobin 14.8 g/dL (12.0-15.0); Immature Granulocyte Percent A 0.2 % (0-0.5); Lymphocytes Absolute Auto 1.45 K/mm3 (0.9-3.2); Mean Corpuscular HGB Conc 33.6 g/dl (32-36); Mean Corpuscular Hemoglobin 30.5 pg (26-34); Mean Corpuscular Volume 90.7 fl (80-100); Nucleated Red Blood Cells Absolute Auto 0.000 K/mm3 (0.0-0.012); Nucleated Red Blood Cells Perc 0.0 % (0.0-0.2); Platelet Count Result 236 k/mm3 (150-375); Red Blood Count 4.85 M/mm3 (4.2-5.4); White Blood Count 5.6 K/mm3 (4.5-10.0)
[2025-06-07 12:05] LABS: Hemoglobin A1C 5.7 % (<5.7)
[2025-06-07 12:07] LABS: Alanine Aminotransferase 31 U/L (6-35); Albumin Level 4.3 g/dL (3.5-5.1); Alkaline Phosphatase 80 U/L (38-126); Anion Gap 5 mmol/L (4-12); Aspartate Amino Transferase 31 U/L (14-36); Bilirubin,Total 0.8 mg/dL (0.2-1.3); Blood Urea Nitrogen 11 mg/dL (7-17); Calcium 10.2 mg/dL (8.4-10.2); Carbon Dioxide 27 mmol/L (22-30); Chloride 105 mmol/L (98-107); Estimated Glomerular Filt Rate > 60; Glucose 124 mg/dL (65-110); Magnesium 2.0 mg/dL (1.6-2.3); Potassium 3.9 mmol/L (3.4-5.0); Sodium 137 mmol/L (137-145); Total Protein 6.7 g/dL (6.3-8.2)
[2025-06-07 12:08] LABS: Cholesterol 124 mg/dL (0-200); HDL Direct 70 mg/dL; Triglycerides 170 mg/dL (<150)
[2025-06-07 12:21] LABS: Parathyroid Intact 51.2 pg/mL (14.5-75.2)
[2025-06-07 12:31] LABS: Free T4 Free Thyroxine 1.13 ng/dL (0.78-2.19)
[2025-06-07 12:40] LABS: Thyroid Stimulating Hormone 1.370 uIU/mL (0.465-4.680)
== END 2025-06-07 11:18 | disposition home or self-care (01) ==
PROVIDERS: PCP Internal Medicine; Visit Provider Internal Medicine
DX: E83.52 Hypercalcemia (principal); R79.89 Other specified abnormal findings of blood chemistry; Z68.23 Body mass index [BMI] 23.0-23.9, adult; Z68.25 Body mass index [BMI] 25.0-25.9, adult; E78.2 Mixed hyperlipidemia; G47.00 Insomnia, unspecified; R73.03 Prediabetes; Z79.890 Hormone replacement therapy; Z79.899 Other long term (current) drug therapy
CPT/HCPCS: 36415; 80053; 80061; 82306; 83036; 83735; 83970; 84100; 84439; 84443; 85025

== ENCOUNTER 2025-06-10 12:45 | Outpatient (CLI) | payer OTHER, SELFPAY ==
--- OUTSIDE RECORDS SUMMARY | 2025-06-10 14:05 | XMS_ITS | Clinical Summary ---
Author Organization [facility] Address [address] [place] [address] Care Team Providers Care Public Relations Analyst Name Role Phone Dyllan Goldberg MD Primary Care Provider [phone] Allergies Active Allergy Reactions Criticality Noted Date [...] (05/03/2024): Decreased sexual desire;Recorded Elsewhere: No Location: [facility] Source: EHR Chronic: N Practice ID: [id number] Billable Time: 11:00:00 AM Leukocytosis 07/19/2017 Overview (05/03/2024): Elevated white blood cell count, unspecified;Recorded Elsewhere: No Location: [facility] Source: EHR Chronic: N Practice ID: [id number] Billable Time: 01:00:00 PM Overweight with body mass index (BMI) 25.0-29.9 04/20/2016 Overview (05/03/2024): Body mass index (BMI) 25.0-25.9, adult;Recorded Elsewhere: No Location: [facility] Source: EHR Chronic: N Practice ID: [id number] Billable Time: 02:00:00 PM Herpetic vulvovaginitis 04/02/2016 Overview (05/03/2024): Herpesviral [herpes simplex] ulceration;Recorded Elsewhere: No Location: [facility] Source: EHR Chronic: N Practice ID: [id number] Billable Time: 10:15:00 AM Urinary tract infectious disease 04/04/2015 Overview (05/03/2024): URIN TRACT INFECTION NOS;Practice ID: 0001 Surgical History Surgery Date Site/Laterality Comments [place] TOTAL ABDOMINAL HYSTERECT W/WO RMVL TUBE OVARY Hysterectomy - (Added by TW Conv) [place] ENLARGE BREAST Breast Surgery Enlargement Procedure - [...] Comments Blood Pressure 141/75 09/22/2023 9: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 Pulse 84 09/22/2023 9: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 Temperature - - Respiratory Rate 20 09/22/2023 9: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 Oxygen Saturation 98% 01/20/2018 10:06 AM CDT [...] 04/06/2023, 12/28/2022 Medical Devices Implanted Type Area Central Office Supervisor Device Identifier Shelf Expiration Date Model / Serial / Lot Ankle Reconstruction Ankle Vertebrea Replacement Spine Lumbar Vertebrae Replacement Neck Insurance [facility] UHC MEDICARE ADVANTAGE Care Teams Public Relations Analyst Relationship Specialty Start Date End Date Dyllan Goldberg MD PCP - General Internal Medicine 05/01/20
--- OUTSIDE RECORDS SUMMARY | 2025-06-10 14:05 | XMS_ITS | Clinical Summary ---
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
--- OUTSIDE RECORDS SUMMARY | 2025-06-10 14:06 | XMS_ITS | Data Portability ---
Author Organization [facility] Address [address] [place] [address] Care Team Providers Care Bilingual Student Tutor Name Role Phone MYRONRembertoLAZARO Primary Care Provider Assessment No assessment recorded. Plan of Treatment Reminders Order Date Submit Date Provider Last Modified By Organization Details Last Modified Time Details Appointments None recorded. Lab CBC w/ auto diff 2019 020 [email or web address] [facility] ([facility]), [address], [place], [address], 0 15:35:12 CMP, serum or plasma 2019 020 [email or web address] [facility] ([facility]), [address], [place], [address], 0 15:35:12 phosphorus , serum or plasma 2019 020 [email or web address] [facility] ([facility]), [address], [place], [address], 0 15:35:12 TSH, serum or plasma 2019 020 [email or web address] [facility] ([facility]), [address], [place], [address], 0 15:35:13 vitamin D, 25-hydroxy , total, serum 2019 [email or web address] [facility] ([facility]), [address] [facility] [address], [place], [address], 0 15:35:13 lipid panel, serum 2019 [email or web address] [facility]), [address] [facility] [address], [place], [address], 0 15:35:13 HbA1c (hemoglobi n A1c), blood 2019 [email or web address] [facility] ([facility]), [address] [facility] [address], [place], [address], 0 15:35:13 Referral None recorded. Procedures None recorded. Surgeries None recorded. Imaging US, breast, bilateral 2019 [facility], [address] [place] [address] [address], [place], [address], 0 12:21:47 DEXA, axial skeleton + vertebral fracture assessment 2019 [facility] Not available 0 14:48:42 Medication Orders estradiol 0.5 mg tablet 2019 [id number], [address] [facility], [place], [place], [id number], 0 10:52:15 Patient TargetsNo targets recorded. Patient Instructions Encounter Date Encounter Id Patient Instructions Last Modified By Organization Details Last Modified Time 04/10/2020 [id number] [email or web address] Not available 10:57:11 Reason for Referral None Reported. Results Created Date Observation Date Name Description Value Unit Range Abnormal Flag Note LastModifiedBy Organization Detail LastModifiedTime 04/23/20 20 04/23/2020 US, breas t, bilat eral No observ ation record ed. [email or web address] [facility] [address], [place], [address], 04/28/2020 15:43:11 05/06/20 20 04/23/2020 DEXA, axial skele ton + verte bral fract ure asses sment No observ ation record ed. layran [facility] [address], [place], [address], 05/07/2020 16:09:20 Result Notes None recorded. Problems Name Problem SNOMED Code Status Onset Date Resolution Date Notes Provider Name and Address Organization Details Recorded Time Adult health examinati on Active 2014 ROUTINE MEDICAL EXAM;Recor ded Elsewhere: No Locatio n: [facility] rce: EHR Chroni c: N Practice ID: 0001 Billa ble Time: 08:30:00 AM Not Available [facility] 0 15:05:50 Specializ ed medical examinati on Active 2014 Routine gynecologi jaylan examinatio n;Practice ID: 0001 Not Available [facility] 0 15:05:50 Urinary tract infectiou s disease 47475473 Active 2014 URIN TRACT INFECTION NOS;Practi ce ID: 0001 Not Available [facility] 0 15:05:50 Herpetic vulvovagi nitis 41587642 Active 2015 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] ulceration ;Recorded Elsewhere: No Locatio n: [facility] rce: EHR Chroni c: N Practice ID: 0001 Billa ble Time: 10:15:00 AM Not Available [facility] 0 15:05:50 Body mass index 25-29 - overweigh t 238948131 Active 2015 Body mass index (BMI) 25.0-25.9, adult;Marlo rded Elsewhere: No Locatio n: [facility] rce: EHR Chroni c: N Practice ID: 0001 Billa ble Time: 02:00:00 PM Not Available [facility] 0 15:05:50 Blood leukocyte number above reference range 011808960 Active 2016 Elevated white blood cell count, unspecifie d;Recorded Elsewhere: No Locatio n: [facility] rce: EHR Chroni c: N Practice ID: 0001 Billa ble Time: 01:00:00 PM Not Available [facility] 0 15:05:49 Human papilloma virus screening Active 2016 Encounter for screening for human papillomav irus (HPV);Marlo rded Elsewhere: No Locatio n: [facility] rce: EHR Chroni c: N Practice ID: 0001 Billa ble Time: 01:00:00 PM [facility] 0 15:05:50 Screening for malignant neoplasm of cervix Active 2016 Screening for malignant neoplasms of the cervix;Rec orded Elsewhere: No Locatio n: [facility] rce: EHR Chroni c: N Practice ID: 0001 Billa ble Time: 01:00:00 PM Not Available [facility] 15:[facility]:[address] Concept Active 2016 Encounter for general adult medical exam w abnormal findings;P ractice ID: 0001 Not Available [facility] 0 15:05:50 Reduced libido 3287053 Active 2017 Decreased sexual desire;Rec orded Elsewhere: No Locatio n: [facility] rce: EHR Chroni c: N Practice ID: 0001 Billa ble Time: 11:00:00 AM Not Available [facility] 0 15:05:49 Screening for malignant neoplasm of rectum Active 2017 Encounter for screening for malignant neoplasm of rectum;Pra ctice ID: 0001 Not Available [facility] 0 15:05:[address] Concept Active 2017 Encntr for greeting card maker exam (general) (routine) w/o abn findings;P ractice ID: 0001 Not Available [facility] 0 15:05:[address] Concept Active 2017 Encntr for general adult medical exam w/o abnormal findings;R ecorded Elsewhere: No Locatio n: [facility] rce: EHR Chroni c: N Practice ID: 0001 Billa ble Time: 10:30:00 AM Not Available [facility] 0 15:05:50 Problem Notes None recorded. Procedures Surgical History Date Name Laterality Status Provider Name and Address Organization Details Recorded Time 07/20/20 17 Date of Last Pap Smear completed Ann Yamilex [facility] 04/09/2020 15:33:06 08/15/18 85 Total Hysterectomy completed Julissa Lilly [facility] 02/25/2020 15:11:47 Imaging Results None recorded. Procedure Notes None recorded. Medical Equipment None Reported. Allergies Allergen ID Allergen Name Allergen Category Reaction Reaction Severity Criticality Documentation Date Start Date Code Code System Note Provider Name and Address Organization Details Recorded Time 1309 Product containin g penicilli n (product) medicatio n Not available Not available Not available 02/25/2020 96030 8001 SNOMED Julissa [facility] 0 15:11:02 1310 Substance with sulfonami de structure and antibacte rial mechanism of action (substanc e) medicatio n Not available Not available Not available 02/25/2020 88375 8003 SNOMED [facility] 0 15:11:07 Medications Name Sig Start Date Stop Date Status Note LastModified by Organization Details LastModified Time tretinoin 0.1 % topical cream active Not Available Not Available Not Available Diflucan 150 mg tablet take 1 tablet by oral route once 10/05 completed Prescrib ed Elsewher e: No Locat ion: [facility] M odify By: aileeny Fco berrios DateTime [...] Prescrib ed Elsewher e: No Locat ion: [facility] M odify By: elliot null DateTime : 04/04/20 15 08:30:00 AM Not Available Not Available Not Available terbinafi ne HCl 250 mg tablet active Not Available Not Available Not Available estradiol 1 mg tablet TAKE 1 TABLET BY ORAL ROUTE EVERY DAY 2018 active Prescrib ed Elsewher e: No Locat ion: [facility]isha hob[facility] odify By: pancho null DateTime : 09/11/19 19 04:06:42 PM Not Available Not Available Not Available trazodone 150 mg tablet take 1 tablet by oral route every day at bedtime 10/05 completed Prescrib ed Elsewher e: Yes Loca tion: [facility] odify By: adriane Encounte r DateTime : 04/04/20 15 08:30:00 AM Not Available Not Available Not Available buspirone 10 mg tablet take 1 tablet by oral route 3 times every day 10/05 completed Prescrib ed Elsewher e: Yes Loca tion: [facility] odify By: adriane Encounte r DateTime : 04/04/20 15 08:30:00 AM Not Available Not Available Not Available clonazepa m 2 mg tablet take 1 tablet by oral route 3 times every day 10/05 completed Prescrib ed Elsewher e: Yes Loca tion: Talisha hobbs [facility] odify By: adriane Encounte r DateTime [...] Elsewher e: Yes Loca tion: Talisha hobbs [facility] odify By: letty gray DateTime : 04/04/20 15 08:30:00 AM Not Available Not Available Not Available hydroxyzi ne HCl 10 mg tablet 10/05 completed Prescrib ed Elsewher e: Yes Loca tion: [facility] hobbs [facility] odify By: adriane Eagle r DateTime [...] Elsewher e: Yes Loca tion: Talisha hobbs [facility] odify By: adriane Eagle r DateTime : 04/04/20 15 08:30:00 AM Not Available Not Available Not Available sertralin e 50 mg tablet take 1 tablet by oral route every day 10/05 completed Prescrib ed Elsewher e: Yes Loca tion: Talisha hobbs [facility] odify By: adriane Eagle r DateTime : 04/04/20 15 08:30:00 AM Not Available Not Available Not Available prazosin 2 mg capsule take 1 capsule by oral route 3 times every day 10/05 completed Prescrib ed Elsewher e: Yes Loca tion: Catherine faby [facility] odify By: adriane Eagle r DateTime [...] Elsewher e: Yes Loca tion: [facility] hobbs [facility] odify By: adriane Encoungenesis r DateTime : 04/04/20 08:30:00 AM Not Available Not Available Not Available Latuda 60 mg tablet take 1 tablet by oral route every day with food (at least 350 calories ) 10/05 completed Prescrib ed Elsewher e: Yes Loca tion: [facility] odify By: adriane Encounte r DateTime : 04/04/20 15 08:30:00 AM Not Available Not Available Not Available Biotin Plus Keratin 10,000 mcg-100 mg tablet 10/05 completed Prescrib ed Elsewher e: Yes Loca tion: Talisha hobbs [facility] odify By: adriane Encounte r DateTime : 04/04/20 15 08:30:00 AM Not Available Not Available Not Available duloxetin e 40 mg capsule,d elayed release take 1 tablet by oral route every day 07/25 completed Prescrib ed Elsewher e: Yes [facility] By: rudi gray DateTime : 04/04/20 [...] Updated DateTime 04/10/2020 176.53 cm 24.9 kg/m2 01562.3 g 105/65 mm[Hg] Ann Kaminski [facility] 04/10/2020 10:23:24 Social History None recorded. Functional Status Question Answer Note LastModified by Organizat ion Details LastModified Time What is your level of alcohol consumption? Occasional [id number] Information not available 06/17/2020 What is your exercise level? Heavy [id number] Information not available 06/17/2020 Mental Status None recorded. Family History Nothing Reported. Medical History Condition Response History of STI Gynecological History Statement/Question Response STIs/STDs Date of Last Pap Smear 07/20/2017 Obstetrics History GPAL:G 2 P 0 0 0 0 Past Encounters Encounter ID Performer Location Encounter Start Date Encounter Closed Date Diagnosis/Indication Diagnosis SNOMED-CT Code Diagnosis ICD10 Code Diagnosis IMO Codes Diagnosis Note [id number] [facility] [address] [address] 04/10/2020 10:14:33 04/10/2020 11:12:46 Gynecologic examination 81221733 Z01.419 Take Calcium with Vitamin D 12-1500mg daily. Do monthly self breast exams. It is advised to get annual flu shot in the fall and she could obtain at [facility] or [facility]. If you haven't received the Tdap vaccine [...] US for breast screening. Screening for osteoporosis 291110016 Z13.820 Total Hyst for non-cancer indication s. Adult [facility] th examination 737766486 Z00.00 Menopausal syndrome 1237 33641 N95.9 We discussed Menopausal Hormone therapy (MHT) [...] ion of her HRT. Screening mammography 24 096896 Z12.31 Health Concerns Section Related Observation LastModified by Organization Detai ls LastModified Time None Recorded Concern Status LastModified by Organization Details LastModified Time None Recorded Advance Directives Directive None Recorded Payers Insurance Date Sequence Insurance Name Policy Number Policy Keen Covered Member ID Keen Member ID Guarantor Name 04/10/2020 1 [facility] [id number] [facility] [id number] Notes Date Note Type Note Provider Name and Address Organization Details Recorded Time 0 text/html Annual GYNReported by PatientHistoryFor history, patient reportsno gynecologic complaints.Genitourina ry symptomsFor menstrual cycle, patient reportsnormal menses. For urinary symptoms, patient reportsno hematuriaandno incontinence. For vulva, patient reportsno genital lesion. For vagina, patient reportsnormal vaginal discharge.Breast symptomsFor breast, patient reportsno breast pain,no breast lump, andno nipple discharge.Endocrine symptomsFor sexual complaints, patient reportsno sexual complaints,no pain during intercourse, andnormal libido. For menopausal symptoms, patient reportsno menopausal symptomsandnormal vaginal lubrication.Psychologi jaylan symptomsFor psychological symptoms, patient reportsno depression,no anxiety, andno pmdd.Preventative measuresFor preventive measures, patient reportsencourage self breast examination,encourage regular exercise,encourage no tobacco use,encourage regular mammograms starting age 40,needs to schedule mammogram, andup to date on colonoscopy screening. Concerned about postmenopause weight loss. Anusha Jack, JOAO-BC [address], [place], [address], [facility] 04/10/2020 10:58:04 OBGyn Episode Ob Episode Information Episode Created Date Number of Fetuses Patient Bloodtype Patient rh Status Prepregnancy Weight lbs Domestic Partner Domestic Partner Phone Father Name Bankman Status 04/09/20 20 1 CLOSED Fetus Data [...] Domestic Partner Domestic Partner Phone Father Name Bankman Status 04/09/20 20 1 CLOSED Fetus Data [...]
--- OUTSIDE RECORDS SUMMARY | 2025-06-10 14:06 | XMS_ITS | Encounter Summary ---
Author Organization [facility] Healthcare Address [address] [place] [address] Care Team Providers Care Javascript Programmer Name Role Phone Dyllan Goldberg MD Primary Care Provider [phone] Encounter Details Date Type Department Care Team (Late st Contact Info) Description 07/09/2024 Telephone [facility] Radiology [address] [place] [address] Sade Nova, [place] Social History [...] on filedocumented in this encounter Care Teams Javascript Programmer Relationship Specialty Start Date End Date Dyllan Goldberg MD PCP - General Internal Medicine 05/01/20 documented as of this encounter
--- OUTSIDE RECORDS SUMMARY | 2025-06-10 14:06 | XMS_ITS | Patient Health Record ---
Author Organization [facility] Address [address] [place] [address] Care Team Providers Care Glove Boarder Name Role Phone Catracho Lara Unavailable [phone] Allergies Allergen (clinical drug ingredient) Drug/Non Drug [...] encounter (S73.192D) Active confirmed Problem Solitary sacroiliitis (442540850) Degenerative joint disease of sacroiliac region (M46.1) [...]
[2025-06-10 17:23] LABS: Creatinine 24 Hour Urine 1.2 gm/24 (0.8-1.8); Total Volume 24 Hour Urine 700 ml
[2025-06-11 11:08] LABS: Calcium, Urine 20.6 mg/dL (Not Estab.)
== END 2025-06-10 12:46 | disposition home or self-care (01) ==
PROVIDERS: PCP Internal Medicine; Visit Provider Internal Medicine
DX: E21.0 Primary hyperparathyroidism (principal); R79.89 Other specified abnormal findings of blood chemistry; E78.2 Mixed hyperlipidemia; Z68.25 Body mass index [BMI] 25.0-25.9, adult; Z79.890 Hormone replacement therapy
CPT/HCPCS: 81050; 82340; 82570

== ENCOUNTER 2025-06-14 11:26 | Outpatient (CLI) | payer OTHER, SELFPAY ==
--- NOTE | ~2025-06-14 | CT_ITS ---
EXAMINATION: CT foot RT wo con DATE: 06/14/2025 11:46 INDICATION: Right foot injury TECHNIQUE: High resolution computed tomography (CT) of the right foot was performed without intravenous contrast. Additional sagittal and coronal reconstructions were performed. Automated exposure control and iterative reconstruction technique were employed. The dose-length product was 566.97 mGy-cm. COMPARISON: Radiographs dated 06/01/2025 FINDINGS: Bone alignment is normal. No fracture. Mild osteoarthritis the first metatarsophalangeal joint. Minimal osteoarthritis at multiple additional joints throughout the right foot. No erosions to suggest inflammatory arthritis. Mild subcutaneous edema over the dorsum of the midfoot. No joint effusions or other abnormal fluid collections. IMPRESSION: 1. 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 No acute osseous abnormality. Reviewed, dictated and finalized at location A. IMPRESSION: 1. 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 No acute osseous abnormality.
--- OUTSIDE RECORDS SUMMARY | 2025-06-14 11:40 | XMS_ITS | Clinical Summary ---
Author Organization [facility] Address [address] [place] [address] Care Team Providers Care Banquet Director Name Role Phone Dyllan Goldberg MD Primary Care Provider [phone] Allergies Active Allergy Reactions Criticality Noted Date [...] No Location: [facility] Source: EHR Chronic: N Practice ID: 0001 Billable Time: 11:00:00 AM Leukocytosis 07/19/2017 Overview (05/03/2024): Elevated white blood cell count, unspecified;Recorded Elsewhere: No Location: [facility] Source: EHR Chronic: N Practice ID: 0001 Billable Time: 01:00:00 PM Overweight with body mass index (BMI) 25.0-29.9 04/20/2016 Overview (05/03/2024): Body mass index (BMI) 25.0-25.9, adult;Recorded Elsewhere: No Location: [facility] Source: EHR Chronic: N Practice ID: 0001 Billable Time: 02:00:00 PM Herpetic vulvovaginitis 04/02/2016 Overview (05/03/2024): Herpesviral [herpes simplex] ulceration;Recorded Elsewhere: No Location: [facility] Source: EHR Chronic: N Practice ID: 0001 [...] Comments Blood Pressure 141/75 09/22/2023 9:14 AM DIETITIAN HELPER Pulse 84 09/22/2023 9:14 AM DIETITIAN HELPER Temperature - - Respiratory Rate 20 09/22/2023 9:14 AM DIETITIAN HELPER Oxygen Saturation 98% 01/20/2018 10:06 AM CDT [...] 04/06/2023, 12/28/2022 Medical Devices Implanted Type Area Child Adolescent Care Device Identifier Shelf Expiration Date Model / Serial / Lot Ankle Reconstruction Ankle Vertebrea Replacement Spine Lumbar Vertebrae Replacement Neck Insurance [facility] [employer] MEDICARE ADVANTAGE Care Teams Banquet Director Relationship Specialty Start Date End Date Dyllan Goldberg MD PCP - General Internal Medicine 05/01/20
--- OUTSIDE RECORDS SUMMARY | 2025-06-14 11:40 | XMS_ITS | Clinical Summary ---
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
--- OUTSIDE RECORDS SUMMARY | 2025-06-14 11:41 | XMS_ITS | Encounter Summary ---
Author Organization [facility] Healthcare Address [address] [place] [address] Care Team Providers Care Landscaper Name Role Phone Dyllan Goldberg MD Primary Care Provider [phone] Encounter Details Date Type Department Care Team (Late st Contact Info) Description 07/09/2024 Telephone [facility] Radiology [address] [facility] [address] [place] [address] Sade Nova, [place] Social History [...] on filedocumented in this encounter Care Teams Landscaper Relationship Specialty Start Date End Date Dyllan Goldberg MD PCP - General Internal Medicine 05/01/20 documented as of this encounter
--- OUTSIDE RECORDS SUMMARY | 2025-06-14 11:41 | XMS_ITS | Data Portability ---
Author Organization [facility] Address [address] [place] [address] Care Team Providers Care Silver Solution Mixer Name Role Phone MYRONRembertoLAZARO Primary Care Provider [phone] Assessment No assessment recorded. Plan of Treatment Reminders Order Date Submit Date Provider Last Modified By Organization Details Last Modified Time Details Appointments None recorded. Lab CBC w/ auto diff 2019 020 [email or web address] [facility] ([facility]), [address], [place], [address], 0 15:35:12 CMP, serum or plasma 2019 020 [email or web address] [facility] ([facility]), [address], [place], [address], 0 15:35:12 phosphorus , serum or plasma 2019 020 [email or web address] [facility] ([facility]), [address], [place], [address], 0 15:35:12 TSH, serum or plasma 2019 020 [email or web address] [facility] ([facility]), [address], [place], [address], 0 15:35:13 vitamin D, 25-hydroxy , total, serum 2019 [email or web address] [facility] ([facility]), [address], [place], [address], 0 15:35:13 lipid panel, serum 2019 [email or web address] [facility]), [address], [place], [address], 0 15:35:13 HbA1c (hemoglobi n A1c), blood 2019 [email or web address] [facility] ([facility]), [address], [place], [address], 0 15:35:13 Referral None recorded. Procedures None recorded. Surgeries None recorded. Imaging US, breast, bilateral 2019 [facility], [address] [place] [address] [address], [place], [address], 0 12:21:47 DEXA, axial skeleton + vertebral fracture assessment 2019 [facility] Not available 0 14:48:42 Medication Orders estradiol 0.5 mg tablet 2019 [id number], [address], [place], [place], [id number], 0 10:52:15 Patient TargetsNo targets recorded. Patient Instructions Encounter Date Encounter Id Patient Instructions Last Modified By Organization Details Last Modified Time 04/10/2020 [id number] [email or web address] Not available 10:57:11 Reason for Referral None Reported. Results Created Date Observation Date Name Description Value Unit Range Abnormal Flag Note LastModifiedBy Organization Detail LastModifiedTime 04/23/20 20 04/23/2020 US, breas t, bilat eral No observ ation record ed. [email or web address] [facility] [address], [place], [address], 04/28/2020 15:43:11 05/06/20 20 04/23/2020 DEXA, axial skele ton + verte bral fract ure asses sment No observ ation record ed. layran [facility] [address], [place], [address], 05/07/2020 16:09:20 Result Notes None recorded. Problems Name Problem SNOMED Code Status Onset Date Resolution Date Notes Provider Name and Address Organization Details Recorded Time Adult health examinati on Active 2014 ROUTINE MEDICAL EXAM;Recor ded Elsewhere: No Locatio n: [facility] rce: EHR Chroni c: N Practice ID: 0001 Billa ble Time: 08:30:00 AM Not Available [facility] 0 15:05:50 Specializ ed medical examinati on Active 2014 Routine gynecologi jaylan examinatio n;Practice ID: 0001 Not Available [facility] 0 15:05:50 Urinary tract infectiou s disease 06905279 Active 2014 URIN TRACT INFECTION NOS;Practi ce ID: 0001 Not Available [facility] 0 15:05:50 Herpetic vulvovagi nitis 81066034 Active 2015 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] ulceration ;Recorded Elsewhere: No Locatio n: [facility] rce: EHR Chroni c: N Practice ID: 0001 Billa ble Time: 10:15:00 AM Not Available [facility] 0 15:05:50 Body mass index 25-29 - overweigh t 848156434 Active 2015 Body mass index (BMI) 25.0-25.9, adult;Marlo rded Elsewhere: No Locatio n: [facility] rce: EHR Chroni c: N Practice ID: 0001 Billa ble Time: 02:00:00 PM Not Available [facility] 0 15:05:50 Blood leukocyte number above reference range 081050291 Active 2016 Elevated white blood cell count, unspecifie d;Recorded Elsewhere: No Locatio n: [facility] rce: EHR Chroni c: N Practice ID: 0001 Billa ble Time: 01:00:00 PM Not Available [facility] 0 15:05:49 Human papilloma virus screening Active 2016 Encounter for screening for human papillomav irus (HPV);Marlo rded Elsewhere: No Locatio n: [facility] rce: EHR Chroni c: N Practice ID: 0001 Billa ble Time: 01:00:00 PM Not Available [facility] 0 15:05:50 Screening for malignant neoplasm of cervix Active 2016 Screening for malignant neoplasms of the cervix;Rec orded Elsewhere: No Locatio n: [facility] rce: EHR Chroni c: N Practice ID: 0001 Billa ble Time: 01:00:00 PM Not Available [facility] 0 15:05:[address] Concept Active 2016 Encounter for general adult medical exam w abnormal findings;P ractice ID: 0001 Not Available [facility] 0 15:05:50 Reduced libido 6580710 Active 2017 Decreased sexual desire;Rec orded Elsewhere: No Locatio n: [facility] rce: EHR Chroni c: N Practice ID: 0001 Billa ble Time: 11:00:00 AM Not Available [facility] 0 15:05:49 Screening for malignant neoplasm of rectum Active 2017 Encounter for screening for malignant neoplasm of rectum;Pra ctice ID: 0001 Not Available [facility] 0 15:05:[address] Concept Active 2017 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 Procedures Surgical History Date Name Laterality Status Provider Name and Address Organization Details Recorded Time 07/20/20 17 Date of Last Pap Smear completed Ann Yamilex [facility] 04/09/2020 15:33:06 08/15/18 85 Total Hysterectomy completed Julissa Lilly [facility] 02/25/2020 15:11:47 Imaging Results None recorded. Procedure Notes None recorded. Medical Equipment None Reported. Allergies Allergen ID Allergen Name Allergen Category Reaction Reaction Severity Criticality Documentation Date Start Date Code Code System Note Provider Name and Address Organization Details Recorded Time 1309 Product containin g penicilli n (product) medicatio n Not available Not available Not available 02/25/2020 40410 8001 SNOMED Julissa [facility] 0 15:11:02 1310 Substance with sulfonami de structure and antibacte rial mechanism of action (substanc e) medicatio n Not available Not available Not available 02/25/2020 58612 8003 SNOMED [facility] 0 15:11:07 Medications Name Sig Start Date Stop Date Status Note LastModified by Organization Details LastModified Time tretinoin 0.1 % topical cream active Not Available Not Available Not Available Diflucan 150 mg tablet take 1 tablet by oral route once 10/05 completed Prescrib ed Elsewher e: No Locat ion: [facility] odify By: aileeny Fco berrios DateTime [...] Elsewher e: No Locat ion: [facility] odify By: elliot null DateTime : 04/04/20 15 08:30:00 AM Not Available Not Available Not Available terbinafi ne HCl 250 mg tablet active Not Available Not Available Not Available estradiol 1 mg tablet TAKE 1 TABLET BY ORAL ROUTE EVERY DAY 2018 active Prescrib ed Elsewher e: No Locat ion: Talisha hobbs [facility] odify By: pancho null DateTime : 09/11/19 19 04:06:42 PM Not Available Not Available Not Available trazodone 150 mg tablet take 1 tablet by oral route every day at bedtime 10/05 completed Prescrib ed Elsewher e: Yes Loca tion: Talisha hobbs [facility] odify By: adriane Encounte r DateTime : 04/04/20 15 08:30:00 AM Not Available Not Available Not Available buspirone 10 mg tablet take 1 tablet by oral route 3 times every day 10/05 completed Prescrib ed Elsewher e: Yes Loca tion: Talisha hobbs [facility] odify By: adriane Encounte r DateTime : 04/04/20 15 08:30:00 AM Not Available Not Available Not Available clonazepa m 2 mg tablet take 1 tablet by oral route 3 times every day 10/05 completed Prescrib ed Elsewher e: Yes Loca tion: Talisha hobbs [facility] odify By: adriane Encounte r DateTime [...] e: Yes Loca tion: Talisha hobbs [facility] odify By: letty gray DateTime : 04/04/20 15 08:30:00 AM Not Available Not Available Not Available hydroxyzi ne HCl 10 mg tablet 10/05 completed Prescrib ed Elsewher e: Yes Loca tion: Talisha hobbs [facility] odify By: adriane Eagle r DateTime [...] e: Yes Loca tion: Talisha hobbs [facility] odify By: adriane Eagle r DateTime : 04/04/20 15 08:30:00 AM Not Available Not Available Not Available sertralin e 50 mg tablet take 1 tablet by oral route every day 10/05 completed Prescrib ed Elsewher e: Yes Loca tion: Talisha hobbs [facility] odify By: adriane Eagle r DateTime : 04/04/20 15 08:30:00 AM Not Available Not Available Not Available prazosin 2 mg capsule take 1 capsule by oral route 3 times every day 10/05 completed Prescrib ed Elsewher e: Yes Loca tion: Catherine faby [facility] odify By: adriane Eagle r DateTime [...] e: Yes Loca tion: Talisha hobbs [facility] odify By: adriane Encoungenesis r DateTime : 04/04/20 08:30:00 AM Not Available Not Available Not Available Latuda 60 mg tablet take 1 tablet by oral route every day with food (at least 350 calories ) 10/05 completed Prescrib ed Elsewher e: Yes Loca tion: Talisha hobbs [facility] odify By: adriane Encounte r DateTime : 04/04/20 15 08:30:00 AM Not Available Not Available Not Available Biotin Plus Keratin 10,000 mcg-100 mg tablet 10/05 completed Prescrib ed Elsewher e: Yes Loca tion: Talisha hobbs [facility] odify By: adriane Encounte r DateTime : 04/04/20 15 08:30:00 AM Not Available Not Available Not Available duloxetin e 40 mg capsule,d elayed release take 1 tablet by oral route every day 07/25 completed Prescrib ed Elsewher e: Yes [facility] By: rudi gray DateTime : [...] Updated DateTime 04/10/2020 176.53 cm 24.9 kg/m2 27827.3 g 105/65 mm[Hg] Ann Kaminski [facility] 04/10/2020 10:23:24 Social History None recorded. Functional Status Question Answer Note LastModified by Organizat ion Details LastModified Time What is your level of alcohol consumption? Occasional [id number] Information not available 06/17/2020 What is your exercise level? Heavy [id number] Information not available 06/17/2020 Mental Status None recorded. Family History Nothing Reported. Medical History Condition Response History of STI Gynecological History Statement/Question Response STIs/STDs Date of Last Pap Smear 07/20/2017 Obstetrics History GPAL:G 2 P 0 0 0 0 Past Encounters Encounter ID Performer Location Encounter Start Date Encounter Closed Date Diagnosis/Indication Diagnosis SNOMED-CT Code Diagnosis ICD10 Code Diagnosis IMO Codes Diagnosis Note [id number] JOAO [facility] [address] [address] 04/10/2020 10:14:33 04/10/2020 11:12:46 Gynecologic examination 16378583 Z01.419 Take Calcium with Vitamin D 12-1500mg daily. Do monthly self breast exams. It is advised to get annual flu shot in the fall and she could obtain at [facility] or [facility]. If you haven't received the Tdap vaccine [...] US for breast screening. Screening for osteoporosis 752079636 Z13.820 Total Hyst for non-cancer indication s. Adult [facility] th examination 967426510 Z00.00 Menopausal syndrome 1237 61885 N95.9 We discussed Menopausal Hormone therapy (MHT) [...] migraine w/ visual changes, breast cancer dx, PA/stroke, DVT/PE, Endometria l cancer. Please contact office [...] ion of her HRT. Screening mammography 24 639298 Z12.31 Health Concerns Section Related Observation LastModified by Organization Detai ls LastModified Time None Recorded Concern Status LastModified by Organization Details LastModified Time None Recorded Advance Directives Directive None Recorded Payers Insurance Date Sequence Insurance Name Policy Number Policy Keen Covered Member ID Keen Member ID Guarantor Name 04/10/2020 1 [facility] [id number] [id number] Notes Date Note Type Note Provider Name [...] loss. Anusha Jack, JOAO-BC [address], [place], [address], [facility] 04/10/2020 10:58:04 OBGyn Episode Ob Episode Information Episode Created Date Number of Fetuses Patient Bloodtype Patient rh Status Prepregnancy Weight lbs Domestic Partner Domestic Partner Phone Father Name Gaggerman Status 04/09/20 20 1 CLOSED Fetus Data [...] Domestic Partner Domestic Partner Phone Father Name Gaggerman Status 04/09/20 20 1 CLOSED Fetus Data [...]
== END 2025-06-14 11:27 | disposition home or self-care (01) ==
LOC: ANHIMG 11:31
PROVIDERS: PCP Internal Medicine; Visit Provider Internal Medicine
DX: S99.921A Unspecified injury of right foot, initial encounter (principal); X58.XXXA Exposure to other specified factors, initial encounter; M79.89 Other specified soft tissue disorders
CPT/HCPCS: 73700

== ENCOUNTER 2025-06-28 09:12 | Outpatient (CLI) | payer OTHER, SELFPAY ==
--- NOTE | ~2025-06-28 | DEXA_ITS ---
Bone Density Report Name: JARAD OBRIEN Age: 69 Sex: Female Ethnicity: White Date of : 1955 Indication: postmenopausal; screening for osteoporosis; height loss; hysterectomy; Referring Provider: ARIANNA HAN Study: Bone densitometry was performed. Exam Date: June 28, 2025 Accession number: [id number] Bone Density: Region BMD T-score Z-score Classification AP Spine(L1-L4) 0.989 -0.5 1.4 Normal Femoral Neck (Left) 0.724 -1.1 0.5 Osteopenia Total Hip (Left) 1.047 0.9 2.2 Normal Femoral Neck (Right) 0.829 -0.2 1.5 Normal Total Hip (Right) 1.123 1.5 2.9 Normal Total Hip Mean 1.085 1.2 2.6 Normal World Health Organization criteria for BMD impression classify patients as: Normal (T-score at or above -1.0), Osteopenia (T-score between -1.0 and -2.5), or Osteoporosis (T-score at or below -2.5). 10-year Fracture Risk(1): Major Osteoporotic Fracture 8.3% Hip Fracture 0.8% Reported Risk Factors: [place] (), Neck BMD=0.724, BMI=23.1 (1) FRAX(R) Version 3.08. Fracture probability calculated for an untreated patient. Fracture probability may be lower if the patient has received treatment. Previous Exams: Region Exam Age BMD T-score BMD Change BMD Change Date g/cm2 vs Baseline vs Previous Total Hip(Left) 06/28/2025 69 1.047 0.9 -0.033 (-3.0%) -0.033 (-3.0%) 04/23/2020 64 1.080 1.1 Total Hip(Right) 06/28/2025 69 1.123 1.5 -0.008 (-0.7%) -0.008 (-0.7%) 04/23/2020 64 1.131 1.5 *Denotes significance at 95% confidence level, LSC for Total Hip = 0.027 g/cm2 Clinical Information Provided by Patient: Has used the following medications: HRT (i.e. estrogen/hormone therapy), Vitamin D, Calcium, mtv Has the following medical conditions: Hysterectomy Patient maximum height was 72.0 Menopause Age: 28 Onset of menses at age 15 Number of children 2 Missed period for more than 6 months in a row Impression: The patient has low bone mass, based on the Left Femoral Neck T-score. The patient has an estimated ten-year risk of hip fracture of 0.8% and an estimated ten-year risk of major fracture of 8.3%, based on the WHO FRAX algorithm. The BMD for the Total Hip(Left) decreased, changing by -3.0% since the last DXA exam. Discussion: BONE DENSITY IS LOW AT ONE OR MORE SKELETAL SITES. This patient's lowest T-score is low at one or more skeletal sites. It meets the World Health Organization's (WHO) criteria for ?low bone mass? (T-score between -1.0 and -2.5). The patient's 10-year risk of fracture as calculated by FRAX is less than the threshold where pharmacological therapy is recommended by the National Osteoporosis Foundation (NOF). However, all treatment decisions require clinical judgment and consideration of individual patient factors, including patient preferences, comorbidities, previous drug use, risk factors not captured in the FRAX model (e.g., frailty, falls, vitamin D deficiency, increased bone turnover, interval significant decline in bone density) and possible under or overestimation of fracture risk by FRAX. The patient should follow a healthful lifestyle (good nutrition with adequate calcium and vitamin D, and appropriate weight-bearing exercise). Follow-Up: Consider repeating this study in 2 years to reassess this patient's status, or sooner if there is some new clinical indication. Reported by: ALISSA on 06/28/2025 9:59:00 AM. Reviewed, dictated and finalized at location A.
== END 2025-06-28 09:13 | disposition home or self-care (01) ==
LOC: ANHFOHIMG 09:17
PROVIDERS: PCP Internal Medicine; Visit Provider Internal Medicine
DX: E21.0 Primary hyperparathyroidism (principal); M85.88 Other specified disorders of bone density and structure, other site; R79.89 Other specified abnormal findings of blood chemistry; Z68.23 Body mass index [BMI] 23.0-23.9, adult; E78.2 Mixed hyperlipidemia; Z79.890 Hormone replacement therapy; Z13.820 Encounter for screening for osteoporosis
CPT/HCPCS: 77080